=== PATIENT | male | born 1940 | race Caucasian/White ===

== ENCOUNTER → 2020-03-15 | Outpatient (CLI) | payer MEDICARE ==
[2020-03-15 12:21] LABS: Basophils # (A) 0.1 k/uL (0-0.2); Basophils % (A) 1 %; Eosinophils # (A) 0.2 k/uL (0-0.7); Eosinophils % (A) 3 %; HCT 50.3 % (39.0-53.0); HGB 16.4 gm/dL (13.0-17.5); Lymphocytes # (A) 1.5 k/uL (1.0-4.8); Lymphocytes % (A) 17 %; MCH 29.9 pg (25.0-35.0); MCHC 32.6 g/dL (31.0-37.0); MCV 91.5 fL (80.0-100.0); Mean Platelet Volume 7.1; Monocytes # (A) 0.7 k/uL (0-1.0); Monocytes % (A) 8 %; Neutrophils # (A) 6.1 k/uL (1.3-7.7); Neutrophils % (A) 69 %; Platelet Count 138 k/uL (150-450); WBC 8.8 k/uL (3.8-10.6)
[2020-03-15 18:51] LABS: African American GFR (CKD) 67.2 (60.0-200.0); Albumin 4.1 g/dL (3.80-4.90); Albumin/Globulin Ratio 1.71 (1.60-3.17); Anion Gap 7.9 mmol/L (4.00-12.00); BUN/Creat Ratio 25.83 Ratio (12.00-20.00); Calcium 9.5 mg/dL (8.7-10.3); Carbon Dioxide 27.1 mmol/L (21.6-31.8); Chol/HDL Ratio 3.89; Globulin 2.4 g/dL (1.6-3.3); LDL Cholesterol,Calculated 129.2 mg/dL (0.0-131.0); Potassium 4.5 mmol/L (3.5-5.5); Total Bilirubin 0.9 mg/dL (0.2-1.2); Total Protein 6.5 g/dL (6.2-8.2); VLDL Calculation 23.8 mg/dL (5.00-40.00)
[2020-03-15 18:58] LABS: PSA Annual Screen 1.6 ng/mL (0.0-4.0)
== END | disposition home or self-care (01) ==
LOC: LABWHC1 10:58
PROVIDERS: ATTEND Family Medicine
DX: I10 Essential (primary) hypertension (principal); I48.91 Unspecified atrial fibrillation; Z95.3 Presence of xenogenic heart valve; E78.5 Hyperlipidemia, unspecified; R35.1 Nocturia
CPT/HCPCS: 80061; 80053; 85025; 36415; G0103

== ENCOUNTER 2020-04-15 16:58 | Emergency (ER) | payer MEDICARE ==
[2020-04-15] MEDS ORDERED: ALBUTEROL HFA INHALER INHALATION STA (17:31)
[2020-04-15] MEDS ORDERED: ACETAMINOPHEN TAB 500 MG TAB PO STA (17:32)
--- NOTE | 2020-04-15 17:33 | ED ---
SOB HPI - General Chief Complaint: Shortness of Breath Stated Complaint: sob Source: patient Mode of arrival: wheelchair Limitations: no limitations - History of Present Illness Initial Comments: Patient is a 79-year-old male with past mental history of hypertension, aortic valve repair who presents emergency Department with reported cough, shortness of breath and fever. Patient states that his symptoms started today. He has been suffering from a nonproductive bronchospastic cough. He denies any chest pain. No sick contacts with similar symptoms. Denies ear pain, sore throat. No abdominal pain. Denies nausea, vomiting or diarrhea. Does admit to previous history of aortic valve replacement and mitral valve [place] [address] Castillo. He had one episode of heart failure following the replacement which required thoracentesis however since has had no issues with heart failure. He also admits to history of A. fib and sees Dr. Kelly. Reports he is supposed to be on Coumadin however stopped taking it 3 years ago. 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 - Related Data Home Medications Medication Instructions Recorded Confirmed Aspirin 325 mg PO TID 04/15/20 04/15/20 Diltiazem Cd [Cardizem Cd] 180 mg PO DAILY 04/15/20 04/15/20 Multivitamins, Thera [Multivitamin 1 tab PO DAILY 04/15/20 04/15/20 (formulary)] Sotalol [Betapace] 60 mg PO DAILY 04/15/20 04/15/20 guaiFENesin-DM 100-10MG/5ML 30 ml PO Q6H PRN 04/15/20 04/15/20 [Robitussin DM] Allergies Allergy/AdvReac Type Severity Reaction Status Date / Time No Known Allergies Allergy Verified 04/15/20 18:41 Review of Systems ROS Statement: Those systems with pertinent positive or pertinent negative responses have been documented in the HPI. ROS Other: All systems not noted in ROS Statement are negative. Past Medical History Past Medical History: Hypertension History of Any Multi-Drug Resistant Organisms: None Reported Past Surgical History: Coronary Bypass/CABG, Hernia Repair Past Psychological History: No Psychological Hx Reported Smoking Status: Never smoker Past Alcohol Use History: Occasional Past Drug Use History: None Reported General Exam Limitations: no limitations General appearance: alert, in no apparent distress Head exam: Present: atraumatic, normocephalic, normal inspection Eye exam: Present: normal appearance, PERRL, EOMI. Absent: scleral icterus, conjunctival injection, periorbital swelling ENT exam: Present: normal exam, mucous membranes moist Neck exam: Present: normal inspection. Absent: tenderness, meningismus, lymphadenopathy Respiratory exam: Present: normal lung sounds bilaterally, other (bronchospastic cough). Absent: respiratory distress, wheezes, rales, rhonchi, stridor Cardiovascular Exam: Present: bradycardia, irregular rhythm, normal heart sounds. Absent: systolic murmur, diastolic murmur, rubs, gallop, clicks GI/Abdominal exam: Present: soft, normal bowel sounds. Absent: distended, tenderness, guarding, rebound, rigid Extremities exam: Present: normal inspection, full ROM, normal capillary refill. Absent: tenderness, pedal edema, joint swelling, calf tenderness Back exam: Present: normal inspection Neurological exam: Present: alert, oriented X3, CN II-XII intact Psychiatric exam: Present: normal affect, normal mood Skin exam: Present: warm, dry, intact, normal color. 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 Currently speaking with [facility] for transfer 04/15/20 21:34 Medical Decision Making - Medical Decision Making Upon arrival the patient is placed into room 8. A thorough history and physical exam was performed. Peripheral IV is established. Laboratory studies were conducted. D-dimer is 4.75. BNP 1460. Covid is detected. Because of the patient's elevated d-dimer I did recommend CT of the patient's chest as he is preferring to go home for the remainder of his treatment. CT demonstrates no evidence of pulmonary embolism. Patchy bilateral pulmonary predominantly interstitial infiltrates. Mild atelectasis left posterior lung base. Masses in the posterior aspect of the left atrium. Possibilities of cardiac tumor or large blood clot. As the patient is in A. fib with controlled rate I did lesia mmend heparinization and hospital admission. Patient is requesting transfer to 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 I did call discuss the case with Dr. Feliz who is tower control operator instrument mechanic weapons system. I also spoke with Dr. Matthew who accepted transfer. Patient remained in A. fib with a controlled rate and was transferred in stable condition - Lab Data Result diagrams: 04/15/20 17:57 04/15/20 17:57 Lab Results 04/15/20 04/15/20 04/15/20 Range/Units 17:38 17:57 17:57 WBC 8.4 (3.8-10.6) k/uL RBC 5.17 (4.30-5.90) m/uL Hgb 14.7 (13.0-17.5) gm/dL Hct 45.4 (39.0-53.0) % MCV 87.8 (80.0-100.0) fL MCH 28.4 (25.0-35.0) pg MCHC 32.4 (31.0-37.0) g/dL RDW 13.6 (11.5-15.5) % Plt Count 149 L (150-450) k/uL MPV 7.7 Neutrophils % 80 % Lymphocytes % 9 % Monocytes % 8 % Eosinophils % 1 % Basophils % 0 % Neutrophils # 6.8 (1.3-7.7) k/uL Lymphocytes # 0.8 L (1.0-4.8) k/uL Monocytes # 0.7 (0-1.0) k/uL Eosinophils # 0.0 (0-0.7) k/uL Basophils # 0.0 (0-0.2) k/uL PT 10.8 (9.0-12.0) sec INR 1.1 (<1.2) APTT 25.3 (22.0-30.0) sec D-Dimer 4.75 H (<0.60) mg/L FEU Sodium (137-145) mmol/L Potassium (3.5-5.1) mmol/L Chloride (98-107) mmol/L Carbon Dioxide (22-30) mmol/L Anion Gap mmol/L BUN (9-20) mg/dL Creatinine (0.66-1.25) mg/dL Est GFR (CKD-EPI)AfAm (>60 ml/min/1.73 sqM) Est GFR (CKD-EPI)NonAf (>60 ml/min/1.73 sqM) Glucose (74-99) mg/dL Plasma Lactic Acid Grady (0.7-2.0) mmol/L Calcium (8.4-10.2) mg/dL Total Bilirubin (0.2-1.3) mg/dL AST (17-59) U/L ALT (4-49) U/L Alkaline Phosphatase (38-126) U/L Lactate Dehydrogenase (313-618) U/L Troponin I (0.000-0.034) ng/mL NT-Pro-B Natriuret Pep pg/mL Total Protein (6.3-8.2) g/dL Albumin (3.5-5.0) g/dL Serum Alcohol mg/dL Influenza Type A (PCR) Not Detected (Not Detectd) Influenza Type B (PCR) Not Detected (Not Detectd) RSV (PCR) Not Detected (Not Detectd) SARS-CoV-2 (PCR) Detected A (Not Detectd) 04/15/20 04/15/20 04/15/20 Range/Units 17:57 17:57 17:57 WBC (3.8-10.6) k/uL RBC (4.30-5.90) m/uL Hgb (13.0-17.5) gm/dL Hct (39.0-53.0) % MCV (80.0-100.0) fL MCH (25.0-35.0) pg MCHC (31.0-37.0) g/dL RDW (11.5-15.5) % Plt Count (150-450) k/uL MPV Neutrophils % % Lymphocytes % % Monocytes % % Eosinophils % % Basophils % % Neutrophils # (1.3-7.7) k/uL Lymphocytes # (1.0-4.8) k/uL Monocytes # (0-1.0) k/uL Eosinophils # (0-0.7) k/uL Basophils # (0-0.2) k/uL PT (9.0-12.0) sec INR (<1.2) APTT (22.0-30.0) sec D-Dimer (<0.60) mg/L FEU Sodium 134 L (137-145) mmol/L Potassium 4.5 (3.5-5.1) mmol/L Chloride 105 (98-107) mmol/L Carbon Dioxide 23 (22-30) mmol/L Anion Gap 6 mmol/L BUN 26 H (9-20) mg/dL Creatinine 1.13 (0.66-1.25) mg/dL Est GFR (CKD-EPI)AfAm 72 (>60 ml/min/1.73 sqM) Est GFR (CKD-EPI)NonAf 63 (>60 ml/min/1.73 sqM) Glucose 110 H (74-99) mg/dL Plasma Lactic Acid Grady 1.1 (0.7-2.0) mmol/L Calcium 8.6 (8.4-10.2) mg/dL Total Bilirubin 0.6 (0.2-1.3) mg/dL AST 31 (17-59) U/L ALT 18 (4-49) U/L Alkaline Phosphatase 68 (38-126) U/L Lactate Dehydrogenase 636 H (313-618) U/L Troponin I 0.032 (0.000-0.034) ng/mL NT-Pro-B Natriuret Pep pg/mL Total Protein 6.4 (6.3-8.2) g/dL Albumin 3.5 (3.5-5.0) g/dL Serum Alcohol <10 mg/dL Influenza Type A (PCR) (Not Detectd) Influenza Type B (PCR) (Not Detectd) RSV (PCR) (Not Detectd) SARS-CoV-2 (PCR) (Not Detectd) 04/15/20 Range/Units 17:57 WBC (3.8-10.6) k/uL RBC (4.30-5.90) m/uL Hgb (13.0-17.5) gm/dL Hct (39.0-53.0) % MCV (80.0-100.0) fL MCH (25.0-35.0) pg MCHC (31.0-37.0) g/dL RDW (11.5-15.5) % Plt Count (150-450) k/uL MPV Neutrophils % % Lymphocytes % % Monocytes % % Eosinophils % % Basophils % % Neutrophils # (1.3-7.7) k/uL Lymphocytes # (1.0-4.8) k/uL Monocytes # (0-1.0) k/uL Eosinophils # (0-0.7) k/uL Basophils # (0-0.2) k/uL PT (9.0-12.0) sec INR (<1.2) APTT (22.0-30.0) sec D-Dimer (<0.60) mg/L FEU Sodium (137-145) mmol/L Potassium (3.5-5.1) mmol/L Chloride (98-107) mmol/L Carbon Dioxide (22-30) mmol/L Anion Gap mmol/L BUN (9-20) mg/dL Creatinine (0.66-1.25) mg/dL Est GFR (CKD-EPI)AfAm (>60 ml/min/1.73 sqM) Est GFR (CKD-EPI)NonAf (>60 ml/min/1.73 sqM) Glucose (74-99) mg/dL Plasma Lactic Acid Grady (0.7-2.0) mmol/L Calcium (8.4-10.2) mg/dL Total Bilirubin (0.2-1.3) mg/dL AST (17-59) U/L ALT (4-49) U/L Alkaline Phosphatase (38-126) U/L Lactate Dehydrogenase (313-618) U/L Troponin I (0.000-0.034) ng/mL NT-Pro-B Natriuret Pep 1460 pg/mL Total Protein (6.3-8.2) g/dL Albumin (3.5-5.0) g/dL Serum Alcohol mg/dL Influenza Type A (PCR) (Not Detectd) Influenza Type B (PCR) (Not Detectd) RSV (PCR) (Not Detectd) SARS-CoV-2 (PCR) (Not Detectd) - EKG Data EKG Comments: EKG demonstrates A. fib with a slow ventricular rate. Rate of 59. QRS 118. QTC 397. Incomplete left bundle-branch block. Negative for sgarbossa criteria Disposition Clinical Impression: Left atrial mass, COVID-19, Elevated d-dimer Disposition: OTHER INSTITUTION NOT DEFINED Is patient prescribed a controlled substance at d/c from ED?: No Referrals: Jimenez Maher [Primary Care Provider] - 1-2 days Time of Disposition: 21:41 - Out of Hospital Transfer - Req. Specs Out of Hospital Transfer - Requested Specifics: Other Emergency Center ([facility])
[2020-04-15 18:16] LABS: Basophils % (A) 0 %; Eosinophils % (A) 1 %; HCT 45.4 % (39.0-53.0); HGB 14.7 gm/dL (13.0-17.5); Lymphocytes # (A) 0.8 k/uL (1.0-4.8); Lymphocytes % (A) 9 %; MCH 28.4 pg (25.0-35.0); MCHC 32.4 g/dL (31.0-37.0); MCV 87.8 fL (80.0-100.0); Mean Platelet Volume 7.7; Monocytes # (A) 0.7 k/uL (0-1.0); Monocytes % (A) 8 %; Neutrophils # (A) 6.8 k/uL (1.3-7.7); Neutrophils % (A) 80 %; Platelet Count 149 k/uL (150-450); RBC 5.17 m/uL (4.30-5.90); RDW 13.6 % (11.5-15.5); WBC 8.4 k/uL (3.8-10.6)
[2020-04-15 18:30] LABS: ALT 18 U/L (4-49); AST 31 U/L (17-59); African American GFR (CKD) 72 (>60 ml/min/1.73 sqM); Albumin 3.5 g/dL (3.5-5.0); Alcohol <10 mg/dL; Alkaline Phosphatase 68 U/L (38-126); Anion Gap 6 mmol/L; Blood Urea Nitrogen 26 mg/dL (9-20); Calcium 8.6 mg/dL (8.4-10.2); Carbon Dioxide 23 mmol/L (22-30); Chloride 105 mmol/L (98-107); Glucose 110 mg/dL (74-99); LDH 636 U/L (313-618); Non-African American GFR(CKD) 63 (>60 ml/min/1.73 sqM); Potassium 4.5 mmol/L (3.5-5.1); Sodium 134 mmol/L (137-145); Total Bilirubin 0.6 mg/dL (0.2-1.3); Total Protein 6.4 g/dL (6.3-8.2)
--- NOTE | 2020-04-15 18:37 | XR ---
EXAMINATION TYPE: XR chest 1V portable DATE OF EXAM: 04/15/2020 COMPARISON: NONE HISTORY: Fever TECHNIQUE: Single view FINDINGS: Heart is normal. Lungs are clear of consolidation. There are no hilar masses. There are mohini rnal wires. Costophrenic angles are clear. Bony thorax is intact. There is slight coarsening of inter stitial markings right lower lobe. IMPRESSION: Mild pulmonary fibrotic changes. No heart failure or pulmonary consolidation.
[2020-04-15 18:56] LABS: INR 1.1 (<1.2); Partial Thromboplastin Time 25.3 sec (22.0-30.0); Prothrombin Time 10.8 sec (9.0-12.0)
[2020-04-15 19:15] LABS: D-Dimer 4.75 mg/L FEU (<0.60)
[2020-04-15 19:28] VITALS: TEMP 99.8
--- NOTE | 2020-04-15 20:28 | CT ---
EXAMINATION TYPE: CT chest angio for PE DATE OF EXAM: 04/15/2020 COMPARISON: None HISTORY: Elevated d-dimer, cough and covid+. CT DLP: 572 mGycm Automated exposure control for dose reduction was used. CONTRAST: Performed with IV Contrast, patient injected with 80ml mL of Isovue 370. There are 3-D post processed images. There are a few enlarged paratracheal lymph nodes that measure up to 12 mm. Thoracic aorta is atherom atous. 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 There is normal contrast opacification of the pulmonary arteries. There are no filling defects. There are no hilar masses. Heart size is fairly normal. There is no pericardial effusion. There is patchy interstitial infiltrates in both lungs scattered in the upper and lower lobes. There is no solid pulmonary mass. There is a 4 x 2 cm mass within the left atrium on the posterior wall. Left atrium has normal size. There is degenerative spurring in the thoracic spine. There is no compression fracture. I see no bony destructive process. There are sternal wires. There is cardiac valve surgery. IMPRESSION: No evidence of pulmonary embolism. Patchy bilateral pulmonary predominantly interstitial infiltrates. Mild atelectasis left posterior josy ng base. Mass within the posterior aspect of the left atrium. I would consider possibilities of cardiac tumor or large blood clot.
[2020-04-15] MEDS ORDERED: HEPARIN SODIUM,PORCINE 5,000 UNIT/ML 1 ML VIAL IV PRN (21:11)
[2020-04-15] MEDS ORDERED: HEPARIN SODIUM,PORCINE 5,000 UNIT/ML 1 ML VIAL IV ONE (21:11)
[2020-04-15] MEDS ORDERED: SODIUM CHLORIDE 0.9% 1,000 ML IV ONE (21:12)
[2020-04-15] MEDS ORDERED: HEPARIN SOD,PORK IN 0.45% NACL 25,000 UNIT in 0.45% NACL 1 250ML.BAG IV SCH (21:15)
[2020-04-15 23:00] VITALS: BP 106/65; PULSE 65; RESP 16
== END 2020-04-15 23:05 | disposition other institution (70) ==
LOC: EC 16:58
DX: U07.1 COVID-19 (principal); R79.89 Other specified abnormal findings of blood chemistry; I31.8 Other specified diseases of pericardium; J98.11 Atelectasis; I48.91 Unspecified atrial fibrillation; I10 Essential (primary) hypertension; Z95.1 Presence of aortocoronary bypass graft; Z79.82 Long term (current) use of aspirin; Z79.899 Other long term (current) drug therapy; Z95.2 Presence of prosthetic heart valve
CPT/HCPCS: 36415; 93005; 85379; 83880; 80053; 83605; 83615; 84484; 85025; 85610; 85730; 84145; 87636; 71045; 71275; 99285; 96365; 96366; 96376; G0480; J1644 ×2; Q9967; 80320

== ENCOUNTER → 2020-05-25 | Outpatient (CLI) | payer MEDICARE ==
--- NOTE | 2020-05-25 16:31 | XR ---
EXAMINATION TYPE: XR lumbar spine 2 or 3V DATE OF EXAM: 05/25/2020 Comparison: None Clinical History: 79 year-old male M54.5 CHRONIC LOW BACK PAIN Findings: 1.8 cm calcification in the right side of the pelvis. Degenerated levoconvex rotatory curvature cente red along the upper lumbar spine. Moderate degenerative disc disease throughout, more advanced at L2/ L3 with loss of disc height and vacuum phenomenon. Endplate spondylosis throughout. Hypertrophic face t arthropathy with grade 1 anterolisthesis L4-L5. Vertebral body heights are preserved. Impression: 1. Findings suggesting 1.8 cm right renal calculus. 2. Moderate to advanced multilevel degenerative disc disease and advanced hypertrophic facet arthropa thy throughout. 3. Degenerative grade 1 anterolisthesis L4-L5 and degenerated levoconvex curvature centered along the upper lumbar spine.
== END | disposition home or self-care (01) ==
LOC: RADXRMAIN 15:22
PROVIDERS: ATTEND Family Medicine
DX: M51.36 Other intervertebral disc degeneration, lumbar region (principal); M43.16 Spondylolisthesis, lumbar region; M47.816 Spondylosis without myelopathy or radiculopathy, lumbar region; M43.8X6 Other specified deforming dorsopathies, lumbar region; G89.29 Other chronic pain
CPT/HCPCS: 72100

== ENCOUNTER → 2020-05-31 | Outpatient (CLI) | payer MEDICARE ==
--- NOTE | 2020-05-31 11:37 | CT ---
EXAMINATION TYPE: CT abdomen pelvis wo con DATE OF EXAM: 05/31/2020 COMPARISON: None HISTORY: Renal calculus CT DLP: 1002 mGycm Examination of the solid and hollow viscera is limited given the lack of contrast. FINDINGS: LUNG BASES: No evidence for nodule. No evidence for infiltrate. LIVER/GB: The gallbladder is unremarkable. No space-occupying hepatic lesion. PANCREAS: No pancreatic mass identified. No inflammatory process seen. SPLEEN: No evidence for splenomegaly. No intrasplenic lesions seen. ADRENALS: No adrenal nodules identified. No evidence for thickening. KIDNEYS: 1.7 cm calculus lower pole right kidney. No obstructing calculi are seen at this time. Large cyst right kidney. No solid mass seen. BOWEL: Appendix has a normal appearance. No evidence of bowel obstruction. No inflammatory process. Lymph nodes: No evidence for adenopathy greater than 1 cm. Abdominal aorta: Atheromatous changes seen. No evidence for aneurysm. Genital organs: Prostate calcifications identified. Other: No significant abnormality. IMPRESSION: 1. Nonobstructing nephrolithiasis right kidney.
[2020-05-31 11:42] LABS: Calcium 9.3 mg/dL (8.4-10.2)
== END | disposition home or self-care (01) ==
LOC: RADCTMAIN 10:17
PROVIDERS: ATTEND Family Medicine
DX: N20.0 Calculus of kidney (principal)
CPT/HCPCS: 36415; 74176; 80048

== ENCOUNTER → 2020-06-12 | Outpatient (CLI) | payer MEDICARE ==
--- NOTE | 2020-06-12 23:53 | MR ---
EXAMINATION TYPE: MR lumbar spine wo con DATE OF EXAM: 06/12/2020 COMPARISON: None HISTORY: LBP, RLE weakness Multiplanar multiecho imaging of the lumbar spine was performed with no contrast. Normal alignment. There is disc space narrowing throughout the lumbar spine and more severe from L2 t o L5. There is posterior disc herniation and sequestered fragment at L3-4. Fragment is along the post erior aspect of the L3 vertebral body. There is facet arthropathy. There is resultant moderate spinal stenosis. There is no compression fracture. I see no focal bone destruction. There is a lateral disc herniation on the right side at L3-4 impinging on the neural foramen. This is best seen on T1 sagittal image 13 . The left side neural foramina are fairly well-maintained. There is no paraspinal mass. The sacroili ac joints are intact. IMPRESSION: Multilevel spondylosis. Posterior central and right side and lateral L3-4 lumbar disc herniation with neural foraminal impingement. Small sequestered fragment posterior to the L3 vertebral body extendin g into the neural foramen. No fracture.
== END | disposition home or self-care (01) ==
LOC: RADMRIMAIN 09:13
PROVIDERS: ATTEND Anesthesiology
DX: M51.26 Other intervertebral disc displacement, lumbar region (principal); M47.816 Spondylosis without myelopathy or radiculopathy, lumbar region
CPT/HCPCS: 72148

== ENCOUNTER 2021-11-03 17:52 | Inpatient (IN) | payer MEDICARE ==
[~2021-11-03 17:52] MED LIST: IV FLUID CONTINUATION 900 ML IV ONE
--- NOTE | 2021-11-03 19:33 | US ---
EXAMINATION TYPE: US venous doppler duplex LE RT DATE OF EXAM: 11/03/2021 7:20 PM COMPARISON: NONE CLINICAL HISTORY: Cold ext.. Right lower leg appears cold per patient. No redness. No swelling. Hx CAD. On blood thinners per patient. SIDE PERFORMED: Right TECHNIQUE: The lower extremity deep venous system is examined utilizing real time linear array sonog lupillo with graded compression, doppler sonography and color-flow sonography. VESSELS IMAGED: Common Femoral Vein Deep Femoral Vein Greater Saphenous Vein * Femoral Vein Popliteal Vein Small Saphenous Vein * Proximal Calf Veins (* superficial vessels) Right Leg: Negative for DVT. Incidental finding: Right prox - distal popliteal artery appears enlarged with vague/no arterial flow . IMPRESSION: No deep vein thrombosis in the right leg. 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
[2021-11-03] MEDS ORDERED: SODIUM CHLORIDE 0.9% 1,000 ML IV STA (19:50)
--- NOTE | 2021-11-03 19:54 | ED ---
Lower Extremity Injury HPI - General Chief Complaint: Extremity Injury, Lower Stated Complaint: rt leg numbness/cold to touch Time Seen by Provider: 11/03/21 19:49 Source: patient, RN notes reviewed Mode of arrival: ambulatory Limitations: no limitations - History of Present Illness Initial Comments: She presents with right leg numbness and pain, cold to touch. Patient states he woke up at 2 AM and really had a hard time walking. Patient states he lost range of motion in his right ankle and foot. Patient states is actually feeling somewhat better at this time. Note that the patient takes warfarin for atrial fibrillation. States she's been taking this appropriately. No headache, no fever or chills, no changes in vision or hearing, no sore throat or difficulty with speech, no neck pain, no chest pain or shortness of breath, no abdominal pain, no nausea or vomiting, no changes in urination or bowel movements, no numbness or tingling, , no skin rashes or lesions. - Related Data Home Medications Medication Instructions Recorded Confirmed ALPRAZolam [Xanax] 0.25 mg PO HS PRN 11/03/21 11/03/21 Cholecalciferol [Vitamin D3 (25 25 mcg PO DAILY 11/03/21 11/03/21 Mcg = 1000 Iu)] Ibuprofen [Motrin] 600 mg PO Q8HR PRN 11/03/21 11/03/21 Losartan Potassium 50 mg PO DAILY 11/03/21 11/03/21 Melatonin Unknown Dose 1 tab PO HS 11/03/21 11/03/21 Metoprolol Succinate [Toprol XL] 50 mg PO DAILY 11/03/21 11/03/21 Naproxen 250 mg PO DAILY PRN 11/03/21 11/03/21 Tamsulosin [Flomax] 0.4 mg PO HS 11/03/21 11/03/21 Warfarin [Coumadin] 2.5 - 5 mg PO DAILY 11/03/21 11/03/21 Zinc 50 mg PO DAILY 11/03/21 11/03/21 Allergies Allergy/AdvReac Type Severity Reaction Status Date / Time No Known Allergies Allergy Verified 11/03/21 21:03 Review of Systems ROS Statement: Those systems with pertinent positive or pertinent negative responses have been documented in the HPI. ROS Other: All systems not noted in ROS Statement are negative. Past Medical History Past Medical History: Atrial Fibrillation, Coronary Artery Disease (CAD), Hypertension Additional Past Medical History / Comment(s): Covid History of Any Multi-Drug Resistant Organisms: None Reported Past Surgical History: Coronary Bypass/CABG, Hernia Repair Past Psychological History: No Psychological Hx Reported Smoking Status: Never smoker Past Alcohol Use History: Occasional Past Drug Use History: None Reported General Exam - General Exam Comments Initial Comments: Nontoxic appearing male in no distress. Limitations: no limitations General appearance: alert, in no apparent distress Head exam: Present: atraumatic, normocephalic, normal inspection Eye exam: Present: normal appearance, PERRL, EOMI. Absent: scleral icterus, conjunctival injection, periorbital swelling ENT exam: Present: normal exam, mucous membranes moist Neck exam: Present: normal inspection, full ROM. Absent: tenderness, meningismus, lymphadenopathy Respiratory exam: Present: normal lung sounds bilaterally. Absent: respiratory distress, wheezes, rales, rhonchi, stridor Cardiovascular Exam: Present: regular rate, normal rhythm, normal heart sounds. Absent: systolic murmur, diastolic murmur, rubs, gallop, clicks GI/Abdominal exam: Present: soft, normal bowel sounds. Absent: distended, tenderness, guarding, rebound, rigid Extremities exam: Present: full ROM, other (Pedal pulses by Doppler, patient has a good dorsalis pedis Doppler on the left foot. However no other pulses are found with regard to dorsalis pedis on the right and the bilateral posterior tibial.). Absent: normal inspection (Patient does have pallor with right lower leg and foot cold to touch when compared to the left), tenderness, normal capillary refill (Sluggish capillary refill on the right, takes several seconds.), pedal edema, joint swelling, calf tenderness Back exam: Present: normal inspection. Absent: rash noted Neurological exam: Present: alert, oriented X3, CN II-XII intact Psychiatric exam: Present: normal affect, normal mood Skin exam: Present: warm, dry, intact, normal color. Absent: rash Course Vital Signs 11/03/21 18:19 Temperature 98.3 F Pulse Rate 69 Respiratory 20 Rate Blood Pressure 123/67 O2 Sat by Pulse 97 Oximetry - Reevaluation(s) Reevaluation #1: 11/03/21 22:34 Medical record is reviewed Symptoms are improved here in the emergency department, patient has better color and still has range of motion with regards to the right foot and right lower extremity. Patient does have bradycardia which is noted on the monitor. Patient states that he normally runs bradycardic. Patient states he did get some nausea after having the computed tomography scan. We'll order an EKG and a troponin. Patient is informed of results and questions answered Patient in no distress The patient has no shortness of breath or chest pain. Reevaluation #2: 11/03/21 22:51 Note that we are still waiting for the report on the patient's CT with runoff. Patient currently medically stable. Foot is improved. - Consultations Consultation #1: Case discussed with Dr. Raines at 8:10 PM. She suggested a CTA abdominal aorta with runoff. Consultation #2: Case discussed again with Dr. Raines. INR is subtherapeutic at 1.5. High- intensity heparin protocol started after discussion. Still awaiting CT with runoff Medical Decision Making - Medical Decision Making Patient presents with sudden onset of right leg numbness and pain which occurred at 2 AM. Patient has evidence of a subtotal occlusion of the right femoral artery at the inguinal ligament. There is thrombosis of the distal right femoral and popliteal artery and no flow demonstrated below the knee and the right side. There is arterial flow into the abdominal aorta there is arterial flow into the renal, celiac, and superior mesenteric arteries. There is arterial flow into the iliac and femoral arteries. No aneurysm or dissection. There is arterial flow seen distally and the superficial femoral artery and the profunda femoris artery but the contrast density is decreased and the diameter decreased and consistent with decreased pressure and flow. Evidence of thrombus in the distal right superficial femoral artery and popliteal artery. There is a spurious finding of a 2 cm calculus in the lower right kidney and a 9 cm cortical cyst in the lateral right kidney Note that this patient did have a slightly elevated troponin at 0.046. However the patient was asymptomatic, had no chest pain. Patient did have an episode of bradycardia noted on the monitor. Patient states that he frequently will run low on his heart rate. Patient is on metoprolol. Dr. Raines here to see the patient and take the patient in the OR for arterial occlusion of the right lower extremity. Supervising physician, Dr. Silva - Lab Data Result diagrams: 11/03/21 20:29 11/03/21 20:29 Lab Results 11/03/21 11/03/21 11/03/21 Range/Units 20:29 20:29 20:29 WBC 9.0 (3.8-10.6) k/uL RBC 4.92 (4.30-5.90) m/uL Hgb 15.0 (13.0-17.5) gm/dL Hct 45.4 (39.0-53.0) % MCV 92.3 (80.0-100.0) fL MCH 30.4 (25.0-35.0) pg MCHC 33.0 (31.0-37.0) g/dL RDW 14.1 (11.5-15.5) % Plt Count 145 L (150-450) k/uL MPV 7.3 Neutrophils % 77 % Lymphocytes % 11 % Monocytes % 9 % Eosinophils % 1 % Basophils % 1 % Neutrophils # 6.9 (1.3-7.7) k/uL Lymphocytes # 1.0 (1.0-4.8) k/uL Monocytes # 0.8 (0-1.0) k/uL Eosinophils # 0.1 (0-0.7) k/uL Basophils # 0.1 (0-0.2) k/uL PT (9.0-12.0) sec INR (<1.2) APTT (22.0-30.0) sec Sodium 135 L (137-145) mmol/L Potassium 4.6 (3.5-5.1) mmol/L Chloride 100 (98-107) mmol/L Carbon Dioxide 28 (22-30) mmol/L Anion Gap 7 mmol/L BUN 27 H (9-20) mg/dL Creatinine 1.27 H (0.66-1.25) mg/dL Est GFR (CKD-EPI)AfAm 62 (>60 ml/min/1.73 sqM) Est GFR (CKD-EPI)NonAf 53 (>60 ml/min/1.73 sqM) Glucose 127 H (74-99) mg/dL Plasma Lactic Acid Grady 1.2 (0.7-2.0) mmol/L Calcium 8.8 (8.4-10.2) mg/dL Total Bilirubin 1.0 (0.2-1.3) mg/dL AST 43 (17-59) U/L ALT 24 (4-49) U/L Alkaline Phosphatase 70 (38-126) U/L Troponin I (0.000-0.034) ng/mL Total Protein 6.9 (6.3-8.2) g/dL Albumin 4.1 (3.5-5.0) g/dL 11/03/21 11/03/21 Range/Units 20:29 20:29 WBC (3.8-10.6) k/uL RBC (4.30-5.90) m/uL Hgb (13.0-17.5) gm/dL Hct (39.0-53.0) % MCV (80.0-100.0) fL MCH (25.0-35.0) pg MCHC (31.0-37.0) g/dL RDW (11.5-15.5) % Plt Count (150-450) k/uL MPV Neutrophils % % Lymphocytes % % Monocytes % % Eosinophils % % Basophils % % Neutrophils # (1.3-7.7) k/uL Lymphocytes # (1.0-4.8) k/uL Monocytes # (0-1.0) k/uL Eosinophils # (0-0.7) k/uL Basophils # (0-0.2) k/uL PT 15.4 H (9.0-12.0) sec INR 1.5 H (<1.2) APTT 26.9 (22.0-30.0) sec Sodium (137-145) mmol/L Potassium (3.5-5.1) mmol/L Chloride (98-107) mmol/L Carbon Dioxide (22-30) mmol/L Anion Gap mmol/L BUN (9-20) mg/dL Creatinine (0.66-1.25) mg/dL Est GFR (CKD-EPI)AfAm (>60 ml/min/1.73 sqM) Est GFR (CKD-EPI)NonAf (>60 ml/min/1.73 sqM) Glucose (74-99) mg/dL Plasma Lactic Acid Grady (0.7-2.0) mmol/L Calcium (8.4-10.2) mg/dL Total Bilirubin (0.2-1.3) mg/dL AST (17-59) U/L ALT (4-49) U/L Alkaline Phosphatase (38-126) U/L Troponin I 0.046 H* (0.000-0.034) ng/mL Total Protein (6.3-8.2) g/dL Albumin (3.5-5.0) g/dL - EKG Data EKG Comments: EKG done at 2248 reveals intraventricular conduction delay with a rate of 81. Finger complex are noted. No evidence of acute changes. Baseline artifact. QTC 461 ms. QRS 132, left axis deviation - Radiology Data Radiology results: report reviewed (Venous Doppler of the right lower extremit ies shows distal popliteal artery enlarged with vague/no arterial flow, there is no evidence of DVT however the popliteal artery shows aneurysmal changes with a significant thrombus within the wall.), image reviewed Disposition Clinical Impression: Arterial occlusion, Fracture of femur, Elevated troponin Narrative: Arterial occlusion, right lower extremity Disposition: ADMITTED IP TO THIS HOSP Condition: Stable Is patient prescribed a controlled substance at d/c from ED?: No Referrals: Alfred Rivers DO [Primary Care Provider] - 1-2 days Time of Disposition: 23:11 Decision to Admit Reason: Admit from EC Decision Time: 23:12
[2021-11-03 20:47] LABS: Basophils # (A) 0.1 k/uL (0-0.2); Basophils % (A) 1 %; Eosinophils # (A) 0.1 k/uL (0-0.7); Eosinophils % (A) 1 %; HCT 45.4 % (39.0-53.0); Lymphocytes % (A) 11 %; MCH 30.4 pg (25.0-35.0); MCV 92.3 fL (80.0-100.0); Mean Platelet Volume 7.3; Monocytes # (A) 0.8 k/uL (0-1.0); Monocytes % (A) 9 %; Neutrophils # (A) 6.9 k/uL (1.3-7.7); Neutrophils % (A) 77 %; Platelet Count 145 k/uL (150-450); RBC 4.92 m/uL (4.30-5.90); RDW 14.1 % (11.5-15.5)
[2021-11-03 20:57] LABS: Albumin 4.1 g/dL (3.5-5.0); Calcium 8.8 mg/dL (8.4-10.2); Potassium 4.6 mmol/L (3.5-5.1); Total Protein 6.9 g/dL (6.3-8.2)
[2021-11-03 21:05] LABS: INR 1.5 (<1.2); Partial Thromboplastin Time 26.9 sec (22.0-30.0); Prothrombin Time 15.4 sec (9.0-12.0)
[2021-11-03] MEDS ORDERED: HEPARIN SODIUM 1,000 UN/ML (10ML VL) IV ONE (21:22)
[2021-11-03] MEDS ORDERED: HEPARIN SODIUM 1,000 UN/ML (10ML VL) IV PRN (21:22)
[2021-11-03] MEDS: HEPARIN SOD,PORK IN 0.45% NACL 25,000 UNIT in 0.45% NACL 1 250ML.BAG IV SCH (21:41)
--- NOTE | 2021-11-03 22:50 | CT ---
EXAMINATION TYPE: CT angio abd aorta w/Runoff DATE OF EXAM: 11/03/2021 COMPARISON: HISTORY: RT leg pain w/diminished arterial flow. 90 sec scan unsuccessful due to scanner error CT DLP: 3177.6 mGycm Automated exposure control for dose reduction was used. CONTRAST: Performed with IV Contrast, patient injected with 100 mL of Isovue 370. Images obtained from the diaphragm to the bottom of the feet without and with the IV contrast. There are Three-D postprocessed images. There is a 2 cm calculus lower pole right kidney. There is 9 cm cortical cyst lateral right kidney. L iver spleen and stomach pancreas appear intact. The bile duct are not dilated. Gallbladder is intact. No ascites. No evidence of a pelvic mass. Bladder distends smoothly. There is prostate calcification . There is arterial flow in the abdominal aorta. There is arterial flow in the renal and celiac and sup erior mesenteric arteries. There is arterial flow in the iliac and femoral arteries. No aneurysm or d issection. There is subtotal occlusion of the proximal right femoral artery and the right inguinal re gion. There is arterial flow seen distally in the superficial femoral artery and the profunda femoris artery but the contrast density is decreased and diameter decreased and consistent with decreased pr essure and flow. There is evidence of thrombus in the distal right superficial femoral artery and the popliteal artery. No flow seen at the popliteal artery. Arterial flow not demonstrated in the right tibial artery and the branches of the tibial artery. Delayed 90sec images were not obtained due to te chnical difficulties. On the left side there is arterial flow in the femoral artery and the popliteal artery. There is comp lete occlusion of the proximal left tibial artery. No flow demonstrated to any degree in the left low er leg. IMPRESSION: There is evidence of subtotal occlusion of the right femoral artery at the inguinal ligament. There i s thrombosis of the distal right femoral and popliteal artery and no flow demonstrated below the knee on the right side. There is evidence of thrombus of the left tibial artery and no flow demonstrated below the knee in th e left lower leg. Exam limited by lack of delayed imaging.
--- NOTE | 2021-11-03 23:32 | P.GSCN ---
History of Present Illness Consult date: 11/03/21 History of present illness: Gonsalo is a 81-year-old male with a past medical history of atrial fibrillation, history of rheumatic fever as a child, coronary artery disease, hypertension who presented to the ER with coolness to his right lower extremity. He states that in the middle the night when he woke up he is a restroom he realizes leg was numb on the right. He waited to come in thinking that it was maybe a pinched nerve. He presented around dinnertime to the ER due to nonresolution. He states that overall though his foot had improved since being here. He is more able to move his foot now than he was in the morning when he awoke. He is uncomfortable in his foot but denies any overt pain. He is able to move his foot. He states he has been compliant with his Coumadin Past Medical History Past Medical History: Atrial Fibrillation, Coronary Artery Disease (CAD), Hypertension Additional Past Medical History / Comment(s): Covid History of Any Multi-Drug Resistant Organisms: None Reported Past Surgical History: Coronary Bypass/CABG, Hernia Repair Past Psychological History: No Psychological Hx Reported Smoking Status: Never smoker Past Alcohol Use History: Occasional Past Drug Use History: None Reported Medications and Allergies Home Medications Medication Instructions Recorded Confirmed Type ALPRAZolam [Xanax] 0.25 mg PO HS PRN 11/03/21 11/03/21 History Cholecalciferol [Vitamin D3 (25 25 mcg PO DAILY 11/03/21 11/03/21 History Mcg = 1000 Iu)] Ibuprofen [Motrin] 600 mg PO Q8HR PRN 11/03/21 11/03/21 History Losartan Potassium 50 mg PO DAILY 11/03/21 11/03/21 History Melatonin Unknown Dose 1 tab PO HS 11/03/21 11/03/21 History Metoprolol Succinate [Toprol XL] 50 mg PO DAILY 11/03/21 11/03/21 History Naproxen 250 mg PO DAILY PRN 11/03/21 11/03/21 History Tamsulosin [Flomax] 0.4 mg PO HS 11/03/21 11/03/21 History Warfarin [Coumadin] 2.5 - 5 mg PO DAILY 11/03/21 11/03/21 History Zinc 50 mg PO DAILY 11/03/21 11/03/21 History Allergies Allergy/AdvReac Type Severity Reaction Status Date / Time No Known Allergies Allergy Verified 11/03/21 21:03 Surgical - Exam Vital Signs Temp Pulse Resp BP Pulse Ox 98.3 F 69 20 123/67 97 11/03/21 18:19 11/03/21 18:19 11/03/21 18:19 11/03/21 18:19 11/03/21 18:19 Gen. is a pleasant and cooperative elderly male in no acute distress. HEENT is normocephalic, atraumatic, extraocular motion intact. Heart is irregularly irregular. Lungs are clear but diminished bilaterally. Abdomen soft, nontender nondistended. Extremity show no clubbing or cyanosis. The right lower extremity is cooler to touch to around the level of the mid knee. No overt calf tenderness with palpation. Motor intact bilateral lower extremities. Slightly decreased sensation at the dorsum of the foot. No pedal pulses. Easily palpable left femoral pulse. Difficult to palpate right femoral pulse. Results Computed tomography scan is reviewed. There is occlusive thrombus in the common femoral, profunda and proximal superficial femoral artery as well as through the distal superficial femoral and popliteal artery. Diminished contrast below. Although not commented upon, it appears there are likely popliteal artery aneurysms bilaterally - Labs 11/03/21 20:29 11/03/21 20:29 Abnormal Lab Results - Last 24 Hours (Table) 11/03/21 11/03/21 11/03/21 Range/Units 20:29 20:29 20:29 Plt Count 145 L (150-450) k/uL PT 15.4 H (9.0-12.0) sec INR 1.5 H (<1.2) Sodium 135 L (137-145) mmol/L BUN 27 H (9-20) mg/dL Creatinine 1.27 H (0.66-1.25) mg/dL Glucose 127 H (74-99) mg/dL Troponin I (0.000-0.034) ng/mL 11/03/21 Range/Units 20:29 Plt Count (150-450) k/uL PT (9.0-12.0) sec INR (<1.2) Sodium (137-145) mmol/L BUN (9-20) mg/dL Creatinine (0.66-1.25) mg/dL Glucose (74-99) mg/dL Troponin I 0.046 H* (0.000-0.034) ng/mL Diabetes panel 11/03/21 Range/Units 20:29 Sodium 135 L (137-145) mmol/L Potassium 4.6 (3.5-5.1) mmol/L Chloride 100 (98-107) mmol/L Carbon Dioxide 28 (22-30) mmol/L BUN 27 H (9-20) mg/dL Creatinine 1.27 H (0.66-1.25) mg/dL Glucose 127 H (74-99) mg/dL Calcium 8.8 (8.4-10.2) mg/dL AST 43 (17-59) U/L ALT 24 (4-49) U/L Alkaline Phosphatase 70 (38-126) U/L Total Protein 6.9 (6.3-8.2) g/dL Albumin 4.1 (3.5-5.0) g/dL Calcium panel 11/03/21 Range/Units 20:29 Calcium 8.8 (8.4-10.2) mg/dL Albumin 4.1 (3.5-5.0) g/dL Pituitary panel 11/03/21 Range/Units 20:29 Sodium 135 L (137-145) mmol/L Potassium 4.6 (3.5-5.1) mmol/L Chloride 100 (98-107) mmol/L Carbon Dioxide 28 (22-30) mmol/L BUN 27 H (9-20) mg/dL Creatinine 1.27 H (0.66-1.25) mg/dL Glucose 127 H (74-99) mg/dL Calcium 8.8 (8.4-10.2) mg/dL Adrenal panel 11/03/21 Range/Units 20:29 Sodium 135 L (137-145) mmol/L Potassium 4.6 (3.5-5.1) mmol/L Chloride 100 (98-107) mmol/L Carbon Dioxide 28 (22-30) mmol/L BUN 27 H (9-20) mg/dL Creatinine 1.27 H (0.66-1.25) mg/dL Glucose 127 H (74-99) mg/dL Calcium 8.8 (8.4-10.2) mg/dL Total Bilirubin 1.0 (0.2-1.3) mg/dL AST 43 (17-59) U/L ALT 24 (4-49) U/L Alkaline Phosphatase 70 (38-126) U/L Total Protein 6.9 (6.3-8.2) g/dL Albumin 4.1 (3.5-5.0) g/dL Assessment and Plan Assessment: Right lower extremity acute limb ischemia Femoral popliteal occlusion Diminished number popliteal flow bilaterally 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 He was initiated on a heparin drip at the time of the consultation being called. Discussed risks and benefits of both open surgical and endovascular revascularization options. Discussed the risks of thrombolysis including but not limited to significant and severe bleeding. The patient seemingly understands risks including loss of limb and loss of life as well as others discussed. He would like to proceed at this time.
[2021-11-03] MEDS ORDERED: SODIUM CHLORIDE 0.9% 1,000 ML IV SCH (23:45)
[2021-11-03] MEDS ORDERED: ALTEPLASE 2 MG VIAL (CATHFLO) IV ONE (23:46)
[2021-11-03] MEDS ORDERED: fentaNYL (PF) 50 MCG/ML 2 ML AMP ONE (23:51)
[2021-11-04] MEDS: MIDAZOLAM 2 MG/2 ML VIAL IV ONE ×2 (00:10→00:15)
[2021-11-04] MEDS ORDERED: fentaNYL (PF) 50 MCG/ML 2 ML AMP IV ONE ×2 (00:10→16:50)
[2021-11-04] MEDS ORDERED: LIDOCAINE 1% INJ 10MG/ML (30 ML VIAL-PF) SQ ONE ×2 (00:10→16:52)
[2021-11-04] MEDS ORDERED: IOPAMIDOL-250 100ML BTL INTRAARTER ONE ×3 (01:09→17:19)
[2021-11-04] MEDS: HEPARIN SOD,PORK IN 0.45% NACL 25,000 UNIT in 0.45% NACL 1 250ML.BAG IV SCH ×2 (01:15→01:22)
[2021-11-04] MEDS: ALTEPLASE 10 MG in SODIUM CHLORIDE 0.9% 90 ML IV ONE ×2 (01:15→01:22)
[2021-11-04 01:41] LABS: Glucose,Whole Blood 117 mg/dL (70-110)
--- NOTE | 2021-11-04 01:51 | P.OP ---
Date of Procedure: 11/04/21 Description of Procedure: Preoperative diagnosis: [Acute limb ischemia, Femoral popliteal artery occlusion, atrial fibrillation, likely popliteal artery aneurysms] Postoperative diagnosis: Same Procedure: [#1 ultrasound guided left common femoral artery access #2 selective right lower extremity angiogram, third order to below-knee popliteal artery #3 initiation of TPA thrombolysis #4 moderate conscious sedation time 60 minutes] Surgeon: Bethany Raines D.O. EBL: [10 mL] IV fluids: [See records] Urine output: [See records] Drains: [None] Complications: [None immediately apparent] Condition: [Stable to ICU] Operative indication and findings: [The patient is a 81-year-old male with right lower extremity acute limb ischemia in atrial fibrillation not fully anticoagulated. He was found to have thrombus of his common femoral, proximal and distal superficial femoral artery as well as the popliteal artery. Recommendations were for revascularization at this time he appears to maintain motor function as well as most sensory therefore endovascular approach was offered after discussion regarding all options. He seemingly understood and wished to proceed in this manner. ] Procedure in detail: [The patient was taken to the special suite and placed in supine position. Bilateral groins are prepped and draped in usual sterile fashion. A computed timeout was performed, all parties are in agreement. Using ultrasound, the left common femoral artery was identified. The skin overlying was anesthetized 1% lidocaine plain. Using a micropuncture needle, access was gained under ultrasound guidance and Seldinger technique was used to place a 6- Austrian sheath. Catheters and wires were used access the right iliac system. A right lower extremity angiogram was performed from this level. Is confirmed occlusion at the right common femoral artery. There was some degree of flow as distal portions of the profunda and mid superficial femoral artery were visualized. The catheters and wires were used access the superficial femoral artery and luminal gain was confirmed. At that point the decision was made to exchange for a 6-Austrian Hui sheath. A repeat right lower extremity angiogram was performed and the wire was then advanced to the distal superficial femoral artery along with the catheter. An image was performed showing occlusion of the popliteal artery with some collateralization. Catheters and wires were used to traverse this and the catheter was then placed in the below-knee popliteal artery. A confirmatory angiogram was performed at this level. There was evidence of minimal anterior tibial artery and one-vessel from the TP trunk, unable to discern which. Initial attempts were made to place a 50 cm egos catheter however upon multiple attempts, the ultrasonic wire would not traverse the tortuosity of the iliac vessels and therefore was unable to be fully secured in place. The decision was made to utilize a different sheath are for again the wire was placed, catheter was removed, the sheath was exchanged for a 6 destination catheter. Again attempts were made to place the goes catheter and again were unsuccessful. At that point the decision was made to use a Cragg- Markus catheter. This was placed at the level of below-knee popliteal artery up into the external iliac artery. 2 mg of TPA was instilled. The sheath was flushed. Sheath was secured in place with 2-0 silk. Dressings were placed and the patient was hooked up to the catheters infusion. Patient was sent to ICU in stable condition having heart of the procedure well The plan is for take back tomorrow evening around 4 PM
[2021-11-04] MEDS ORDERED: NALOXONE 0.4 MG/ML 1 ML VIAL IV PRN (02:39)
[2021-11-04] MEDS: SODIUM CHLORIDE 0.9% 1,000 ML IV SCH ×2 (02:51→18:27)
[2021-11-04 02:54] LABS: Basophils # (A) 0.1 k/uL (0-0.2); Basophils % (A) 1 %; Eosinophils # (A) 0.1 k/uL (0-0.7); Eosinophils % (A) 1 %; HCT 42.7 % (39.0-53.0); HGB 13.5 gm/dL (13.0-17.5); Lymphocytes # (A) 1.2 k/uL (1.0-4.8); Lymphocytes % (A) 14 %; MCH 29.3 pg (25.0-35.0); MCHC 31.7 g/dL (31.0-37.0); MCV 92.4 fL (80.0-100.0); Mean Platelet Volume 7.2; Monocytes # (A) 0.7 k/uL (0-1.0); Monocytes % (A) 9 %; Neutrophils % (A) 74 %; Platelet Count 124 k/uL (150-450); RBC 4.62 m/uL (4.30-5.90); RDW 14.1 % (11.5-15.5); WBC 8.2 k/uL (3.8-10.6)
[2021-11-04 03:05] LABS: INR 1.7 (<1.2)
[2021-11-04 03:50] LABS: Appearance,Urine Clear (Clear); Bacteria,Urine Rare /hpf; Bilirubin,Urine Negative (Negative); Blood,Urine Large (Negative); Color,Urine Light Yellow; Glucose,Urine (UA) Negative (Negative); Ketones,Urine Negative (Negative); Leukocyte Esterase,Urine Small (Negative); Nitrite,Urine Negative (Negative); PH, Urine 6.5 (5.0-8.0); Protein,Urine Negative (Negative); RBC,Urine 145 /hpf (0-5); Specific Gravity,Urine 1.014 (1.001-1.035); Urobilinogen,Urine <2.0 mg/dL (<2.0); WBC,Urine 5 /hpf (0-5)
[2021-11-04 06:49] LABS: Basophils # (A) 0.1 k/uL (0-0.2); Basophils % (A) 1 %; Eosinophils # (A) 0.2 k/uL (0-0.7); Eosinophils % (A) 2 %; HCT 41.1 % (39.0-53.0); HGB 13.3 gm/dL (13.0-17.5); Lymphocytes # (A) 1.2 k/uL (1.0-4.8); Lymphocytes % (A) 16 %; MCH 29.9 pg (25.0-35.0); MCHC 32.3 g/dL (31.0-37.0); MCV 92.6 fL (80.0-100.0); Mean Platelet Volume 7.2; Monocytes # (A) 0.7 k/uL (0-1.0); Monocytes % (A) 9 %; Neutrophils # (A) 5.3 k/uL (1.3-7.7); Neutrophils % (A) 70 %; Platelet Count 122 k/uL (150-450); RBC 4.43 m/uL (4.30-5.90); RDW 14.1 % (11.5-15.5); WBC 7.6 k/uL (3.8-10.6)
--- NOTE | 2021-11-04 06:58 | IR ---
EXAMINATION TYPE: IR transcath infusion therapy DATE OF EXAM: 11/04/2021 CLINICAL HISTORY: Peripheral vascular disease. Absent right leg arterial flow. TECHNIQUE: Fluoroscopy. COMPARISON: CTA with runoff 1 day earlier.. FINDINGS: Fluoroscopic guidance was provided during right lower extremity angiogram procedure with i ntravascular thrombolysis performed by Dr. Raines. A total of 14.4 minute of fluoroscopic time was ut ilized during the procedure and 259 spot images was acquired. Please refer to procedure note for furt her details as I was not present nor performed procedure. IMPRESSION: As Above.
[2021-11-04 07:27] LABS: Potassium 4.2 mmol/L (3.5-5.1)
--- NOTE | 2021-11-04 09:53 | P.CRDCN ---
History of Present Illness History of present illness: HISTORY OF PRESENTING ILLNESS Patient is a pleasant 81-year-old male with history of paroxysmal atrial fibrillation as well as rheumatic fever since age of 17, minimal 10% CAD, hypertension, history of bioprosthetic aortic valve replacement as well as mitral valve repair and what appears to be exclusion left atrial appendage in 2013 as well as concern of left atrial thrombus versus mass in 2019 status post transfer to [facility] for further workup during the time" of Dalia who pres ents secondary to acute limb ischemia. He states he was going about his normal routine and started noticing right lower extremity pain and numbness and pale. He thought it was a patient her however read up on it that it may lead to amputation therefore presented to emergency department. He was found to have acute limb ischemia and CTA showed right common femoral artery occlusion. He underwent angiography, left femoral approach and attempted placing an EKOS catheter however unable to place EKOS and therefore sheath was left in place infusing TPA. Currently states the numbness and weakness is somewhat improved. No DP or PT pulse by Doppler currently. Remains on heparin and TPA infusion through the catheter. EKG shows sinus rhythm, frequent PACs and PVCs, left bundle branch block. He follows with Dr. Olivares and states he has had some workup in office however does not believe he has had a MARK in the past few years. INR was noted to be subtherapeutic at 1.5. He admits he has not been able to control the INR well in the past. REVIEW OF SYSTEMS At the time of my exam: CONSTITUTIONAL: Denies fever or chills. CARDIOVASCULAR: Denies chest pain, shortness of breath, orthopnea, PND or palpitations. RESPIRATORY: Denies cough. GASTROINTESTINAL: Denies abdominal pain, diarrhea, constipation, nausea or vomiting. MUSCULOSKELETAL: Denies myalgias. NEUROLOGIC: +RLE numbness, tingling, weakness. ENDOCRINE: Denies fatigue, weight change, polydipsia or polyurina. GENITOURINARY: Denies burning, hematuria or urgency with micturation. HEMATOLOGIC: Denies history of anemia or bleeding. PHYSICAL EXAMINATION Vital signs reviewed. CONSTITUTIONAL: No apparent distress. HEENT: Head is normocephalic. Pupils are equal, round. Sclerae anicteric. Mucous membranes of the mouth are moist. No JVD. No carotid bruit. CHEST EXAMINATION: Lungs are clear to auscultation. No chest wall tenderness is noted on palpation or with deep breathing. HEART EXAMINATION: Regular rate and rhythm. S1, S2 heard. No murmurs, gallops or rub. ABDOMEN: Soft, nontender. Positive bowel sounds. EXTREMITIES: 2+ peripheral pulses LLE, none on right, no lower extremity edema and no calf tenderness. NEUROLOGIC EXAMINATION: Patient is awake, alert and oriented x3. ASSESSMENT 1. Acute limb ischemia most likely related to thromboembolism with suspicion of cardiac source 2. History of bioprosthetic aortic valve replacement as well as mitral valve repair 2012 and [facility] as well as apparent left atrial appendage occlusion 3. Concern of prior left atrial thrombus in 2019 noted on CTA and transferred to [facility]. Apparently no changes in therapy at [facility] 4. Paroxysmal atrial fibrillation 5. Mildly elevated troponins, likely type II mechanism 6. Hypertension 7. Subtherapeutic INR 8. Minimal 10% coronary arteries disease by catheterization in 2012 per patient PLAN Patient with thromboembolism with prior CTA concerning for left atrial thrombus. History of rheumatic fever and despite valve replacement would still recommend only anticoagulation. May need increased goal INR however appears mainly related to subtherapeutic INR. Continue with treatment for acute limb ischemia with heparin and TPA. Check transthoracic echo. Patient will likely need MARK to further evaluate given prior concern of left atrial thrombus/possible mass pending stabilization. Further recommendations to follow. Past Medical History Past Medical History: Atrial Fibrillation, Coronary Artery Disease (CAD), Hypertension Additional Past Medical History / Comment(s): COVID History of Any Multi-Drug Resistant Organisms: None Reported Past Surgical History: Coronary Bypass/CABG, Hernia Repair Past Anesthesia/Blood Transfusion Reactions: No Reported Reaction Past Psychological History: No Psychological Hx Reported Smoking Status: Never smoker Past Alcohol Use History: Occasional Past Drug Use History: None Reported Medications and Allergies Home Medications Medication Instructions Recorded Confirmed Type ALPRAZolam [Xanax] 0.25 mg PO HS PRN 11/03/21 11/03/21 History Cholecalciferol [Vitamin D3 (25 25 mcg PO DAILY 11/03/21 11/03/21 History Mcg = 1000 Iu)] Ibuprofen [Motrin] 600 mg PO Q8HR PRN 11/03/21 11/03/21 History Losartan Potassium 50 mg PO DAILY 11/03/21 11/03/21 History Melatonin Unknown Dose 1 tab PO HS 11/03/21 11/03/21 History Metoprolol Succinate [Toprol XL] 50 mg PO DAILY 11/03/21 11/03/21 History Naproxen 250 mg PO DAILY PRN 11/03/21 11/03/21 History Tamsulosin [Flomax] 0.4 mg PO HS 11/03/21 11/03/21 History Warfarin [Coumadin] 2.5 - 5 mg PO DAILY 11/03/21 11/03/21 History Zinc 50 mg PO DAILY 11/03/21 11/03/21 History Allergies Allergy/AdvReac Type Severity Reaction Status Date / Time No Known Allergies Allergy Verified 11/03/21 21:03 Physical Exam Vitals: Vital Signs Temp Pulse Pulse Resp BP BP Pulse Ox 11/04/21 09:00 70 18 110/74 97 11/04/21 08:30 70 10 L 118/62 96 11/04/21 08:00 978 F H 67 14 113/68 118/62 93 L 11/04/21 07:30 60 14 131/101 94 L 11/04/21 07:00 89 79 15 134/75 130/114 96 11/04/21 06:30 67 19 127/76 98 11/04/21 06:00 59 L 55 L 17 115/68 111/71 96 11/04/21 05:30 55 L 11 L 121/73 96 11/04/21 05:00 57 L 57 L 18 114/63 114/63 96 11/04/21 04:30 61 19 104/72 97 11/04/21 04:00 97.9 F 67 60 17 128/76 119/68 96 11/04/21 03:30 71 15 139/77 97 11/04/21 03:00 56 L 60 14 111/88 125/99 95 11/04/21 02:30 69 61 16 123/88 119/96 95 11/04/21 02:00 66 63 15 146/82 123/88 98 11/04/21 01:45 84 14 146/82 97 11/04/21 01:40 78 17 96 11/03/21 18:19 98.3 F 69 20 123/67 97 Intake and Output 11/03/21 11/04/21 11/04/21 22:59 06:59 14:59 Intake Total 444.0 207.6 Output Total 840 100 Balance -396.0 107.6 Intake: IV 444.0 207.6 Alteplase 10 mg In Sodium 50 20 Chloride 0.9% 90 ml @ 1 MG/HR 10 mls/hr IV .Q10H ONE Rx#:[id number] Heparin Sod,Pork in 0.45% 94.0 37.6 NaCl 25,000 unit In 0.45 % NaCl 1 250ml.bag @ 18 UNITS/KG/HR 18.779 mls/hr IV .[id number] [facility] Rx#: [id number] Sodium Chloride 0.9% 1, 300 150 000 ml @ 75 mls/hr IV . [id number] [facility] Rx#:[id number] Output: Urine 840 100 Other: Voiding Method Indwelling Catheter Indwelling Catheter Weight 104.326 kg 107.6 kg Results 11/04/21 06:36 11/04/21 06:36 Cardiac Enzymes 11/03/21 11/03/21 Range/Units 20:29 20:29 AST 43 (17-59) U/L Troponin I 0.046 H* (0.000-0.034) ng/mL Coagulation 11/03/21 11/04/21 Range/Units 20:29 02:03 PT 15.4 H 17.0 H (9.0-12.0) sec APTT 26.9 79.0 H (22.0-30.0) sec CBC 11/03/21 11/04/21 11/04/21 Range/Units 20:29 02:03 06:36 WBC 9.0 8.2 7.6 (3.8-10.6) k/uL RBC 4.92 4.62 4.43 (4.30-5.90) m/uL Hgb 15.0 13.5 13.3 (13.0-17.5) gm/dL Hct 45.4 42.7 41.1 (39.0-53.0) % Plt Count 145 L 124 L 122 L (150-450) k/uL Comprehensive Metabolic Panel 11/03/21 11/04/21 11/04/21 Range/Units 20:29 02:03 06:36 Sodium 135 L 136 L (137-145) mmol/L Potassium 4.6 4.2 (3.5-5.1) mmol/L Chloride 100 107 (98-107) mmol/L Carbon Dioxide 28 24 (22-30) mmol/L BUN 27 H 23 H 21 H (9-20) mg/dL Creatinine 1.27 H 1.06 1.01 (0.66-1.25) mg/dL Glucose 127 H 98 (74-99) mg/dL Calcium 8.8 8.0 L (8.4-10.2) mg/dL AST 43 (17-59) U/L ALT 24 (4-49) U/L Alkaline Phosphatase 70 (38-126) U/L Total Protein 6.9 (6.3-8.2) g/dL Albumin 4.1 (3.5-5.0) g/dL Current Medications Generic Name Dose Route Start Last Admin Trade Name Freq PRN Reason Stop Dose Admin Hydromorphone HCl 0.5 mg 11/04/21 02:18 Hydromorphone 0.5 Mg/0.5 Ml Syringe IVP Q2H PRN Pain Sodium Chloride 1,000 mls @ 75 mls/hr 11/04/21 02:30 11/04/21 02:51 Saline 0.9% IV 75 mls/hr .[id number] Administration Alteplase, Recombinant 10 mg/ 100 mls @ 10 mls/hr 11/04/21 11:00 11/04/21 08:13 Sodium Chloride IV 11/04/21 20:59 1 mg/hr .Q10H ONE 10 mls/hr Administration Protocol 1 MG/HR Naloxone HCl 0.2 mg 11/04/21 02:39 Naloxone 0.4 Mg/Ml 1 Ml Vial IV Q2M PRN Opioid Reversal Intake and Output 11/03/21 11/04/21 11/04/21 22:59 06:59 14:59 Intake Total 444.0 207.6 Output Total 840 100 Balance -396.0 107.6 Intake: IV 444.0 207.6 Alteplase 10 mg In Sodium 50 20 Chloride 0.9% 90 ml @ 1 MG/HR 10 mls/hr IV .Q10H [facility] Rx#:[id number] Heparin Sod,Pork in 0.45% 94.0 37.6 NaCl 25,000 unit In 0.45 % NaCl 1 250ml.bag @ 18 UNITS/KG/HR 18.779 mls/hr IV .[id number] [facility] Rx#: [id number] Sodium Chloride 0.9% 1, 300 150 000 ml @ 75 mls/hr IV . [id number] [facility] Rx#:[id number] Output: Urine 840 100 Other: Voiding Method Indwelling Catheter Indwelling Catheter Weight 104.326 kg 107.6 kg 11/04/21 06:36 11/04/21 06:36
[2021-11-04 10:06] LABS: Basophils # (A) 0.1 k/uL (0-0.2); Basophils % (A) 1 %; Eosinophils # (A) 0.2 k/uL (0-0.7); Eosinophils % (A) 2 %; HCT 41.6 % (39.0-53.0); HGB 13.5 gm/dL (13.0-17.5); Lymphocytes # (A) 0.9 k/uL (1.0-4.8); Lymphocytes % (A) 10 %; MCH 30.3 pg (25.0-35.0); MCHC 32.5 g/dL (31.0-37.0); MCV 93.3 fL (80.0-100.0); Mean Platelet Volume 7.4; Monocytes # (A) 0.8 k/uL (0-1.0); Monocytes % (A) 9 %; Neutrophils # (A) 6.7 k/uL (1.3-7.7); Neutrophils % (A) 77 %; Platelet Count 124 k/uL (150-450); RBC 4.46 m/uL (4.30-5.90); RDW 14.1 % (11.5-15.5); WBC 8.8 k/uL (3.8-10.6)
[2021-11-04] MEDS ORDERED: ALTEPLASE 10 MG in SODIUM CHLORIDE 0.9% 90 ML IV ONE (11:00)
--- NOTE | 2021-11-04 12:01 | P.CNPUL ---
History of Present Illness Consult date: 11/04/21 Requesting physician: Bethany Raines Reason for consult: other (ICU management) Chief complaint: Numb and cold right leg. History of present illness: This is a 81-year-old white male with history of hypertension, coronary artery disease, chronic atrial fibrillation, maintained on Coumadin, patient normally sees Dr. Rivers as his primary care physician. Yesterday, and in the middle of the night, patient woke up to go to the bathroom, and he realized that his right leg was numb, and cold. Patient initially thought that he may have had a patient, he presented to the ER last night with non-resolution of his symptoms. Patient was found to have ischemic right leg/right foot, and his Coumadin level was noted to be subtherapeutic. Patient was seen by vascular surgery on consultation, and he was felt to have femoral popliteal occlusion. Patient underwent selective right lower extremity angiogram and underwent initiation of TPA thrombolysis, patient underwent angiography, left femoral approach, and attempted placement an ekos catheter, however that was unsuccessful, sheath was left in place infusing TPA. patient was transferred back to the ICU and the plan is to go back and evaluate at 4 PM today. Patient is known to have history of paroxysmal atrial fibrillation, bioprosthetic aortic valve replacement as well as mitral valve repair and history of left atrial thrombus noted in 2019. Supposedly the patient is compliant with his Coumadin however his INR on this admission was only 1.5. Review of Systems CONSTITUTIONAL: Negative, no fever no chills no weight loss. No aches or pains CARDIOVASCULAR: As noted in HPI. Patient is known to have history of chronic atrial fibrillation, maintained on Coumadin RESPIRATORY: Negative GASTROINTESTINAL: Negative MUSCULOSKELETAL: Negative NEUROLOGIC: Negative except for numbness in right lower extremity ENDOCRINE: Negative GENITOURINARY: Negative HEMATOLOGIC: Negative Psychiatric: Negative Past Medical History Past Medical History: Atrial Fibrillation, Coronary Artery Disease (CAD), Hypertension Additional Past Medical History / Comment(s): COVID History of Any Multi-Drug Resistant Organisms: None Reported Past Surgical History: Coronary Bypass/CABG, Hernia Repair Past Anesthesia/Blood Transfusion Reactions: No Reported Reaction Past Psychological History: No Psychological Hx Reported Smoking Status: Never smoker Past Alcohol Use History: Occasional Past Drug Use History: None Reported Medications and Allergies Home Medications Medication Instructions Recorded Confirmed Type ALPRAZolam [Xanax] 0.25 mg PO HS PRN 11/03/21 11/03/21 History Cholecalciferol [Vitamin D3 (25 25 mcg PO DAILY 11/03/21 11/03/21 History Mcg = 1000 Iu)] Ibuprofen [Motrin] 600 mg PO Q8HR PRN 11/03/21 11/03/21 History Losartan Potassium 50 mg PO DAILY 11/03/21 11/03/21 History Melatonin Unknown Dose 1 tab PO HS 11/03/21 11/03/21 History Metoprolol Succinate [Toprol XL] 50 mg PO DAILY 11/03/21 11/03/21 History Naproxen 250 mg PO DAILY PRN 11/03/21 11/03/21 History Tamsulosin [Flomax] 0.4 mg PO HS 11/03/21 11/03/21 History Warfarin [Coumadin] 2.5 - 5 mg PO DAILY 11/03/21 11/03/21 History Zinc 50 mg PO DAILY 11/03/21 11/03/21 History Allergies Allergy/AdvReac Type Severity Reaction Status Date / Time No Known Allergies Allergy Verified 11/03/21 21:03 Physical Exam Vitals: Vital Signs Temp Pulse Pulse Resp BP BP Pulse Ox 11/04/21 11:00 87 11 L 140/111 95 11/04/21 10:30 72 19 141/84 94 L 11/04/21 10:00 69 21 132/75 96 11/04/21 09:30 70 14 122/92 96 11/04/21 09:00 70 18 110/74 97 11/04/21 08:30 70 10 L 118/62 96 11/04/21 08:00 978 F H 67 14 113/68 118/62 93 L 11/04/21 07:30 60 14 131/101 94 L 11/04/21 07:00 89 79 15 134/75 130/114 96 11/04/21 06:30 67 19 127/76 98 11/04/21 06:00 59 L 55 L 17 115/68 111/71 96 11/04/21 05:30 55 L 11 L 121/73 96 11/04/21 05:00 57 L 57 L 18 114/63 114/63 96 11/04/21 04:30 61 19 104/72 97 11/04/21 04:00 97.9 F 67 60 17 128/76 119/68 96 11/04/21 03:30 71 15 139/77 97 11/04/21 03:00 56 L 60 14 111/88 125/99 95 11/04/21 02:30 69 61 16 123/88 119/96 95 11/04/21 02:00 66 63 15 146/82 123/88 98 11/04/21 01:45 84 14 146/82 97 11/04/21 01:40 78 17 96 11/03/21 18:19 98.3 F 69 20 123/67 97 Intake and Output 11/03/21 11/04/21 11/04/21 22:59 06:59 14:59 Intake Total 444.0 415.2 Output Total 840 200 Balance -396.0 215.2 Intake: IV 444.0 415.2 Alteplase 10 mg In Sodium 50 40 Chloride 0.9% 90 ml @ 1 MG/HR 10 mls/hr IV .Q10H [facility] Rx#:[id number] Heparin Sod,Pork in 0.45% 94.0 75.2 NaCl 25,000 unit In 0.45 % NaCl 1 250ml.bag @ 18 UNITS/KG/HR 18.779 mls/hr IV .[id number] [facility] Rx#: [id number] Sodium Chloride 0.9% 1, 300 300 000 ml @ 75 mls/hr IV . [id number] [facility] Rx#:[id number] Output: Urine 840 200 Other: Voiding Method Indwelling Catheter Indwelling Catheter Weight 104.326 kg 107.6 kg Physical Exam: Revealed 81-year-old white male in no distress pleasant on room air Head: Atraumatic, normocephalic. HEENT:[Neck is supple.] [No neck masses.] [No thyromegaly.] [No JVD.] Chest: [Clear throughout, no crackles, no rhonchi, no wheezes.] Cardiac Exam: [Normal S1 and S2, no S3 gallop, 2/6 systolic murmur thought the precordium Abdomen: [Soft, nontender, no megaly, no rebound, no guarding, normal bowel sounds.] Extremities: Right foot is felt to be cold, no pulses are palpable in the right lower extremity no bluish discoloration noted, catheter noted in the left groin. Infusing TPA Neurological Exam: [No focal neurologic deficit.] Alert and oriented 3 Psychiatric: Normal mood, affect and normal mental status examination. Skin: No rashes. Results - Laboratory Findings CBC and BMP: 11/04/21 09:55 11/04/21 06:36 PT/INR, D-dimer PT 17.0 sec (9.0-12.0) H 11/04/21 02:03 INR 1.7 (<1.2) H 11/04/21 02:03 Abnormal lab findings: Abnormal Labs 11/03/21 11/03/21 11/03/21 20:29 20:29 20:29 Plt Count 145 L Lymphocytes # PT 15.4 H INR 1.5 H APTT Sodium 135 L BUN 27 H Creatinine 1.27 H Glucose 127 H POC Glucose (mg/dL) Calcium Troponin I Urine Blood Ur Leukocyte Esterase Urine RBC Urine Bacteria 11/03/21 11/04/21 11/04/21 20:29 01:40 02:03 Plt Count 124 L Lymphocytes # PT INR APTT Sodium BUN Creatinine Glucose POC Glucose (mg/dL) 117 H Calcium Troponin I 0.046 H* Urine Blood Ur Leukocyte Esterase Urine RBC Urine Bacteria 11/04/21 11/04/21 11/04/21 02:03 02:03 03:15 Plt Count Lymphocytes # PT 17.0 H INR 1.7 H APTT 79.0 H Sodium BUN 23 H Creatinine Glucose POC Glucose (mg/dL) Calcium Troponin I Urine Blood Large H Ur Leukocyte Esterase Small H Urine RBC 145 H Urine Bacteria Rare H 11/04/21 11/04/21 11/04/21 06:36 06:36 09:55 Plt Count 122 L 124 L Lymphocytes # 0.9 L PT INR APTT Sodium 136 L BUN 21 H Creatinine Glucose POC Glucose (mg/dL) Calcium 8.0 L Troponin I Urine Blood Ur Leukocyte Esterase Urine RBC Urine Bacteria - Diagnostic Findings Additional studies: CT angiogram of the abdominal aorta with runoff, as noted in HPI, mostly evidence of subtotal occlusion of the right femoral artery at the inguinal ligament thromboses of the distal right femoral and popliteal artery and no flow demonstrated below the right knee. There is evidence of thrombosis of the left tibial artery and no flow demonstrated below the knee in the left lower extremity. Assessment and Plan Assessment: Impression Acute ischemia of right lower extremity secondary to femoral/popliteal thromb osis. Paroxysmal atrial fibrillation, patient is on Coumadin however level is subtherapeutic. Benign essential hypertension History of bioprosthetic aortic valve replacement and mitral valve repair in 2013 History of left atrial thrombus Benign essential hypertension Coronary artery disease Recommendation: Continue present treatment plan as per vascular surgery on the case Continue heparin and TPA as ordered by vascular surgery Continue to monitor in the ICU Echocardiogram is pending Strongly recommend changing Coumadin to eliquis or to Xarelto, since the patient has been experiencing multiple difficulties with maintaining adequate Coumadin level and therapeutic INR in the past We will continue to follow while in the ICU. Along with cardiology and vascular surgery. Time with Patient: Greater than 30
[2021-11-04 15:30] LABS: Basophils # (A) 0.1 k/uL (0-0.2); Basophils % (A) 0 %; Eosinophils # (A) 0.2 k/uL (0-0.7); Eosinophils % (A) 2 %; HCT 42.4 % (39.0-53.0); HGB 13.9 gm/dL (13.0-17.5); Lymphocytes # (A) 1.1 k/uL (1.0-4.8); Lymphocytes % (A) 11 %; MCH 30.4 pg (25.0-35.0); MCHC 32.8 g/dL (31.0-37.0); MCV 92.8 fL (80.0-100.0); Mean Platelet Volume 7.4; Monocytes # (A) 0.6 k/uL (0-1.0); Monocytes % (A) 6 %; Neutrophils # (A) 8.1 k/uL (1.3-7.7); Neutrophils % (A) 80 %; Platelet Count 119 k/uL (150-450); RBC 4.57 m/uL (4.30-5.90); RDW 14.1 % (11.5-15.5); WBC 10.1 k/uL (3.8-10.6)
[2021-11-04] MEDS ORDERED: fentaNYL (PF) 50 MCG/ML 2 ML AMP ONE (16:47)
[2021-11-04] MEDS ORDERED: MIDAZOLAM 2 MG/2 ML VIAL IV ONE (16:50)
[2021-11-04] MEDS ORDERED: IV FLUID CONTINUATION 100 ML IV ONE (16:57)
--- NOTE | 2021-11-04 18:13 | P.OP ---
Date of Procedure: 11/04/21 Description of Procedure: Preoperative diagnosis: [Acute limb ischemia right lower extremity, previous initiation of TPA] Postoperative diagnosis: Same Procedure: [Right lower extremity angiogram via existing catheter Repositioning of TPA from lysis catheter Moderate conscious sedation 32 minutes] Surgeon: Bethany Raines D.O. EBL: [Less than 10 mL] IV fluids: [See records] Urine output: [See records] Drains: [None] Complications: [None immediately apparent] Condition: [Stable to ICU] Operative indication and findings: [Patient is a 81-year-old male with atrial fibrillation on anticoagulation although subtherapeutic. He was initiated on TPA thrombolysis. Through the evening he has been doing well and tolerating the TPA without significant issue. He states his foot feels warmer and has non pain with movement. At some point in the night he did say he had pain but that has since resolved. He is still motor intact and is able to move his foot better than previous. He says he is mostly having discomfort from lying flat. Plan today to proceed with repeat angiogram. Risks and benefits discussed. He seemingly understands and would like to proceed Procedure in detail: [Patient was taken to the special suite and placed in supine position. The previously placed catheter was prepped and draped in usual sterile fashion. A preprocedure timeout was performed, all parties are in agreement. A glide advantage wire was placed through the catheter. The catheter was removed. An image was performed via the sheath showing continued occlusion of the common femoral artery however there is improvement of the flow traversing this area into the profunda and superficial femoral artery. The length occlusion does appear slightly smaller. Flow through the superficial femoral artery is improved. The catheter was placed into the level of the superficial femoral artery. There is significant improvement of the flow through the popliteal artery. There is better visualization of the tibial vessels than previous. There is still thrombus noted in the popliteal artery. It is no longer occlusive. At this point given these findings, we'll plan to repeat TPA. We'll take him back in approximately 24 hours for repeat imaging.]
[2021-11-04] MEDS: ALTEPLASE 10 MG in SODIUM CHLORIDE 0.9% 90 ML IV SCH (18:24)
[2021-11-04 19:32] LABS: Basophils # (A) 0.1 k/uL (0-0.2); Basophils % (A) 1 %; Eosinophils # (A) 0.2 k/uL (0-0.7); Eosinophils % (A) 2 %; HCT 43.9 % (39.0-53.0); HGB 14.3 gm/dL (13.0-17.5); Lymphocytes # (A) 0.9 k/uL (1.0-4.8); Lymphocytes % (A) 10 %; MCH 30.7 pg (25.0-35.0); MCHC 32.6 g/dL (31.0-37.0); MCV 94.1 fL (80.0-100.0); Mean Platelet Volume 7.8; Monocytes # (A) 0.8 k/uL (0-1.0); Monocytes % (A) 8 %; Neutrophils # (A) 7.6 k/uL (1.3-7.7); Neutrophils % (A) 79 %; Platelet Count 118 k/uL (150-450); RBC 4.67 m/uL (4.30-5.90); RDW 14.1 % (11.5-15.5); WBC 9.7 k/uL (3.8-10.6)
[2021-11-04] MEDS: HYDROmorphone 0.5 MG/0.5 ML SYRINGE IVP PRN ×2 (19:38→23:56)
[2021-11-04 19:56] LABS: INR 1.4 (<1.2); Partial Thromboplastin Time 27.1 sec (22.0-30.0); Prothrombin Time 14.5 sec (9.0-12.0)
[2021-11-04 23:10] LABS: Basophils # (A) 0.1 k/uL (0-0.2); Basophils % (A) 1 %; Eosinophils # (A) 0.2 k/uL (0-0.7); Eosinophils % (A) 2 %; HCT 40.3 % (39.0-53.0); HGB 13.4 gm/dL (13.0-17.5); Lymphocytes % (A) 11 %; MCH 30.6 pg (25.0-35.0); MCHC 33.1 g/dL (31.0-37.0); MCV 92.4 fL (80.0-100.0); Mean Platelet Volume 7.3; Monocytes # (A) 0.9 k/uL (0-1.0); Monocytes % (A) 10 %; Neutrophils # (A) 6.9 k/uL (1.3-7.7); Neutrophils % (A) 75 %; Platelet Count 111 k/uL (150-450); RBC 4.37 m/uL (4.30-5.90); WBC 9.2 k/uL (3.8-10.6)
[2021-11-04 23:21] LABS: INR 1.4 (<1.2); Prothrombin Time 14.4 sec (9.0-12.0)
[2021-11-04 23:22] LABS: Partial Thromboplastin Time 28.6 sec (22.0-30.0)
[2021-11-05] MEDS ORDERED: HEPARIN SOD,PORK IN 0.45% NACL 25,000 UNIT in 0.45% NACL 1 250ML.BAG IV SCH ×2 (01:30→08:30)
[2021-11-05 02:37] LABS: Basophils # (A) 0.1 k/uL (0-0.2); Basophils % (A) 1 %; Eosinophils # (A) 0.2 k/uL (0-0.7); Eosinophils % (A) 2 %; HCT 40.7 % (39.0-53.0); HGB 13.3 gm/dL (13.0-17.5); Lymphocytes % (A) 10 %; MCH 30.3 pg (25.0-35.0); MCHC 32.6 g/dL (31.0-37.0); Mean Platelet Volume 7.6; Monocytes # (A) 0.9 k/uL (0-1.0); Monocytes % (A) 9 %; Neutrophils # (A) 7.2 k/uL (1.3-7.7); Neutrophils % (A) 76 %; Platelet Count 103 k/uL (150-450); RBC 4.38 m/uL (4.30-5.90); RDW 14.1 % (11.5-15.5); WBC 9.5 k/uL (3.8-10.6)
[2021-11-05 02:47] LABS: INR 1.4 (<1.2); Partial Thromboplastin Time 28.1 sec (22.0-30.0); Prothrombin Time 14.1 sec (9.0-12.0)
[2021-11-05] MEDS: ALTEPLASE 10 MG in SODIUM CHLORIDE 0.9% 90 ML IV SCH ×3 (04:09→23:51)
[2021-11-05] MEDS: SODIUM CHLORIDE 0.9% 1,000 ML IV SCH (05:14)
--- NOTE | 2021-11-05 07:13 | IR ---
EXAMINATION TYPE: IR transcath infusion therapy DATE OF EXAM: 11/04/2021 CLINICAL HISTORY: Right groin arterial thrombus TECHNIQUE: Fluoroscopy. COMPARISON: None. FINDINGS: Fluoroscopic guidance was provided during peripheral thrombus treatment procedure performe d by Dr. Raines. A total of 3.1 minute of fluoroscopic time was utilized during the procedure and 186 spot images was acquired. Please refer to procedure note for further details. IMPRESSION: As Above.
[2021-11-05 07:27] LABS: Calcium 7.9 mg/dL (8.4-10.2); Potassium 4.6 mmol/L (3.5-5.1)
[2021-11-05 07:44] LABS: Basophils % (A) 1 %; Eosinophils # (A) 0.1 k/uL (0-0.7); Eosinophils % (A) 1 %; HCT 41.2 % (39.0-53.0); HGB 13.7 gm/dL (13.0-17.5); Lymphocytes # (A) 0.7 k/uL (1.0-4.8); Lymphocytes % (A) 8 %; MCH 31.2 pg (25.0-35.0); MCHC 33.2 g/dL (31.0-37.0); MCV 94.1 fL (80.0-100.0); Mean Platelet Volume 8.1; Monocytes # (A) 0.7 k/uL (0-1.0); Monocytes % (A) 8 %; Neutrophils % (A) 82 %; Platelet Count 105 k/uL (150-450); RBC 4.38 m/uL (4.30-5.90); RDW 14.4 % (11.5-15.5); WBC 8.6 k/uL (3.8-10.6)
[2021-11-05 07:53] LABS: INR 1.3 (<1.2); Partial Thromboplastin Time 29.5 sec (22.0-30.0)
[2021-11-05] MEDS: HYDROmorphone 0.5 MG/0.5 ML SYRINGE IVP PRN ×2 (08:36→14:52)
[2021-11-05] MEDS: METOPROLOL TARTRATE 12.5 MG TAB PO SCH ×2 (09:51→20:13)
[2021-11-05] MEDS: LOSARTAN 25 MG TAB PO SCH (09:52)
--- NOTE | 2021-11-05 10:02 | P.PN ---
Progress Note - Text HPI: This gentleman has history of noncritical CAD rheumatic heart disease status post bioprosthetic aortic valve replacement and mitral valve repair in 2012. He came in with acute right lower extremity ischemia was seen by Dr. Raines has TPA infusion currently. He has "infection in January of last year. He is doing better his resting comfortably and is going for a repeat angiogram to see if there was improvement in the angiographic appearance and resolution of thrombus. No chest pain or shortness of breath at the time of my evaluation is maintaining sinus rhythm. PHYSICIAL EXAM: There is no JVD. There is ejection systolic murmur at the base lungs revealed bilateral decent air entry abdomen is soft lower extremities reveal that the right lower ex with a pulse is not palpable and left lower ex with a pulses diminished. Central nervous system grossly within normal limits. Echo revealed ejection fraction of 40-45% range. There is mild mitral stenosis but no significant regurgitation.. IMPRESSION: 1. Acute right lower extremity ischemia status post TPA infusion going for a repeat angiogram to assess patency and resolution of thrombus. 2. Status post aortic valve replacement with a bioprosthetic valve and mitral valve repair in 2012. 3. No significant obstructive CAD. 4. History of paroxysmal atrial fibrillation. 5. . RECOMMENDATIONS: Continue current efforts no new suggestions patient will need to be anticoagulated after is done with TPA and heparin infusion his oral anticoagulation should be resumed. Resume his cardiac medications.
--- NOTE | 2021-11-05 11:24 | P.PN ---
Subjective Progress Note Date: 11/05/21 Principal diagnosis: Critical right limb ischemia This is a 81-year-old white male with history of hypertension, coronary artery disease, chronic atrial fibrillation, maintained on Coumadin, patient normally sees Dr. Rivers as his primary care physician. Yesterday, and in the middle of the night, patient woke up to go to the bathroom, and he realized that his right leg was numb, and cold. Patient initially thought that he may have had a patient, he presented to the ER last night with non-resolution of his symptoms. Patient was found to have ischemic right leg/right foot, and his Coumadin level was noted to be subtherapeutic. Patient was seen by vascular surgery on consultation, and he was felt to have femoral popliteal occlusion. Patient underwent selective right lower extremity angiogram and underwent initiation of TPA thrombolysis, patient underwent angiography, left femoral approach, and attempted placement an ekos catheter, however that was unsuccessful, sheath was left in place infusing TPA. patient was transferred back to the ICU and the plan is to go back and evaluate at 4 PM today. Patient is known to have history of paroxysmal atrial fibrillation, bioprosthetic aortic valve replacement as well as mitral valve repair and history of left atrial thrombus noted in 2019. Supposedly the patient is compliant with his Coumadin however his INR on this admission was only 1.5. On 11/05/2021 patient seen in follow-up in intensive care unit, he status post second right lower extremity angiogram via existing catheter for acute limb ischemia of the right lower extremity, and patient continues on TPA infusion via right femoral catheter. Today he still only has right femoral Doppler pulse, no palpable pulse in no Doppler pulse in the right popliteal or right pedal area. Right foot is cold to touch, however not dusky. Patient is awake and alert, oriented 3, does not appear to be in any acute distress, he is currently on 2 L of oxygen with a pulse ox of 96%, vital signs are stable, patient is afebrile. Left foot is warm to touch, with palpable pulse. Patient also continues on heparin at 500 units per hour, and 0.0 cm to 75 ML per hour. Today's labs have been reviewed showing white blood cell count of 8.8, hemoglobin of 13.7, INR of 1.3, sodium is 134, potassium is 4.6, chloride is 108, BUN is 19, creatinine 0.98. Objective - Vital Signs Vital signs: Vital Signs Temp 98.2 F 11/05/21 08:30 Pulse 72 11/05/21 11:00 Resp 12 11/05/21 11:00 BP 139/90 11/05/21 11:00 Pulse Ox 96 11/05/21 11:00 FiO2 Intake & Output 11/04/21 11/05/21 11/05/21 18:59 06:59 18:59 Intake Total 1088.0 1446.9 362.689 Output Total 560 810 200 Balance 528.0 636.9 162.689 Weight 109 kg Intake: IV 1088.0 1349.4 240 Alteplase 10 mg In Sodium 100 130 Chloride 0.9% 90 ml @ 1 MG/HR 10 mls/hr IV .Q10H [facility] Rx#:[id number] Heparin Sod,Pork in 0.45% 188.0 131.6 NaCl 25,000 unit In 0.45 % NaCl 1 250ml.bag @ 18 UNITS/KG/HR 18.779 mls/hr IV .[id number] [facility] Rx#: [id number] Heparin Sod,Pork in 0.45% 112.8 15 NaCl 25,000 unit In 0.45 % NaCl 1 250ml.bag @ 18 UNITS/KG/HR 18.779 mls/hr IV .[id number] [facility] Rx#: [id number] Sodium Chloride 0.9% 1, 750 975 225 000 ml @ 75 mls/hr IV . [id number] [facility] Rx#:[id number] Intake, IV Titration 97.5 122.689 Amount Alteplase 10 mg In Sodium 97.5 Chloride 0.9% 90 ml @ 1 MG/HR 10 mls/hr IV .Q10H [facility] Rx#:[id number] Heparin Sod,Pork in 0.45% 122.689 NaCl 25,000 unit In 0.45 % NaCl 1 250ml.bag @ 18 UNITS/KG/HR 18.779 mls/hr IV .[id number] [facility] Rx#: [id number] Output: Urine 560 810 200 Other: Voiding Method Indwelling Catheter Indwelling Catheter Indwelling Catheter - Exam GENERAL EXAM: Alert, very pleasant 81-year-old male, resting in bed in the ICU, the pulse ox of 96% comfortable in no apparent distress. HEAD: Normocephalic/atraumatic. EYES: Normal reaction of pupils, equal size. Conjunctiva pink, sclera white. NOSE: Clear with pink turbinates. THROAT: No erythema or exudates. NECK: No masses, no JVD, no thyroid enlargement, no adenopathy. CHEST: No chest wall deformity. Symmetrical expansion. LUNGS: Equal air entry with no crackles, wheeze, rhonchi or dullness. CVS: Regular rate and rhythm, normal S1 and S2, no gallops, no murmurs, no rubs ABDOMEN: Soft, nontender. No hepatosplenomegaly, normal bowel sounds, no guarding or rigidity. EXTREMITIES: No clubbing, no edema, absent pulse in the right pedal, and right popliteal areas. Doppler Right femoral area pulse, and palpable 1+ pulses in the left extremity MUSCULOSKELETAL: Muscle strength and tone normal. SPINE: No scoliosis or deformity SKIN: No rashes CENTRAL NERVOUS SYSTEM: Alert and oriented -3. No focal deficits, tone is normal in all 4 extremities. PSYCHIATRIC: Alert and oriented -3. Appropriate affect. Intact judgment and insight. - Labs CBC & Chem 7: 11/05/21 06:44 11/05/21 06:44 Labs: Abnormal Lab Results - Last 24 Hours (Table) 11/04/21 11/04/21 11/04/21 Range/Units 15:01 18:42 19:05 Plt Count 119 L 118 L (150-450) k/uL Neutrophils # 8.1 H (1.3-7.7) k/uL Lymphocytes # 0.9 L (1.0-4.8) k/uL PT 14.5 H (9.0-12.0) sec INR 1.4 H (<1.2) Sodium (137-145) mmol/L Chloride (98-107) mmol/L Glucose (74-99) mg/dL Calcium (8.4-10.2) mg/dL 11/04/21 11/04/21 11/05/21 Range/Units 22:56 22:56 02:25 Plt Count 111 L 103 L (150-450) k/uL Neutrophils # (1.3-7.7) k/uL Lymphocytes # (1.0-4.8) k/uL PT 14.4 H (9.0-12.0) sec INR 1.4 H (<1.2) Sodium (137-145) mmol/L Chloride (98-107) mmol/L Glucose (74-99) mg/dL Calcium (8.4-10.2) mg/dL 11/05/21 11/05/21 11/05/21 Range/Units 02:25 06:44 06:44 Plt Count 105 L (150-450) k/uL Neutrophils # (1.3-7.7) k/uL Lymphocytes # 0.7 L (1.0-4.8) k/uL PT 14.1 H 14.0 H (9.0-12.0) sec INR 1.4 H 1.3 H (<1.2) Sodium (137-145) mmol/L Chloride (98-107) mmol/L Glucose (74-99) mg/dL Calcium (8.4-10.2) mg/dL 11/05/21 Range/Units 06:44 Plt Count (150-450) k/uL Neutrophils # (1.3-7.7) k/uL Lymphocytes # (1.0-4.8) k/uL PT (9.0-12.0) sec INR (<1.2) Sodium 134 L (137-145) mmol/L Chloride 108 H (98-107) mmol/L Glucose 110 H (74-99) mg/dL Calcium 7.9 L (8.4-10.2) mg/dL Assessment and Plan Plan: Assessment: #1. Acute ischemia right lower extremity secondary to femoral/popliteal thrombosis, status post right lower extremity angiogram and placement of a catheter for TPA for thrombolysis 2 on 11/04/2021. Patient is scheduled for another right femoral angiogram and possible arterial clot aspiration on 11/05/2021. Please refer to vascular surgery #2. Paroxysmal atrial fibrillation, patient is on Coumadin however the level was subtherapeutic, currently remains on heparin infusion at 500 units per hour #3. Benign essential hypertension #4. History of bioprosthetic aortic valve replacement and mitral valve repair in 2012 #5. History of left atrial thrombus #6. Coronary artery disease Plan: Continue heparin and TPA as ordered by vascular surgery Vital signs are stable, Patient is scheduled for a repeat right lower extremity angiogram today by vascular surgery Echocardiogram has been completed, results are pending Appreciate cardiology recommendations We'll continue to follow closely in the intensive care unit I have personally seen and examined the patient, performed the documentation and the assessment and plan as written. Number of minutes spent on the visit: [10] Time with Patient: Less than 30
--- NOTE | 2021-11-05 11:35 | P.PN ---
Subjective Progress Note Date: 11/05/21 Principal diagnosis: Acute limb ischemia She was seen and examined in the ICU. He continues with his TPA. He was scheduled to possibly undergo angiogram today with possible open thrombectomy however patient did have breakfast this morning. He states that he does have improved movement as well as sensation to the right lower extremity. No signs or symptoms of any bleeding. Objective - Vital Signs Vital signs: Vital Signs Temp 98.4 F 11/05/21 00:00 Pulse 86 11/05/21 07:00 Resp 12 11/05/21 07:00 BP 144/95 11/05/21 07:00 Pulse Ox 95 11/05/21 07:00 FiO2 Intake & Output 11/04/21 11/05/21 11/05/21 18:59 06:59 18:59 Intake Total 1088.0 1446.9 122.689 Output Total 560 810 Balance 528.0 636.9 122.689 Weight 109 kg Intake: IV 1088.0 1349.4 Alteplase 10 mg In Sodium 100 130 Chloride 0.9% 90 ml @ 1 MG/HR 10 mls/hr IV .Q10H [facility] Rx#:[id number] Heparin Sod,Pork in 0.45% 188.0 131.6 NaCl 25,000 unit In 0.45 % NaCl 1 250ml.bag @ 18 UNITS/KG/HR 18.779 mls/hr IV .[id number] [facility] Rx#: [id number] Heparin Sod,Pork in 0.45% 112.8 NaCl 25,000 unit In 0.45 % NaCl 1 250ml.bag @ 18 UNITS/KG/HR 18.779 mls/hr IV .[id number] [facility] Rx#: [id number] Sodium Chloride 0.9% 1, 750 975 000 ml @ 75 mls/hr IV . [id number] [facility] Rx#:[id number] Intake, IV Titration 97.5 122.689 Amount Alteplase 10 mg In Sodium 97.5 Chloride 0.9% 90 ml @ 1 MG/HR 10 mls/hr IV .Q10H [facility] Rx#:[id number] Heparin Sod,Pork in 0.45% 122.689 NaCl 25,000 unit In 0.45 % NaCl 1 250ml.bag @ 18 UNITS/KG/HR 18.779 mls/hr IV .[id number] [facility] Rx#: [id number] Output: Urine 560 810 Other: Voiding Method Indwelling Catheter Indwelling Catheter - Exam General appearance: The patient is alert, oriented, appears in no acute distres s. HET: Head is normocephalic and atraumatic. Neck: Supple without lymphadenopathy. Trachea midline. Heart: S1 S2. Regular rate and rhythm. Lungs: Clear to auscultation bilaterally. Abdomen: Soft, nontender, nondistended. Extremities: Right lower extremity cool to the touch. Nonpalpable DP and PT pulses. Unable to obtain Doppler signal. Left lower extremity warm to the touch with Doppler signals. Left groin with catheter intact. Neurological: No focal deficits. Sensation intact. - Labs CBC & Chem 7: 11/05/21 06:44 11/05/21 06:44 Labs: Abnormal Lab Results - Last 24 Hours (Table) 11/04/21 11/04/21 11/04/21 Range/Units 09:55 15:01 18:42 Plt Count 124 L 119 L (150-450) k/uL Neutrophils # 8.1 H (1.3-7.7) k/uL Lymphocytes # 0.9 L (1.0-4.8) k/uL PT 14.5 H (9.0-12.0) sec INR 1.4 H (<1.2) Sodium (137-145) mmol/L Chloride (98-107) mmol/L Glucose (74-99) mg/dL Calcium (8.4-10.2) mg/dL 11/04/21 11/04/21 11/04/21 Range/Units 19:05 22:56 22:56 Plt Count 118 L 111 L (150-450) k/uL Neutrophils # (1.3-7.7) k/uL Lymphocytes # 0.9 L (1.0-4.8) k/uL PT 14.4 H (9.0-12.0) sec INR 1.4 H (<1.2) Sodium (137-145) mmol/L Chloride (98-107) mmol/L Glucose (74-99) mg/dL Calcium (8.4-10.2) mg/dL 07/11/22 07/11/22 07/11/22 Range/Units 02:25 02:25 06:44 Plt Count 103 L 105 L (150-450) k/uL Neutrophils # (1.3-7.7) k/uL Lymphocytes # 0.7 L (1.0-4.8) k/uL PT 14.1 H (9.0-12.0) sec INR 1.4 H (<1.2) Sodium (137-145) mmol/L Chloride (98-107) mmol/L Glucose (74-99) mg/dL Calcium (8.4-10.2) mg/dL 11/05/21 07 Range/Units 06:44 06:44 Plt Count (150-450) k/uL Neutrophils # (1.3-7.7) k/uL Lymphocytes # (1.0-4.8) k/uL PT 14.0 H (9.0-12.0) sec INR 1.3 H (<1.2) Sodium 134 L (137-145) mmol/L Chloride 108 H (98-107) mmol/L Glucose 110 H (74-99) mg/dL Calcium 7.9 L (8.4-10.2) mg/dL Assessment and Plan Assessment: 1. Acute limb ischemia right lower extremity, initiation of TPA 2. Atrial fibrillation subtherapeutic on anticoagulation Plan: Patient to continue TPA. Will schedule patient to undergo open thrombectomy of the right lower extremity tomorrow afternoon. Please keep nothing by mouth after midnight. And discontinue TPA/heparin 2 hours prior to procedure. The impression and plan of care has been dictated as directed. I performed a history and examination of this patient, discussed the same with the dictator. I agree with the dictator's note ,documented as a scribe. Any additional findings or plans will be noted.
[2021-11-05 12:56] LABS: INR 1.3 (<1.2); Partial Thromboplastin Time 29.3 sec (22.0-30.0); Prothrombin Time 13.5 sec (9.0-12.0)
--- NOTE | 2021-11-05 13:07 | P.CONS ---
History of Present Illness - Reason for Consult Consult date: 11/05/21 medical management Requesting physician: Bethany Raines - History of Present Illness HISTORY OF PRESENT ILLNESS This is a 81-year-old male patient of Dr. Rivers with past medical history of rheumatic heart disease status post aortic valve replacement and mitral valve repair in 2012 at [facility],, noncritical CAD, history of paroxysmal atrial fibrillation, hypertension, generalized anxiety disorder, benign prostatic hypertrophy. Patient states that he had awakened at 2 AM when he had no feeling in his right lower extremity. He denies having any pain. He states it was very hard to walk and subsequently he did start to feel pain. He thought initially it was a pinched nerve in his back but then he went on the Internet and did some research and was concerned that he had a blood clot. His then brought him into [facility] in [facility] emergency center for evaluation on 11/03. CAT scan revealed occlusive thrombus in the common femoral, profunda and proximal superficial femoral artery as well as through the distal superficial femoral and popliteal arteries. Patient was taken urgently for angiogram and and TPA thrombolysis. REVIEW OF SYSTEMS Constitutional: No fever, no chills, no night sweats. No weight change. No we akness, fatigue or lethargy. No daytime sleepiness. EENT: No headache. No blurred vision or double vision, no loss of vision. No loss of Hearing, no ringing in the ears, no dizziness. No nasal drainage or congestion. No epistaxis. No sore throat. Lungs: No shortness of breath, cough, no sputum production. No wheezing. Cardiovascular: No chest pain, no lower extremity edema. No palpitations. No paroxysmal nocturnal dyspnea. No orthopnea. No lightheadedness or dizziness. No syncopal episodes. Abdominal: No abdominal pain. No nausea, vomiting. No diarrhea. No constipation. No bloody or tarry stools. No loss of appetite. Genitourinary: No dysuria, increased frequency, urgency. No urinary retention. Musculoskeletal: No myalgias. No muscle weakness, no gait dysfunction, no greta quent falls. No back pain. No neck pain. Integumentary: No wounds, no lesions. No rash or pruritus. No unusual bruising. No change in hair or nails. Neurologic: No aphasia. No facial droop. No change in mentation. No head injury. No headache. No paralysis. No paresthesia. Painful right lower extremity Psychiatric: No depression. No anxiety. No mood swings. Endocrine: No abnormal blood sugars. No weight change. No excessive sweating or thirst. No cold intolerance. SOCIAL HISTORY Patient is a lifelong nonsmoker, he drinks alcohol on almost a daily basis at night to sleep and denies any history of withdrawal symptoms. No illicit drug use. He lives at home with his . 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 FAMILY HISTORY Mother at age 89 from old age. Father at age 71 from a myocardial infarction. Patient is one sister with no major medical problems. Patient does state that there is an autoimmune history in his family.. PHYSICAL EXAMINATION Gen: This is a 81-year-old male. He is resting in the ICU bed and appears to be comfortable and in no acute distress. HEENT: Head is atraumatic, normocephalic. Pupils equal, round. Sclerae is anicteric. NECK: Supple. No JVD. No lymphadenopathy. No thyromegaly. LUNGS: Clear to auscultation. No wheezes or rhonchi. No intercostal retractio ns. HEART: Regular rate and rhythm. Systolic ejection murmur.. ABDOMEN: Soft. Bowel sounds are present. No masses. No tenderness. EXTREMITIES: No pedal edema. No calf tenderness. Pulses are palpable on the right lower extremity. Dorsalis pedis 1+ on the left, NEUROLOGICAL: Patient is awake, alert and oriented x3. Cranial nerves 2 through 12 are grossly intact. ASSESSMENT AND PLAN Acute limb ischemia, femoral popliteal artery occlusion, status post angiogram and TPA thrombolysis. Continue current management per vascular surgery, patient remains in the intensive care unit. Rheumatic heart disease status post aortic valve replacement and mitral valve repair in 2013, stable. Patient was on Coumadin at home. History of paroxysmal atrial fibrillation. Noncritical coronary artery disease. Hypertension. Continue losartan 25 mg daily, Lopressor 12.5 mg twice daily Generalized anxiety disorder. Continue Xanax 0.25 milligrams at bedtime Benign prostatic hypertrophy. Continue Flomax 0.4 milligrams daily. GI prophylaxis. ProtonixDVT prophylaxis. Heparin Patient will be admitted to the hospital for a minimum of 2 night stay. DISCHARGE PLAN Home Impression and plan of care have been directed as dictated by the signing physician. Elysia Maria nurse practitioner acting as scribe for signing physician. Past Medical History Past Medical History: Atrial Fibrillation, Coronary Artery Disease (CAD), Hypertension Additional Past Medical History / Comment(s): COVID History of Any Multi-Drug Resistant Organisms: None Reported Past Surgical History: Coronary Bypass/CABG, Hernia Repair Past Anesthesia/Blood Transfusion Reactions: No Reported Reaction Past Psychological History: No Psychological Hx Reported Smoking Status: Never smoker Past Alcohol Use History: Occasional Past Drug Use History: None Reported Medications and Allergies Home Medications Medication Instructions Recorded Confirmed Type ALPRAZolam [Xanax] 0.25 mg PO HS PRN 11/03/21 11/03/21 History Cholecalciferol [Vitamin D3 (25 25 mcg PO DAILY 11/03/21 11/03/21 History Mcg = 1000 Iu)] Ibuprofen [Motrin] 600 mg PO Q8HR PRN 11/03/21 11/03/21 History Losartan Potassium 50 mg PO DAILY 11/03/21 11/03/21 History Melatonin Unknown Dose 1 tab PO HS 11/03/21 11/03/21 History Metoprolol Succinate [Toprol XL] 50 mg PO DAILY 11/03/21 11/03/21 History Naproxen 250 mg PO DAILY PRN 11/03/21 11/03/21 History Tamsulosin [Flomax] 0.4 mg PO HS 11/03/21 11/03/21 History Warfarin [Coumadin] 2.5 - 5 mg PO DAILY 11/03/21 11/03/21 History Zinc 50 mg PO DAILY 11/03/21 11/03/21 History Allergies Allergy/AdvReac Type Severity Reaction Status Date / Time No Known Allergies Allergy Verified 11/03/21 21:03 Physical Exam Vitals: Vital Signs Temp Pulse Pulse Resp BP BP Pulse Ox 11/05/21 07:00 86 86 12 144/95 144/95 95 11/05/21 06:45 77 19 130/116 95 11/05/21 06:30 73 17 134/81 97 11/05/21 06:15 85 18 130/75 94 L 11/05/21 06:00 61 61 19 127/80 127/80 96 11/05/21 05:45 61 19 133/97 96 11/05/21 05:30 64 20 150/90 95 11/05/21 05:15 71 11 L 148/106 94 L 11/05/21 05:00 78 78 20 137/86 137/86 96 11/05/21 04:45 71 17 140/98 96 11/05/21 04:30 73 19 126/77 97 11/05/21 04:15 67 18 134/76 95 11/05/21 04:00 69 69 19 134/76 134/76 95 11/05/21 03:45 64 19 133/83 95 11/05/21 03:30 20 131/75 95 11/05/21 03:15 61 18 138/84 96 11/05/21 03:00 66 66 17 132/80 132/80 95 11/05/21 02:45 65 17 133/101 96 11/05/21 02:30 67 19 133/99 95 11/05/21 02:15 90 12 128/95 94 L 11/05/21 02:00 89 89 20 123/88 123/88 92 L 11/05/21 01:45 78 23 127/90 90 L 11/05/21 01:30 81 23 127/76 90 L 11/05/21 01:15 62 12 118/95 95 11/05/21 01:00 63 63 16 113/89 113/89 90 L 11/05/21 00:45 71 18 91 L 11/05/21 00:30 65 22 117/80 91 L 11/05/21 00:15 66 19 110/68 93 L 11/05/21 00:00 98.4 F 84 84 12 134/81 134/81 94 L 11/04/21 23:45 78 20 124/95 95 11/04/21 23:30 68 22 100/76 91 L 11/04/21 23:15 81 19 127/71 94 L 11/04/21 23:00 81 81 21 115/84 115/84 94 L 11/04/21 22:45 84 16 113/95 92 L 11/04/21 22:30 72 22 118/89 95 11/04/21 22:15 83 17 125/79 92 L 11/04/21 22:00 71 71 13 126/82 126/82 94 L 11/04/21 21:45 65 19 125/77 95 11/04/21 21:30 75 16 132/87 94 L 11/04/21 21:15 76 12 122/75 95 11/04/21 21:10 80 21 122/75 93 L 11/04/21 21:00 69 19 114/74 95 11/04/21 20:45 73 24 120/76 94 L 11/04/21 20:30 75 22 107/77 93 L 11/04/21 20:15 76 14 114/92 94 L 11/04/21 20:10 72 14 114/92 94 L 11/04/21 20:00 99.0 F 76 23 118/81 96 11/04/21 19:45 91 17 123/86 95 11/04/21 19:30 87 16 127/75 94 L 11/04/21 19:15 93 18 116/65 94 L 11/04/21 19:00 93 15 107/64 96 11/04/21 18:45 101 H 26 H 103/63 93 L 11/04/21 18:30 97 22 127/68 94 L 11/04/21 18:15 91 21 134/88 94 L 11/04/21 18:10 98.5 F 87 14 134/88 95 11/04/21 18:00 93 20 117/86 94 L 11/04/21 17:55 117/81 11/04/21 16:00 71 21 128/79 96 11/04/21 15:30 69 13 130/79 95 11/04/21 15:00 80 11 L 123/79 92 L 11/04/21 14:30 74 15 118/71 95 11/04/21 14:00 73 23 115/71 94 L 11/04/21 13:30 74 19 116/69 96 11/04/21 13:00 75 16 115/84 96 11/04/21 12:30 74 14 102/85 94 L 11/04/21 12:00 97.8 F 76 14 115/79 96 11/04/21 11:30 87 11 L 115/72 92 L 11/04/21 11:00 87 11 L 140/111 95 11/04/21 10:30 72 19 141/84 94 L 11/04/21 10:00 69 21 132/75 96 11/04/21 09:30 70 14 122/92 96 11/04/21 09:00 70 18 110/74 97 Intake and Output 11/04/21 11/05/21 11/05/21 22:59 06:59 14:59 Intake Total 672.8 1031.7 122.689 Output Total 550 460 Balance 122.8 571.7 122.689 Intake: IV 672.8 934.2 Alteplase 10 mg In Sodium 60 90 Chloride 0.9% 90 ml @ 1 MG/HR 10 mls/hr IV .Q10H [facility] Rx#:[id number] Heparin Sod,Pork in 0.45% 112.8 56.4 NaCl 25,000 unit In 0.45 % NaCl 1 250ml.bag @ 18 UNITS/KG/HR 18.779 mls/hr IV .[id number] [facility] Rx#: [id number] Heparin Sod,Pork in 0.45% 112.8 NaCl 25,000 unit In 0.45 % NaCl 1 250ml.bag @ 18 UNITS/KG/HR 18.779 mls/hr IV .[id number] [facility] Rx#: [id number] Sodium Chloride 0.9% 1, 450 675 000 ml @ 75 mls/hr IV . [id number] [facility] Rx#:[id number] Intake, IV Titration 97.5 122.689 Amount Alteplase 10 mg In Sodium 97.5 Chloride 0.9% 90 ml @ 1 MG/HR 10 mls/hr IV .Q10H [facility] Rx#:[id number] Heparin Sod,Pork in 0.45% 122.689 NaCl 25,000 unit In 0.45 % NaCl 1 250ml.bag @ 18 UNITS/KG/HR 18.779 mls/hr IV .[id number] [facility] Rx#: [id number] Output: Urine 550 460 Other: Voiding Method Indwelling Catheter Indwelling Catheter Weight 109 kg Results CBC & Chem 7: 11/05/21 06:44 11/05/21 06:44 Labs: Abnormal Lab Results - Last 24 Hours (Table) 11/04/21 11/04/21 11/04/21 Range/Units 09:55 15:01 18:42 Plt Count 124 L 119 L (150-450) k/uL Neutrophils # 8.1 H (1.3-7.7) k/uL Lymphocytes # 0.9 L (1.0-4.8) k/uL PT 14.5 H (9.0-12.0) sec INR 1.4 H (<1.2) Sodium (137-145) mmol/L Chloride (98-107) mmol/L Glucose (74-99) mg/dL Calcium (8.4-10.2) mg/dL 11/04/21 11/04/21 11/04/21 Range/Units 19:05 22:56 22:56 Plt Count 118 L 111 L (150-450) k/uL Neutrophils # (1.3-7.7) k/uL Lymphocytes # 0.9 L (1.0-4.8) k/uL PT 14.4 H (9.0-12.0) sec INR 1.4 H (<1.2) Sodium (137-145) mmol/L Chloride (98-107) mmol/L Glucose (74-99) mg/dL Calcium (8.4-10.2) mg/dL 11/05/21 11/05/21 11/05/21 Range/Units 02:25 02:25 06:44 Plt Count 103 L 105 L (150-450) k/uL Neutrophils # (1.3-7.7) k/uL Lymphocytes # 0.7 L (1.0-4.8) k/uL PT 14.1 H (9.0-12.0) sec INR 1.4 H (<1.2) Sodium (137-145) mmol/L Chloride (98-107) mmol/L Glucose (74-99) mg/dL Calcium (8.4-10.2) mg/dL 11/05/21 11/05/21 Range/Units 06:44 06:44 Plt Count (150-450) k/uL Neutrophils # (1.3-7.7) k/uL Lymphocytes # (1.0-4.8) k/uL PT 14.0 H (9.0-12.0) sec INR 1.3 H (<1.2) Sodium 134 L (137-145) mmol/L Chloride 108 H (98-107) mmol/L Glucose 110 H (74-99) mg/dL Calcium 7.9 L (8.4-10.2) mg/dL
[2021-11-05 13:09] LABS: Basophils % (A) 0 %; Eosinophils % (A) 0 %; HCT 41.1 % (39.0-53.0); HGB 13.7 gm/dL (13.0-17.5); Lymphocytes # (A) 0.6 k/uL (1.0-4.8); Lymphocytes % (A) 7 %; MCH 31.4 pg (25.0-35.0); MCHC 33.3 g/dL (31.0-37.0); MCV 94.4 fL (80.0-100.0); Mean Platelet Volume 8.5; Monocytes # (A) 0.8 k/uL (0-1.0); Monocytes % (A) 9 %; Neutrophils # (A) 7.3 k/uL (1.3-7.7); Neutrophils % (A) 82 %; RBC 4.36 m/uL (4.30-5.90); RDW 14.4 % (11.5-15.5); WBC 8.9 k/uL (3.8-10.6)
[2021-11-05 13:27] LABS: Platelet Count 93 k/uL (150-450)
[2021-11-05 13:28] LABS: RBC Morphology Normal
--- NOTE | 2021-11-05 15:53 | P.PN ---
Progress Note - Text Progress Note Date: 11/05/21 Provider notified that patient was having some discomfort in the left groin and his nurse noted a hematoma. It does not appear to have any active bleeding. Hematoma in the left groin noted approximately half-dollar size. He has warm left lower extremity, good sensation and able to move. Every 4 hours CBC, PTT, PT/INR, and fibrinogen ordered. Patient appears to have underlying thrombocytopenia, he does admit to drinking at least 1-2 glasses of whiskey a day. Dr. Levy notified of platelet count and hematoma in the left groin. We'll continue to monitor. Continue with TPA and heparin drip at this time. No new orders obtained from Dr. Levy. The impression and plan of care has been dictated as directed. I performed a history and examination of this patient, discussed the same with the dictator. I agree with the dictator's note ,documented as a scribe. Any additional findings or plans will be noted.
[2021-11-05 16:41] LABS: Basophils # (A) 0.1 k/uL (0-0.2); Basophils % (A) 1 %; Eosinophils % (A) 0 %; HCT 39.5 % (39.0-53.0); HGB 13.1 gm/dL (13.0-17.5); INR 1.3 (<1.2); Lymphocytes # (A) 0.5 k/uL (1.0-4.8); Lymphocytes % (A) 5 %; MCH 31.2 pg (25.0-35.0); MCHC 33.2 g/dL (31.0-37.0); Mean Platelet Volume 7.8; Monocytes # (A) 0.8 k/uL (0-1.0); Monocytes % (A) 8 %; Neutrophils # (A) 7.9 k/uL (1.3-7.7); Neutrophils % (A) 84 %; RDW 14.5 % (11.5-15.5); WBC 9.4 k/uL (3.8-10.6)
[2021-11-05 16:42] LABS: Partial Thromboplastin Time 29.4 sec (22.0-30.0); Prothrombin Time 13.3 sec (9.0-12.0)
[2021-11-05 16:43] LABS: Platelet Count 99 k/uL (150-450)
[2021-11-05] MEDS: TAMSULOSIN 0.4 MG CAP.ER.24H PO SCH (20:13)
[2021-11-05] MEDS: ALPRAZolam 0.25 MG TAB PO PRN (20:17)
[2021-11-05 21:08] LABS: Basophils % (A) 0 %; Eosinophils % (A) 0 %; HCT 37.1 % (39.0-53.0); HGB 12.2 gm/dL (13.0-17.5); Lymphocytes # (A) 0.7 k/uL (1.0-4.8); Lymphocytes % (A) 7 %; MCH 30.7 pg (25.0-35.0); MCHC 32.9 g/dL (31.0-37.0); MCV 93.4 fL (80.0-100.0); Mean Platelet Volume 8.1; Monocytes # (A) 0.8 k/uL (0-1.0); Monocytes % (A) 8 %; Neutrophils % (A) 83 %; RBC 3.97 m/uL (4.30-5.90); WBC 9.6 k/uL (3.8-10.6)
[2021-11-05 21:24] LABS: Platelet Count 95 k/uL (150-450)
[2021-11-05 21:47] LABS: INR 1.3 (<1.2); Partial Thromboplastin Time 27.7 sec (22.0-30.0); Prothrombin Time 13.2 sec (9.0-12.0)
[2021-11-06 01:17] LABS: HCT 34.6 % (39.0-53.0); HGB 11.8 gm/dL (13.0-17.5); MCH 31.6 pg (25.0-35.0); MCV 92.8 fL (80.0-100.0); Mean Platelet Volume 7.9; RBC 3.73 m/uL (4.30-5.90); RDW 13.9 % (11.5-15.5); WBC 9.5 k/uL (3.8-10.6)
[2021-11-06 01:19] LABS: Platelet Count 86 k/uL (150-450)
[2021-11-06 01:39] LABS: INR 1.3 (<1.2); Partial Thromboplastin Time 29.3 sec (22.0-30.0); Prothrombin Time 13.4 sec (9.0-12.0)
[2021-11-06] MEDS: HYDROmorphone 0.5 MG/0.5 ML SYRINGE IVP PRN ×3 (02:07→10:56)
[2021-11-06] MEDS: SODIUM CHLORIDE 0.9% 1,000 ML IV SCH ×3 (04:06→20:41)
[2021-11-06 05:36] LABS: HCT 32.8 % (39.0-53.0); MCH 31.2 pg (25.0-35.0); MCHC 33.5 g/dL (31.0-37.0); MCV 93.1 fL (80.0-100.0); Mean Platelet Volume 9.3; RBC 3.53 m/uL (4.30-5.90); WBC 10.8 k/uL (3.8-10.6)
[2021-11-06 05:46] LABS: INR 1.3 (<1.2); Prothrombin Time 13.6 sec (9.0-12.0)
[2021-11-06 05:51] LABS: Platelet Count 86 k/uL (150-450)
[2021-11-06 05:55] LABS: Calcium 7.4 mg/dL (8.4-10.2); Potassium 3.9 mmol/L (3.5-5.1)
[2021-11-06] MEDS ORDERED: SODIUM CHLORIDE 0.9% 500 ML 500 ML IV ONE ×2 (06:10→14:41)
[2021-11-06] MEDS: PANTOPRAZOLE 40 MG TABLET PO SCH (07:51)
[2021-11-06] MEDS ORDERED: HYDROCORTISONE 1% CREAM 30 GM TUBE TOPICAL PRN (09:13)
[2021-11-06 09:32] LABS: HCT 31.1 % (39.0-53.0); HGB 10.5 gm/dL (13.0-17.5); MCH 31.3 pg (25.0-35.0); MCHC 33.8 g/dL (31.0-37.0); MCV 92.6 fL (80.0-100.0); Mean Platelet Volume 7.9; RBC 3.36 m/uL (4.30-5.90)
[2021-11-06] MEDS: ALTEPLASE 10 MG in SODIUM CHLORIDE 0.9% 90 ML IV SCH (09:34)
[2021-11-06] MEDS: METOPROLOL TARTRATE 12.5 MG TAB PO SCH ×2 (09:35→20:41)
[2021-11-06] MEDS: HEPARIN SOD,PORK IN 0.45% NACL 25,000 UNIT in 0.45% NACL 1 250ML.BAG IV SCH ×2 (09:42→18:37)
[2021-11-06 09:43] LABS: INR 1.3 (<1.2); Partial Thromboplastin Time 28.5 sec (22.0-30.0); Prothrombin Time 13.9 sec (9.0-12.0)
[2021-11-06] MEDS: LOSARTAN 25 MG TAB PO SCH (09:45)
[2021-11-06 09:55] LABS: Platelet Count 87 k/uL (150-450)
--- NOTE | 2021-11-06 11:08 | P.PN ---
Subjective Progress Note Date: 11/06/21 Principal diagnosis: Critical right limb ischemia This is a 81-year-old white male with history of hypertension, coronary artery disease, chronic atrial fibrillation, maintained on Coumadin, patient normally sees Dr. Rivers as his primary care physician. Yesterday, and in the middle of the night, patient woke up to go to the bathroom, and he realized that his right leg was numb, and cold. Patient initially thought that he may have had a patient, he presented to the ER last night with non-resolution of his symptoms. Patient was found to have ischemic right leg/right foot, and his Coumadin level was noted to be subtherapeutic. Patient was seen by vascular surgery on consultation, and he was felt to have femoral popliteal occlusion. Patient underwent selective right lower extremity angiogram and underwent initiation of TPA thrombolysis, patient underwent angiography, left femoral approach, and attempted placement an ekos catheter, however that was unsuccessful, sheath was left in place infusing TPA. patient was transferred back to the ICU and the plan is to go back and evaluate at 4 PM today. Patient is known to have history of paroxysmal atrial fibrillation, bioprosthetic aortic valve replacement as well as mitral valve repair and history of left atrial thrombus noted in 2019. Supposedly the patient is compliant with his Coumadin however his INR on this admission was only 1.5. On 11/05/2021 patient seen in follow-up in intensive care unit, he status post second right lower extremity angiogram via existing catheter for acute limb ischemia of the right lower extremity, and patient continues on TPA infusion via right femoral catheter. Today he still only has right femoral Doppler pulse, no palpable pulse in no Doppler pulse in the right popliteal or right pedal area. Right foot is cold to touch, however not dusky. Patient is awake and alert, oriented 3, does not appear to be in any acute distress, he is currently on 2 L of oxygen with a pulse ox of 96%, vital signs are stable, patient is afebrile. Left foot is warm to touch, with palpable pulse. Patient also continues on heparin at 500 units per hour, and 0.0 cm to 75 ML per hour. Today's labs have been reviewed showing white blood cell count of 8.8, hemoglobin of 13.7, INR of 1.3, sodium is 134, potassium is 4.6, chloride is 108, BUN is 19, creatinine 0.98. On 11/06/2021 patient seen in follow-up in the intensive care unit, patient was taken back to the Resource Technician yesterday, in the left groin sheath remained in place, with TPA infusion. However through the night patient has developed a hematoma in the left groin, and TPA has been discontinued, he currently remains on heparin infusion at 500 units per hour. His 0.9 normal saline is at a rate of 35 ML per hour. The left coronary hematoma is soft, has been outlined with a marker, and has not expanded overnight. Left pedal Doppler pulse is present. Patient has only a right femoral Doppler pulse, no Doppler pulse was obtained in the right popliteal or right pedal or posttibial areas. Right foot is cool to t ouch, however not dusky. Patient is awake and alert, he does complain of some burning pain in his right foot, when necessary Dilaudid is on board with relief. Hemodynamically stable, he is in sinus mechanism with a first-degree AV block and occasional PACs. No breathing difficulty, room air pulse ox is 96%, lung sounds are clear to auscultation. No complaints of chest pain. Did have a episode of hypotension this morning, possibly related to Dilaudid administration, and received 500 mL fluid bolus with improvement of his blood pressure. Objective - Vital Signs Vital signs: Vital Signs Temp 98.5 F 11/06/21 08:00 Pulse 88 11/06/21 10:00 Resp 16 11/06/21 10:00 BP 91/69 11/06/21 10:00 Pulse Ox 93 L 11/06/21 10:00 FiO2 Intake & Output 11/05/21 11/06/21 11/06/21 18:59 06:59 18:59 Intake Total 7071.994 0665 300 Output Total 630 1145 75 Balance 582.689 195 225 Weight 111.8 kg Intake: IV 990 1340 300 Alteplase 10 mg In Sodium 110 10 Chloride 0.9% 90 ml @ 1 MG/HR 10 mls/hr IV .Q10H [facility] Rx#:[id number] Heparin Sod,Pork in 0.45% 55 5 NaCl 25,000 unit In 0.45 % NaCl 1 250ml.bag @ 18 UNITS/KG/HR 18.779 mls/hr IV .[id number] [facility] Rx#: [id number] Sodium Chloride 0.9% 1, 825 825 300 000 ml @ 75 mls/hr IV . [id number] [facility] Rx#:[id number] Sodium Chloride 0.9% 500 500 ml 500 ml @ 999 mls/hr IV .Q31M [facility] Rx#:[id number] Intake, IV Titration 222.689 Amount Alteplase 10 mg In Sodium 100 Chloride 0.9% 90 ml @ 1 MG/HR 10 mls/hr IV .Q10H [facility] Rx#:[id number] Heparin Sod,Pork in 0.45% 122.689 NaCl 25,000 unit In 0.45 % NaCl 1 250ml.bag @ 18 UNITS/KG/HR 18.779 mls/hr IV .[id number] [facility] Rx#: [id number] Output: Urine 630 1145 75 Other: Voiding Method Indwelling Catheter Indwelling Catheter Indwelling Catheter - Exam GENERAL EXAM: Alert, very pleasant 81-year-old male, resting in bed in the ICU, the pulse ox of 96% comfortable in no apparent distress. HEAD: Normocephalic/atraumatic. EYES: Normal reaction of pupils, equal size. Conjunctiva pink, sclera white. NOSE: Clear with pink turbinates. THROAT: No erythema or exudates. NECK: No masses, no JVD, no thyroid enlargement, no adenopathy. CHEST: No chest wall deformity. Symmetrical expansion. LUNGS: Equal air entry with no crackles, wheeze, rhonchi or dullness. CVS: Regular rate and rhythm, normal S1 and S2, no gallops, no murmurs, no rubs ABDOMEN: Soft, nontender. No hepatosplenomegaly, normal bowel sounds, no guarding or rigidity. EXTREMITIES: No clubbing, no edema, absent pulse in the right pedal, and right popliteal areas. Doppler Right femoral area pulse, and palpable 1+ pulses in the left extremity. Left groin hematoma in place, outlined with a marker, soft, manually reduced, left sheath is in place currently TPA infusion is off MUSCULOSKELETAL: Muscle strength and tone normal. SPINE: No scoliosis or deformity SKIN: No rashes CENTRAL NERVOUS SYSTEM: Alert and oriented -3. No focal deficits, tone is normal in all 4 extremities. PSYCHIATRIC: Alert and oriented -3. Appropriate affect. Intact judgment and insight. - Labs CBC & Chem 7: 11/06/21 09:25 11/06/21 05:27 Labs: Abnormal Lab Results - Last 24 Hours (Table) 11/05/21 11/05/21 11/05/21 Range/Units 12:18 12:18 16:14 WBC (3.8-10.6) k/uL RBC 4.20 L (4.30-5.90) m/uL Hgb (13.0-17.5) gm/dL Hct (39.0-53.0) % Plt Count 93 L 99 L (150-450) k/uL Neutrophils # 7.9 H (1.3-7.7) k/uL Lymphocytes # 0.6 L 0.5 L (1.0-4.8) k/uL PT 13.5 H (9.0-12.0) sec INR 1.3 H (<1.2) Sodium (137-145) mmol/L Glucose (74-99) mg/dL Calcium (8.4-10.2) mg/dL 11/05/21 11/05/21 11/05/21 Range/Units 16:14 20:49 20:49 WBC (3.8-10.6) k/uL RBC 3.97 L (4.30-5.90) m/uL Hgb 12.2 L (13.0-17.5) gm/dL Hct 37.1 L (39.0-53.0) % Plt Count 95 L (150-450) k/uL Neutrophils # 8.0 H (1.3-7.7) k/uL Lymphocytes # 0.7 L (1.0-4.8) k/uL PT 13.3 H 13.2 H (9.0-12.0) sec INR 1.3 H 1.3 H (<1.2) Sodium (137-145) mmol/L Glucose (74-99) mg/dL Calcium (8.4-10.2) mg/dL 11/06/21 11/06/21 11/06/21 Range/Units 00:51 00:51 05:27 WBC (3.8-10.6) k/uL RBC 3.73 L (4.30-5.90) m/uL Hgb 11.8 L (13.0-17.5) gm/dL Hct 34.6 L (39.0-53.0) % Plt Count 86 L (150-450) k/uL Neutrophils # (1.3-7.7) k/uL Lymphocytes # (1.0-4.8) k/uL PT 13.4 H (9.0-12.0) sec INR 1.3 H (<1.2) Sodium 134 L (137-145) mmol/L Glucose 131 H (74-99) mg/dL Calcium 7.4 L (8.4-10.2) mg/dL 11/06/21 11/06/21 11/06/21 Range/Units 05:27 05:27 09:25 WBC 10.8 H 11.0 H (3.8-10.6) k/uL RBC 3.53 L 3.36 L (4.30-5.90) m/uL Hgb 11.0 L 10.5 L (13.0-17.5) gm/dL Hct 32.8 L 31.1 L (39.0-53.0) % Plt Count 86 L 87 L (150-450) k/uL Neutrophils # (1.3-7.7) k/uL Lymphocytes # (1.0-4.8) k/uL PT 13.6 H (9.0-12.0) sec INR 1.3 H (<1.2) Sodium (137-145) mmol/L Glucose (74-99) mg/dL Calcium (8.4-10.2) mg/dL 11/06/21 Range/Units 09:25 WBC (3.8-10.6) k/uL RBC (4.30-5.90) m/uL Hgb (13.0-17.5) gm/dL Hct (39.0-53.0) % Plt Count (150-450) k/uL Neutrophils # (1.3-7.7) k/uL Lymphocytes # (1.0-4.8) k/uL PT 13.9 H (9.0-12.0) sec INR 1.3 H (<1.2) Sodium (137-145) mmol/L Glucose (74-99) mg/dL Calcium (8.4-10.2) mg/dL Assessment and Plan Plan: Assessment: #1. Acute ischemia right lower extremity secondary to femoral/popliteal thrombo sis, status post right lower extremity angiogram and placement of a catheter for TPA for thrombolysis 3 on 11/04/2021, and 11/05/2021. Patient is scheduled possible open thrombectomy on 11/06/2021. TPA infusion is currently off #2. Paroxysmal atrial fibrillation, patient is on Coumadin however the level was subtherapeutic, currently remains on heparin infusion at 500 units per hour, currently in sinus mechanism with a first-degree block #3. Benign essential hypertension #4. History of bioprosthetic aortic valve replacement and mitral valve repair in 2012 #5. History of left atrial thrombus #6. Coronary artery disease #7. Left groin hematoma Plan: Right foot pulses remain nonpalpable, patient continues on heparin infusion TPA is off per vascular surgery recommendations Vital signs are stable, Today's labs have been noted Patient is scheduled for open thrombectomy today We'll continue to follow his course in intensive care unit along with vascular surgery I have personally seen and examined the patient, performed the documentation and the assessment and plan as written. Number of minutes spent on the visit: [10] Time with Patient: Less than 30
--- NOTE | 2021-11-06 11:15 | CA ---
Transthoracic Echo Report Name: Gonsalo Robles Age: 81 Gender: M : 1940 Exam Date: 11/05/2021 08:59 Exam Location: [facility] Ht (in): 71 Wt (lb): 240 Ordering Physician: Ulices Jarrett DO ([email or web address]) Attending/Referring Phys: Manager Analytical Eboni Fulton RDCS Procedure CPT: Indications: re: LV function, LA mass Cardiac Hx: AV REPLACEMENT, RHEUMATIC FEVER Technical Quality: Good Contrast 1: Total Dose (mL): Contrast 2: Total Dose (mL): MEASUREMENTS (Male / Female) Normal Values 2D ECHO LV Diastolic Diameter PLAX 4.8 cm 4.2 - 5.9 / 3.9 - 5.3 cm LV Systolic Diameter PLAX 3.9 cm IVS Diastolic Thickness 1.2 cm 0.6 - 1.0 / 0.6 - 0.9 cm LVPW Diastolic Thickness 1.2 cm 0.6 - 1.0 / 0.6 - 0.9 cm LV Relative Wall Thickness 0.5 LA Volume 146.0 cm??? 18 - 58 / 22 - 52 cm??? M-MODE Aortic Root Diameter MM 5.2 cm LA Systolic Diameter MM 2.5 cm LA Ao Ratio MM 0.5 MV E Point Septal Separation 1.8 cm DOPPLER AV Peak Velocity 205.7 cm/s AV Peak Gradient 16.9 mmHg AV Mean Velocity 159.0 cm/s AV Mean Gradient 10.7 mmHg AV Velocity Time Integral 39.6 cm LVOT Peak Velocity 69.8 cm/s LVOT Peak Gradient 1.9 mmHg MV Peak Velocity 233.4 cm/s MV Peak Gradient 21.8 mmHg MV Mean Velocity 98.4 cm/s MV Mean Gradient 5.6 mmHg MV Velocity Time Integral 50.9 cm MV Area PHT 2.1 cm??? MR Peak Velocity 451.9 cm/s MR Peak Gradient 81.7 mmHg Mitral E Point Velocity 160.0 cm/s Mitral A Point Velocity 42.3 cm/s Mitral E to A Ratio 3.8 MV Deceleration Time 377.0 ms TR Peak Velocity 161.1 cm/s TR Peak Gradient 10.4 mmHg Right Ventricular Systolic Press 14.5 mmHg FINDINGS Left Ventricle Mildly increased septal wall thickness. Left ventricular cavity size normal. Left ventricular ejection fraction is estimated at 40-45_ %. Right Ventricle The right ventricle is normal in size and function. Right Atrium The right atrium is normal in size. Left Atrium Severely increased left atrial volume. Moderately increased left atrial area. Mitral Valve Mitral valve thickened. Mitral annular calcification. Mild to moderate mitral stenosis. There is mild to moderate mitral regurgitation. Aortic Valve Bioprosthetic aortic valve, thickened, not well visualized. There is no aortic regurgitation. Tricuspid Valve Structurally normal tricuspid valve without significant stenosis. Pulmonary artery systolic pressure is normal. Mild tricuspid regurgitation. Pulmonic Valve Structurally normal pulmonic valve without significant stenosis. There is no pulmonic regurgitation. Pericardium Normal pericardium without effusion. Aorta Aortic dilatation measuring 5.2 cm. CONCLUSIONS 1. Moderately impaired systolic function 2. Bioprosthetic aortic valve, not well visualized. 3. Mild to moderate mitral stenosis and regurgitation 4. Mild tricuspid regurgitation 6. Dilated ascending aorta. Previewed by: Dr. Marti Rain MD (Electronically Signed) Final Date: 06 November 2021 11:15
--- NOTE | 2021-11-06 11:53 | P.PN ---
Subjective Progress Note Date: 11/06/21 HISTORY OF PRESENT ILLNESS This is a 81-year-old male patient of Dr. Rivers with past medical history of rheumatic heart disease status post aortic valve replacement and mitral valve repair in 2012 at [facility],, noncritical CAD, history of paroxysmal atrial fibrillation, hypertension, generalized anxiety disorder, benign prostatic hypertrophy. Patient states that he had awakened at 2 AM when he had no feeling in his right lower extremity. He denies having any pain. He states it was very hard to walk and subsequently he did start to feel pain. He thought initially i t was a pinched nerve in his back but then he went on the Internet and did some research and was concerned that he had a blood clot. His then brought him into [facility] here in [facility] emergency center for evaluation on 11/03. CAT scan revealed occlusive thrombus in the common femoral, profunda and proximal superficial femoral artery as well as through the distal superficial femoral and popliteal arteries. Patient was taken urgently for angiogram and and TPA thrombolysis. 11/06: Patient remains in the intensive care unit. He has had drainage from the right groin which he states leak underneath him and he has been itchy from it all night. Hydrocortisone cream added. Patient has significant scrotal hematoma. Patient states that he was up all night due to pain. He is scheduled today to go back to or for angiogram and possible further procedures. Patient has been afebrile, heart rate 88, blood pressure 91/69, pulse ox 93% on room air. Repeat blood work reveals WBC 11, hemoglobin 10.5, platelet count 87. INR is 1.3. Sodium 134, BUN 19 and creatinine 1.02. Echocardiogram reveals EF of 40-45%, bioprosthetic aortic valve, [id number] mitral stenosis and regurgitation, mild tricuspid regurgitation, dilated ascending aorta. REVIEW OF SYSTEMS Constitutional: No fever, no chills, no night sweats. No weight change. No weakness, fatigue or lethargy. No daytime sleepiness. EENT: No headache. No blurred vision or double vision, no loss of vision. No loss of Hearing, no ringing in the ears, no dizziness. No nasal drainage or congestion. No epistaxis. No sore throat. Lungs: No shortness of breath, cough, no sputum production. No wheezing. Cardiovascular: No chest pain, no lower extremity edema. No palpitations. No paroxysmal nocturnal dyspnea. No orthopnea. No lightheadedness or dizziness. No syncopal episodes. Abdominal: No abdominal pain. No nausea, vomiting. No diarrhea. No constipation. No bloody or tarry stools. No loss of appetite. Genitourinary: No dysuria, increased frequency, urgency. No urinary retention. Musculoskeletal: No myalgias. No muscle weakness, no gait dysfunction, no frequent falls. No back pain. No neck pain. Integumentary: No wounds, no lesions. No rash or pruritus. No unusual bruising . No change in hair or nails. Neurologic: No aphasia. No facial droop. No change in mentation. No head injury. No headache. No paralysis. No paresthesia. Painful right lower extremity Psychiatric: No depression. No anxiety. No mood swings. Endocrine: No abnormal blood sugars. No weight change. No excessive sweating or thirst. No cold intolerance. PHYSICAL EXAMINATION Gen: This is a 81-year-old male. He is resting in the ICU bed and appears to be comfortable and in no acute distress. HEENT: Head is atraumatic, normocephalic. Pupils equal, round. Sclerae is anicteric. NECK: Supple. No JVD. No lymphadenopathy. No thyromegaly. LUNGS: Clear to auscultation. No wheezes or rhonchi. No intercostal retractions. HEART: Regular rate and rhythm. Systolic ejection murmur.. ABDOMEN: Soft. Bowel sounds are present. No masses. No tenderness. EXTREMITIES: No pedal edema. No calf tenderness. Pulses are palpable on the right lower extremity. Dorsalis pedis 1+ on the left, NEUROLOGICAL: Patient is awake, alert and oriented x3. Cranial nerves 2 through 12 are grossly intact. ASSESSMENT AND PLAN Acute limb ischemia, femoral popliteal artery occlusion, status post angiogram and TPA thrombolysis. Continue current management per vascular surgery, patient remains in the intensive care unit and scheduled for repeat angiogram this morning possible surgical intervention depending on results. Rheumatic heart disease status post aortic valve replacement and mitral valve repair in 2012, stable. Patient was on Coumadin at home. History of paroxysmal atrial fibrillation. Noncritical coronary artery disease. Hypertension. Continue losartan 25 mg daily, Lopressor 12.5 mg twice daily Generalized anxiety disorder. Continue Xanax 0.25 milligrams at bedtime Benign prostatic hypertrophy. Continue Flomax 0.4 milligrams daily. Thrombocytopenia. Continue to monitor. GI prophylaxis. Protonix DVT prophylaxis. Heparin DISCHARGE PLAN Home Impression and plan of care have been directed as dictated by the signing physician. Elysia Maria nurse practitioner acting as scribe for signing physician. Objective - Vital Signs Vital signs: Vital Signs Temp 98.5 F 11/06/21 08:00 Pulse 97 11/06/21 08:00 Resp 22 11/06/21 08:00 BP 89/66 11/06/21 08:00 Pulse Ox 95 11/06/21 08:00 FiO2 Intake & Output 11/05/21 11/06/21 11/06/21 18:59 06:59 18:59 Intake Total 2376.936 9780 150 Output Total 630 1145 25 Balance 582.689 195 125 Weight 111.8 kg Intake: IV 990 1340 150 Alteplase 10 mg In Sodium 110 10 Chloride 0.9% 90 ml @ 1 MG/HR 10 mls/hr IV .Q10H [facility] Rx#:[id number] Heparin Sod,Pork in 0.45% 55 5 NaCl 25,000 unit In 0.45 % NaCl 1 250ml.bag @ 18 UNITS/KG/HR 18.779 mls/hr IV .[id number] [facility] Rx#: [id number] Sodium Chloride 0.9% 1, 825 825 150 000 ml @ 75 mls/hr IV . [id number] [facility] Rx#:[id number] Sodium Chloride 0.9% 500 500 ml 500 ml @ 999 mls/hr IV .Q31M [facility] Rx#:[id number] Intake, IV Titration 222.689 Amount Alteplase 10 mg In Sodium 100 Chloride 0.9% 90 ml @ 1 MG/HR 10 mls/hr IV .Q10H [facility] Rx#:[id number] Heparin Sod,Pork in 0.45% 122.689 NaCl 25,000 unit In 0.45 % NaCl 1 250ml.bag @ 18 UNITS/KG/HR 18.779 mls/hr IV .[id number] [facility] Rx#: [id number] Output: Urine 630 1145 25 Other: Voiding Method Indwelling Catheter Indwelling Catheter - Labs CBC & Chem 7: 11/06/21 09:25 07/12/22 05:27 Labs: Abnormal Lab Results - Last 24 Hours (Table) 11/05/21 11/05/21 11/05/21 Range/Units 12:18 12:18 16:14 WBC (3.8-10.6) k/uL RBC 4.20 L (4.30-5.90) m/uL Hgb (13.0-17.5) gm/dL Hct (39.0-53.0) % Plt Count 93 L 99 L (150-450) k/uL Neutrophils # 7.9 H (1.3-7.7) k/uL Lymphocytes # 0.6 L 0.5 L (1.0-4.8) k/uL PT 13.5 H (9.0-12.0) sec INR 1.3 H (<1.2) Sodium (137-145) mmol/L Glucose (74-99) mg/dL Calcium (8.4-10.2) mg/dL 11/05/21 11/05/21 11/05/21 Range/Units 16:14 20:49 20:49 WBC (3.8-10.6) k/uL RBC 3.97 L (4.30-5.90) m/uL Hgb 12.2 L (13.0-17.5) gm/dL Hct 37.1 L (39.0-53.0) % Plt Count 95 L (150-450) k/uL Neutrophils # 8.0 H (1.3-7.7) k/uL Lymphocytes # 0.7 L (1.0-4.8) k/uL PT 13.3 H 13.2 H (9.0-12.0) sec INR 1.3 H 1.3 H (<1.2) Sodium (137-145) mmol/L Glucose (74-99) mg/dL Calcium (8.4-10.2) mg/dL 11/06/21 11/06/21 11/06/21 Range/Units 00:51 00:51 05:27 WBC (3.8-10.6) k/uL RBC 3.73 L (4.30-5.90) m/uL Hgb 11.8 L (13.0-17.5) gm/dL Hct 34.6 L (39.0-53.0) % Plt Count 86 L (150-450) k/uL Neutrophils # (1.3-7.7) k/uL Lymphocytes # (1.0-4.8) k/uL PT 13.4 H (9.0-12.0) sec INR 1.3 H (<1.2) Sodium 134 L (137-145) mmol/L Glucose 131 H (74-99) mg/dL Calcium 7.4 L (8.4-10.2) mg/dL 11/06/21 11/06/21 Range/Units 05:27 05:27 WBC 10.8 H (3.8-10.6) k/uL RBC 3.53 L (4.30-5.90) m/uL Hgb 11.0 L (13.0-17.5) gm/dL Hct 32.8 L (39.0-53.0) % Plt Count 86 L (150-450) k/uL Neutrophils # (1.3-7.7) k/uL Lymphocytes # (1.0-4.8) k/uL PT 13.6 H (9.0-12.0) sec INR 1.3 H (<1.2) Sodium (137-145) mmol/L Glucose (74-99) mg/dL Calcium (8.4-10.2) mg/dL
[2021-11-06] MEDS ORDERED: MIDAZOLAM 2 MG/2 ML VIAL IV ONE (11:57)
[2021-11-06] MEDS ORDERED: fentaNYL (PF) 50 MCG/ML 2 ML AMP IV ONE (11:57)
[2021-11-06] MEDS ORDERED: fentaNYL (PF) 50 MCG/ML 2 ML AMP ONE ×2 (11:59→12:51)
[2021-11-06] MEDS ORDERED: IV FLUID CONTINUATION 800 ML IV ONE (12:04)
[2021-11-06] MEDS ORDERED: IOPAMIDOL-250 100ML BTL IV ONE (12:24)
--- NOTE | 2021-11-06 12:46 | P.OP ---
Date of Procedure: 11/06/21 Preoperative Diagnosis: acute right lower extremity thrombosis s/p thrombolysis Postoperative Diagnosis: Acute right lower extremity ischemia/thrombosis Right femoral artery thrombosis with right popliteal artery thrombosis Procedure(s) Performed: Right lower extremity selective angiogram via existing sheath Exchange of left femoral sheath and selective left iliofemoral angiogram Conscious sedation x 27 minutes Anesthesia: local (with sedation) Surgeon: Jamal Vicente Estimated Blood Loss (ml): 5 Pathology: none sent Condition: stable Disposition: PACU Indications for Procedure: 81 year old male currently being treated with thrombolysis for acute right lower extremity thrombosis and critical limb ischemia. He has had increased warmth to the knee but worsening pain in the foot with decreased motion this morning as well as oozing around the sheath with a moderate hematoma. He presents today for angiogram to determine location of clot and possible percutaneous thrombectomy. Operative Findings: Thrombus noted in the right common femoral artery with extensive thrombus in the SFA and popliteal artery. Description of Procedure: After written and informed consent was obtained and all risks, benefits and complications were described the patient was brought to the ammunition assembly ii laborer and placed in a supine position. Angiogram was taken through the existing sheath demonstrating thrombus in the common femoral artery with some reconstitution of the SFA with minimal flow to the popliteal artery. A wire was placed into the popliteal artery and quick cross catheter was placed and distal angiogram was taken without any flow distal to the popliteal artery. Decision was then made for open thrombectomy and sheath was exchanged for a 7F sheath due to the continuous leakage around the 6F sheath. The 7F sheath was sutured in place and dressings were placed. He was then taken to the operating room for open thrombectomy.
[2021-11-06] MEDS ORDERED: ETOMIDATE 2 MG/ML 10 ML VIAL ONE (12:51)
[2021-11-06] MEDS ORDERED: PHENYLEPHRINE-0.9% NACL SYG 1,000 MCG/10 ML SYRINGE ONE (12:51)
[2021-11-06] MEDS ORDERED: HEPARIN SODIUM,PORCINE 5,000 UNIT/ML 1 ML VIAL ONE (12:51)
[2021-11-06] MEDS ORDERED: SUCCINYLCHOLINE CHLORIDE 100 MG/5 ML SYR IV ONE (12:51)
[2021-11-06] MEDS ORDERED: PROPOFOL 10 MG/ML 20 ML VIAL IV ONE (12:51)
[2021-11-06] MEDS ORDERED: LIDOCAINE 2% INJ 20 MG/ML (2 ML VIAL) ONE (12:51)
[2021-11-06] MEDS ORDERED: SODIUM CHLORIDE 0.9% 100 ML with ceFAZolin 2,000 MG IV ONE ×2 (12:56)
[2021-11-06] MEDS ORDERED: SODIUM CHLORIDE 0.9% 1,000 ML IV ONE (12:56)
[2021-11-06] MEDS ORDERED: ceFAZolin 4,000 MG in SODIUM CHLORIDE 0.9% 1,000 ML IRRIGATION ONE (13:35)
[2021-11-06] MEDS ORDERED: IOPAMIDOL-370 50ML BTL MISCELLANE ONE ×2 (13:52)
--- NOTE | 2021-11-06 14:07 | PN ---
PROGRESS NOTE This gentleman has had an angiogram yesterday and there is still not much improvement in the right lower extremity. He is going for a angiography, possible open surgery for his right lower extremity acute ischemia. He has thrombus on both sides. It is unclear if he has underlying disease or it is a purely thrombus phenomena. Cardiac- escobar he is stable. He has history of aortic valve replacement, minor mitral valve repair. S1-S2 heard normally. Short systolic murmur noted. Lungs reveal bilateral decent air entry. Abdomen is soft. Lower extremity pulses are diminished. Right side pulses not palpable. MMODL / IJN: [id number] /
[2021-11-06] MEDS ORDERED: HEPARIN SODIUM,PORCINE 10,000 UNIT in SODIUM CHLORIDE 0.9% 1,000 ML IRRIGATION ONE (14:14)
[2021-11-06 15:07] LABS: Basophils % (A) 0 %; Eosinophils % (A) 0 %; HCT 24.7 % (39.0-53.0); Lymphocytes % (A) 10 %; MCH 31.5 pg (25.0-35.0); MCHC 34.1 g/dL (31.0-37.0); MCV 92.4 fL (80.0-100.0); Mean Platelet Volume 8.3; Monocytes # (A) 0.9 k/uL (0-1.0); Monocytes % (A) 9 %; Neutrophils # (A) 8.1 k/uL (1.3-7.7); Neutrophils % (A) 79 %; RBC 2.68 m/uL (4.30-5.90); RDW 14.3 % (11.5-15.5); WBC 10.3 k/uL (3.8-10.6)
[2021-11-06 15:17] LABS: HGB 8.4 gm/dL (13.0-17.5); Platelet Count 91 k/uL (150-450)
[2021-11-06] MEDS ORDERED: GELATIN SPONGE,ABSORB (SMALL) 1 EACH SPONGE TOPICAL ONE (15:51)
[2021-11-06] MEDS ORDERED: THROMBIN (BOVINE) 5,000 UNIT VIAL TOPICAL ONE (15:53)
[2021-11-06] MEDS ORDERED: HEPARIN SODIUM 1,000 UN/ML (10ML VL) IV ONE (17:59)
[2021-11-06] MEDS ORDERED: HEPARIN SODIUM 1,000 UN/ML (10ML VL) IV PRN (17:59)
[2021-11-06] MEDS ORDERED: SODIUM CHLORIDE 0.9% 1,000 ML IV SCH (18:15)
[2021-11-06 18:37] LABS: Basophils % (A) 0 %; Eosinophils % (A) 0 %; HCT 30.5 % (39.0-53.0); HGB 10.3 gm/dL (13.0-17.5); Lymphocytes # (A) 1.5 k/uL (1.0-4.8); Lymphocytes % (A) 12 %; MCHC 33.6 g/dL (31.0-37.0); MCV 95.3 fL (80.0-100.0); Monocytes % (A) 8 %; Neutrophils % (A) 77 %; RDW 14.7 % (11.5-15.5); WBC 11.8 k/uL (3.8-10.6)
[2021-11-06 18:51] LABS: INR 1.2 (<1.2); Partial Thromboplastin Time 22.3 sec (22.0-30.0); Prothrombin Time 12.7 sec (9.0-12.0)
[2021-11-06 20:30] LABS: Anisocytosis Slight; Ovalocytes Present; Platelet Count 94 k/uL (150-450); Poikilocytosis Slight
[2021-11-06] MEDS: TAMSULOSIN 0.4 MG CAP.ER.24H PO SCH (20:41)
[2021-11-06] MEDS ORDERED: DILTIAZEM DRIP BOLUS FROM BAG 1 MG SOLN IV ONE (21:35)
[2021-11-06] MEDS: LACTATED RINGERS 500 ML IV SCH (23:45)
[2021-11-07] MEDS: LACTATED RINGERS 1,000 ML IV SCH ×4 (01:08→23:45)
[2021-11-07] MEDS: LACTATED RINGERS 500 ML IV SCH ×8 (01:09→03:22)
[2021-11-07] MEDS: DILTIAZEM 125 MG in SODIUM CHLORIDE 0.9% 100 ML IV SCH ×2 (01:48→23:40)
[2021-11-07 02:26] LABS: Basophils # (A) 0.1 k/uL (0-0.2); Basophils % (A) 1 %; Eosinophils # (A) 0.1 k/uL (0-0.7); Eosinophils % (A) 1 %; HCT 25.3 % (39.0-53.0); Lymphocytes # (A) 0.9 k/uL (1.0-4.8); Lymphocytes % (A) 10 %; MCH 30.5 pg (25.0-35.0); MCHC 33.1 g/dL (31.0-37.0); MCV 92.3 fL (80.0-100.0); Mean Platelet Volume 8.2; Monocytes # (A) 0.8 k/uL (0-1.0); Monocytes % (A) 9 %; Neutrophils # (A) 7.3 k/uL (1.3-7.7); Neutrophils % (A) 79 %; RBC 2.74 m/uL (4.30-5.90); RDW 14.7 % (11.5-15.5); WBC 9.3 k/uL (3.8-10.6)
[2021-11-07 02:38] LABS: HGB 8.4 gm/dL (13.0-17.5); Platelet Count 83 k/uL (150-450)
[2021-11-07 02:42] LABS: Calcium 6.8 mg/dL (8.4-10.2); Magnesium 1.8 mg/dL (1.6-2.3); Potassium 3.9 mmol/L (3.5-5.1)
[2021-11-07] MEDS ORDERED: MAGNESIUM SULFATE-D5W PMX 1 GM in DEXTROSE/WATER 1 100ML.BAG IVPB ONE (03:11)
--- NOTE | 2021-11-07 06:29 | IR ---
EXAMINATION TYPE: IR angio lower extremity BI DATE OF EXAM: 11/06/2021 CLINICAL HISTORY: Peripheral vascular disease. Right leg pain. Right groin clot. TECHNIQUE: Fluoroscopy. COMPARISON: None. FINDINGS: Fluoroscopic guidance was provided during bilateral lower extremity angiogram post right l ower extremity TPA procedure performed by Dr. Raines. A total of 9.1 minute of fluoroscopic time was utilized during the procedure and 259 spot images was acquired. Please refer to procedure note for fu rther details. IMPRESSION: As Above.
--- NOTE | 2021-11-07 06:31 | FL ---
EXAMINATION TYPE: FL guidance operating room DATE OF EXAM: 11/06/2021 CLINICAL HISTORY: Right leg clot. TECHNIQUE: Fluoroscopy. COMPARISON: None. FINDINGS: Fluoroscopic guidance was provided during right leg thrombectomy procedure performed by Dr Des Vicente. A total of 10 minutes 20 seconds of fluoroscopic time was utilized during the procedure a nd 6 spot images was acquired. Please refer to procedure note for further details. IMPRESSION: As Above.
[2021-11-07] MEDS: PANTOPRAZOLE 40 MG TABLET PO SCH (06:47)
[2021-11-07 06:57] LABS: Basophils # (A) 0.1 k/uL (0-0.2); Basophils % (A) 1 %; Eosinophils # (A) 0.1 k/uL (0-0.7); Eosinophils % (A) 1 %; HCT 25.9 % (39.0-53.0); HGB 8.5 gm/dL (13.0-17.5); Lymphocytes # (A) 1.2 k/uL (1.0-4.8); Lymphocytes % (A) 9 %; MCH 30.1 pg (25.0-35.0); MCHC 32.9 g/dL (31.0-37.0); MCV 91.6 fL (80.0-100.0); Mean Platelet Volume 8.2; Monocytes % (A) 8 %; Neutrophils # (A) 10.1 k/uL (1.3-7.7); Neutrophils % (A) 80 %; RBC 2.82 m/uL (4.30-5.90); RDW 14.8 % (11.5-15.5); WBC 12.6 k/uL (3.8-10.6)
[2021-11-07 07:06] LABS: INR 1.2 (<1.2); Partial Thromboplastin Time 39.2 sec (22.0-30.0); Prothrombin Time 12.6 sec (9.0-12.0)
[2021-11-07 07:11] LABS: Platelet Count 92 k/uL (150-450)
[2021-11-07] MEDS ORDERED: POTASSIUM CHLORIDE ER 20 MEQ TAB.ER PO SCH (08:00)
[2021-11-07] MEDS ORDERED: ADENOSINE 3 MG/ML 2 ML VIAL IVP STA (08:37)
[2021-11-07] MEDS: HEPARIN SOD,PORK IN 0.45% NACL 25,000 UNIT in 0.45% NACL 1 250ML.BAG IV SCH ×2 (08:38→15:53)
[2021-11-07] MEDS: LOSARTAN 25 MG TAB PO SCH (08:39)
--- NOTE | 2021-11-07 10:30 | P.PN ---
Subjective Progress Note Date: 11/07/21 Principal diagnosis: Acute limb ischemia Patient is a pleasant 81-year-old male who is being seen as a follow-up for acute limb ischemia. He remains in the ICU. Yesterday he underwent angiogram and TPA recheck then went to the operating room for a open thrombectomy of the right lower extremity. This morning he is in SVT, cardiology is following. He's been on a Cardizem drip with orders for adenosine. Patient is also hypotensive. New onset of gross hematuria. He denies any pain currently states that he did have some burning in his heels through the night. He is able to move bilateral lower extremities. Right lower extremity is warm to the touch. He continues with a heparin drip. Wound VAC is in place. Heart rate 101 respiratory rate 16 blood pressure 84/59 oxygen saturation 97% room air temperature 98.2. WBC 12.6 hemoglobin 8.5 hematocrit 25 platelet count 92,000 PT 12.6 INR 1.2 PTT 39.2 sodium 133 potassium 3.9126 creatinine 1.03 Objective - Vital Signs Vital signs: Vital Signs Temp 98.2 F 11/07/21 04:00 Pulse 101 H 11/07/21 07:00 Resp 16 11/07/21 07:00 BP 84/59 11/07/21 07:00 Pulse Ox 97 11/07/21 07:00 FiO2 Intake & Output 11/06/21 11/07/21 11/07/21 18:59 06:59 18:59 Intake Total 1862 2200 258.833 Output Total 1290 355 45 Balance 572 1845 213.833 Weight 115.8 kg Intake: IV 1552 2200 125 Lactated Ringers 1,000 ml 750 125 @ 125 mls/hr IV .Q8H ZAINA Rx#:[id number] Lactated Ringers 500 ml @ 1000 999 mls/hr IV .Q31M ZAINA Rx#:[id number] Sodium Chloride 0.9% 1, 450 450 000 ml @ 75 mls/hr IV . [id number] ZAINA Rx#:[id number] Intake, IV Titration 133.833 Amount Heparin Sod,Pork in 0.45% 133.833 NaCl 25,000 unit In 0.45 % NaCl 1 250ml.bag @ 8. 9445 UNITS/KG/HR 10 mls/ hr IV .Q24H ZAINA Rx#: [id number] Blood Product 310 Rc Irr As1 Unit 310 [id number] Output: Urine 540 355 45 Estimated Blood Loss 750 Other: Voiding Method Indwelling Catheter Indwelling Catheter - Exam General appearance: The patient is alert, oriented, appears in no acute distress. HET: Head is normocephalic and atraumatic. Neck: Supple without lymphadenopathy. Trachea midline. Heart: Irregular rate and rhythm. Lungs: Clear to auscultation bilaterally. Abdomen: Soft, nontender, nondistended. Genitourinary: Scrotum swollen, ecchymotic. Gross hematuria in Raines catheter. Extremities: Right lower extremity with Prevena wound vac in place. Right lower extremity warm to touch with good sensation and mobility. PT and DP Doppler signal obtained. Left lower extremity with significant ecchymosis to the left groin and hip, no hematoma palpated. Full range of motion of the left lower extremity. PT and DP Doppler signal present. Neurological: No focal deficits. Sensation intact. - Labs CBC & Chem 7: 11/07/21 06:21 11/07/21 02:19 Labs: Abnormal Lab Results - Last 24 Hours (Table) 11/04/21 11/06/21 11/06/21 Range/Units 02:03 09:25 09:25 WBC 11.0 H (3.8-10.6) k/uL RBC 3.36 L (4.30-5.90) m/uL Hgb 10.5 L (13.0-17.5) gm/dL Hct 31.1 L (39.0-53.0) % Plt Count 87 L (150-450) k/uL Neutrophils # (1.3-7.7) k/uL Lymphocytes # (1.0-4.8) k/uL PT 13.9 H (9.0-12.0) sec INR 1.3 H (<1.2) APTT (22.0-30.0) sec Sodium (137-145) mmol/L Chloride (98-107) mmol/L Carbon Dioxide (22-30) mmol/L BUN (9-20) mg/dL Glucose (74-99) mg/dL Calcium (8.4-10.2) mg/dL Crossmatch See Detail 11/06/21 11/06/21 11/06/21 Range/Units 14:37 18:25 18:25 WBC 11.8 H (3.8-10.6) k/uL RBC 2.68 L 3.20 L (4.30-5.90) m/uL Hgb 8.4 L D 10.3 L (13.0-17.5) gm/dL Hct 24.7 L 30.5 L (39.0-53.0) % Plt Count 91 L 94 L (150-450) k/uL Neutrophils # 8.1 H 9.0 H (1.3-7.7) k/uL Lymphocytes # (1.0-4.8) k/uL PT 12.7 H (9.0-12.0) sec INR 1.2 H (<1.2) APTT (22.0-30.0) sec Sodium (137-145) mmol/L Chloride (98-107) mmol/L Carbon Dioxide (22-30) mmol/L BUN (9-20) mg/dL Glucose (74-99) mg/dL Calcium (8.4-10.2) mg/dL Crossmatch 11/06/21 11/07/21 11/07/21 Range/Units 23:59 02:19 02:19 WBC (3.8-10.6) k/uL RBC 2.74 L (4.30-5.90) m/uL Hgb 8.4 L D (13.0-17.5) gm/dL Hct 25.3 L (39.0-53.0) % Plt Count 83 L (150-450) k/uL Neutrophils # (1.3-7.7) k/uL Lymphocytes # 0.9 L (1.0-4.8) k/uL PT (9.0-12.0) sec INR (<1.2) APTT 47.0 H (22.0-30.0) sec Sodium 133 L (137-145) mmol/L Chloride 109 H (98-107) mmol/L Carbon Dioxide 21 L (22-30) mmol/L BUN 26 H (9-20) mg/dL Glucose 144 H (74-99) mg/dL Calcium 6.8 L (8.4-10.2) mg/dL Crossmatch 07/13/22 07/13/22 Range/Units 06:21 06:21 WBC 12.6 H (3.8-10.6) k/uL RBC 2.82 L (4.30-5.90) m/uL Hgb 8.5 L (13.0-17.5) gm/dL Hct 25.9 L (39.0-53.0) % Plt Count 92 L (150-450) k/uL Neutrophils # 10.1 H (1.3-7.7) k/uL Lymphocytes # (1.0-4.8) k/uL PT 12.6 H (9.0-12.0) sec INR 1.2 H (<1.2) APTT 39.2 H (22.0-30.0) sec Sodium (137-145) mmol/L Chloride (98-107) mmol/L Carbon Dioxide (22-30) mmol/L BUN (9-20) mg/dL Glucose (74-99) mg/dL Calcium (8.4-10.2) mg/dL Crossmatch Assessment and Plan Assessment: 1. Postop day #1 for right open thrombectomy 2. Acute limb ischemia right lower extremity, initiation of TPA 3. Atrial fibrillation subtherapeutic on anticoagulation 4. Acute blood loss anemia 5. Thrombocytopenia 6. Hematuria 7. Atrial fibrillation Plan: 1. Continue with heparin protocol 2. Daily CBC CMP 3. Transfuse 1 unit PRBC 4. Consult hematology for thrombocytopenia, possible HIT, gross hematuria. Await recommendations for anticoagulation 5. Continue with recommendations from cardiology 6. Continue ICU management 7. Encourage ambulation increase activity 8. Incentive spirometer to bedside The impression and plan of care has been dictated as directed. Dr. Raines I performed a history and examination of this patient, discussed the same with the dictator. I agree with the dictator's note ,documented as a scribe. Any additional findings or plans will be noted.
[2021-11-07] MEDS: METOPROLOL TARTRATE 12.5 MG TAB PO SCH ×2 (10:50→20:34)
--- NOTE | 2021-11-07 11:03 | P.PN ---
Subjective Progress Note Date: 11/07/21 Principal diagnosis: Critical right limb ischemia This is a 81-year-old white male with history of hypertension, coronary artery disease, chronic atrial fibrillation, maintained on Coumadin, patient normally sees Dr. Rivers as his primary care physician. Yesterday, and in the middle of the night, patient woke up to go to the bathroom, and he realized that his right leg was numb, and cold. Patient initially thought that he may have had a patient, he presented to the ER last night with non-resolution of his symptoms. Patient was found to have ischemic right leg/right foot, and his Coumadin level was noted to be subtherapeutic. Patient was seen by vascular surgery on consultation, and he was felt to have femoral popliteal occlusion. Patient underwent selective right lower extremity angiogram and underwent initiation of TPA thrombolysis, patient underwent angiography, left femoral approach, and attempted placement an ekos catheter, however that was unsuccessful, sheath was left in place infusing TPA. patient was transferred back to the ICU and the plan is to go back and evaluate at 4 PM today. Patient is known to have history of paroxysmal atrial fibrillation, bioprosthetic aortic valve replacement as well as mitral valve repair and history of left atrial thrombus noted in 2019. Supposedly the patient is compliant with his Coumadin however his INR on this admission was only 1.5. On 11/05/2021 patient seen in follow-up in intensive care unit, he status post second right lower extremity angiogram via existing catheter for acute limb ischemia of the right lower extremity, and patient continues on TPA infusion via right femoral catheter. Today he still only has right femoral Doppler pulse, no palpable pulse in no Doppler pulse in the right popliteal or right pedal area. Right foot is cold to touch, however not dusky. Patient is awake and alert, oriented 3, does not appear to be in any acute distress, he is currently on 2 L of oxygen with a pulse ox of 96%, vital signs are stable, patient is afebrile. Left foot is warm to touch, with palpable pulse. Patient also continues on heparin at 500 units per hour, and 0.0 cm to 75 ML per hour. Today's labs have been reviewed showing white blood cell count of 8.8, hemoglobin of 13.7, INR of 1.3, sodium is 134, potassium is 4.6, chloride is 108, BUN is 19, creatinine 0.98. On 11/06/2021 patient seen in follow-up in the intensive care unit, patient was taken back to the [facility] yesterday, in the left groin sheath remained in place, with TPA infusion. However through the night patient has developed a hematoma in the left groin, and TPA has been discontinued, he currently remains on heparin infusion at 500 units per hour. His 0.9 normal saline is at a rate of 35 ML per hour. The left coronary hematoma is soft, has been outlined with a marker, and has not expanded overnight. Left pedal Doppler pulse is present. Patient has only a right femoral Doppler pulse, no Doppler pulse was obtained in the right popliteal or right pedal or posttibial areas. Right foot is cool to t ouch, however not dusky. Patient is awake and alert, he does complain of some burning pain in his right foot, when necessary Dilaudid is on board with relief. Hemodynamically stable, he is in sinus mechanism with a first-degree AV block and occasional PACs. No breathing difficulty, room air pulse ox is 96%, lung sounds are clear to auscultation. No complaints of chest pain. Did have a episode of hypotension this morning, possibly related to Dilaudid administration, and received 500 mL fluid bolus with improvement of his blood pressure. On 11/07/2021 patient seen in follow-up in the intensive care unit, yesterday on 11/06/2021 patient was taken back to the [facility], where he underwent right lower extremity selective angiogram, demonstrating thrombus in the common femoral artery with minimal flow to the popliteal artery, the decision was made for open thrombectomy, patient was taken to the operating room where open thrombectomy to place. This morning he is awake and alert, he is having some burning sensation he has right lower extremity, but right foot is now warm and almost hot to touch, and there are now Doppler pulses present in the right pedal, right posttibial, and right popliteal areas. Left groin hematoma is now dissipating, and it remains soft. Yesterday patient received a unit of packed red blood cells, today's hemoglobin is 8.5. White blood cell count is 12.6, INR is 1.2, sodium is 133, BUN is 26 and creatinine is 1.03. Currently patient is on room air, denies any shortness of breath, is on IVs including lactated Ringer's at 125 ML per hour, last night he went into SVT and was started on Cardizem infusion at 5 mg per hour. He also remains on heparin per weight-based protocol. Cardiology is following. This morning patient was also noted to be hypotensive, and was given 500 mL fluid bolus. Current blood pressure is 84/59. Clinically patient is awake and alert, answering questions appropriately, does not appear to be in acute distress. Remains in SVT with a better controlled rate. Objective - Vital Signs Vital signs: Vital Signs Temp 98.2 F 11/07/21 04:00 Pulse 101 H 11/07/21 07:00 Resp 16 11/07/21 07:00 BP 84/59 11/07/21 07:00 Pulse Ox 97 11/07/21 07:00 FiO2 Intake & Output 11/06/21 11/07/21 11/07/21 18:59 06:59 18:59 Intake Total 1862 2200 383.833 Output Total 1290 355 90 Balance 572 1845 293.833 Weight 115.8 kg Intake: IV 1552 2200 125 Lactated Ringers 1,000 ml 750 125 @ 125 mls/hr IV .Q8H ZAINA Rx#:[id number] Lactated Ringers 500 ml @ 1000 999 mls/hr IV .Q31M ZAINA Rx#:[id number] Sodium Chloride 0.9% 1, 450 450 000 ml @ 75 mls/hr IV . [id number] ZAINA Rx#:[id number] Intake, IV Titration 258.833 Amount Heparin Sod,Pork in 0.45% 133.833 NaCl 25,000 unit In 0.45 % NaCl 1 250ml.bag @ 8. 9445 UNITS/KG/HR 10 mls/ hr IV .Q24H ZAINA Rx#: [id number] Lactated Ringers 500 ml @ 125 999 mls/hr IV .Q31M ZAINA Rx#:[id number] Blood Product 310 Rc Irr As1 Unit 310 [id number] Output: Urine 540 355 90 Estimated Blood Loss 750 Other: Voiding Method Indwelling Catheter Indwelling Catheter - Exam GENERAL EXAM: Alert, very pleasant 81-year-old male, resting in bed in the ICU, the pulse ox of 96% comfortable in no apparent distress. HEAD: Normocephalic/atraumatic. EYES: Normal reaction of pupils, equal size. Conjunctiva pink, sclera white. NOSE: Clear with pink turbinates. THROAT: No erythema or exudates. NECK: No masses, no JVD, no thyroid enlargement, no adenopathy. CHEST: No chest wall deformity. Symmetrical expansion. LUNGS: Equal air entry with no crackles, wheeze, rhonchi or dullness. CVS: Regular rate and rhythm, normal S1 and S2, no gallops, no murmurs, no rubs ABDOMEN: Soft, nontender. No hepatosplenomegaly, normal bowel sounds, no guarding or rigidity. EXTREMITIES: No clubbing, no edema, abdominal pulses in the right pedal, right posttibial, right popliteal pulse areas are present. Right foot is warm to touch on today's exam, warmer than the left foot. Left groin hematoma is soft, has not expanded, and is starting to dissipate MUSCULOSKELETAL: Muscle strength and tone normal. SPINE: No scoliosis or deformity SKIN: No rashes CENTRAL NERVOUS SYSTEM: Alert and oriented -3. No focal deficits, tone is normal in all 4 extremities. PSYCHIATRIC: Alert and oriented -3. Appropriate affect. Intact judgment and insight. - Labs CBC & Chem 7: 11/07/21 06:21 11/07/21 02:19 Labs: Abnormal Lab Results - Last 24 Hours (Table) 11/04/21 11/06/21 11/06/21 Range/Units 02:03 14:37 18:25 WBC 11.8 H (3.8-10.6) k/uL RBC 2.68 L 3.20 L (4.30-5.90) m/uL Hgb 8.4 L D 10.3 L (13.0-17.5) gm/dL Hct 24.7 L 30.5 L (39.0-53.0) % Plt Count 91 L 94 L (150-450) k/uL Neutrophils # 8.1 H 9.0 H (1.3-7.7) k/uL Lymphocytes # (1.0-4.8) k/uL PT (9.0-12.0) sec INR (<1.2) APTT (22.0-30.0) sec Sodium (137-145) mmol/L Chloride (98-107) mmol/L Carbon Dioxide (22-30) mmol/L BUN (9-20) mg/dL Glucose (74-99) mg/dL Calcium (8.4-10.2) mg/dL Crossmatch See Detail 11/06/21 11/06/21 11/07/21 Range/Units 18:25 23:59 02:19 WBC (3.8-10.6) k/uL RBC 2.74 L (4.30-5.90) m/uL Hgb 8.4 L D (13.0-17.5) gm/dL Hct 25.3 L (39.0-53.0) % Plt Count 83 L (150-450) k/uL Neutrophils # (1.3-7.7) k/uL Lymphocytes # 0.9 L (1.0-4.8) k/uL PT 12.7 H (9.0-12.0) sec INR 1.2 H (<1.2) APTT 47.0 H (22.0-30.0) sec Sodium (137-145) mmol/L Chloride (98-107) mmol/L Carbon Dioxide (22-30) mmol/L BUN (9-20) mg/dL Glucose (74-99) mg/dL Calcium (8.4-10.2) mg/dL Crossmatch 11/07/21 11/07/21 11/07/21 Range/Units 02:19 06:21 06:21 WBC 12.6 H (3.8-10.6) k/uL RBC 2.82 L (4.30-5.90) m/uL Hgb 8.5 L (13.0-17.5) gm/dL Hct 25.9 L (39.0-53.0) % Plt Count 92 L (150-450) k/uL Neutrophils # 10.1 H (1.3-7.7) k/uL Lymphocytes # (1.0-4.8) k/uL PT 12.6 H (9.0-12.0) sec INR 1.2 H (<1.2) APTT 39.2 H (22.0-30.0) sec Sodium 133 L (137-145) mmol/L Chloride 109 H (98-107) mmol/L Carbon Dioxide 21 L (22-30) mmol/L BUN 26 H (9-20) mg/dL Glucose 144 H (74-99) mg/dL Calcium 6.8 L (8.4-10.2) mg/dL Crossmatch Assessment and Plan Plan: Assessment: #1. Acute ischemia right lower extremity secondary to femoral/popliteal thrombosis, status post right lower extremity angiogram and placement of a catheter for TPA for thrombolysis 3 on 11/04/2021, and 11/05/2021. Patient is scheduled possible open thrombectomy on 11/06/2021. TPA infusion is currently off. Patient is status post open thrombectomy on 11/06/2021 #2. SVT, currently on Cardizem infusion and heparin infusion #3. Hypotension, related to acute blood loss anemia, and SVT. Patient has received fluid boluses, and received 1 unit of packed red blood cells #4. History of paroxysmal atrial fibrillation on Coumadin which was subtherapeutic on admission #5. Benign essential hypertension #6. History of bioprosthetic aortic valve replacement and mitral valve repair in 2012 #7. History of left atrial thrombus #8. Coronary artery disease #9. Left groin hematoma #10. History of COVID-19 infection in 2020 Plan: Patient remains in SVT, see cardiology recommendations The rate is better controlled However patient has developed hypotension, has been given a fluid bolus We'll defer to vascular surgery on the decision to transfuse blood Continues on heparin infusion Doppler pulses present in the right lower extremity GI and DVT prophylaxis Close hemodynamic monitoring We'll continue to follow I have personally seen and examined the patient, performed the documentation and the assessment and plan as written. Number of minutes spent on the visit: [10] Time with Patient: Less than 30
--- NOTE | 2021-11-07 13:12 | P.PN ---
Subjective Progress Note Date: 11/07/21 HISTORY OF PRESENT ILLNESS This is a 81-year-old male patient of Dr. Rivers with past medical history of rheumatic heart disease status post aortic valve replacement and mitral valve repair in 2012 at [facility],, noncritical CAD, history of paroxysmal atrial fibrillation, hypertension, generalized anxiety disorder, benign prostatic hypertrophy. Patient states that he had awakened at 2 AM when he had no feeling in his right lower extremity. He denies having any pain. He states it was very hard to walk and subsequently he did start to feel pain. He thought initially i t was a pinched nerve in his back but then he went on the Internet and did some research and was concerned that he had a blood clot. His then brought him into [facility] here in Hospital emergency center for evaluation on 11/03. CAT scan revealed occlusive thrombus in the common femoral, profunda and proximal superficial femoral artery as well as through the distal superficial femoral and popliteal arteries. Patient was taken urgently for angiogram and and TPA thrombolysis. 11/06: Patient remains in the intensive care unit. He has had drainage from the right groin which he states leak underneath him and he has been itchy from it all night. Hydrocortisone cream added. Patient has significant scrotal hematoma. Patient states that he was up all night due to pain. He is scheduled today to go back to or for angiogram and possible further procedures. Patient has been afebrile, heart rate 88, blood pressure 91/69, pulse ox 93% on room air. Repeat blood work reveals WBC 11, hemoglobin 10.5, platelet count 87. INR is 1.3. Sodium 134, BUN 19 and creatinine 1.02. Echocardiogram reveals EF of 40-45%, bioprosthetic aortic valve, [id number] mitral stenosis and regurgitation, mild tricuspid regurgitation, dilated ascending aorta. 11/07: Yesterday, patient underwent right lower extremity angiogram and thrombectomy in the common femoral artery in the OR. Patient remains in the intensive care unit. Overnight, patient went into SVT and a Merle was ordered by cardiology the patient converted prior to this being given. He was prior to that in atrial fibrillation controlled rate currently on Cardizem and heparin drip. Patient is noted to have significant hematoma to the groin area and also now hematuria. Hemoglobin is 8.5 and vascular his ordered transfusion 2 units of packed RBCs. Patient also also hypotensive today. He has been afeb rile, heart rate in the 90s,, pulse ox 100% on room air. Other lab work this morning reveals WBC 12.6, platelet count 92, INR 1.2. Sodium 133, potassium 3.9, chloride 109, CO2 21, BUN 26 and creatinine 1.03. Magnesium 1.8. Consult has been added for oncology regarding possible HIT. Patient is awake and alert, he is voicing frustration as his situation has not progressed as he was hoping. He is also frustrated that he is unable to use his phone and call out to his . Dr. Hatfield assisted patient with phone call to his . REVIEW OF SYSTEMS Constitutional: No fever, no chills, no night sweats. No weight change. No weakness, fatigue or lethargy. No daytime sleepiness. EENT: No headache. No blurred vision or double vision, no loss of vision. No loss of Hearing, no ringing in the ears, no dizziness. No nasal drainage or congestion. No epistaxis. No sore throat. Lungs: No shortness of breath, cough, no sputum production. No wheezing. Cardiovascular: No chest pain, no lower extremity edema. No palpitations. No paroxysmal nocturnal dyspnea. No orthopnea. No lightheadedness or dizziness. No syncopal episodes. Abdominal: No abdominal pain. No nausea, vomiting. No diarrhea. No constipation. No bloody or tarry stools. No loss of appetite. Genitourinary: No dysuria, increased frequency, urgency. No urinary retention. Musculoskeletal: No myalgias. No muscle weakness, no gait dysfunction, no frequent falls. No back pain. No neck pain. Integumentary: No wounds, no lesions. No rash or pruritus. No unusual bruising. No change in hair or nails. Hematoma groin, scrotum. Neurologic: No aphasia. No facial droop. No change in mentation. No head injury. No headache. No paralysis. No paresthesia. Painful right lower extremity Psychiatric: No depression. Noted anxiety. No mood swings. Endocrine: No abnormal blood sugars. No weight change. No excessive sweating or thirst. No cold intolerance. PHYSICAL EXAMINATION Gen: This is a 81-year-old male. He is resting in the ICU bed and appears to be comfortable and in no acute distress. HEENT: Head is atraumatic, normocephalic. Pupils equal, round. Sclerae is anicteric. NECK: Supple. No JVD. No lymphadenopathy. No thyromegaly. LUNGS: Clear to auscultation. No wheezes or rhonchi. No intercostal retractions. HEART: Regular rate and rhythm. Systolic ejection murmur.. ABDOMEN: Soft. Bowel sounds are present. No masses. No tenderness. Raines catheter with brown urine/hematuria EXTREMITIES: No pedal edema. No calf tenderness. Pulses are not palpable on the right lower extremity. Dorsalis pedis 1+ on the left, NEUROLOGICAL: Patient is awake, alert and oriented x3. Cranial nerves 2 through 12 are grossly intact. ASSESSMENT AND PLAN Acute limb ischemia, femoral popliteal artery occlusion, status post angiogram and TPA thrombolysis, status post repeat angiogram and thrombectomy. Continue current management per vascular surgery, patient remains in the intensive care unit and scheduled for repeat angiogram this morning possible surgical intervention depending on results. Rheumatic heart disease status post aortic valve replacement and mitral valve repair in 2012, stable. Patient was on Coumadin at home. History of paroxysmal atrial fibrillation. Noncritical coronary artery disease. Hypertension. Continue losartan 25 mg daily, Lopressor 12.5 mg twice daily Generalized anxiety disorder. Continue Xanax 0.25 milligrams at bedtime Benign prostatic hypertrophy. Continue Flomax 0.4 milligrams daily. Thrombocytopenia. Continue to monitor. Possible HRT. Consult with oncology. Sinus tachycardia, converted. Cardiology and consult. Atrial fibrillation, currently controlled rate. Cardiology on consult. Hematuria. Patient is on heparin drip. GI prophylaxis. Protonix DVT prophylaxis. Heparin DISCHARGE PLAN Home Impression and plan of care have been directed as dictated by the signing physician. Elysia Maria nurse practitioner acting as scribe for signing physician. Objective - Vital Signs Vital signs: Vital Signs Temp 98.2 F 11/07/21 04:00 Pulse 101 H 11/07/21 07:00 Resp 16 11/07/21 07:00 BP 84/59 11/07/21 07:00 Pulse Ox 97 11/07/21 07:00 FiO2 Intake & Output 11/06/21 11/07/21 11/07/21 18:59 06:59 18:59 Intake Total 1862 2200 383.833 Output Total 1290 355 90 Balance 572 1845 293.833 Weight 115.8 kg Intake: IV 1552 2200 125 Lactated Ringers 1,000 ml 750 125 @ 125 mls/hr IV .Q8H [facility] Rx#:[id number] Lactated Ringers 500 ml @ 1000 999 mls/hr IV .Q31M [facility] Rx#:[id number] Sodium Chloride 0.9% 1, 450 450 000 ml @ 75 mls/hr IV . [id number] [facility] Rx#:[id number] Intake, IV Titration 258.833 Amount Heparin Sod,Pork in 0.45% 133.833 NaCl 25,000 unit In 0.45 % NaCl 1 250ml.bag @ 8. 9445 UNITS/KG/HR 10 mls/ hr IV .Q24H [facility] Rx#: [id number] Lactated Ringers 500 ml @ 125 999 mls/hr IV .Q31M [facility] Rx#:[id number] Blood Product 310 Rc Irr As1 Unit 310 [id number] Output: Urine 540 355 90 Estimated Blood Loss 750 Other: Voiding Method Indwelling Catheter Indwelling Catheter - Labs CBC & Chem 7: 11/07/21 06:21 11/07/21 02:19 Labs: Abnormal Lab Results - Last 24 Hours (Table) 11/04/21 11/06/21 11/06/21 Range/Units 02:03 09:25 09:25 WBC 11.0 H (3.8-10.6) k/uL RBC 3.36 L (4.30-5.90) m/uL Hgb 10.5 L (13.0-17.5) gm/dL Hct 31.1 L (39.0-53.0) % Plt Count 87 L (150-450) k/uL Neutrophils # (1.3-7.7) k/uL Lymphocytes # (1.0-4.8) k/uL PT 13.9 H (9.0-12.0) sec INR 1.3 H (<1.2) APTT (22.0-30.0) sec Sodium (137-145) mmol/L Chloride (98-107) mmol/L Carbon Dioxide (22-30) mmol/L BUN (9-20) mg/dL Glucose (74-99) mg/dL Calcium (8.4-10.2) mg/dL Crossmatch See Detail 11/06/21 11/06/21 11/06/21 Range/Units 14:37 18:25 18:25 WBC 11.8 H (3.8-10.6) k/uL RBC 2.68 L 3.20 L (4.30-5.90) m/uL Hgb 8.4 L D 10.3 L (13.0-17.5) gm/dL Hct 24.7 L 30.5 L (39.0-53.0) % Plt Count 91 L 94 L (150-450) k/uL Neutrophils # 8.1 H 9.0 H (1.3-7.7) k/uL Lymphocytes # (1.0-4.8) k/uL PT 12.7 H (9.0-12.0) sec INR 1.2 H (<1.2) APTT (22.0-30.0) sec Sodium (137-145) mmol/L Chloride (98-107) mmol/L Carbon Dioxide (22-30) mmol/L BUN (9-20) mg/dL Glucose (74-99) mg/dL Calcium (8.4-10.2) mg/dL Crossmatch 11/06/21 11/07/21 11/07/21 Range/Units 23:59 02:19 02:19 WBC (3.8-10.6) k/uL RBC 2.74 L (4.30-5.90) m/uL Hgb 8.4 L D (13.0-17.5) gm/dL Hct 25.3 L (39.0-53.0) % Plt Count 83 L (150-450) k/uL Neutrophils # (1.3-7.7) k/uL Lymphocytes # 0.9 L (1.0-4.8) k/uL PT (9.0-12.0) sec INR (<1.2) APTT 47.0 H (22.0-30.0) sec Sodium 133 L (137-145) mmol/L Chloride 109 H (98-107) mmol/L Carbon Dioxide 21 L (22-30) mmol/L BUN 26 H (9-20) mg/dL Glucose 144 H (74-99) mg/dL Calcium 6.8 L (8.4-10.2) mg/dL Crossmatch 11/07/21 11/07/21 Range/Units 06:21 06:21 WBC 12.6 H (3.8-10.6) k/uL RBC 2.82 L (4.30-5.90) m/uL Hgb 8.5 L (13.0-17.5) gm/dL Hct 25.9 L (39.0-53.0) % Plt Count 92 L (150-450) k/uL Neutrophils # 10.1 H (1.3-7.7) k/uL Lymphocytes # (1.0-4.8) k/uL PT 12.6 H (9.0-12.0) sec INR 1.2 H (<1.2) APTT 39.2 H (22.0-30.0) sec Sodium (137-145) mmol/L Chloride (98-107) mmol/L Carbon Dioxide (22-30) mmol/L BUN (9-20) mg/dL Glucose (74-99) mg/dL Calcium (8.4-10.2) mg/dL Crossmatch
[2021-11-07 18:02] LABS: HCT 25.7 % (39.0-53.0); HGB 8.5 gm/dL (13.0-17.5); MCH 31.1 pg (25.0-35.0); MCHC 33.2 g/dL (31.0-37.0); MCV 93.7 fL (80.0-100.0); Mean Platelet Volume 8.7; RBC 2.74 m/uL (4.30-5.90); RDW 15.2 % (11.5-15.5); WBC 12.8 k/uL (3.8-10.6)
--- NOTE | 2021-11-07 18:28 | P.CONS ---
History of Present Illness - Reason for Consult Consult date: 11/07/21 Thrombocytopenia Requesting physician: Love Selby - Chief Complaint BLE arterial occlusion - History of Present Illness This is a 81-year-old male patient of PCP Dr. Rivers [facility] of rheumatic heart disease, aortic valve replacement and mitral valve repair, CAD, paroxysmal atrial fibrillation on coumadin with poor control, HTN, BPH, anxiety. He reports 1-2 ETOH drinks a day. He presented with loss of sensation in the right lower extremity, difficulty walking, then he had pain with ambulation. He was brought to the hospital for evaluation. He was found to have arterial occlusion and was taken for angiogram and thrombolysis. He has been on alteplase and h eparin. Since his admission his platelets have decreased. Patient denies a history of low platelets. No recent hospitalizations or exposure to heparin. 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 He denies any history of anemia. No bleeding to report but, does have a hematoma from procedures. Review of Systems 10 point review of systems is negative except as stated in HPI Past Medical History Past Medical History: Atrial Fibrillation, Coronary Artery Disease (CAD), Hypertension Additional Past Medical History / Comment(s): COVID History of Any Multi-Drug Resistant Organisms: None Reported Past Surgical History: Coronary Bypass/CABG, Hernia Repair Past Anesthesia/Blood Transfusion Reactions: No Reported Reaction Past Psychological History: No Psychological Hx Reported Smoking Status: Never smoker Past Alcohol Use History: Occasional Past Drug Use History: None Reported Medications and Allergies Home Medications Medication Instructions Recorded Confirmed Type ALPRAZolam [Xanax] 0.25 mg PO HS PRN 11/03/21 11/03/21 History Cholecalciferol [Vitamin D3 (25 25 mcg PO DAILY 11/03/21 11/03/21 History Mcg = 1000 Iu)] Ibuprofen [Motrin] 600 mg PO Q8HR PRN 11/03/21 11/03/21 History Losartan Potassium 50 mg PO DAILY 11/03/21 11/03/21 History Melatonin Unknown Dose 1 tab PO HS 11/03/21 11/03/21 History Metoprolol Succinate [Toprol XL] 50 mg PO DAILY 11/03/21 11/03/21 History Naproxen 250 mg PO DAILY PRN 11/03/21 11/03/21 History Tamsulosin [Flomax] 0.4 mg PO HS 11/03/21 11/03/21 History Warfarin [Coumadin] 2.5 - 5 mg PO DAILY 11/03/21 11/03/21 History Zinc 50 mg PO DAILY 11/03/21 11/03/21 History Allergies Allergy/AdvReac Type Severity Reaction Status Date / Time No Known Allergies Allergy Verified 11/03/21 21:03 Physical Exam Vitals: Vital Signs Temp Pulse Pulse Resp BP BP Pulse Ox 11/07/21 12:11 98.3 F 101 H 13 89/64 99 11/07/21 12:01 98.8 F 105 H 24 96/58 99 11/07/21 07:00 101 H 16 84/59 97 11/07/21 06:00 116 H 15 97/72 94 L 11/07/21 05:00 125 H 28 H 100/66 96 11/07/21 04:00 98.2 F 120 H 12 88/64 94 L 11/07/21 03:00 126 H 12 118/103 95 11/07/21 02:00 126 H 14 112/70 94 L 11/07/21 01:00 120 H 12 92/51 90 L 11/07/21 00:00 98.1 F 128 H 16 88/62 95 11/06/21 23:00 129 H 15 78/61 11/06/21 22:00 120 H 13 107/52 95 11/06/21 21:00 115 H 10 L 102/66 96 11/06/21 20:00 98.7 F 101 H 12 107/67 94 L 11/06/21 19:00 97 12 91/74 95 11/06/21 18:00 99 14 108/69 108/69 96 11/06/21 17:15 89 16 96/52 97 11/06/21 17:00 98.6 F 93 92 18 96/59 98/53 98 11/06/21 16:45 89 16 97/56 94 L 11/06/21 16:26 97.1 F L 91 12 96/72 95 Intake and Output 11/06/21 11/07/21 11/07/21 22:59 06:59 14:59 Intake Total 885 1900 383.833 Output Total 1290 240 90 Balance -405 1660 293.833 Intake: IV 575 1900 125 Lactated Ringers 1,000 ml 750 125 @ 125 mls/hr IV .Q8H [facility] Rx#:[id number] Lactated Ringers 500 ml @ 1000 999 mls/hr IV .Q31M [facility] Rx#:[id number] Sodium Chloride 0.9% 1, 375 150 000 ml @ 75 mls/hr IV . [id number] [facility] Rx#:[id number] Intake, IV Titration 258.833 Amount Heparin Sod,Pork in 0.45% 133.833 NaCl 25,000 unit In 0.45 % NaCl 1 250ml.bag @ 8. 9445 UNITS/KG/HR 10 mls/ hr IV .Q24H [facility] Rx#: [id number] Lactated Ringers 500 ml @ 125 999 mls/hr IV .Q31M [facility] Rx#:[id number] Blood Product 310 0 Unit 0 Rc Irr As1 Unit 310 [id number] Output: Urine 540 240 90 Estimated Blood Loss 750 Other: Voiding Method Indwelling Catheter Indwelling Catheter Weight 115.8 kg - Constitutional General appearance: average body habitus, cooperative, no acute distress - EENT Eyes: anicteric sclerae, EOMI, poor dentition ENT: hearing grossly normal - Neck Neck: no lymphadenopathy - Respiratory Respiratory: bilateral: CTA, diminished - Cardiovascular pedal pulses palpable 2+ Rhythm: irregularly irregular Heart sounds: normal: S1, S2 Abnormal Heart Sounds: no systolic murmur, no diastolic murmur, no rub, no S3 Gallop, no S4 Gallop, no click, no other leg Peripheral Edema: bilateral: 2+ - Gastrointestinal General gastrointestinal: no absent bowel sounds, no decreased bowel sounds, no distended, no hepatomegaly, no hyperactive bowel sounds, normal bowel sounds, no organomegaly, no rigid, no scaphoid, soft, no splenomegaly, no tenderness, no umbilical hernia, no ventral hernia - Integumentary skin on the bilateral lower extremities is warm to touch - Neurologic Neurologic: CNII-XII intact - Musculoskeletal Musculoskeletal: strength equal bilaterally - Psychiatric Psychiatric: A&O x's 3, appropriate affect, intact judgment & insight Results CBC & Chem 7: 11/07/21 06:21 11/07/21 02:19 Labs: Abnormal Lab Results - Last 24 Hours (Table) 07/10/22 07/12/22 07/12/22 Range/Units 02:03 14:37 18:25 WBC 11.8 H (3.8-10.6) k/uL RBC 2.68 L 3.20 L (4.30-5.90) m/uL Hgb 8.4 L D 10.3 L (13.0-17.5) gm/dL Hct 24.7 L 30.5 L (39.0-53.0) % Plt Count 91 L 94 L (150-450) k/uL Neutrophils # 8.1 H 9.0 H (1.3-7.7) k/uL Lymphocytes # (1.0-4.8) k/uL PT (9.0-12.0) sec INR (<1.2) APTT (22.0-30.0) sec Sodium (137-145) mmol/L Chloride (98-107) mmol/L Carbon Dioxide (22-30) mmol/L BUN (9-20) mg/dL Glucose (74-99) mg/dL Calcium (8.4-10.2) mg/dL Crossmatch See Detail 11/06/21 11/06/21 11/07/21 Range/Units 18:25 23:59 02:19 WBC (3.8-10.6) k/uL RBC 2.74 L (4.30-5.90) m/uL Hgb 8.4 L D (13.0-17.5) gm/dL Hct 25.3 L (39.0-53.0) % Plt Count 83 L (150-450) k/uL Neutrophils # (1.3-7.7) k/uL Lymphocytes # 0.9 L (1.0-4.8) k/uL PT 12.7 H (9.0-12.0) sec INR 1.2 H (<1.2) APTT 47.0 H (22.0-30.0) sec Sodium (137-145) mmol/L Chloride (98-107) mmol/L Carbon Dioxide (22-30) mmol/L BUN (9-20) mg/dL Glucose (74-99) mg/dL Calcium (8.4-10.2) mg/dL Crossmatch 11/07/21 11/07/21 11/07/21 Range/Units 02:19 06:21 06:21 WBC 12.6 H (3.8-10.6) k/uL RBC 2.82 L (4.30-5.90) m/uL Hgb 8.5 L (13.0-17.5) gm/dL Hct 25.9 L (39.0-53.0) % Plt Count 92 L (150-450) k/uL Neutrophils # 10.1 H (1.3-7.7) k/uL Lymphocytes # (1.0-4.8) k/uL PT 12.6 H (9.0-12.0) sec INR 1.2 H (<1.2) APTT 39.2 H (22.0-30.0) sec Sodium 133 L (137-145) mmol/L Chloride 109 H (98-107) mmol/L Carbon Dioxide 21 L (22-30) mmol/L BUN 26 H (9-20) mg/dL Glucose 144 H (74-99) mg/dL Calcium 6.8 L (8.4-10.2) mg/dL Crossmatch Comments: CT angiogram report reviewed Venous US: report reviewed Assessment and Plan (1) Arterial occlusion Current Visit: Yes Status: Acute Priority: High Code(s): I70.90 - UNSPECIFIED ATHEROSCLEROSIS SNOMED Code(s): 0480209 Plan: Patient has been treated successfully for arterial occlusion. He continues on heparin at this time. His platelets are stable at 92,000. With patient's history of chronic EtOH use, chart review did show a slightly low platelet count back in 2020, no recent exposure to heparin, platelet drop has been gradual with stability-less concerning that the cause for low plt is HIT antibody. Agree with current plan of care is laid out by Vascular. Request that Nursing ask patient if he is interested in trying to obtain a Rx for DOAC for anticoagulation. It is reported that the DOAC were not previously covered by patient's insurance. If he is satisfied with coumadin he can stay on that.
[2021-11-07 18:45] LABS: Platelet Count 99 k/uL (150-450)
--- NOTE | 2021-11-07 18:45 | PN ---
PROGRESS NOTE The patient had a thrombectomy performed yesterday. He has a Doppler pulse on right lower extremity and left lower extremity. He is under the close followup by vascular surgery. This morning he went into atrial fib, rapid rate and rate is now controlled on 5 mg of Cardizem drip, hemodynamically stable. S1-S2 heard normally, irregular rhythm noted, short systolic murmur at the base noted. Lungs reveal improved air entry. Abdomen is soft. Lower extremity exam revealed Doppler pulses distally. Patient had surgery bilaterally. Prognosis remains guarded. MMODL / IJN: [id number] /
[2021-11-07] MEDS: TAMSULOSIN 0.4 MG CAP.ER.24H PO SCH (20:34)
[2021-11-07] MEDS: ALPRAZolam 0.25 MG TAB PO PRN (21:06)
[2021-11-08 00:02] LABS: HCT 23.9 % (39.0-53.0); HGB 7.8 gm/dL (13.0-17.5); MCH 30.4 pg (25.0-35.0); MCHC 32.8 g/dL (31.0-37.0); MCV 92.7 fL (80.0-100.0); Mean Platelet Volume 8.1; Platelet Count 96 k/uL (150-450); RBC 2.58 m/uL (4.30-5.90); RDW 14.9 % (11.5-15.5); WBC 10.6 k/uL (3.8-10.6)
[2021-11-08] MEDS: PANTOPRAZOLE 40 MG TABLET PO SCH (06:51)
[2021-11-08 06:55] LABS: Basophils % (A) 0 %; Eosinophils # (A) 0.3 k/uL (0-0.7); Eosinophils % (A) 3 %; HCT 22.5 % (39.0-53.0); HGB 7.5 gm/dL (13.0-17.5); Lymphocytes % (A) 11 %; MCH 30.8 pg (25.0-35.0); MCHC 33.2 g/dL (31.0-37.0); MCV 92.6 fL (80.0-100.0); Monocytes # (A) 0.8 k/uL (0-1.0); Monocytes % (A) 9 %; Neutrophils # (A) 6.7 k/uL (1.3-7.7); Neutrophils % (A) 75 %; Platelet Count 96 k/uL (150-450); RBC 2.43 m/uL (4.30-5.90); RDW 14.9 % (11.5-15.5); WBC 8.9 k/uL (3.8-10.6)
[2021-11-08 07:08] LABS: African American GFR (CKD) >90 (>60 ml/min/1.73 sqM); Anion Gap -2 mmol/L; Blood Urea Nitrogen 20 mg/dL (9-20); Carbon Dioxide 22 mmol/L (22-30); Chloride 111 mmol/L (98-107); Glucose 115 mg/dL (74-99); Non-African American GFR(CKD) 80 (>60 ml/min/1.73 sqM); Sodium 131 mmol/L (137-145)
[2021-11-08 07:55] LABS: Potassium 4.1 mmol/L (3.5-5.1)
--- NOTE | 2021-11-08 09:00 | CDI ---
Documentation Clarification Form Date: 11/07/2021 02:32:00 PM From: Joanne Verde RN, CCDS Admit Date: 11/04/2021 12:15:00 AM Patient Name: Gonsalo Robles Visit Number: [id number] Discharge Date: ATTENTION: The Clinical Documentation Specialists (CDI) and [facility] Coding Staff appreciate your assistance in clarifying documentation. Please respond to the clarification below the line at the bottom and electronically sign. The CDI & [facility] Coding staff will review the response and follow-up if needed. Please note: Queries are made part of the Legal Health Record. If you have any questions, please contact the author of this message via ITS. Dr. Bethany Raines: Acute blood loss anemia is documented 11/07, Cardiovascular surgery and patient had Initiation of TPA, 11/04. Additional clarification is requested regarding the relationship, if any, that exists between the diagnosis and the procedure. Patients Admitting Diagnosis: Acute limb ischemia right lower extremity. Right femoral artery thrombosis with right popliteal artery thrombosis. Acute right lower extremity thrombosis s/p thrombolysis. 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 Acute limb ischemia right lower extremity, previous initiation of TPA. Acute right lower extremity ischemia/thrombosis. Right femoral artery thrombosis with right popliteal artery thrombosis Procedure performed: Selective right lower extremity angiogram, third order to below knee popliteal artery. Initiation of TPA thrombolysis. Right lower extremity angiogram via existing catheter Repositioning of TPA from lysis catheter. Right lower extremity selective angiogram via existing sheath exchange of left femoral sheath and selective left iliofemoral angiogram History/Risk Factors: 81-year-old male presents to the [facility] with Right lower extremity acute limb ischemia. The patient underwent Initiation of TPA thrombolysis ; Repositioning of TPA from lysis catheter; Exchange of left femoral sheath and selective left iliofemoral angiogram. Clinical Indicators: 11/04 Hgb 13.5; 11/05 Hgb 12.2; 11/06 Hgb 8.4; 11/06 Hgb 10.3; 11/07 8.4 11/04 PTT 79; 11/05 29.4; 11/06 47; 11/07 46.1 11/07, Cardiovascular Sx: Estimated blood loss 750 Treatment: 11/07 Daily CBC; 11/07 Transfusion of 1 Unit PRBC; 11/07 Hematology Oncology. What relationship, if any, exists between the diagnosis of acute blood loss anemia and the procedure: [ ] Acute blood loss anemia is a complication of surgical procedure [ x ] Acute blood loss anemia is an expected outcome of the surgical procedure [ ] Acute blood loss anemia is related to patients co-morbid condition(s) of [insert co-morbid dxs] & not a complication of the procedure [ ] Other please specify ____ [ ] Unable to determine (Template Last Revised: June 2020) MTDD
--- NOTE | 2021-11-08 09:45 | CDI ---
Documentation Clarification Form Date: 11/08/2021 09:24:45 AM From: Cathy Cristina CCS, CCDS Admit Date: 11/04/2021 12:15:00 AM Patient Name: Gonsalo Robles Visit Number: [id number] Discharge Date: ATTENTION: The Clinical Documentation Specialists (CDI) and [facility] Coding Staff appreciate your assistance in clarifying documentation. Please respond to the clarification below the line at the bottom and electronically sign. The CDI & [facility] Coding staff will review the response and follow-up if needed. Please note: Queries are made part of the Legal Health Record. If you have any questions, please contact the author of this message via ITS. Dr. Bethany Raines: The patient has a documented Scrotal Hematoma per the 11/05 Vascular Progress Note and Hematuria in his Raines Catheter per the 11/07 Vascular Progress Note. Additional clarification is requested regarding the relationship, if any, that exists between the diagnosis and the procedure. 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 Post-Operative Diagnosis: Same. Procedure performed 11/04: US guided left common femoral artery access. Selective right lower extremity angiogram, third order to below knee popliteal artery, Initiation of TPA thrombolysis. Procedure performed 11/04: Right lower extremity angiogram via existing catheter, Reposition TPA from lysis catheter. Procedure performed 11/06: Right lower extremity selective angiogram via existing sheath. Exchange of left formal sheath and selective left iliofemoral angiogram. Open thrombectomy. History/Risk Factors per the 11/05 Medical Management Consult: Rheumatic Heart Disease status post AVR & MVR 2012, Noncritical CAD, Paroxysmal Atrial Fibrillation, Hypertension, Generalized Anxiety Disorder, BPH, Daily Alcohol use. Clinical Indicators: Presented 11/04 for EMERGENT Thrombolysis for critical limb ischemia right lower leg. Treatment: Procedures as above. 11/03: IV Na Chl 1,000 mls @ 75 mls/hr q13H, IV Heparin drip, IV Alteplase 11/04: Telemetry, Neurovascular monitoring, IV Dilaudid 0.5 mg q2H, IV Na Chl 1,000 mls @ 75 mls/hr q13H, IV Alteplase 100 mls @ 10 mls/hr q10H, IV Heparin. 11/05: IV Na Chl 500 mls @ 999 mls/hr q31M, IV Heparin 11/06: Heparin Drip, IV Na Chl 500 mls @ 999 mls/hr q31M, IV Cefazolin, IV Cardizem What relationship, if any, exists between the diagnosis of Left Groin Hematoma and the procedure: [ ] Left Groin (Scrotal) Hematoma and Hematuria is a complication of surgical procedure [ ] Left Groin (Scrotal) Hematoma and Hematuria is an expected outcome of the surgical procedure [ ] Left Groin (Scrotal) Hematoma and Hematuria is related to patients co- morbid condition(s), please specify: and is not a complication of the procedure [ x ] Other please specify: more appropriate to call it scrotal ecchymosis, it is related to the procedure and access site/groin hematoma. unable to determine if hematuria is, can be seen in patients undergoing thrombolysis however not related to the groin hematoma [ ] Unable to determine (Template Last Revised: June 2020) MTDD
--- NOTE | 2021-11-08 09:58 | P.PN ---
Subjective Progress Note Date: 11/08/21 Principal diagnosis: Acute limb ischemia Patient is a pleasant 81-year-old male who is being seen as a follow-up for acute limb ischemia. He remains in the ICU. He is postop day #24 of right lower extremity open thrombectomy. Overall he is doing well. Plan is to discontinue IV fluids and transitioned to oral Cardizem. He still has gross hematuria with Raines catheter in place. Good output. He is afebrile. WBC 8.9 hemoglobin 7.5 platelet count stable at 96,000 patient remains on heparin drip at this time. Awaiting to see if Eliquis would be covered by patient's insu felipa otherwise hematology said to resume Coumadin. He again he states that his right lower extremity pain has improved it is warm he has full movement. He denies any shortness of breath, chest pain, abdominal pain, nausea or vomiting. Objective - Vital Signs Vital signs: Vital Signs Temp 98.8 F 11/08/21 04:00 Pulse 98 11/08/21 07:00 Resp 21 11/08/21 07:00 BP 83/69 11/08/21 07:00 Pulse Ox 99 11/08/21 07:00 FiO2 Intake & Output 11/07/21 11/08/21 11/08/21 18:59 06:59 18:59 Intake Total 2358.433 2300.133 125 Output Total 540 590 85 Balance 6002.625 0352.133 40 Weight 122.7 kg Intake: IV 750 1500 125 Lactated Ringers 1,000 ml 750 1500 125 @ 125 mls/hr IV .Q8H [facility] Rx#:[id number] Intake, IV Titration 388.433 260.133 Amount Diltiazem 125 mg In 35 129.333 Sodium Chloride 0.9% 100 ml @ 5 MG/HR 5 mls/hr IV .Q24H [facility] Rx#:[id number] Heparin Sod,Pork in 0.45% 228.433 130.8 NaCl 25,000 unit In 0.45 % NaCl 1 250ml.bag @ 8. 9445 UNITS/KG/HR 10 mls/ hr IV .Q24H [facility] Rx#: [id number] Lactated Ringers 500 ml @ 125 999 mls/hr IV .Q31M [facility] Rx#:[id number] Oral 910 540 Blood Product 310 Rc Irr As1 Unit 310 [id number] Output: Urine 540 590 85 Other: Voiding Method Indwelling Catheter Indwelling Catheter - Exam General appearance: The patient is alert, oriented, appears in no acute distress. HET: Head is normocephalic and atraumatic. Neck: Supple without lymphadenopathy. Trachea midline. Heart: Irregular rate and rhythm. Lungs: Clear to auscultation bilaterally. Abdomen: Soft, nontender, nondistended. Genitourinary: Scrotum swollen, ecchymotic. Gross hematuria in Raines catheter. Extremities: Right lower extremity with Prevena wound vac in place. Right lower extremity warm to touch with good sensation and mobility. PT and DP Doppler signal obtained. Left lower extremity with significant ecchymosis to the left groin and hip, no hematoma palpated. Full range of motion of the left lower extremity. PT and DP Doppler signal present. Neurological: No focal deficits. Sensation intact. - Labs CBC & Chem 7: 11/08/21 06:37 11/08/21 06:37 Labs: Abnormal Lab Results - Last 24 Hours (Table) 11/04/21 11/07/21 11/07/21 Range/Units 02:03 12:36 17:41 WBC 12.8 H (3.8-10.6) k/uL RBC 2.74 L (4.30-5.90) m/uL Hgb 8.5 L (13.0-17.5) gm/dL Hct 25.7 L (39.0-53.0) % Plt Count 99 L (150-450) k/uL APTT 46.1 H (22.0-30.0) sec Sodium (137-145) mmol/L Chloride (98-107) mmol/L Glucose (74-99) mg/dL Calcium (8.4-10.2) mg/dL Crossmatch See Detail 11/07/21 11/07/21 11/08/21 Range/Units 23:33 23:33 06:37 WBC (3.8-10.6) k/uL RBC 2.58 L 2.43 L (4.30-5.90) m/uL Hgb 7.8 L 7.5 L (13.0-17.5) gm/dL Hct 23.9 L 22.5 L (39.0-53.0) % Plt Count 96 L 96 L (150-450) k/uL APTT 39.7 H (22.0-30.0) sec Sodium (137-145) mmol/L Chloride (98-107) mmol/L Glucose (74-99) mg/dL Calcium (8.4-10.2) mg/dL Crossmatch 11/08/21 11/08/21 Range/Units 06:37 06:41 WBC (3.8-10.6) k/uL RBC (4.30-5.90) m/uL Hgb (13.0-17.5) gm/dL Hct (39.0-53.0) % Plt Count (150-450) k/uL APTT 49.6 H (22.0-30.0) sec Sodium 131 L (137-145) mmol/L Chloride 111 H (98-107) mmol/L Glucose 115 H (74-99) mg/dL Calcium 7.0 L (8.4-10.2) mg/dL Crossmatch Assessment and Plan Assessment: 1. Postop day #2 for right open thrombectomy 2. Acute limb ischemia right lower extremity, initiation of TPA 3. Atrial fibrillation subtherapeutic on anticoagulation 4. Acute blood loss anemia 5. Thrombocytopenia 6. Hematuria 7. Atrial fibrillation Plan: 1. May discontinue heparin and transition to oral anticoagulation per recommendation from hematology 2. Daily CBC CMP 3. Transfuse 1 unit PRBC 4. Consult hematology for thrombocytopenia, possible HIT, gross hematuria. Await recommendations for anticoagulation 5. Continue with recommendations from cardiology 6. Continue ICU management 7. Encourage ambulation 8. Incentive spirometer to bedside 9. Admission will be transferred to primary medicine team Dr. Hatfield The impression and plan of care has been dictated as directed. Dr. Ybarra I performed a history and examination of this patient, discussed the same with the dictator. I agree with the dictator's note ,documented as a scribe. Any additional findings or plans will be noted.
--- NOTE | 2021-11-08 10:52 | P.PN ---
Subjective Progress Note Date: 11/08/21 Principal diagnosis: Critical right limb ischemia This is a 81-year-old white male with history of hypertension, coronary artery disease, chronic atrial fibrillation, maintained on Coumadin, patient normally sees Dr. Rivers as his primary care physician. Yesterday, and in the middle of the night, patient woke up to go to the bathroom, and he realized that his right leg was numb, and cold. Patient initially thought that he may have had a patient, he presented to the ER last night with non-resolution of his symptoms. Patient was found to have ischemic right leg/right foot, and his Coumadin level was noted to be subtherapeutic. Patient was seen by vascular surgery on consultation, and he was felt to have femoral popliteal occlusion. Patient underwent selective right lower extremity angiogram and underwent initiation of TPA thrombolysis, patient underwent angiography, left femoral approach, and attempted placement an ekos catheter, however that was unsuccessful, sheath was left in place infusing TPA. patient was transferred back to the ICU and the plan is to go back and evaluate at 4 PM today. Patient is known to have history of paroxysmal atrial fibrillation, bioprosthetic aortic valve replacement as well as mitral valve repair and history of left atrial thrombus noted in 2019. Supposedly the patient is compliant with his Coumadin however his INR on this admission was only 1.5. On 11/05/2021 patient seen in follow-up in intensive care unit, he status post second right lower extremity angiogram via existing catheter for acute limb ischemia of the right lower extremity, and patient continues on TPA infusion via right femoral catheter. Today he still only has right femoral Doppler pulse, no palpable pulse in no Doppler pulse in the right popliteal or right pedal area. Right foot is cold to touch, however not dusky. Patient is awake and alert, oriented 3, does not appear to be in any acute distress, he is currently on 2 L of oxygen with a pulse ox of 96%, vital signs are stable, patient is afebrile. Left foot is warm to touch, with palpable pulse. Patient also continues on heparin at 500 units per hour, and 0.0 cm to 75 ML per hour. Today's labs have been reviewed showing white blood cell count of 8.8, hemoglobin of 13.7, INR of 1.3, sodium is 134, potassium is 4.6, chloride is 108, BUN is 19, creatinine 0.98. On 11/06/2021 patient seen in follow-up in the intensive care unit, patient was taken back to the [facility] yesterday, in the left groin sheath remained in place, with TPA infusion. However through the night patient has developed a hematoma in the left groin, and TPA has been discontinued, he currently remains on heparin infusion at 500 units per hour. His 0.9 normal saline is at a rate of 35 ML per hour. The left coronary hematoma is soft, has been outlined with a marker, and has not expanded overnight. Left pedal Doppler pulse is present. Patient has only a right femoral Doppler pulse, no Doppler pulse was obtained in the right popliteal or right pedal or posttibial areas. Right foot is cool to t ouch, however not dusky. Patient is awake and alert, he does complain of some burning pain in his right foot, when necessary Dilaudid is on board with relief. Hemodynamically stable, he is in sinus mechanism with a first-degree AV block and occasional PACs. No breathing difficulty, room air pulse ox is 96%, lung sounds are clear to auscultation. No complaints of chest pain. Did have a episode of hypotension this morning, possibly related to Dilaudid administration, and received 500 mL fluid bolus with improvement of his blood pressure. On 11/07/2021 patient seen in follow-up in the intensive care unit, yesterday on 11/06/2021 patient was taken back to the [facility], where he underwent right lower extremity selective angiogram, demonstrating thrombus in the common femoral artery with minimal flow to the popliteal artery, the decision was made for open thrombectomy, patient was taken to the operating room where open thrombectomy to place. This morning he is awake and alert, he is having some burning sensation he has right lower extremity, but right foot is now warm and almost hot to touch, and there are now Doppler pulses present in the right pedal, right posttibial, and right popliteal areas. Left groin hematoma is now dissipating, and it remains soft. Yesterday patient received a unit of packed red blood cells, today's hemoglobin is 8.5. White blood cell count is 12.6, INR is 1.2, sodium is 133, BUN is 26 and creatinine is 1.03. Currently patient is on room air, denies any shortness of breath, is on IVs including lactated Ringer's at 125 ML per hour, last night he went into SVT and was started on Cardizem infusion at 5 mg per hour. He also remains on heparin per weight-based protocol. Cardiology is following. This morning patient was also noted to be hypotensive, and was given 500 mL fluid bolus. Current blood pressure is 84/59. Clinically patient is awake and alert, answering questions appropriately, does not appear to be in acute distress. Remains in SVT with a better controlled rate. The patient is seen today 11/08/2021 in follow-up in the intensive care unit. Postoperative day #2 for right open thrombectomy of the right lower extremity. Status post TPA infusion. He is currently sitting up in bed. Awake and alert in no acute distress. He is maintaining good O2 saturations in the 90s on room air. He has lactated Ringer's running at 125 ML's per hour. Cardizem drip at 5 mg per hour. Heparin drip per weight base protocol. He did receive 1 unit of packed red blood cells yesterday. The plan is for another 1-2 units today. Current hemoglobin 7.5. Platelets 96,000. White count 8.9. Sodium 131. Potassium 4.1. BUN 20. Creatinine 0.91. Current mean arterial blood pressure 77. He is afebrile. Currently in atrial fibrillation with a controlled ventricular rate. There is a right lower extremity with Prevena wound VAC in place. Right lower extremity is warm to touch with good sensation and mobility. Doppler pulses are present. Objective - Vital Signs Vital signs: Vital Signs Temp 98.4 F 11/08/21 10:37 Pulse 99 11/08/21 10:37 Resp 9 L 11/08/21 10:37 BP 103/64 11/08/21 10:37 Pulse Ox 100 11/08/21 10:37 FiO2 Intake & Output 11/07/21 11/08/21 11/08/21 18:59 06:59 18:59 Intake Total 2358.433 2300.133 125 Output Total 540 590 85 Balance 7089.866 3921.133 40 Weight 122.7 kg Intake: IV 750 1500 125 Lactated Ringers 1,000 ml 750 1500 125 @ 125 mls/hr IV .Q8H [facility] Rx#:[id number] Intake, IV Titration 388.433 260.133 Amount Diltiazem 125 mg In 35 129.333 Sodium Chloride 0.9% 100 ml @ 5 MG/HR 5 mls/hr IV .Q24H [facility] Rx#:[id number] Heparin Sod,Pork in 0.45% 228.433 130.8 NaCl 25,000 unit In 0.45 % NaCl 1 250ml.bag @ 8. 9445 UNITS/KG/HR 10 mls/ hr IV .Q24H [facility] Rx#: [id number] Lactated Ringers 500 ml @ 125 999 mls/hr IV .Q31M [facility] Rx#:[id number] Oral 910 540 Blood Product 310 0 Rc As-1 Unit 0 [id number] Rc Irr As1 Unit 310 [id number] Output: Urine 540 590 85 Other: Voiding Method Indwelling Catheter Indwelling Catheter - Exam GENERAL EXAM: Alert, very pleasant 81-year-old male patient, on room air, comfortable in no apparent distress. HEAD: Normocephalic. EYES: Normal reaction of pupils, equal size. NOSE: Clear with pink turbinates. THROAT: No erythema or exudates. NECK: No masses, no JVD. CHEST: No chest wall deformity. LUNGS: Equal air entry with no crackles, wheeze, rhonchi or dullness. CVS: S1 and S2 normal with no audible murmur, irregular rhythm. ABDOMEN: No hepatosplenomegaly, normal bowel sounds, no guarding or rigidity. SPINE: No scoliosis or deformity SKIN: No rashes CENTRAL NERVOUS SYSTEM: No focal deficits, tone is normal in all 4 extremities. EXTREMITIES: Right lower extremity with Prevena wound VAC in place. Good sensation and mobility. Doppler pulses present. Left lower extremity with ecchymosis to left groin and hip. No hematoma. Doppler pulses present. - Labs CBC & Chem 7: 11/08/21 06:37 11/08/21 06:37 Labs: Abnormal Lab Results - Last 24 Hours (Table) 11/04/21 11/07/21 11/07/21 Range/Units 02:03 12:36 17:41 WBC 12.8 H (3.8-10.6) k/uL RBC 2.74 L (4.30-5.90) m/uL Hgb 8.5 L (13.0-17.5) gm/dL Hct 25.7 L (39.0-53.0) % Plt Count 99 L (150-450) k/uL APTT 46.1 H (22.0-30.0) sec Sodium (137-145) mmol/L Chloride (98-107) mmol/L Glucose (74-99) mg/dL Calcium (8.4-10.2) mg/dL Crossmatch See Detail 11/07/21 11/07/21 11/08/21 Range/Units 23:33 23:33 06:37 WBC (3.8-10.6) k/uL RBC 2.58 L 2.43 L (4.30-5.90) m/uL Hgb 7.8 L 7.5 L (13.0-17.5) gm/dL Hct 23.9 L 22.5 L (39.0-53.0) % Plt Count 96 L 96 L (150-450) k/uL APTT 39.7 H (22.0-30.0) sec Sodium (137-145) mmol/L Chloride (98-107) mmol/L Glucose (74-99) mg/dL Calcium (8.4-10.2) mg/dL Crossmatch 11/08/21 11/08/21 11/08/21 Range/Units 06:37 06:41 08:23 WBC (3.8-10.6) k/uL RBC (4.30-5.90) m/uL Hgb (13.0-17.5) gm/dL Hct (39.0-53.0) % Plt Count (150-450) k/uL APTT 49.6 H (22.0-30.0) sec Sodium 131 L (137-145) mmol/L Chloride 111 H (98-107) mmol/L Glucose 115 H (74-99) mg/dL Calcium 7.0 L (8.4-10.2) mg/dL Crossmatch See Detail Assessment and Plan Assessment: 1 Acute ischemia right lower extremity secondary to femoral/popliteal thrombosis, status post right lower extremity angiogram and placement of a catheter for TPA for thrombolysis 3 on 11/04/2021, and 11/05/2021. Patient had undergone an open thrombectomy on 11/06/2021. Post operative day #2. 2 SVT, currently on Cardizem infusion and heparin infusion, currently in atrial fibrillation with controlled ventricular rate 3 Hypotension, related to acute blood loss anemia, and SVT. Patient has received fluid boluses, and received 2 unit of packed red blood cells 4 History of paroxysmal atrial fibrillation on Coumadin which was subtherapeutic on admission 5 Benign essential hypertension 6 History of bioprosthetic aortic valve replacement and mitral valve repair in 2012 7 History of left atrial thrombus 8 Coronary artery disease 9 Left groin ecchymosis 10 History of COVID-19 infection in 2020 Plan: The patient was seen and evaluated Labs and medications reviewed Stable and on room air Receiving a second and possible third unit of packed blood cells today Being followed closely by vascular surgery We will continue to follow and make further recommendations based on his clinical status I have personally seen and examined the patient, performed the documentation and the assessment and plan as written. Number of minutes spent on the visit: 10.
--- NOTE | 2021-11-08 12:32 | P.PN ---
Subjective Progress Note Date: 11/08/21 HISTORY OF PRESENT ILLNESS This is a 81-year-old male patient of Dr. Rivers with past medical history of rheumatic heart disease status post aortic valve replacement and mitral valve repair in 2012 at [facility],, noncritical CAD, history of paroxysmal atrial fibrillation, hypertension, generalized anxiety disorder, benign prostatic hypertrophy. Patient states that he had awakened at 2 AM when he had no feeling in his right lower extremity. He denies having any pain. He states it was very hard to walk and subsequently he did start to feel pain. He thought initially i t was a pinched nerve in his back but then he went on the Internet and did some research and was concerned that he had a blood clot. His then brought him into [facility] here in [facility] emergency center for evaluation on 11/03. CAT scan revealed occlusive thrombus in the common femoral, profunda and proximal superficial femoral artery as well as through the distal superficial femoral and popliteal arteries. Patient was taken urgently for angiogram and and TPA thrombolysis. 11/06: Patient remains in the intensive care unit. He has had drainage from the right groin which he states leak underneath him and he has been itchy from it all night. Hydrocortisone cream added. Patient has significant scrotal hematoma. Patient states that he was up all night due to pain. He is scheduled today to go back to or for angiogram and possible further procedures. Patient has been afebrile, heart rate 88, blood pressure 91/69, pulse ox 93% on room air. Repeat blood work reveals WBC 11, hemoglobin 10.5, platelet count 87. INR is 1.3. Sodium 134, BUN 19 and creatinine 1.02. Echocardiogram reveals EF of 40-45%, bioprosthetic aortic valve, [id number] mitral stenosis and regurgitation, mild tricuspid regurgitation, dilated ascending aorta. 11/07: Yesterday, patient underwent right lower extremity angiogram and thrombectomy in the common femoral artery in the OR. Patient remains in the intensive care unit. Overnight, patient went into SVT and a Merle was ordered by cardiology the patient converted prior to this being given. He was prior to that in atrial fibrillation controlled rate currently on Cardizem and heparin drip. Patient is noted to have significant hematoma to the groin area and also now hematuria. Hemoglobin is 8.5 and vascular his ordered transfusion 2 units of packed RBCs. Patient also also hypotensive today. He has been afeb rile, heart rate in the 90s,, pulse ox 100% on room air. Other lab work this morning reveals WBC 12.6, platelet count 92, INR 1.2. Sodium 133, potassium 3.9, chloride 109, CO2 21, BUN 26 and creatinine 1.03. Magnesium 1.8. Consult has been added for oncology regarding possible HIT. Patient is awake and alert, he is voicing frustration as his situation has not progressed as he was hoping. He is also frustrated that he is unable to use his phone and call out to his . Dr. Hatfield assisted patient with phone call to his . 11/08:patient remains in the intensive care unit in atrial fibrillation. He is still on a heparin drip with hematuria as well. Urology consult has been added. His hemoglobin today is7.5 status post 2 units of packed RBCs yesterday and he has ordered for 1 more unit of packed RBCs today. Patient states that he is feeling: Better today and seems more calm today.patient has a wound VAC in place.right lower extremity is warm to touch with Doppler pulse. REVIEW OF SYSTEMS Constitutional: No fever, no chills, no night sweats. No weight change. No weakness, fatigue or lethargy. No daytime sleepiness. EENT: No headache. No blurred vision or double vision, no loss of vision. No loss of Hearing, no ringing in the ears, no dizziness. No nasal drainage or congestion. No epistaxis. No sore throat. Lungs: No shortness of breath, cough, no sputum production. No wheezing. Cardiovascular: No chest pain, no lower extremity edema. No palpitations. No paroxysmal nocturnal dyspnea. No orthopnea. No lightheadedness or dizziness. No syncopal episodes. Abdominal: No abdominal pain. No nausea, vomiting. No diarrhea. No consti pation. No bloody or tarry stools. No loss of appetite. Genitourinary: No dysuria, increased frequency, urgency. No urinary retention. Musculoskeletal: No myalgias. No muscle weakness, no gait dysfunction, no frequent falls. No back pain. No neck pain. Integumentary: No wounds, no lesions. No rash or pruritus. No unusual bruising. No change in hair or nails. Hematoma groin, scrotum. Neurologic: No aphasia. No facial droop. No change in mentation. No head injury. No headache. No paralysis. No paresthesia. Painful right lower extremity Psychiatric: No depression. Noted anxiety-improved. No mood swings. Endocrine: No abnormal blood sugars. No weight change. No excessive sweating or thirst. No cold intolerance. PHYSICAL EXAMINATION Gen: This is a 81-year-old male. He is resting in the ICU bed and appears to be comfortable and in no acute distress. HEENT: Head is atraumatic, normocephalic. Pupils equal, round. Sclerae is anicteric. NECK: Supple. No JVD. No lymphadenopathy. No thyromegaly. LUNGS: Clear to auscultation. No wheezes or rhonchi. No intercostal retractions. HEART: Regular rate and rhythm. Systolic ejection murmur.. ABDOMEN: Soft. Bowel sounds are present. No masses. No tenderness. Raines catheter with brown urine/hematuria EXTREMITIES: No pedal edema. No calf tenderness. Pulses obtained by Doppler on thee right lower extremity. Dorsalis pedis 1+ on the left, NEUROLOGICAL: Patient is awake, alert and oriented x3. Cranial nerves 2 through 12 are grossly intact. ASSESSMENT AND PLAN Acute limb ischemia, femoral popliteal artery occlusion, status post angiogram and TPA thrombolysis, status post repeat angiogram and thrombectomy. Continue current management per vascular surgery, Rheumatic heart disease status post aortic valve replacement and mitral valve repair in 2012, stable. Patient was on Coumadin at home.eliquis is being checked. History of paroxysmal atrial fibrillation. cardiology has started Rythmol. Noncritical coronary artery disease. Hypertension. Continue losartan 25 mg daily, Lopressor 12.5 mg twice daily Generalized anxiety disorder. Continue Xanax 0.25 milligrams at bedtime Benign prostatic hypertrophy. Continue Flomax 0.4 milligrams daily. Thrombocytopenia. Continue to monitor. Possible HRT. Consult with oncology. Sinus tachycardia, converted. Cardiology and consult. Atrial fibrillation, currently controlled rate. Cardiology on consult. Hematuria. Patient is on heparin drip. GI prophylaxis. Protonix DVT prophylaxis. Heparin DISCHARGE PLAN Home Impression and plan of care have been directed as dictated by the signing physician. Elysia Maria nurse practitioner acting as scribe for signing physician. Objective - Vital Signs Vital signs: Vital Signs Temp 98.8 F 07/14/22 04:00 Pulse 98 11/08/21 07:00 Resp 21 11/08/21 07:00 BP 83/69 11/08/21 07:00 Pulse Ox 99 11/08/21 07:00 FiO2 Intake & Output 11/07/21 11/08/21 11/08/21 18:59 06:59 18:59 Intake Total 2358.433 2300.133 125 Output Total 540 590 85 Balance 9437.780 9943.133 40 Weight 122.7 kg Intake: IV 750 1500 125 Lactated Ringers 1,000 ml 750 1500 125 @ 125 mls/hr IV .Q8H ZAINA Rx#:[id number] Intake, IV Titration 388.433 260.133 Amount Diltiazem 125 mg In 35 129.333 Sodium Chloride 0.9% 100 ml @ 5 MG/HR 5 mls/hr IV .Q24H ZAINA Rx#:[id number] Heparin Sod,Pork in 0.45% 228.433 130.8 NaCl 25,000 unit In 0.45 % NaCl 1 250ml.bag @ 8. 9445 UNITS/KG/HR 10 mls/ hr IV .Q24H ZAINA Rx#: [id number] Lactated Ringers 500 ml @ 125 999 mls/hr IV .Q31M ZAINA Rx#:[id number] Oral 910 540 Blood Product 310 Rc Irr As1 Unit 310 [id number] Output: Urine 540 590 85 Other: Voiding Method Indwelling Catheter Indwelling Catheter - Labs CBC & Chem 7: 11/08/21 06:37 11/08/21 06:37 Labs: Abnormal Lab Results - Last 24 Hours (Table) 11/04/21 11/07/21 11/07/21 Range/Units 02:03 12:36 17:41 WBC 12.8 H (3.8-10.6) k/uL RBC 2.74 L (4.30-5.90) m/uL Hgb 8.5 L (13.0-17.5) gm/dL Hct 25.7 L (39.0-53.0) % Plt Count 99 L (150-450) k/uL APTT 46.1 H (22.0-30.0) sec Sodium (137-145) mmol/L Chloride (98-107) mmol/L Glucose (74-99) mg/dL Calcium (8.4-10.2) mg/dL Crossmatch See Detail 11/07/21 11/07/21 11/08/21 Range/Units 23:33 23:33 06:37 WBC (3.8-10.6) k/uL RBC 2.58 L 2.43 L (4.30-5.90) m/uL Hgb 7.8 L 7.5 L (13.0-17.5) gm/dL Hct 23.9 L 22.5 L (39.0-53.0) % Plt Count 96 L 96 L (150-450) k/uL APTT 39.7 H (22.0-30.0) sec Sodium (137-145) mmol/L Chloride (98-107) mmol/L Glucose (74-99) mg/dL Calcium (8.4-10.2) mg/dL Crossmatch 11/08/21 11/08/21 Range/Units 06:37 06:41 WBC (3.8-10.6) k/uL RBC (4.30-5.90) m/uL Hgb (13.0-17.5) gm/dL Hct (39.0-53.0) % Plt Count (150-450) k/uL APTT 49.6 H (22.0-30.0) sec Sodium 131 L (137-145) mmol/L Chloride 111 H (98-107) mmol/L Glucose 115 H (74-99) mg/dL Calcium 7.0 L (8.4-10.2) mg/dL Crossmatch
[2021-11-08] MEDS: LOSARTAN 25 MG TAB PO SCH (14:05)
[2021-11-08] MEDS: METOPROLOL TARTRATE 12.5 MG TAB PO SCH ×2 (14:05→21:00)
--- NOTE | 2021-11-08 14:19 | PN ---
PROGRESS NOTE The patient is in atrial fib, rate is controlled. Hemoglobin is down to 7.5. He received one unit of packed RBCs yesterday. I am asking that we switch him from IV to oral Cardizem 60 mg t.i.d., hemodynamically stable. He has Doppler pulses in lower extremities. He is holding his own. Prognosis remains guarded. S1-S2 heard normally, irregular rhythm noted. Short systolic murmur at the base noted. Patient had a previous aortic valve replacement and mitral valve repair. Lungs reveal bilateral decent air entry. Abdomen is soft. Lower extremity pulses are palpable by Doppler grossly. Plan is to switch him from IV to oral Cardizem, continue his other management per vascular surgery. MMODL / IJN: [id number] /
--- NOTE | 2021-11-08 14:20 | P.PN ---
Subjective Progress Note Date: 11/08/21 Patient seen and examined in ICU this am, stable, day 2 thrombectomy, Receive PRBC transfusion yesterday and today Objective - Vital Signs Vital signs: Vital Signs Temp 98.8 F 11/08/21 04:00 Pulse 98 11/08/21 07:00 Resp 21 11/08/21 07:00 BP 83/69 11/08/21 07:00 Pulse Ox 99 11/08/21 07:00 FiO2 Intake & Output 11/07/21 11/08/21 11/08/21 18:59 06:59 18:59 Intake Total 2358.433 2300.133 125 Output Total 540 590 85 Balance 1602.310 2802.133 40 Weight 122.7 kg Intake: IV 750 1500 125 Lactated Ringers 1,000 ml 750 1500 125 @ 125 mls/hr IV .Q8H ZAINA Rx#:[id number] Intake, IV Titration 388.433 260.133 Amount Diltiazem 125 mg In 35 129.333 Sodium Chloride 0.9% 100 ml @ 5 MG/HR 5 mls/hr IV .Q24H ZAINA Rx#:[id number] Heparin Sod,Pork in 0.45% 228.433 130.8 NaCl 25,000 unit In 0.45 % NaCl 1 250ml.bag @ 8. 9445 UNITS/KG/HR 10 mls/ hr IV .Q24H ZAINA Rx#: [id number] Lactated Ringers 500 ml @ 125 999 mls/hr IV .Q31M ZAINA Rx#:[id number] Oral 910 540 Blood Product 310 Rc Irr As1 Unit 310 [id number] Output: Urine 540 590 85 Other: Voiding Method Indwelling Catheter Indwelling Catheter - Exam - Constitutional General appearance: average body habitus, cooperative, no acute distress - EENT Eyes: anicteric sclerae, EOMI, poor dentition ENT: hearing grossly normal - Neck Neck: no lymphadenopathy - Respiratory Respiratory: bilateral: CTA, diminished - Cardiovascular pedal pulses palpable 2+ Rhythm: irregularly irregular Heart sounds: normal: S1, S2 Abnormal Heart Sounds: no systolic murmur, no diastolic murmur, no rub, no S3 Gallop, no S4 Gallop, no click, no other leg Peripheral Edema: bilateral: 2+ - Gastrointestinal General gastrointestinal: no absent bowel sounds, no decreased bowel sounds, no distended, no hepatomegaly, no hyperactive bowel sounds, normal bowel sounds, no organomegaly, no rigid, no scaphoid, soft, no splenomegaly, no tenderness, no umbilical hernia, no ventral hernia - Integumentary skin on the bilateral lower extremities is warm to touch - Neurologic Neurologic: CNII-XII intact - Musculoskeletal Musculoskeletal: strength equal bilaterally - Psychiatric Psychiatric: A&O x's 3, appropriate affect, intact judgment & insight - Labs CBC & Chem 7: 11/08/21 06:37 11/08/21 06:37 Labs: Abnormal Lab Results - Last 24 Hours (Table) 11/04/21 11/07/21 11/07/21 Range/Units 02:03 12:36 17:41 WBC 12.8 H (3.8-10.6) k/uL RBC 2.74 L (4.30-5.90) m/uL Hgb 8.5 L (13.0-17.5) gm/dL Hct 25.7 L (39.0-53.0) % Plt Count 99 L (150-450) k/uL APTT 46.1 H (22.0-30.0) sec Sodium (137-145) mmol/L Chloride (98-107) mmol/L Glucose (74-99) mg/dL Calcium (8.4-10.2) mg/dL Crossmatch See Detail 11/07/21 11/07/21 11/08/21 Range/Units 23:33 23:33 06:37 WBC (3.8-10.6) k/uL RBC 2.58 L 2.43 L (4.30-5.90) m/uL Hgb 7.8 L 7.5 L (13.0-17.5) gm/dL Hct 23.9 L 22.5 L (39.0-53.0) % Plt Count 96 L 96 L (150-450) k/uL APTT 39.7 H (22.0-30.0) sec Sodium (137-145) mmol/L Chloride (98-107) mmol/L Glucose (74-99) mg/dL Calcium (8.4-10.2) mg/dL Crossmatch 11/08/21 11/08/21 Range/Units 06:37 06:41 WBC (3.8-10.6) k/uL RBC (4.30-5.90) m/uL Hgb (13.0-17.5) gm/dL Hct (39.0-53.0) % Plt Count (150-450) k/uL APTT 49.6 H (22.0-30.0) sec Sodium 131 L (137-145) mmol/L Chloride 111 H (98-107) mmol/L Glucose 115 H (74-99) mg/dL Calcium 7.0 L (8.4-10.2) mg/dL Crossmatch Assessment and Plan Plan: Comments: CT angiogram report reviewed Venous US: report reviewed Assessment and Plan (1) Arterial occlusion Current Visit: Yes Status: Acute Priority: High Code(s): I70.90 - UNSPECIFIED ATHEROSCLEROSIS SNOMED Code(s): 8935627 Plan: Platelets remain stable, Status post PRBC Discussed with Nursing Thrombocytopenia likely chronically low due to ETOH use and suppression on bone marrow, no intervention needed CBC, CMP in am Patient has been treated successfully with thrombolectomy 2 days ago for arterial occlusion. He continues on heparin at this time. His platelets are stable at 92,000.
[2021-11-08 14:57] LABS: HCT 26.9 % (39.0-53.0); MCH 31.5 pg (25.0-35.0); MCHC 33.5 g/dL (31.0-37.0); MCV 93.8 fL (80.0-100.0); Mean Platelet Volume 8.1; Platelet Count 113 k/uL (150-450); Poikilocytosis Slight; RBC 2.86 m/uL (4.30-5.90); RDW 15.5 % (11.5-15.5); WBC 10.1 k/uL (3.8-10.6)
[2021-11-08] MEDS: HEPARIN SOD,PORK IN 0.45% NACL 25,000 UNIT in 0.45% NACL 1 250ML.BAG IV SCH (15:16)
[2021-11-08] MEDS: DILTIAZEM ORAL 60 MG TAB PO SCH ×4 (15:17→21:00)
[2021-11-08] MEDS: LACTATED RINGERS 1,000 ML IV SCH (15:21)
[2021-11-08] MEDS ORDERED: WARFARIN 3 MG TAB PO SCH (18:00)
[2021-11-08] MEDS: TAMSULOSIN 0.4 MG CAP.ER.24H PO SCH (21:00)
[2021-11-08] MEDS: ALPRAZolam 0.25 MG TAB PO PRN (21:00)
[2021-11-09] MEDS: HEPARIN SOD,PORK IN 0.45% NACL 25,000 UNIT in 0.45% NACL 1 250ML.BAG IV SCH ×3 (05:29→20:02)
[2021-11-09 05:51] LABS: % Iron Saturation 9.28 (15.00-50.00)
[2021-11-09] MEDS: PANTOPRAZOLE 40 MG TABLET PO SCH (06:34)
--- NOTE | 2021-11-09 06:48 | P.GSCN ---
History of Present Illness Consult date: 11/08/21 Reason for Consult: Gross hematuria Requesting physician: Love Selby History of present illness: The patient is a 81-year-old white male well known to Dr. Clifton. He is followed for BPH, for which he takes tamsulosin. A CT scan in May 2020 showed a 17 mm right lower pole renal calculus, as well as a large right renal cyst. He is asymptomatic so no treatment was recommended. He is now receiving TPA for th rombosis of the right common femoral artery with extensive thrombus in the SFA and popliteal artery. He has an indwelling Raines catheter and has been noted to have hematuria. I am consulted for this reason. He denies having experienced hematuria prior to this event. Review of Systems - Genitourinary Reports as per HPI Past Medical History Past Medical History: Atrial Fibrillation, Coronary Artery Disease (CAD), Hypertension Additional Past Medical History / Comment(s): COVID History of Any Multi-Drug Resistant Organisms: None Reported Past Surgical History: Coronary Bypass/CABG, Hernia Repair Past Anesthesia/Blood Transfusion Reactions: No Reported Reaction Past Psychological History: No Psychological Hx Reported Smoking Status: Never smoker Past Alcohol Use History: Occasional Past Drug Use History: None Reported Medications and Allergies Home Medications Medication Instructions Recorded Confirmed Type ALPRAZolam [Xanax] 0.25 mg PO HS PRN 11/03/21 11/03/21 History Cholecalciferol [Vitamin D3 (25 25 mcg PO DAILY 11/03/21 11/03/21 History Mcg = 1000 Iu)] Ibuprofen [Motrin] 600 mg PO Q8HR PRN 11/03/21 11/03/21 History Losartan Potassium 50 mg PO DAILY 11/03/21 11/03/21 History Melatonin Unknown Dose 1 tab PO HS 11/03/21 11/03/21 History Metoprolol Succinate [Toprol XL] 50 mg PO DAILY 11/03/21 11/03/21 History Naproxen 250 mg PO DAILY PRN 11/03/21 11/03/21 History Tamsulosin [Flomax] 0.4 mg PO HS 11/03/21 11/03/21 History Warfarin [Coumadin] 2.5 - 5 mg PO DAILY 11/03/21 11/03/21 History Zinc 50 mg PO DAILY 11/03/21 11/03/21 History Apixaban [Eliquis] 5 mg PO BID #30 tab 11/08/21 Rx Allergies Allergy/AdvReac Type Severity Reaction Status Date / Time No Known Allergies Allergy Verified 11/03/21 21:03 Surgical - Exam Vital Signs Temp Pulse Resp BP Pulse Ox 98.3 F 69 20 123/67 97 11/03/21 18:19 11/03/21 18:19 11/03/21 18:19 11/03/21 18:19 11/03/21 18:19 - General well developed, well nourished, no distress - Respiratory normal respiratory effort - Abdomen Abdomen: soft, non tender, no guarding, no rigid, no rebound - Genitourinary normal penis with no external lesions, testicles non-tender - Psychiatric oriented to time, oriented to person, oriented to place, speech is normal, memory intact Results - Labs 11/08/21 14:42 11/08/21 06:37 Abnormal Lab Results - Last 24 Hours (Table) 11/07/21 11/07/21 11/07/21 Range/Units 17:41 23:33 23:33 WBC 12.8 H (3.8-10.6) k/uL RBC 2.74 L 2.58 L (4.30-5.90) m/uL Hgb 8.5 L 7.8 L (13.0-17.5) gm/dL Hct 25.7 L 23.9 L (39.0-53.0) % Plt Count 99 L 96 L (150-450) k/uL APTT 39.7 H (22.0-30.0) sec Sodium (137-145) mmol/L Chloride (98-107) mmol/L Glucose (74-99) mg/dL Calcium (8.4-10.2) mg/dL Crossmatch 11/08/21 11/08/21 11/08/21 Range/Units 06:37 06:37 06:41 WBC (3.8-10.6) k/uL RBC 2.43 L (4.30-5.90) m/uL Hgb 7.5 L (13.0-17.5) gm/dL Hct 22.5 L (39.0-53.0) % Plt Count 96 L (150-450) k/uL APTT 49.6 H (22.0-30.0) sec Sodium 131 L (137-145) mmol/L Chloride 111 H (98-107) mmol/L Glucose 115 H (74-99) mg/dL Calcium 7.0 L (8.4-10.2) mg/dL Crossmatch 11/08/21 11/08/21 Range/Units 08:23 14:42 WBC (3.8-10.6) k/uL RBC 2.86 L (4.30-5.90) m/uL Hgb 9.0 L D (13.0-17.5) gm/dL Hct 26.9 L (39.0-53.0) % Plt Count 113 L (150-450) k/uL APTT (22.0-30.0) sec Sodium (137-145) mmol/L Chloride (98-107) mmol/L Glucose (74-99) mg/dL Calcium (8.4-10.2) mg/dL Crossmatch See Detail Diabetes panel 11/08/21 Range/Units 06:37 Sodium 131 L (137-145) mmol/L Potassium 4.1 (3.5-5.1) mmol/L Chloride 111 H (98-107) mmol/L Carbon Dioxide 22 (22-30) mmol/L BUN 20 (9-20) mg/dL Creatinine 0.91 (0.66-1.25) mg/dL Glucose 115 H (74-99) mg/dL Calcium 7.0 L (8.4-10.2) mg/dL Calcium panel 11/08/21 Range/Units 06:37 Calcium 7.0 L (8.4-10.2) mg/dL Pituitary panel 11/08/21 Range/Units 06:37 Sodium 131 L (137-145) mmol/L Potassium 4.1 (3.5-5.1) mmol/L Chloride 111 H (98-107) mmol/L Carbon Dioxide 22 (22-30) mmol/L BUN 20 (9-20) mg/dL Creatinine 0.91 (0.66-1.25) mg/dL Glucose 115 H (74-99) mg/dL Calcium 7.0 L (8.4-10.2) mg/dL Adrenal panel 11/08/21 Range/Units 06:37 Sodium 131 L (137-145) mmol/L Potassium 4.1 (3.5-5.1) mmol/L Chloride 111 H (98-107) mmol/L Carbon Dioxide 22 (22-30) mmol/L BUN 20 (9-20) mg/dL Creatinine 0.91 (0.66-1.25) mg/dL Glucose 115 H (74-99) mg/dL Calcium 7.0 L (8.4-10.2) mg/dL Assessment and Plan (1) Gross hematuria Current Visit: Yes Status: Acute Code(s): R31.0 - GROSS HEMATURIA SNOMED Code(s): 867478743 Plan: The cause of the hematuria is unclear at this time. It is most likely of lower urinary tract source with causative factors being the Arines catheter and anticoagulation. I irrigated the catheter to confirm that it is properly positioned and patent. The catheter may be removed when no longer medically needed. If he develops clots, the catheter should be irrigated. If this becomes, and, he will require a three-way Raines catheter with continuous bladder irrigation. He may benefit from an outpatient hematuria evaluation to rule out occult pathology.
[2021-11-09 06:56] LABS: Basophils % (A) 0 %; Eosinophils # (A) 0.3 k/uL (0-0.7); Eosinophils % (A) 4 %; HCT 24.2 % (39.0-53.0); HGB 7.9 gm/dL (13.0-17.5); Lymphocytes % (A) 12 %; MCHC 32.6 g/dL (31.0-37.0); MCV 91.8 fL (80.0-100.0); Mean Platelet Volume 8.5; Monocytes # (A) 0.6 k/uL (0-1.0); Monocytes % (A) 7 %; Neutrophils # (A) 6.2 k/uL (1.3-7.7); Neutrophils % (A) 76 %; Platelet Count 128 k/uL (150-450); Poikilocytosis Slight; RBC 2.63 m/uL (4.30-5.90); RDW 14.9 % (11.5-15.5); WBC 8.2 k/uL (3.8-10.6)
[2021-11-09 07:12] LABS: Partial Thromboplastin Time 45.4 sec (22.0-30.0); Prothrombin Time 11.1 sec (9.0-12.0)
[2021-11-09 07:51] LABS: Albumin 2.2 g/dL (3.5-5.0); Potassium 4.1 mmol/L (3.5-5.1); Total Protein 4.3 g/dL (6.3-8.2)
[2021-11-09] MEDS: DILTIAZEM ORAL 60 MG TAB PO SCH ×3 (07:59→23:35)
[2021-11-09] MEDS: METOPROLOL TARTRATE 12.5 MG TAB PO SCH ×2 (07:59→20:02)
[2021-11-09] MEDS: LOSARTAN 25 MG TAB PO SCH ×2 (07:59→08:02)
[2021-11-09 09:23] VITALS: BMI 38.5
--- NOTE | 2021-11-09 10:10 | P.PN ---
Subjective Progress Note Date: 11/09/21 Principal diagnosis: Critical right limb ischemia This is a 81-year-old white male with history of hypertension, coronary artery disease, chronic atrial fibrillation, maintained on Coumadin, patient normally sees Dr. Rivers as his primary care physician. Yesterday, and in the middle of the night, patient woke up to go to the bathroom, and he realized that his right leg was numb, and cold. Patient initially thought that he may have had a patient, he presented to the ER last night with non-resolution of his symptoms. Patient was found to have ischemic right leg/right foot, and his Coumadin level was noted to be subtherapeutic. Patient was seen by vascular surgery on consultation, and he was felt to have femoral popliteal occlusion. Patient underwent selective right lower extremity angiogram and underwent initiation of TPA thrombolysis, patient underwent angiography, left femoral approach, and attempted placement an ekos catheter, however that was unsuccessful, sheath was left in place infusing TPA. patient was transferred back to the ICU and the plan is to go back and evaluate at 4 PM today. Patient is known to have history of paroxysmal atrial fibrillation, bioprosthetic aortic valve replacement as well as mitral valve repair and history of left atrial thrombus noted in 2019. Supposedly the patient is compliant with his Coumadin however his INR on this admission was only 1.5. On 11/05/2021 patient seen in follow-up in intensive care unit, he status post second right lower extremity angiogram via existing catheter for acute limb ischemia of the right lower extremity, and patient continues on TPA infusion via right femoral catheter. Today he still only has right femoral Doppler pulse, no palpable pulse in no Doppler pulse in the right popliteal or right pedal area. Right foot is cold to touch, however not dusky. Patient is awake and alert, oriented 3, does not appear to be in any acute distress, he is currently on 2 L of oxygen with a pulse ox of 96%, vital signs are stable, patient is afebrile. Left foot is warm to touch, with palpable pulse. Patient also continues on heparin at 500 units per hour, and 0.0 cm to 75 ML per hour. Today's labs have been reviewed showing white blood cell count of 8.8, hemoglobin of 13.7, INR of 1.3, sodium is 134, potassium is 4.6, chloride is 108, BUN is 19, creatinine 0.98. On 11/06/2021 patient seen in follow-up in the intensive care unit, patient was taken back to the [facility] yesterday, in the left groin sheath remained in place, with TPA infusion. However through the night patient has developed a hematoma in the left groin, and TPA has been discontinued, he currently remains on heparin infusion at 500 units per hour. His 0.9 normal saline is at a rate of 35 ML per hour. The left coronary hematoma is soft, has been outlined with a marker, and has not expanded overnight. Left pedal Doppler pulse is present. Patient has only a right femoral Doppler pulse, no Doppler pulse was obtained in the right popliteal or right pedal or posttibial areas. Right foot is cool to t ouch, however not dusky. Patient is awake and alert, he does complain of some burning pain in his right foot, when necessary Dilaudid is on board with relief. Hemodynamically stable, he is in sinus mechanism with a first-degree AV block and occasional PACs. No breathing difficulty, room air pulse ox is 96%, lung sounds are clear to auscultation. No complaints of chest pain. Did have a episode of hypotension this morning, possibly related to Dilaudid administration, and received 500 mL fluid bolus with improvement of his blood pressure. On 11/07/2021 patient seen in follow-up in the intensive care unit, yesterday on 11/06/2021 patient was taken back to the [facility], where he underwent right lower extremity selective angiogram, demonstrating thrombus in the common femoral artery with minimal flow to the popliteal artery, the decision was made for open thrombectomy, patient was taken to the operating room where open thrombectomy to place. This morning he is awake and alert, he is having some burning sensation he has right lower extremity, but right foot is now warm and almost hot to touch, and there are now Doppler pulses present in the right pedal, right posttibial, and right popliteal areas. Left groin hematoma is now dissipating, and it remains soft. Yesterday patient received a unit of packed red blood cells, today's hemoglobin is 8.5. White blood cell count is 12.6, INR is 1.2, sodium is 133, BUN is 26 and creatinine is 1.03. Currently patient is on room air, denies any shortness of breath, is on IVs including lactated Ringer's at 125 ML per hour, last night he went into SVT and was started on Cardizem infusion at 5 mg per hour. He also remains on heparin per weight-based protocol. Cardiology is following. This morning patient was also noted to be hypotensive, and was given 500 mL fluid bolus. Current blood pressure is 84/59. Clinically patient is awake and alert, answering questions appropriately, does not appear to be in acute distress. Remains in SVT with a better controlled rate. The patient is seen today 11/08/2021 in follow-up in the intensive care unit. Postoperative day #2 for right open thrombectomy of the right lower extremity. Status post TPA infusion. He is currently sitting up in bed. Awake and alert in no acute distress. He is maintaining good O2 saturations in the 90s on room air. He has lactated Ringer's running at 125 ML's per hour. Cardizem drip at 5 mg per hour. Heparin drip per weight base protocol. He did receive 1 unit of packed red blood cells yesterday. The plan is for another 1-2 units today. Current hemoglobin 7.5. Platelets 96,000. White count 8.9. Sodium 131. Potassium 4.1. BUN 20. Creatinine 0.91. Current mean arterial blood pressure 77. He is afebrile. Currently in atrial fibrillation with a controlled ventricular rate. There is a right lower extremity with Prevena wound VAC in place. Right lower extremity is warm to touch with good sensation and mobility. Doppler pulses are present. She is seen today in 05/12/2021 in follow-up in intensive care unit. Postoperative day #3. He is currently resting quite comfortably in bed. Awake and alert in no acute distress. Maintaining O2 saturations in the 90s on room air. He remains on a heparin drip. Plan is to transition him to warfarin. He denies any worsening lower extremity discomfort. He is status post 3 units of p acked red blood cells this admission. Current hemoglobin 7.9. Platelets 128. White count 8.2. INR 1.0. Sodium 133. Potassium 4.1. BUN 20. Creatinine 0.99. He is currently on oral Cardizem and Lopressor. Remains with a controlled ventricular response in atrial fibrillation. He continues with bilateral pedal Doppler pulses. Objective - Vital Signs Vital signs: Vital Signs Temp 98.1 F 11/09/21 08:00 Pulse 91 11/09/21 09:00 Resp 10 L 11/09/21 09:00 BP 120/71 11/09/21 09:00 Pulse Ox 99 11/09/21 09:00 FiO2 Intake & Output 11/08/21 11/09/21 11/09/21 18:59 06:59 18:59 Intake Total 1834.2 452.332 Output Total 770 775 120 Balance 1064.2 -322.668 -120 Weight 122 kg 122 kg Intake: IV 265 Lactated Ringers 1,000 ml 265 @ 20 mls/hr IV .Q24H ZAINA Rx#:[id number] Intake, IV Titration 119.2 202.332 Amount Heparin Sod,Pork in 0.45% 119.2 202.332 NaCl 25,000 unit In 0.45 % NaCl 1 250ml.bag @ 8. 9445 UNITS/KG/HR 10 mls/ hr IV .Q24H ZAINA Rx#: [id number] Oral 1450 250 Blood Product 0 Rc As-1 Unit 0 [id number] Output: Urine 770 775 120 Other: Voiding Method Indwelling Catheter Indwelling Catheter Indwelling Catheter - Exam GENERAL EXAM: Alert, 81-year-old male patient, on room air, comfortable in no apparent distress. HEAD: Normocephalic. EYES: Normal reaction of pupils, equal size. NOSE: Clear with pink turbinates. THROAT: No erythema or exudates. NECK: No masses, no JVD. CHEST: No chest wall deformity. LUNGS: Equal air entry with no crackles, wheeze, rhonchi or dullness. CVS: S1 and S2 normal with no audible murmur, irregular rhythm. ABDOMEN: No hepatosplenomegaly, normal bowel sounds, no guarding or rigidity. SPINE: No scoliosis or deformity SKIN: No rashes CENTRAL NERVOUS SYSTEM: No focal deficits, tone is normal in all 4 extremities. EXTREMITIES: Right lower extremity with Prevena wound VAC in place. Good sensation and mobility. Doppler pulses present. Left lower extremity with ecchymosis to left groin and hip. No hematoma. Doppler pulses present. - Labs CBC & Chem 7: 11/09/21 06:39 11/09/21 06:39 Labs: Abnormal Lab Results - Last 24 Hours (Table) 11/08/21 11/08/21 11/08/21 Range/Units 08:23 14:42 14:42 RBC 2.86 L (4.30-5.90) m/uL Hgb 9.0 L D (13.0-17.5) gm/dL Hct 26.9 L (39.0-53.0) % Plt Count 113 L (150-450) k/uL APTT (22.0-30.0) sec Sodium (137-145) mmol/L Chloride (98-107) mmol/L Calcium (8.4-10.2) mg/dL Iron 19 L (65-175) ug/dL TIBC 206 L (228-460) ug/dL % Saturation 9.28 L (15.00-50.00) Transferrin 147.0 L (204.0-354.0) mg/dL Total Protein (6.3-8.2) g/dL Albumin (3.5-5.0) g/dL Crossmatch See Detail 11/09/21 11/09/21 11/09/21 Range/Units 06:39 06:39 06:39 RBC 2.63 L (4.30-5.90) m/uL Hgb 7.9 L (13.0-17.5) gm/dL Hct 24.2 L (39.0-53.0) % Plt Count 128 L (150-450) k/uL APTT 45.4 H (22.0-30.0) sec Sodium 133 L (137-145) mmol/L Chloride 108 H (98-107) mmol/L Calcium 7.0 L (8.4-10.2) mg/dL Iron (65-175) ug/dL TIBC (228-460) ug/dL % Saturation (15.00-50.00) Transferrin (204.0-354.0) mg/dL Total Protein 4.3 L (6.3-8.2) g/dL Albumin 2.2 L (3.5-5.0) g/dL Crossmatch Assessment and Plan Assessment: 1 Acute ischemia right lower extremity secondary to femoral/popliteal thrombosis, status post right lower extremity angiogram and placement of a catheter for TPA for thrombolysis 3 on 11/04/2021, and 11/05/2021. Patient had undergone an open thrombectomy on 11/06/2021. Post operative day #3. 2 SVT, currently on Cardizem infusion and heparin infusion, currently in atrial fibrillation with controlled ventricular rate 3 Hypotension, related to acute blood loss anemia, and SVT. Patient has received fluid boluses, and received 3 unit of packed red blood cells 4 History of paroxysmal atrial fibrillation on Coumadin which was subtherapeutic on admission 5 Benign essential hypertension 6 History of bioprosthetic aortic valve replacement and mitral valve repair in 2012 7 History of left atrial thrombus 8 Coronary artery disease 9 Left groin ecchymosis 10 History of COVID-19 infection in 2020 Plan: The patient was seen and evaluated Labs and medications reviewed Stable and on room air Cleared for transfer out of the ICU to stepdown unit today We will continue to follow I have personally seen and examined the patient, performed the documentation and the assessment and plan as written. Number of minutes spent on the visit: 10.
[2021-11-09] MEDS: LACTATED RINGERS 1,000 ML IV SCH (11:26)
--- NOTE | 2021-11-09 12:26 | P.PN ---
Subjective Progress Note Date: 11/09/21 HISTORY OF PRESENT ILLNESS This is a 81-year-old male patient of Dr. Rivers with past medical history of rheumatic heart disease status post aortic valve replacement and mitral valve repair in 2012 at [facility],, noncritical CAD, history of paroxysmal atrial fibrillation, hypertension, generalized anxiety disorder, benign prostatic hypertrophy. Patient states that he had awakened at 2 AM when he had no feeling in his right lower extremity. He denies having any pain. He states it was very hard to walk and subsequently he did start to feel pain. He thought initially i t was a pinched nerve in his back but then he went on the Internet and did some research and was concerned that he had a blood clot. His then brought him into [facility] here in [facility] emergency center for evaluation on 11/03. CAT scan revealed occlusive thrombus in the common femoral, profunda and proximal superficial femoral artery as well as through the distal superficial femoral and popliteal arteries. Patient was taken urgently for angiogram and and TPA thrombolysis. 11/06: Patient remains in the intensive care unit. He has had drainage from the right groin which he states leak underneath him and he has been itchy from it all night. Hydrocortisone cream added. Patient has significant scrotal hematoma. Patient states that he was up all night due to pain. He is scheduled today to go back to or for angiogram and possible further procedures. Patient has been afebrile, heart rate 88, blood pressure 91/69, pulse ox 93% on room air. Repeat blood work reveals WBC 11, hemoglobin 10.5, platelet count 87. INR is 1.3. Sodium 134, BUN 19 and creatinine 1.02. Echocardiogram reveals EF of 40-45%, bioprosthetic aortic valve, [id number] mitral stenosis and regurgitation, mild tricuspid regurgitation, dilated ascending aorta. 11/07: Yesterday, patient underwent right lower extremity angiogram and thrombectomy in the common femoral artery in the OR. Patient remains in the intensive care unit. Overnight, patient went into SVT and a Merle was ordered by cardiology the patient converted prior to this being given. He was prior to that in atrial fibrillation controlled rate currently on Cardizem and heparin drip. Patient is noted to have significant hematoma to the groin area and also now hematuria. Hemoglobin is 8.5 and vascular his ordered transfusion 2 units of packed RBCs. Patient also also hypotensive today. He has been afeb rile, heart rate in the 90s,, pulse ox 100% on room air. Other lab work this morning reveals WBC 12.6, platelet count 92, INR 1.2. Sodium 133, potassium 3.9, chloride 109, CO2 21, BUN 26 and creatinine 1.03. Magnesium 1.8. Consult has been added for oncology regarding possible HIT. Patient is awake and alert, he is voicing frustration as his situation has not progressed as he was hoping. He is also frustrated that he is unable to use his phone and call out to his . Dr. Hatfield assisted patient with phone call to his . 11/08:patient remains in the intensive care unit in atrial fibrillation. He is still on a heparin drip with hematuria as well. Urology consult has been added. His hemoglobin today is7.5 status post 2 units of packed RBCs yesterday and he has ordered for 1 more unit of packed RBCs today. Patient states that he is feeling: Better today and seems more calm today.patient has a wound VAC in place.right lower extremity is warm to touch with Doppler pulse. 11/09: Patient remains in intensive care unit. Vascular surgery has ordered another unit of packed RBCs, hemoglobin this morning is 7.9. Patient has been seen by urology and recommended discontinuing Raines which will be done today. Patient is seen sitting up in a chair today and looks well in general. He is continued on a heparin drip. Patient has no insurance coverage for eliquis and plan is to resume Coumadin which was started last night. INR is 1. Discharge plan is home with homecare. REVIEW OF SYSTEMS Constitutional: No fever, no chills, no night sweats. No weight change. No weakness, fatigue or lethargy. No daytime sleepiness. EENT: No headache. No blurred vision or double vision, no loss of vision. No loss of Hearing, no ringing in the ears, no dizziness. No nasal drainage or congestion. No epistaxis. No sore throat. Lungs: No shortness of breath, cough, no sputum production. No wheezing. Cardiovascular: No chest pain, no lower extremity edema. No palpitations. No paroxysmal nocturnal dyspnea. No orthopnea. No lightheadedness or dizziness. No syncopal episodes. Abdominal: No abdominal pain. No nausea, vomiting. No diarrhea. No constip ation. No bloody or tarry stools. No loss of appetite. Genitourinary: No dysuria, increased frequency, urgency. No urinary retention. Musculoskeletal: No myalgias. No muscle weakness, no gait dysfunction, no frequent falls. No back pain. No neck pain. Integumentary: No wounds, no lesions. No rash or pruritus. No unusual bruising. No change in hair or nails. Hematoma groin, scrotum. Neurologic: No aphasia. No facial droop. No change in mentation. No head injury. No headache. No paralysis. No paresthesia. Painful right lower extremity Psychiatric: No depression. Noted anxiety-improved. No mood swings. Endocrine: No abnormal blood sugars. No weight change. No excessive sweating o r thirst. No cold intolerance. PHYSICAL EXAMINATION Gen: This is a 81-year-old male. He is resting in the ICU recliner and appears to be comfortable and in no acute distress. HEENT: Head is atraumatic, normocephalic. Pupils equal, round. Sclerae is anicteric. NECK: Supple. No JVD. No lymphadenopathy. No thyromegaly. LUNGS: Clear to auscultation. No wheezes or rhonchi. No intercostal retractions. HEART: Regular rate and rhythm. Systolic ejection murmur.. ABDOMEN: Soft. Bowel sounds are present. No masses. No tenderness. Raines catheter with hematuria EXTREMITIES: No pedal edema. No calf tenderness. Pulses obtained by Doppler on the right lower extremity. Dorsalis pedis 1+ on the left, NEUROLOGICAL: Patient is awake, alert and oriented x3. Cranial nerves 2 through 12 are grossly intact. ASSESSMENT AND PLAN Acute limb ischemia, femoral popliteal artery occlusion, status post angiogram and TPA thrombolysis, status post repeat angiogram and thrombectomy. Continue current management per vascular surgery, Rheumatic heart disease status post aortic valve replacement and mitral valve repair in 2012, stable. Patient is currently on heparin drip and resumed on Coumadin last night. Continue to monitor INR, pharmacy is dosing Coumadin. History of paroxysmal atrial fibrillation. Continue patient on Cardizem 60 mg 3 times daily, Lopressor 12.5 mg twice daily. Noncritical coronary artery disease. Hypertension. Continue losartan 25 mg daily, Lopressor 12.5 mg twice daily, Cardizem. Generalized anxiety disorder. Continue Xanax 0.25 milligrams at bedtime Benign prostatic hypertrophy. Continue Flomax 0.4 milligrams daily. Thrombocytopenia. Continue to monitor. Possible HRT. Consult with oncology. Sinus tachycardia, converted. Cardiology and consult. Atrial fibrillation, currently controlled rate. Cardiology on consult. Hematuria. Urology consult appreciated. Raines to be discontinued today GI prophylaxis. Protonix DVT prophylaxis. Heparin DISCHARGE PLAN Home with homecare Impression and plan of care have been directed as dictated by the signing yazan souza. Elysia Maria nurse practitioner acting as scribe for signing physician. Objective - Vital Signs Vital signs: Vital Signs Temp 98.1 F 11/09/21 08:00 Pulse 92 11/09/21 08:00 Resp 23 11/09/21 08:00 BP 97/61 11/09/21 08:00 Pulse Ox 100 11/09/21 08:00 FiO2 Intake & Output 11/08/21 11/09/21 11/09/21 18:59 06:59 18:59 Intake Total 1834.2 452.332 Output Total 770 775 120 Balance 1064.2 -322.668 -120 Weight 122 kg Intake: IV 265 Lactated Ringers 1,000 ml 265 @ 20 mls/hr IV .Q24H ZAINA Rx#:[id number] Intake, IV Titration 119.2 202.332 Amount Heparin Sod,Pork in 0.45% 119.2 202.332 NaCl 25,000 unit In 0.45 % NaCl 1 250ml.bag @ 8. 9445 UNITS/KG/HR 10 mls/ hr IV .Q24H ZAINA Rx#: [id number] Oral 1450 250 Blood Product 0 Rc As-1 Unit 0 [id number] Output: Urine 770 775 120 Other: Voiding Method Indwelling Catheter Indwelling Catheter Indwelling Catheter - Labs CBC & Chem 7: 11/09/21 06:39 11/09/21 06:39 Labs: Abnormal Lab Results - Last 24 Hours (Table) 11/08/21 11/08/21 11/08/21 Range/Units 08:23 14:42 14:42 RBC 2.86 L (4.30-5.90) m/uL Hgb 9.0 L D (13.0-17.5) gm/dL Hct 26.9 L (39.0-53.0) % Plt Count 113 L (150-450) k/uL APTT (22.0-30.0) sec Sodium (137-145) mmol/L Chloride (98-107) mmol/L Calcium (8.4-10.2) mg/dL Iron 19 L (65-175) ug/dL TIBC 206 L (228-460) ug/dL % Saturation 9.28 L (15.00-50.00) Transferrin 147.0 L (204.0-354.0) mg/dL Total Protein (6.3-8.2) g/dL Albumin (3.5-5.0) g/dL Crossmatch See Detail 11/09/21 11/09/21 11/09/21 Range/Units 06:39 06:39 06:39 RBC 2.63 L (4.30-5.90) m/uL Hgb 7.9 L (13.0-17.5) gm/dL Hct 24.2 L (39.0-53.0) % Plt Count 128 L (150-450) k/uL APTT 45.4 H (22.0-30.0) sec Sodium 133 L (137-145) mmol/L Chloride 108 H (98-107) mmol/L Calcium 7.0 L (8.4-10.2) mg/dL Iron (65-175) ug/dL TIBC (228-460) ug/dL % Saturation (15.00-50.00) Transferrin (204.0-354.0) mg/dL Total Protein 4.3 L (6.3-8.2) g/dL Albumin 2.2 L (3.5-5.0) g/dL Crossmatch
--- NOTE | 2021-11-09 12:47 | P.PN ---
Subjective Progress Note Date: 11/09/21 Principal diagnosis: Acute limb ischemia Patient is a pleasant 81-year-old male who is being seen as a follow-up for acute limb ischemia. He remains in the ICU. He is postop day # 3 of right lower extremity open thrombectomy. He still has gross hematuria with Raines catheter in place. Urology has seen patient, patient does follow with Dr. Lopes outpatient for BPH. They state Raines catheter can be removed from their standpoint.he continues to have Good output. He is afebrile. WBC 8.9 hemoglobin 7.5 platelet count stable at 96,000 patient remains on heparin drip at this time, and cardiology has resumed his Coumadin and waiting for INR to become therapeutic. Repeat hemoglobin 7.9. He again he states that his right lower extremity pain has improved it is warm he has full movement. He has been up and ambulating within his room and working with physical therapy. He denies any shortness of breath, chest pain, abdominal pain, nausea or vomiting. Objective - Vital Signs Vital signs: Vital Signs Temp 98.1 F 11/09/21 08:00 Pulse 92 11/09/21 08:00 Resp 23 11/09/21 08:00 BP 97/61 11/09/21 08:00 Pulse Ox 100 11/09/21 08:00 FiO2 Intake & Output 11/08/21 11/09/21 11/09/21 18:59 06:59 18:59 Intake Total 1834.2 452.332 Output Total 770 775 120 Balance 1064.2 -322.668 -120 Weight 122 kg 122 kg Intake: IV 265 Lactated Ringers 1,000 ml 265 @ 20 mls/hr IV .Q24H [facility] Rx#:[id number] Intake, IV Titration 119.2 202.332 Amount Heparin Sod,Pork in 0.45% 119.2 202.332 NaCl 25,000 unit In 0.45 % NaCl 1 250ml.bag @ 8. 9445 UNITS/KG/HR 10 mls/ hr IV .Q24H [facility] Rx#: [id number] Oral 1450 250 Blood Product 0 Rc As-1 Unit 0 [id number] Output: Urine 770 775 120 Other: Voiding Method Indwelling Catheter Indwelling Catheter Indwelling Catheter - Exam General appearance: The patient is alert, oriented, appears in no acute distress. HET: Head is normocephalic and atraumatic. Neck: Supple without lymphadenopathy. Trachea midline. Heart: Irregular rate and rhythm. Lungs: Clear to auscultation bilaterally. Abdomen: Soft, nontender, nondistended. Genitourinary: Scrotum swollen, ecchymotic. Gross hematuria in Raines catheter. Extremities: Right lower extremity with Prevena wound vac in place. Right lower extremity warm to touch with good sensation and mobility. Left lower extremity with significant ecchymosis to the left groin and hip, no hematoma palpated. Full range of motion of the left lower extremity. PT and DP Doppler signal present. Neurological: No focal deficits. Sensation intact. - Labs CBC & Chem 7: 11/09/21 06:39 11/09/21 06:39 Labs: Abnormal Lab Results - Last 24 Hours (Table) 11/08/21 11/08/21 11/08/21 Range/Units 08:23 14:42 14:42 RBC 2.86 L (4.30-5.90) m/uL Hgb 9.0 L D (13.0-17.5) gm/dL Hct 26.9 L (39.0-53.0) % Plt Count 113 L (150-450) k/uL APTT (22.0-30.0) sec Sodium (137-145) mmol/L Chloride (98-107) mmol/L Calcium (8.4-10.2) mg/dL Iron 19 L (65-175) ug/dL TIBC 206 L (228-460) ug/dL % Saturation 9.28 L (15.00-50.00) Transferrin 147.0 L (204.0-354.0) mg/dL Total Protein (6.3-8.2) g/dL Albumin (3.5-5.0) g/dL Crossmatch See Detail 11/09/21 11/09/21 11/09/21 Range/Units 06:39 06:39 06:39 RBC 2.63 L (4.30-5.90) m/uL Hgb 7.9 L (13.0-17.5) gm/dL Hct 24.2 L (39.0-53.0) % Plt Count 128 L (150-450) k/uL APTT 45.4 H (22.0-30.0) sec Sodium 133 L (137-145) mmol/L Chloride 108 H (98-107) mmol/L Calcium 7.0 L (8.4-10.2) mg/dL Iron (65-175) ug/dL TIBC (228-460) ug/dL % Saturation (15.00-50.00) Transferrin (204.0-354.0) mg/dL Total Protein 4.3 L (6.3-8.2) g/dL Albumin 2.2 L (3.5-5.0) g/dL Crossmatch Assessment and Plan Assessment: 1. Postop day #2 for right open thrombectomy 2. Acute limb ischemia right lower extremity, initiation of TPA 3. Atrial fibrillation subtherapeutic on anticoagulation 4. Acute blood loss anemia 5. Thrombocytopenia 6. Hematuria 7. Atrial fibrillation Plan: 1. Anticoagulation per recommendation from cardiology 2. Daily CBC CMP 3. Transfuse 1 unit PRBC 4. Continue medical management 5. Urology consulted 6. Encourage ambulation 7. Incentive spirometer to bedside 8. Discontinue Raines catheter 9. Keep Prevena dressing in place until Friday The impression and plan of care has been dictated as directed. Dr. Vicente I performed a history and examination of this patient, discussed the same with the dictator. I agree with the dictator's note ,documented as a scribe. Any additional findings or plans will be noted.
--- NOTE | 2021-11-09 15:38 | P.PN ---
Progress Note - Text Progress Note Date: 11/09/21 The Raines catheter continues to drain bloody urine without clots. He has not required catheter irrigation. The Raines catheter will remain in place at this time, and will be irrigated as needed.
[2021-11-09] MEDS ORDERED: WARFARIN 2 MG TAB PO ONE (18:00)
--- NOTE | 2021-11-09 19:20 | PN ---
PROGRESS NOTE Mr. Robles is in atrial fibrillation. Rate is controlled. He had vascular surgery on both his legs. He is recovering slowly. Coumadin has been initiated, 3 mg daily. Plan is to continue Coumadin and once therapeutic heparin can be discontinued. Vascular Surgery is following him closely. He has history of aortic valve replacement with a tissue valve and mitral valve repair, but no significant obstructive CAD. Vitals are stable. S1, S2 with irregular rhythm. Short systolic murmur at the base. Preserved second heart sound. Lungs reveal decent air entry. Abdomen is soft. Lower extremities reveal Doppler pulses. MMODL / IJN: [id number] /
[2021-11-09] MEDS: TAMSULOSIN 0.4 MG CAP.ER.24H PO SCH (20:02)
[2021-11-09] MEDS: ALPRAZolam 0.25 MG TAB PO PRN (20:02)
[2021-11-10] MEDS: PANTOPRAZOLE 40 MG TABLET PO SCH (06:13)
--- NOTE | 2021-11-10 08:09 | P.OP ---
Date of Procedure: 11/06/21 Preoperative Diagnosis: Acute right lower extremity critical limb ischemia Right femoral, popliteal thrombus S/P thrombolysis of the right lower extremity Postoperative Diagnosis: Same Right popliteal artery aneurysm Procedure(s) Performed: 1. Open thrombectomy of the right external iliac, femoral, popliteal and tibial arteries 2. Selective right lower extremity femoral-popliteal, tibial angiogram 3. Percutaneous closure of the left femoral artery Anesthesia: GETA Surgeon: Jamal Vicente Estimated Blood Loss (ml): 700 Pathology: other (femoral, popliteal thrombus) Condition: stable Disposition: PACU Indications for Procedure: 81 year old gentleman with right lower extremity acute limb ischemia with previous failed thrombolysis presents to the operating room for open thrombectomy. Operative Findings: Chronic appearing, well formed embolus within the femoral artery with large amount of thrombus from the distal femoral and popliteal arteries. Large ekwok vessels with moderate sized popliteal artery aneurysm Description of Procedure: After written and informed consent was obtained from the patient and all risks, benefits and complications were described the patient was taken to the operative suite and laid in a supine position. The area of the abdomen, right groin and lower extremity was prepped and draped in the usual fashion after appropriate anesthesia. A timeout was performed in usual fashion and antibiotics were administered prior to incision. A vertical incision was then created with a 10 blade scalpel at the right groin overlying the femoral artery. Dissection was carried down through the subcutaneous tissues with electrocautery to the femoral sheath. The sheath was entered and meticulous dissection was carried around the common femoral, profunda and superficial femoral arteries. Vessel loops were placed around each vessel for control. Heparin was then given and ACTs were followed and redosed as needed to maintain above 200's. Arteriotomy was created at the common femoral artery in a transverse fashion and large amount of thrombus was encountered. Utilizing a 3 and 4 michael multiple passes were performed under fluoroscopic guidance both proximally and distally with large amount of thrombus removed. Pulsatile bleeding was obtained from the external iliac to the femoral artery as well as brisk backbleeding from the profunda and superficial femoral arteries. Selective angiogram was then obtained of the right lower extremity which demonstrated patency of the superficial femoral artery with moderate sized popliteal artery aneurysm noted extending just behind the proximal aspect of the knee. There was flow distally with 2 vessel takeoff and occlusion to the anterior tibial artery. There was some residual thrombus and therefore multiple passes were performed again to remove thrombus extending into the posterior tibial artery. Due to the popliteal artery aneurysm an 8F sheath was placed through the arteriotomy and a guidewire was placed down the SFA followed by an angled glide catheter in order to obtain better images of the popliteal artery aneurysm. Measurements were obtained with the plan to place a covered stent but his ekwok vessels measured close to 9mm and the hospital did not have any covered stents large enough for the repair. Due to his large ekwok vessels it was determined not to be ideal to perform a bypass due to the large mismatch and therefore the procedure was concluded. The wires, catheters and sheath was removed and arteriotomy was closed with good pulsatile flow noted distal into the SFA and profunda. He had a palpable popliteal pulse and improved capillary refill to the foot with good multi-phasic signal at the posterior tibial artery. The incision was copiously irrigated and hemostasis was ensured with gelfoam and thrombin. The incision was then closed in a multilayer fashion and skin was dressed with a Prevena incisional vac. Attention was then placed to the existing left femoral sheath. The sheath was p repped and draped in usual sterile fashion. Utillizing a Vascade closure device the sheath was removed and pressure was held for hemostasis. The area was then cleansed and dressings placed. The patient tolerated the procedure well and was sent to PACU for recovery. Patient will need further intervention for the popliteal artery aneurysm and stents will have to be ordered due to the size of his ekwok vessels. If he requires open repair he will likely require a Cryo Vessel to match the size of his ekwok vessel.
[2021-11-10 08:10] LABS: Basophils % (A) 0 %; Eosinophils # (A) 0.3 k/uL (0-0.7); Eosinophils % (A) 3 %; HCT 25.2 % (39.0-53.0); HGB 8.4 gm/dL (13.0-17.5); Lymphocytes # (A) 1.1 k/uL (1.0-4.8); Lymphocytes % (A) 14 %; MCH 30.8 pg (25.0-35.0); MCHC 33.2 g/dL (31.0-37.0); MCV 92.8 fL (80.0-100.0); Monocytes # (A) 0.5 k/uL (0-1.0); Monocytes % (A) 6 %; Neutrophils # (A) 6.1 k/uL (1.3-7.7); Neutrophils % (A) 75 %; Platelet Count 158 k/uL (150-450); Poikilocytosis Slight; RBC 2.72 m/uL (4.30-5.90); RDW 14.7 % (11.5-15.5); WBC 8.2 k/uL (3.8-10.6)
[2021-11-10 08:18] LABS: Partial Thromboplastin Time 41.3 sec (22.0-30.0); Prothrombin Time 10.8 sec (9.0-12.0)
[2021-11-10 08:24] LABS: ALT 37 U/L (4-49); AST 56 U/L (17-59); African American GFR (CKD) >90 (>60 ml/min/1.73 sqM); Albumin 2.2 g/dL (3.5-5.0); Alkaline Phosphatase 86 U/L (38-126); Anion Gap 2 mmol/L; Blood Urea Nitrogen 21 mg/dL (9-20); Calcium 7.5 mg/dL (8.4-10.2); Carbon Dioxide 26 mmol/L (22-30); Chloride 105 mmol/L (98-107); Glucose 92 mg/dL (74-99); Non-African American GFR(CKD) 80 (>60 ml/min/1.73 sqM); Potassium 4.1 mmol/L (3.5-5.1); Sodium 133 mmol/L (137-145); Total Bilirubin 1.3 mg/dL (0.2-1.3); Total Protein 4.4 g/dL (6.3-8.2)
--- NOTE | 2021-11-10 08:40 | P.PN ---
Progress Note - Text Progress Note Date: 11/10/21 The Raines catheter has been removed. The patient states that he is voiding without difficulty. He describes the appearance of the urine as resembling port wine, and states that he is not passing any clots. I am hopeful that removal of the Raines catheter will help the bleeding to resolve, but he is aware of the fact that the hematuria will likely not resolve quickly given the need for anticoagulation.
[2021-11-10] MEDS ORDERED: DEXTROSE 5% IN WATER 100 ML with AMIODARONE 300 MG IV ONE (09:00)
[2021-11-10 09:07] LABS: Glucose,Whole Blood 180 mg/dL (70-110)
[2021-11-10 09:23] LABS: Glucose,Whole Blood 209 mg/dL (70-110)
[2021-11-10] MEDS: AMIODARONE 360 MG in DEXTROSE 5% IN WATER 200 ML IV SCH ×6 (10:14→23:35)
[2021-11-10] MEDS: METOPROLOL TARTRATE 12.5 MG TAB PO SCH ×2 (11:11→20:02)
--- NOTE | 2021-11-10 11:36 | P.PN ---
Subjective Progress Note Date: 11/10/21 Principal diagnosis: Peripheral arterial disease Patient went into ventricular tachycardia for 15 minutes was started on amiodarone drip with immediate evaluation by cardiology currently seems to be back at his baseline denying any chest pain shortness breath nausea vomiting abd ominal pain or dizziness. Patient reported bilateral lower jaw pain when he was having that that the patient that resolved completely at this point Objective - Vital Signs Vital signs: Vital Signs Temp 98.3 F 11/10/21 03:24 Pulse 80 11/10/21 10:00 Resp 19 11/10/21 10:00 BP 101/71 11/10/21 10:00 Pulse Ox 100 11/10/21 10:00 FiO2 Intake & Output 11/09/21 11/10/21 11/10/21 18:59 06:59 18:59 Intake Total 118 207.076 236.402 Output Total 540 1200 750 Balance -422 -992.924 -513.598 Weight 122 kg Intake: Intake, IV Titration 207.076 236.402 Amount Heparin Sod,Pork in 0.45% 207.076 196.402 NaCl 25,000 unit In 0.45 % NaCl 1 250ml.bag @ 8. 9445 UNITS/KG/HR 10 mls/ hr IV .[facility] Rx#: [id number] Sodium Chloride 0.9% 1, 40 000 ml @ 0 mls/hr IV .STK -[facility] Rx#:[id number] Oral 118 Output: Urine 540 1200 750 Other: Voiding Method Urinal Urinal # Voids 1 - Exam Gen.: in stated age, no acute distress Heart: Normal S1-S2 Lungs: Clear to auscultation bilaterally Abdomen: Soft, no tenderness, positive bowel sounds in all 4 quadrant no guarding or rebound Skin: No new rash Psych: Alert and oriented 3 Neuro: No focal deficit Bilateral lower extremity 2+ edema. Pulses obtained by Doppler and positive. Drain in place with small amount of blood - Labs CBC & Chem 7: 11/10/21 07:32 11/10/21 07:32 Labs: Abnormal Lab Results - Last 24 Hours (Table) 11/08/21 11/10/21 11/10/21 Range/Units 08:23 07:32 07:32 RBC 2.72 L (4.30-5.90) m/uL Hgb 8.4 L (13.0-17.5) gm/dL Hct 25.2 L (39.0-53.0) % APTT 41.3 H (22.0-30.0) sec Sodium (137-145) mmol/L BUN (9-20) mg/dL POC Glucose (mg/dL) (70-110) mg/dL Calcium (8.4-10.2) mg/dL Total Protein (6.3-8.2) g/dL Albumin (3.5-5.0) g/dL Crossmatch See Detail 11/10/21 11/10/21 11/10/21 Range/Units 07:32 08:56 09:21 RBC (4.30-5.90) m/uL Hgb (13.0-17.5) gm/dL Hct (39.0-53.0) % APTT (22.0-30.0) sec Sodium 133 L (137-145) mmol/L BUN 21 H (9-20) mg/dL POC Glucose (mg/dL) 180 H 209 H (70-110) mg/dL Calcium 7.5 L (8.4-10.2) mg/dL Total Protein 4.4 L (6.3-8.2) g/dL Albumin 2.2 L (3.5-5.0) g/dL Crossmatch Assessment and Plan Assessment: 1. New onset ventricular tachycardia. Patient was started on amiodarone drip by cardiology currently seems to be back to his regular baseline rhythm as patient is well known to have atrial fibrillation. 2. Status post angiogram and TPA thrombolysis with repeated angiogram and thrombectomy of the femoral popliteal artery occlusion. 3. Atrial fibrillation. 4. Hypertension. 5. Benign prostatic hypertrophy. 6. Recent hematuria. Patient currently is stable and we will continue cardioprotective medication per cardiology recommendation and follow-up with the recommendation regarding anticoagulation at this point. ADDRESSED AT THE BEDSIDE IN THE PRESENCE OF NURSING STAFF
--- NOTE | 2021-11-10 11:54 | P.PN ---
Subjective Progress Note Date: 11/10/21 Principal diagnosis: Critical right limb ischemia This is a 81-year-old white male with history of hypertension, coronary artery disease, chronic atrial fibrillation, maintained on Coumadin, patient normally sees Dr. Rivers as his primary care physician. Yesterday, and in the middle of the night, patient woke up to go to the bathroom, and he realized that his right leg was numb, and cold. Patient initially thought that he may have had a patient, he presented to the ER last night with non-resolution of his symptoms. Patient was found to have ischemic right leg/right foot, and his Coumadin level was noted to be subtherapeutic. Patient was seen by vascular surgery on consultation, and he was felt to have femoral popliteal occlusion. Patient underwent selective right lower extremity angiogram and underwent initiation of TPA thrombolysis, patient underwent angiography, left femoral approach, and attempted placement an ekos catheter, however that was unsuccessful, sheath was left in place infusing TPA. patient was transferred back to the ICU and the plan is to go back and evaluate at 4 PM today. Patient is known to have history of paroxysmal atrial fibrillation, bioprosthetic aortic valve replacement as well as mitral valve repair and history of left atrial thrombus noted in 2019. Supposedly the patient is compliant with his Coumadin however his INR on this admission was only 1.5. On 11/05/2021 patient seen in follow-up in intensive care unit, he status post second right lower extremity angiogram via existing catheter for acute limb ischemia of the right lower extremity, and patient continues on TPA infusion via right femoral catheter. Today he still only has right femoral Doppler pulse, no palpable pulse in no Doppler pulse in the right popliteal or right pedal area. Right foot is cold to touch, however not dusky. Patient is awake and alert, oriented 3, does not appear to be in any acute distress, he is currently on 2 L of oxygen with a pulse ox of 96%, vital signs are stable, patient is afebrile. Left foot is warm to touch, with palpable pulse. Patient also continues on heparin at 500 units per hour, and 0.0 cm to 75 ML per hour. Today's labs have been reviewed showing white blood cell count of 8.8, hemoglobin of 13.7, INR of 1.3, sodium is 134, potassium is 4.6, chloride is 108, BUN is 19, creatinine 0.98. On 11/06/2021 patient seen in follow-up in the intensive care unit, patient was taken back to the [facility] yesterday, in the left groin sheath remained in place, with TPA infusion. However through the night patient has developed a hematoma in the left groin, and TPA has been discontinued, he currently remains on heparin infusion at 500 units per hour. His 0.9 normal saline is at a rate of 35 ML per hour. The left coronary hematoma is soft, has been outlined with a marker, and has not expanded overnight. Left pedal Doppler pulse is present. Patient has only a right femoral Doppler pulse, no Doppler pulse was obtained in the right popliteal or right pedal or posttibial areas. Right foot is cool to t ouch, however not dusky. Patient is awake and alert, he does complain of some burning pain in his right foot, when necessary Dilaudid is on board with relief. Hemodynamically stable, he is in sinus mechanism with a first-degree AV block and occasional PACs. No breathing difficulty, room air pulse ox is 96%, lung sounds are clear to auscultation. No complaints of chest pain. Did have a episode of hypotension this morning, possibly related to Dilaudid administration, and received 500 mL fluid bolus with improvement of his blood pressure. On 11/07/2021 patient seen in follow-up in the intensive care unit, yesterday on 11/06/2021 patient was taken back to the [facility], where he underwent right lower extremity selective angiogram, demonstrating thrombus in the common femoral artery with minimal flow to the popliteal artery, the decision was made for open thrombectomy, patient was taken to the operating room where open thrombectomy to place. This morning he is awake and alert, he is having some burning sensation he has right lower extremity, but right foot is now warm and almost hot to touch, and there are now Doppler pulses present in the right pedal, right posttibial, and right popliteal areas. Left groin hematoma is now dissipating, and it remains soft. Yesterday patient received a unit of packed red blood cells, today's hemoglobin is 8.5. White blood cell count is 12.6, INR is 1.2, sodium is 133, BUN is 26 and creatinine is 1.03. Currently patient is on room air, denies any shortness of breath, is on IVs including lactated Ringer's at 125 ML per hour, last night he went into SVT and was started on Cardizem infusion at 5 mg per hour. He also remains on heparin per weight-based protocol. Cardiology is following. This morning patient was also noted to be hypotensive, and was given 500 mL fluid bolus. Current blood pressure is 84/59. Clinically patient is awake and alert, answering questions appropriately, does not appear to be in acute distress. Remains in SVT with a better controlled rate. The patient is seen today 11/08/2021 in follow-up in the intensive care unit. Postoperative day #2 for right open thrombectomy of the right lower extremity. Status post TPA infusion. He is currently sitting up in bed. Awake and alert in no acute distress. He is maintaining good O2 saturations in the 90s on room air. He has lactated Ringer's running at 125 ML's per hour. Cardizem drip at 5 mg per hour. Heparin drip per weight base protocol. He did receive 1 unit of packed red blood cells yesterday. The plan is for another 1-2 units today. Current hemoglobin 7.5. Platelets 96,000. White count 8.9. Sodium 131. Potassium 4.1. BUN 20. Creatinine 0.91. Current mean arterial blood pressure 77. He is afebrile. Currently in atrial fibrillation with a controlled ventricular rate. There is a right lower extremity with Prevena wound VAC in place. Right lower extremity is warm to touch with good sensation and mobility. Doppler pulses are present. She is seen today in 05/12/2021 in follow-up in intensive care unit. Postoperative day #3. He is currently resting quite comfortably in bed. Awake and alert in no acute distress. Maintaining O2 saturations in the 90s on room air. He remains on a heparin drip. Plan is to transition him to warfarin. He denies any worsening lower extremity discomfort. He is status post 3 units of p acked red blood cells this admission. Current hemoglobin 7.9. Platelets 128. White count 8.2. INR 1.0. Sodium 133. Potassium 4.1. BUN 20. Creatinine 0.99. He is currently on oral Cardizem and Lopressor. Remains with a controlled ventricular response in atrial fibrillation. He continues with bilateral pedal Doppler pulses. The patient is seen today 11/10/2021 in follow-up in the intensive care unit. Postoperative day #4. He had previously been transferred out of the ICU however this morning and 18 was called on him for episode of ventricular tachycardia. He was symptomatic. Remained with a pulse. Transferred back to the ICU. He is initiated on amiodarone currently at 1 mg/m. Heparin drip per weight base protocol. 0.9 normal saline at 40 mL per hour. White count 8.2. Hemoglobin 8.4. Platelet count 158. INR 1.0. Sodium 133. Potassium 4.1. BUN 21. Creatinine 0.91. Glucose 92. He is status post remains so since admission. Left groin hematoma enlarging compared to yesterday. If he is maintaining good O2 saturations on 4 L nasal cannula. He's been afebrile. Remains in atrial fibrillation. Objective - Vital Signs Vital signs: Vital Signs Temp 98.3 F 11/10/21 03:24 Pulse 80 11/10/21 10:00 Resp 19 11/10/21 10:00 BP 101/71 11/10/21 10:00 Pulse Ox 100 11/10/21 10:00 FiO2 Intake & Output 11/09/21 11/10/21 11/10/21 18:59 06:59 18:59 Intake Total 118 207.076 236.402 Output Total 540 1200 750 Balance -422 -992.924 -513.598 Weight 122 kg Intake: Intake, IV Titration 207.076 236.402 Amount Heparin Sod,Pork in 0.45% 207.076 196.402 NaCl 25,000 unit In 0.45 % NaCl 1 250ml.bag @ 8. 9445 UNITS/KG/HR 10 mls/ hr IV .Q24H [facility] Rx#: [id number] Sodium Chloride 0.9% 1, 40 000 ml @ 0 mls/hr IV .STK -MED ONE Rx#:[id number] Oral 118 Output: Urine 540 1200 750 Other: Voiding Method Urinal Urinal # Voids 1 - Exam GENERAL EXAM: Alert, 81-year-old male patient, on 4 L/m per nasal, comfortable in no apparent distress. HEAD: Normocephalic. EYES: Normal reaction of pupils, equal size. NOSE: Clear with pink turbinates. THROAT: No erythema or exudates. NECK: No masses, no JVD. CHEST: No chest wall deformity. LUNGS: Equal air entry with no crackles, wheeze, rhonchi or dullness. CVS: S1 and S2 normal with no audible murmur, irregular rhythm. ABDOMEN: No hepatosplenomegaly, normal bowel sounds, no guarding or rigidity. SPINE: No scoliosis or deformity SKIN: No rashes CENTRAL NERVOUS SYSTEM: No focal deficits, tone is normal in all 4 extremities. EXTREMITIES: Right lower extremity with Prevena wound VAC in place. Good sensation and mobility. Doppler pulses present. Left lower extremity with e cchymosis to left groin and hip. Doppler pulses present. - Labs CBC & Chem 7: 11/10/21 07:32 11/10/21 07:32 Labs: Abnormal Lab Results - Last 24 Hours (Table) 11/10/21 11/10/21 11/10/21 Range/Units 07:32 07:32 07:32 RBC 2.72 L (4.30-5.90) m/uL Hgb 8.4 L (13.0-17.5) gm/dL Hct 25.2 L (39.0-53.0) % APTT 41.3 H (22.0-30.0) sec Sodium 133 L (137-145) mmol/L BUN 21 H (9-20) mg/dL POC Glucose (mg/dL) (70-110) mg/dL Calcium 7.5 L (8.4-10.2) mg/dL Total Protein 4.4 L (6.3-8.2) g/dL Albumin 2.2 L (3.5-5.0) g/dL 11/10/21 11/10/21 Range/Units 08:56 09:21 RBC (4.30-5.90) m/uL Hgb (13.0-17.5) gm/dL Hct (39.0-53.0) % APTT (22.0-30.0) sec Sodium (137-145) mmol/L BUN (9-20) mg/dL POC Glucose (mg/dL) 180 H 209 H (70-110) mg/dL Calcium (8.4-10.2) mg/dL Total Protein (6.3-8.2) g/dL Albumin (3.5-5.0) g/dL Assessment and Plan Assessment: Acute ischemia right lower extremity secondary to femoral/popliteal thrombosis, status post right lower extremity angiogram and placement of a catheter for TPA for thrombolysis 3 on 11/04/2021, and 11/05/2021. Patient had undergone an open thrombectomy on 11/06/2021. Post operative day #4. Episode of ventricular tachycardia 11/10/2021 the patient was resumed on a heparin drip and initiated on amiodarone drip. Returned to the ICU Left groin ecchymosis Gross hematuria being followed by urology Previous SVT, initially on Cardizem infusion Currently in atrial fibrillation with controlled ventricular rate Hypotension, related to acute blood loss anemia, and SVT. Patient has received fluid boluses, and received 3 unit of packed red blood cells. Recovered History of paroxysmal atrial fibrillation on Coumadin which was subtherapeutic on admission Benign essential hypertension History of bioprosthetic aortic valve replacement and mitral valve repair in 2012 History of left atrial thrombus Coronary artery disease History of COVID-19 infection in 2020 Plan: Episode of ventricular tachycardia this a.m., return to the ICU The patient was seen and evaluated Labs and medications reviewed Titrate the FiO2 as tolerated We will continue to follow I have personally seen and examined the patient, performed the documentation and the assessment and plan as written. Number of minutes spent on the visit: 10.
[2021-11-10] MEDS: LOSARTAN 25 MG TAB PO SCH (12:25)
--- NOTE | 2021-11-10 13:09 | P.PN ---
Subjective Progress Note Date: 11/10/21 This is Constantino Rodriguez NP, I'm dictating on behalf of Dr. Faye's H&P and A&P. Patient was interviewed and examined. The patient is a pleasant 81-year-old male who initially presented to the hospital with right lower limb ischemia. Patient has been going in and out of ventricular tachycardia, and this morning was found to be in sustained ventricular tachycardia rhythm, with symptoms of near syncope and pounding heart. Patient was given IV amiodarone, with the resolution of the ventricular tachycardia. He was then started on a drip and transferred to the ICU for closer monitoring. GENERAL: Well-appearing, well-nourished and in no acute distress. NECK: Supple without JVD or thyromegaly. LUNGS: Breath sounds clear to auscultation bilaterally. Respiration equal and unlabored. No wheezes, rales or rhonchi. HEART: Regular rate and rhythm without murmurs, rubs or gallops. S1 and S2 heard. EXTREMITIES: Normal range of motion, no edema. No clubbing or cyanosis. Peripheral pulses intact and strong. VITALS: Temp 98.3, pulse 80, respirations 19, blood pressure 101/71, O2 saturation 100% on 4 L via nasal cannula TELEMETRY: Atrial fibrillation with rate control LABS: White count 8.2, hemoglobin 8.4, platelet was 158, sodium 133, potassium 4.1, BUN 21, creatinine 0.91 IMPRESSION: 1. Wide-complex tachycardia/ventricular tachycardia 2. Status post vascular intervention 3. Atrial fibrillation PLAN: Bolus of amiodarone was given, recommend keeping patient on 1 mg/hr until tomorrow If V. tach remains suppressed, will switch patient over to oral amiodarone Continue to follow with vascular surgery Further recommendations based on patient's clinical course Objective - Vital Signs Vital signs: Vital Signs Temp 98.3 F 11/10/21 03:24 Pulse 80 11/10/21 10:00 Resp 19 11/10/21 10:00 BP 101/71 11/10/21 10:00 Pulse Ox 100 11/10/21 10:00 FiO2 Intake & Output 11/09/21 11/10/21 11/10/21 18:59 06:59 18:59 Intake Total 118 207.076 236.402 Output Total 540 1200 750 Balance -422 -992.924 -513.598 Weight 122 kg Intake: Intake, IV Titration 207.076 236.402 Amount Heparin Sod,Pork in 0.45% 207.076 196.402 NaCl 25,000 unit In 0.45 % NaCl 1 250ml.bag @ 8. 9445 UNITS/KG/HR 10 mls/ hr IV .Q24H [facility] Rx#: [id number] Sodium Chloride 0.9% 1, 40 000 ml @ 0 mls/hr IV .STK -[facility] ONE Rx#:[id number] Oral 118 Output: Urine 540 1200 750 Other: Voiding Method Urinal Urinal # Voids 1 - Labs CBC & Chem 7: 11/10/21 07:32 11/10/21 07:32 Labs: Abnormal Lab Results - Last 24 Hours (Table) 11/10/21 11/10/21 11/10/21 Range/Units 07:32 07:32 07:32 RBC 2.72 L (4.30-5.90) m/uL Hgb 8.4 L (13.0-17.5) gm/dL Hct 25.2 L (39.0-53.0) % APTT 41.3 H (22.0-30.0) sec Sodium 133 L (137-145) mmol/L BUN 21 H (9-20) mg/dL POC Glucose (mg/dL) (70-110) mg/dL Calcium 7.5 L (8.4-10.2) mg/dL Total Protein 4.4 L (6.3-8.2) g/dL Albumin 2.2 L (3.5-5.0) g/dL 11/10/21 11/10/21 Range/Units 08:56 09:21 RBC (4.30-5.90) m/uL Hgb (13.0-17.5) gm/dL Hct (39.0-53.0) % APTT (22.0-30.0) sec Sodium (137-145) mmol/L BUN (9-20) mg/dL POC Glucose (mg/dL) 180 H 209 H (70-110) mg/dL Calcium (8.4-10.2) mg/dL Total Protein (6.3-8.2) g/dL Albumin (3.5-5.0) g/dL
[2021-11-10] MEDS: HEPARIN SOD,PORK IN 0.45% NACL 25,000 UNIT in 0.45% NACL 1 250ML.BAG IV SCH (14:52)
[2021-11-10] MEDS ORDERED: WARFARIN 2 MG TAB PO ONE (18:00)
--- NOTE | 2021-11-10 19:03 | P.PN ---
Subjective Progress Note Date: 11/10/21 Patient seen and examined. Overnight events noted. No complaints at this time. Back in sinus tachycardia at this point. Denies any pain. States he does have some leg swelling little worse on his right. Urinating without significant issues. Objective - Vital Signs Vital signs: Vital Signs Temp 98 F 11/10/21 16:00 Pulse 77 11/10/21 16:00 Resp 14 11/10/21 16:00 BP 116/71 11/10/21 16:00 Pulse Ox 98 11/10/21 16:00 FiO2 Intake & Output 11/09/21 11/10/21 11/10/21 18:59 06:59 18:59 Intake Total 118 207.076 930.000 Output Total 540 1200 1280 Balance -422 -992.924 -350.000 Weight 122 kg Intake: Intake, IV Titration 207.076 730.000 Amount Amiodarone 360 mg In 200 Dextrose 5% in Water 200 ml @ 1 MG/MIN 33.333 mls/ hr IV .Q6H [facility] Rx#: [id number] Heparin Sod,Pork in 0.45% 207.076 250.000 NaCl 25,000 unit In 0.45 % NaCl 1 250ml.bag @ 8. 9445 UNITS/KG/HR 10 mls/ hr IV .Q24H [facility] Rx#: [id number] Sodium Chloride 0.9% 1, 40 000 ml @ 0 mls/hr IV .STK -[facility] ONE Rx#:[id number] Sodium Chloride 0.9% 100 240 ml @ 0 mls/hr IV .STK-MED ONE with ceFAZolin 2,000 mg Rx#:[id number] Oral 118 200 Output: Urine 540 1200 1280 Other: Voiding Method Urinal Urinal Urinal # Voids 1 - Exam Gen. a pleasant cooperative male in no acute distress. Heart is tachycardic. Lungs are clear. Abdomen is soft. Right groin incision site with Provine a wound VAC. Mild bullae at the edge of the dressing. Right lower extremity swollen, warm. 2+ edema. Adequate capillary refill. Motor sensory intact. Left groin hematoma resolved. Extensive ecchymosis through the left groin and around the hip and back and lateral thigh. No tenderness to palpation throughout any of this area. - Labs CBC & Chem 7: 11/10/21 07:32 11/10/21 07:32 Labs: Abnormal Lab Results - Last 24 Hours (Table) 11/10/21 11/10/21 11/10/21 Range/Units 07:32 07:32 07:32 RBC 2.72 L (4.30-5.90) m/uL Hgb 8.4 L (13.0-17.5) gm/dL Hct 25.2 L (39.0-53.0) % APTT 41.3 H (22.0-30.0) sec Sodium 133 L (137-145) mmol/L BUN 21 H (9-20) mg/dL POC Glucose (mg/dL) (70-110) mg/dL Calcium 7.5 L (8.4-10.2) mg/dL Total Protein 4.4 L (6.3-8.2) g/dL Albumin 2.2 L (3.5-5.0) g/dL 11/10/21 11/10/21 11/10/21 Range/Units 08:56 09:21 16:07 RBC (4.30-5.90) m/uL Hgb (13.0-17.5) gm/dL Hct (39.0-53.0) % APTT 46.3 H (22.0-30.0) sec Sodium (137-145) mmol/L BUN (9-20) mg/dL POC Glucose (mg/dL) 180 H 209 H (70-110) mg/dL Calcium (8.4-10.2) mg/dL Total Protein (6.3-8.2) g/dL Albumin (3.5-5.0) g/dL Assessment and Plan Assessment: Ventricular tachycardia Significant left groin and flank ecchymosis, no evidence of hematoma at this time Right lower extremity acute limb ischemia status post thrombectomy Femoral popliteal occlusion 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 Continue recommendations per cardiology and critical care. No changes from a vascular surgical standpoint, monitor labs. No evidence of active bleeding, likely the significant ecchymosis is dispersion from the previous hematoma. No hematoma noted currently.
[2021-11-10] MEDS: LACTATED RINGERS 1,000 ML IV SCH (19:56)
[2021-11-10] MEDS: TAMSULOSIN 0.4 MG CAP.ER.24H PO SCH (20:03)
[2021-11-10] MEDS: ALPRAZolam 0.25 MG TAB PO PRN (22:01)
[2021-11-11] MEDS: HYDROmorphone 0.5 MG/0.5 ML SYRINGE IVP PRN ×2 (01:25→22:58)
[2021-11-11] MEDS: AMIODARONE 360 MG in DEXTROSE 5% IN WATER 200 ML IV SCH ×4 (06:31→16:08)
[2021-11-11] MEDS: HEPARIN SOD,PORK IN 0.45% NACL 25,000 UNIT in 0.45% NACL 1 250ML.BAG IV SCH ×2 (06:31→21:39)
[2021-11-11] MEDS: PANTOPRAZOLE 40 MG TABLET PO SCH (06:31)
[2021-11-11 06:32] LABS: Partial Thromboplastin Time 49.5 sec (22.0-30.0); Prothrombin Time 11.3 sec (9.0-12.0)
[2021-11-11 07:34] LABS: HCT 25.5 % (39.0-53.0); HGB 8.1 gm/dL (13.0-17.5); Hypochromasia Slight; MCH 30.1 pg (25.0-35.0); MCHC 31.8 g/dL (31.0-37.0); MCV 94.4 fL (80.0-100.0); Mean Platelet Volume 8.8; Platelet Count 160 k/uL (150-450); RDW 14.7 % (11.5-15.5); WBC 7.9 k/uL (3.8-10.6)
[2021-11-11 07:45] LABS: African American GFR (CKD) >90 (>60 ml/min/1.73 sqM); Anion Gap 2 mmol/L; Blood Urea Nitrogen 20 mg/dL (9-20); Calcium 7.5 mg/dL (8.4-10.2); Carbon Dioxide 23 mmol/L (22-30); Chloride 109 mmol/L (98-107); Glucose 99 mg/dL (74-99); Non-African American GFR(CKD) 82 (>60 ml/min/1.73 sqM); Potassium 4.2 mmol/L (3.5-5.1); Sodium 134 mmol/L (137-145)
[2021-11-11] MEDS: METOPROLOL TARTRATE 12.5 MG TAB PO SCH ×2 (09:38→20:42)
--- NOTE | 2021-11-11 09:41 | P.PN ---
Subjective Progress Note Date: 11/11/21 Principal diagnosis: Peripheral arterial disease Hemodynamic a stable normocytic events reported by nursing staff patient currently is alert and oriented 4. Patient still on amiodarone drip, heparin drip and gentle hydration. Objective - Vital Signs Vital signs: Vital Signs Temp 98.0 F 11/11/21 09:37 Pulse 77 11/11/21 09:00 Resp 13 11/11/21 09:00 BP 91/54 11/11/21 09:00 Pulse Ox 100 11/11/21 09:00 FiO2 Intake & Output 11/10/21 11/11/21 11/11/21 18:59 06:59 18:59 Intake Total 1210.000 910 20 Output Total 1805 710 Balance -595.000 200 20 Weight 119 kg Intake: IV 220 20 Lactated Ringers 1,000 ml 220 20 @ 20 mls/hr IV .Q24H [facility] Rx#:[id number] Intake, IV Titration 810.000 690 Amount Amiodarone 360 mg In 200 400 Dextrose 5% in Water 200 ml @ 1 MG/MIN 33.333 mls/ hr IV .Q6H [facility] Rx#: [id number] Heparin Sod,Pork in 0.45% 250.000 250 NaCl 25,000 unit In 0.45 % NaCl 1 250ml.bag @ 8. 9445 UNITS/KG/HR 10 mls/ hr IV .Q24H [facility] Rx#: [id number] Sodium Chloride 0.9% 1, 40 000 ml @ 0 mls/hr IV .STK -[facility] ONE Rx#:[id number] Sodium Chloride 0.9% 100 320 40 ml @ 0 mls/hr IV .STK-MED ONE with ceFAZolin 2,000 mg Rx#:[id number] Oral 400 Output: Urine 1805 710 Other: Voiding Method Urinal Urinal # Voids 0 0 - Exam Gen.: in stated age, no acute distress Heart: Normal S1-S2 Lungs: Clear to auscultation bilaterally Abdomen: Soft, no tenderness, positive bowel sounds in all 4 quadrant no guarding or rebound Skin: No new rash Psych: Alert and oriented 3 Neuro: No focal deficit Bilateral lower extremity 2+ edema. Pulses obtained by Doppler and positive. Drain in place with small amount of blood - Labs CBC & Chem 7: 11/11/21 06:05 11/11/21 06:05 Labs: Abnormal Lab Results - Last 24 Hours (Table) 11/10/21 11/11/21 11/11/21 Range/Units 16:07 06:05 06:05 RBC 2.70 L (4.30-5.90) m/uL Hgb 8.1 L (13.0-17.5) gm/dL Hct 25.5 L (39.0-53.0) % APTT 46.3 H 49.5 H (22.0-30.0) sec Sodium (137-145) mmol/L Chloride (98-107) mmol/L Calcium (8.4-10.2) mg/dL 11/11/21 Range/Units 06:05 RBC (4.30-5.90) m/uL Hgb (13.0-17.5) gm/dL Hct (39.0-53.0) % APTT (22.0-30.0) sec Sodium 134 L (137-145) mmol/L Chloride 109 H (98-107) mmol/L Calcium 7.5 L (8.4-10.2) mg/dL Assessment and Plan Assessment: 1. New onset ventricular tachycardia. Patient was started on amiodarone drip by cardiology which has been continued over the last 24 hours. Will follow-up with cardiology recommendation. Patient seems to be stable since yesterday. 2. Status post angiogram and TPA thrombolysis with repeated angiogram and thrombectomy of the femoral popliteal artery occlusion. 3. Atrial fibrillation. 4. Hypertension. 5. Benign prostatic hypertrophy. 6. Recent hematuria. Patient currently is stable and we will continue cardioprotective medication per cardiology recommendation and follow-up with the recommendation regarding anticoagulation at this point. Plan discussed with critical care at the bedside. ADDRESSED AT THE BEDSIDE IN THE PRESENCE OF NURSING STAFF
--- NOTE | 2021-11-11 10:55 | P.PN ---
Subjective Progress Note Date: 11/11/21 Principal diagnosis: Critical right limb ischemia This is a 81-year-old white male with history of hypertension, coronary artery disease, chronic atrial fibrillation, maintained on Coumadin, patient normally sees Dr. Rivers as his primary care physician. Yesterday, and in the middle of the night, patient woke up to go to the bathroom, and he realized that his right leg was numb, and cold. Patient initially thought that he may have had a patient, he presented to the ER last night with non-resolution of his symptoms. Patient was found to have ischemic right leg/right foot, and his Coumadin level was noted to be subtherapeutic. Patient was seen by vascular surgery on consultation, and he was felt to have femoral popliteal occlusion. Patient underwent selective right lower extremity angiogram and underwent initiation of TPA thrombolysis, patient underwent angiography, left femoral approach, and attempted placement an ekos catheter, however that was unsuccessful, sheath was left in place infusing TPA. patient was transferred back to the ICU and the plan is to go back and evaluate at 4 PM today. Patient is known to have history of paroxysmal atrial fibrillation, bioprosthetic aortic valve replacement as well as mitral valve repair and history of left atrial thrombus noted in 2019. Supposedly the patient is compliant with his Coumadin however his INR on this admission was only 1.5. On 11/05/2021 patient seen in follow-up in intensive care unit, he status post second right lower extremity angiogram via existing catheter for acute limb ischemia of the right lower extremity, and patient continues on TPA infusion via right femoral catheter. Today he still only has right femoral Doppler pulse, no palpable pulse in no Doppler pulse in the right popliteal or right pedal area. Right foot is cold to touch, however not dusky. Patient is awake and alert, oriented 3, does not appear to be in any acute distress, he is currently on 2 L of oxygen with a pulse ox of 96%, vital signs are stable, patient is afebrile. Left foot is warm to touch, with palpable pulse. Patient also continues on heparin at 500 units per hour, and 0.0 cm to 75 ML per hour. Today's labs have been reviewed showing white blood cell count of 8.8, hemoglobin of 13.7, INR of 1.3, sodium is 134, potassium is 4.6, chloride is 108, BUN is 19, creatinine 0.98. On 11/06/2021 patient seen in follow-up in the intensive care unit, patient was taken back to the [facility] yesterday, in the left groin sheath remained in place, with TPA infusion. However through the night patient has developed a hematoma in the left groin, and TPA has been discontinued, he currently remains on heparin infusion at 500 units per hour. His 0.9 normal saline is at a rate of 35 ML per hour. The left coronary hematoma is soft, has been outlined with a marker, and has not expanded overnight. Left pedal Doppler pulse is present. Patient has only a right femoral Doppler pulse, no Doppler pulse was obtained in the right popliteal or right pedal or posttibial areas. Right foot is cool to t ouch, however not dusky. Patient is awake and alert, he does complain of some burning pain in his right foot, when necessary Dilaudid is on board with relief. Hemodynamically stable, he is in sinus mechanism with a first-degree AV block and occasional PACs. No breathing difficulty, room air pulse ox is 96%, lung sounds are clear to auscultation. No complaints of chest pain. Did have a episode of hypotension this morning, possibly related to Dilaudid administration, and received 500 mL fluid bolus with improvement of his blood pressure. On 11/07/2021 patient seen in follow-up in the intensive care unit, yesterday on 11/06/2021 patient was taken back to the [facility], where he underwent right lower extremity selective angiogram, demonstrating thrombus in the common femoral artery with minimal flow to the popliteal artery, the decision was made for open thrombectomy, patient was taken to the operating room where open thrombectomy to place. This morning he is awake and alert, he is having some burning sensation he has right lower extremity, but right foot is now warm and almost hot to touch, and there are now Doppler pulses present in the right pedal, right posttibial, and right popliteal areas. Left groin hematoma is now dissipating, and it remains soft. Yesterday patient received a unit of packed red blood cells, today's hemoglobin is 8.5. White blood cell count is 12.6, INR is 1.2, sodium is 133, BUN is 26 and creatinine is 1.03. Currently patient is on room air, denies any shortness of breath, is on IVs including lactated Ringer's at 125 ML per hour, last night he went into SVT and was started on Cardizem infusion at 5 mg per hour. He also remains on heparin per weight-based protocol. Cardiology is following. This morning patient was also noted to be hypotensive, and was given 500 mL fluid bolus. Current blood pressure is 84/59. Clinically patient is awake and alert, answering questions appropriately, does not appear to be in acute distress. Remains in SVT with a better controlled rate. The patient is seen today 11/08/2021 in follow-up in the intensive care unit. Postoperative day #2 for right open thrombectomy of the right lower extremity. Status post TPA infusion. He is currently sitting up in bed. Awake and alert in no acute distress. He is maintaining good O2 saturations in the 90s on room air. He has lactated Ringer's running at 125 ML's per hour. Cardizem drip at 5 mg per hour. Heparin drip per weight base protocol. He did receive 1 unit of packed red blood cells yesterday. The plan is for another 1-2 units today. Current hemoglobin 7.5. Platelets 96,000. White count 8.9. Sodium 131. Potassium 4.1. BUN 20. Creatinine 0.91. Current mean arterial blood pressure 77. He is afebrile. Currently in atrial fibrillation with a controlled ventricular rate. There is a right lower extremity with Prevena wound VAC in place. Right lower extremity is warm to touch with good sensation and mobility. Doppler pulses are present. She is seen today in 05/12/2021 in follow-up in intensive care unit. Postoperative day #3. He is currently resting quite comfortably in bed. Awake and alert in no acute distress. Maintaining O2 saturations in the 90s on room air. He remains on a heparin drip. Plan is to transition him to warfarin. He denies any worsening lower extremity discomfort. He is status post 3 units of p acked red blood cells this admission. Current hemoglobin 7.9. Platelets 128. White count 8.2. INR 1.0. Sodium 133. Potassium 4.1. BUN 20. Creatinine 0.99. He is currently on oral Cardizem and Lopressor. Remains with a controlled ventricular response in atrial fibrillation. He continues with bilateral pedal Doppler pulses. The patient is seen today 11/10/2021 in follow-up in the intensive care unit. Postoperative day #4. He had previously been transferred out of the ICU however this morning and 18 was called on him for episode of ventricular tachycardia. He was symptomatic. Remained with a pulse. Transferred back to the ICU. He is initiated on amiodarone currently at 1 mg/m. Heparin drip per weight base protocol. 0.9 normal saline at 40 mL per hour. White count 8.2. Hemoglobin 8.4. Platelet count 158. INR 1.0. Sodium 133. Potassium 4.1. BUN 21. Creatinine 0.91. Glucose 92. He is status post remains so since admission. Left groin hematoma enlarging compared to yesterday. If he is maintaining good O2 saturations on 4 L nasal cannula. He's been afebrile. Remains in atrial fibrillation. The patient is seen today 11/11/2021 in follow-up in the intensive care unit. He is currently resting fairly comfortably in bed. Awake and alert in no acute distress. No further runs of ventricular tachycardia. He remains on amiodarone drip at 1 mg/m. Remains on a heparin drip per weight base protocol. He remains in atrial fibrillation, better controlled. 0.9 normal saline at 40 miles per hour. He is maintaining O2 saturations in the high 90s on 2 L/m per nasal cannula. White count 10.9. Hemoglobin 8.1. Platelets 160. INR 1.0. Sodium 134. Potassium 4.2. Bicarb 23. BUN 20. Creatinine 0.89. Right lower extremity Prevena remains in place. Hemostasis of the left groin stable. He is continued on Dilaudid for pain control. Objective - Vital Signs Vital signs: Vital Signs Temp 98.0 F 11/11/21 09:37 Pulse 89 11/11/21 10:00 Resp 7 L 11/11/21 10:00 BP 97/69 11/11/21 10:00 Pulse Ox 97 11/11/21 10:00 FiO2 Intake & Output 11/10/21 11/11/21 11/11/21 18:59 06:59 18:59 Intake Total 1210.000 910 20 Output Total 1805 710 Balance -595.000 200 20 Weight 119 kg Intake: IV 220 20 Lactated Ringers 1,000 ml 220 20 @ 20 mls/hr IV .Q24H [facility] Rx#:[id number] Intake, IV Titration 810.000 690 Amount Amiodarone 360 mg In 200 400 Dextrose 5% in Water 200 ml @ 1 MG/MIN 33.333 mls/ hr IV .Q6H [facility] Rx#: [id number] Heparin Sod,Pork in 0.45% 250.000 250 NaCl 25,000 unit In 0.45 % NaCl 1 250ml.bag @ 8. 9445 UNITS/KG/HR 10 mls/ hr IV .Q24H [facility] Rx#: [id number] Sodium Chloride 0.9% 1, 40 000 ml @ 0 mls/hr IV .STK -MED ONE Rx#:[id number] Sodium Chloride 0.9% 100 320 40 ml @ 0 mls/hr IV .STK-MED ONE with ceFAZolin 2,000 mg Rx#:[id number] Oral 400 Output: Urine 1805 710 Other: Voiding Method Urinal Urinal # Voids 0 0 - Exam GENERAL EXAM: Alert, 81-year-old male patient, on 2 L/m per nasal, comfortable in no apparent distress. HEAD: Normocephalic. EYES: Normal reaction of pupils, equal size. NOSE: Clear with pink turbinates. THROAT: No erythema or exudates. NECK: No masses, no JVD. CHEST: No chest wall deformity. LUNGS: Equal air entry with no crackles, wheeze, rhonchi or dullness. CVS: S1 and S2 normal with no audible murmur, irregular rhythm. ABDOMEN: No hepatosplenomegaly, normal bowel sounds, no guarding or rigidity. SPINE: No scoliosis or deformity SKIN: No rashes CENTRAL NERVOUS SYSTEM: No focal deficits, tone is normal in all 4 extremities. EXTREMITIES: Right lower extremity with Prevena wound VAC in place. Good sensation and mobility. Doppler pulses present. Left lower extremity with ecchymosis to left groin and hip. Doppler pulses present. - Labs CBC & Chem 7: 11/11/21 06:05 11/11/21 06:05 Labs: Abnormal Lab Results - Last 24 Hours (Table) 11/10/21 11/11/21 11/11/21 Range/Units 16:07 06:05 06:05 RBC 2.70 L (4.30-5.90) m/uL Hgb 8.1 L (13.0-17.5) gm/dL Hct 25.5 L (39.0-53.0) % APTT 46.3 H 49.5 H (22.0-30.0) sec Sodium (137-145) mmol/L Chloride (98-107) mmol/L Calcium (8.4-10.2) mg/dL 11/11/21 Range/Units 06:05 RBC (4.30-5.90) m/uL Hgb (13.0-17.5) gm/dL Hct (39.0-53.0) % APTT (22.0-30.0) sec Sodium 134 L (137-145) mmol/L Chloride 109 H (98-107) mmol/L Calcium 7.5 L (8.4-10.2) mg/dL Assessment and Plan Assessment: Acute ischemia right lower extremity secondary to femoral/popliteal thrombosis, status post right lower extremity angiogram and placement of a catheter for TPA for thrombolysis 3 on 11/04/2021, and 11/05/2021. Patient had undergone an open thrombectomy on 11/06/2021. Post operative day #5. Episode of ventricular tachycardia 11/10/2021 the patient was resumed on a heparin drip and initiated on amiodarone drip. Returned to the ICU Left groin ecchymosis Gross hematuria being followed by urology Previous SVT, initially on Cardizem infusion Currently in atrial fibrillation with controlled ventricular rate Hypotension, related to acute blood loss anemia, and SVT. Patient has received fluid boluses, and received 3 unit of packed red blood cells. Recovered History of paroxysmal atrial fibrillation on Coumadin which was subtherapeutic on admission Benign essential hypertension History of bioprosthetic aortic valve replacement and mitral valve repair in 2012 History of left atrial thrombus Coronary artery disease History of COVID-19 infection in 2020 Plan: The patient was seen and evaluated Labs and medications reviewed Remains in A. fib, better controlled No further episodes of ventricular tachycardia Continued on amiodarone drip Continued on heparin drip Wean off the FiO2 We will continue to follow I have personally seen and examined the patient, performed the documentation and the assessment and plan as written. Number of minutes spent on the visit: 10.
--- NOTE | 2021-11-11 11:10 | P.PN ---
Subjective Progress Note Date: 11/11/21 This is Constantino Rodriguez NP, I'm dictating on behalf of Dr. Faye's H&P and A&P. Patient was interviewed and examined. Patient is a pleasant 81-year-old male who initially presented to the hospital with right lower leg arterial occlusion, who subsequently went into ventricular tachycardia yesterday. Patient was experiencing paroxysmal ventricular tachycardia, and was converting back and forth from sinus rhythm into V. tach. Patient was given an initial bolus of amiodarone, which stabilized the ventr icular tachycardia, and maintained sinus rhythm. He was transferred down to the ICU for further monitoring and management. Today the patient reports that he is doing well. He reports no episodes of V. tach overnight. He does have a normal underlying sinus arrhythmia, that he states he has been in since admission to the ICU. He reports no chest pain, shortness of breath, or palpitations. He h as not been up ambulating around the room, he is encouraged to get up and move around at this time. GENERAL: Well-appearing, well-nourished and in no acute distress. NECK: Supple without JVD or thyromegaly. LUNGS: Breath sounds clear to auscultation bilaterally. Respiration equal and unlabored. No wheezes, rales or rhonchi. HEART: Regular rate and rhythm without murmurs, rubs or gallops. S1 and S2 heard. EXTREMITIES: Normal range of motion, no edema. No clubbing or cyanosis. Peripheral pulses intact and strong. VITALS: Temp 98.0, pulse 89, respirations 13, blood pressure 91/54, O2 saturation 100% on room air TELEMETRY: Normal sinus rhythm with PVCs LABS: White count 7.9, hemoglobin 8.1, sodium 134, potassium 4.2, BUN 20, creatinine 0.89, calcium 7.5 IMPRESSION: 1. Wide complex tachycardia/ventricular tachycardia 2. Status post vascular intervention 3. Atrial fibrillation PLAN: Continue amiodarone drip until completed, then change to 400 mg amiodarone by mouth twice a day Hold losartan for decreased blood pressures Increase metoprolol to 25 mg twice a day starting tomorrow Further recommendations based on the patient's clinical course Objective - Vital Signs Vital signs: Vital Signs Temp 98.0 F 11/11/21 09:37 Pulse 89 11/11/21 10:00 Resp 7 L 11/11/21 10:00 BP 97/69 11/11/21 10:00 Pulse Ox 97 11/11/21 10:00 FiO2 Intake & Output 11/10/21 11/11/21 11/11/21 18:59 06:59 18:59 Intake Total 1210.000 910 140 Output Total 1805 710 Balance -595.000 200 140 Weight 119 kg Intake: IV 220 20 Lactated Ringers 1,000 ml 220 20 @ 20 mls/hr IV .Q24H [facility] Rx#:[id number] Intake, IV Titration 810.000 690 120 Amount Amiodarone 360 mg In 200 400 Dextrose 5% in Water 200 ml @ 1 MG/MIN 33.333 mls/ hr IV .Q6H [facility] Rx#: [id number] Heparin Sod,Pork in 0.45% 250.000 250 NaCl 25,000 unit In 0.45 % NaCl 1 250ml.bag @ 8. 9445 UNITS/KG/HR 10 mls/ hr IV .Q24H [facility] Rx#: [id number] Sodium Chloride 0.9% 1, 40 000 ml @ 0 mls/hr IV .[facility]K -[facility] ONE Rx#:[id number] Sodium Chloride 0.9% 100 320 40 ml @ 0 mls/hr IV .STK-[facility] ONE with ceFAZolin 2,000 mg Rx#:[id number] Sodium Chloride 0.9% 500 120 ml 500 ml @ 0 mls/hr IV . [facility] Rx#: [id number] Oral 400 Output: Urine 1805 710 Other: Voiding Method Urinal Urinal # Voids 0 0 - Labs CBC & Chem 7: 11/11/21 06:05 11/11/21 06:05 Labs: Abnormal Lab Results - Last 24 Hours (Table) 11/10/21 11/11/21 11/11/21 Range/Units 16:07 06:05 06:05 RBC 2.70 L (4.30-5.90) m/uL Hgb 8.1 L (13.0-17.5) gm/dL Hct 25.5 L (39.0-53.0) % APTT 46.3 H 49.5 H (22.0-30.0) sec Sodium (137-145) mmol/L Chloride (98-107) mmol/L Calcium (8.4-10.2) mg/dL 11/11/21 Range/Units 06:05 RBC (4.30-5.90) m/uL Hgb (13.0-17.5) gm/dL Hct (39.0-53.0) % APTT (22.0-30.0) sec Sodium 134 L (137-145) mmol/L Chloride 109 H (98-107) mmol/L Calcium 7.5 L (8.4-10.2) mg/dL
[2021-11-11 12:43] LABS: Glucose,Whole Blood 154 mg/dL (70-110)
[2021-11-11] MEDS ORDERED: LACTATED RINGERS 1,000 ML IV ONE (13:00)
[2021-11-11 16:49] LABS: Basophils % (A) 0 %; Eosinophils # (A) 0.3 k/uL (0-0.7); Eosinophils % (A) 3 %; HCT 26.2 % (39.0-53.0); HGB 8.3 gm/dL (13.0-17.5); Hypochromasia Slight; Lymphocytes % (A) 11 %; MCH 29.9 pg (25.0-35.0); MCHC 31.6 g/dL (31.0-37.0); MCV 94.5 fL (80.0-100.0); Mean Platelet Volume 9.2; Monocytes # (A) 0.6 k/uL (0-1.0); Monocytes % (A) 7 %; Neutrophils # (A) 7.4 k/uL (1.3-7.7); Neutrophils % (A) 78 %; Platelet Count 180 k/uL (150-450); Poikilocytosis Slight; RBC 2.77 m/uL (4.30-5.90); RDW 14.7 % (11.5-15.5); WBC 9.5 k/uL (3.8-10.6)
[2021-11-11] MEDS ORDERED: WARFARIN 5 MG TAB PO ONE (18:00)
[2021-11-11] MEDS: AMIODARONE 200 MG TAB PO SCH (20:42)
[2021-11-11] MEDS: LACTATED RINGERS 1,000 ML IV SCH (20:42)
[2021-11-11] MEDS: TAMSULOSIN 0.4 MG CAP.ER.24H PO SCH (20:42)
[2021-11-11] MEDS: ALPRAZolam 0.25 MG TAB PO PRN (20:42)
[2021-11-12 06:41] LABS: Basophils % (A) 0 %; Eosinophils # (A) 0.2 k/uL (0-0.7); Eosinophils % (A) 3 %; HGB 8.4 gm/dL (13.0-17.5); Hypochromasia Slight; Lymphocytes # (A) 0.9 k/uL (1.0-4.8); Lymphocytes % (A) 11 %; MCH 30.8 pg (25.0-35.0); MCHC 32.3 g/dL (31.0-37.0); MCV 95.2 fL (80.0-100.0); Mean Platelet Volume 7.6; Monocytes # (A) 0.4 k/uL (0-1.0); Monocytes % (A) 5 %; Neutrophils # (A) 6.4 k/uL (1.3-7.7); Neutrophils % (A) 79 %; Platelet Count 179 k/uL (150-450); Poikilocytosis Slight; RBC 2.73 m/uL (4.30-5.90); RDW 15.1 % (11.5-15.5); WBC 8.1 k/uL (3.8-10.6)
[2021-11-12 06:44] LABS: INR 1.1 (<1.2); Partial Thromboplastin Time 71.4 sec (22.0-30.0); Prothrombin Time 11.3 sec (9.0-12.0)
[2021-11-12] MEDS: PANTOPRAZOLE 40 MG TABLET PO SCH (06:54)
[2021-11-12 07:00] LABS: Albumin 2.3 g/dL (3.5-5.0); Calcium 7.8 mg/dL (8.4-10.2); Potassium 4.3 mmol/L (3.5-5.1); Total Bilirubin 1.9 mg/dL (0.2-1.3); Total Protein 4.6 g/dL (6.3-8.2)
--- NOTE | 2021-11-12 08:32 | P.PN ---
Progress Note - Text Progress Note Date: 11/12/21 The patient states that he is voiding without difficulty, though he does report pain with micturition. The urine remains blood-tinged. His hemoglobin level is stable at 8.4. No intervention is planned at this time. If his pain persists, it would be reasonable to obtain a urine culture.
--- NOTE | 2021-11-12 09:38 | P.PN ---
Subjective Progress Note Date: 11/12/21 The patient is a 81-year-old male with past medical history of severe peripheral vascular disease who is currently admitted after undergoing open thrombectomy for a right SFA occlusion. Cardiology was consulted after the patient developed wide-complex tachycardia 1 stepdown unit. Patient was bolused with IV amiodarone with resolution of ventricular tachycardia. The patient was interviewed and examined this morning lying comfortably in bed. He states he did well overnight without any difficulty breathing, chest pains, or palpitations. GENERAL: Well-appearing, well-nourished and in no acute distress. NECK: Supple without JVD or thyromegaly. LUNGS: Breath sounds clear to auscultation bilaterally. Respiration equal and unlabored. No wheezes, rales or rhonchi. HEART: Regular rate and rhythm without murmurs, rubs or gallops. S1 and S2 heard. EXTREMITIES: Normal range of motion, moderate edema on the right. Bruising noted in right thigh. VITALS: Blood pressure 111/98, SpO2 92% on room air, respiratory rate 16, pulse 86 TELEMETRY: Sinus rhythm overnight. Occasional PVCs. No ventricular tachycardia. LABS: WBC 8.1, hemoglobin 8.4, hematocrit 26.0, platelet 179, INR 1.1, sodium 135, potassium 4.3, BUN 18, creatinine 0.94, AST 54, ALT 42 IMPRESSION: White complex tachycardia, ventricular tachycardia Severe peripheral vascular disease, status post vascular intervention Paroxysmal atrial fibrillation, on warfarin outpatient PLAN: Transition off IV anticoagulation per vascular's recommendation. Continue oral amiodarone and beta blockers May be transferred to stepdown unit Further recommendations to be based upon clinical course I am dictating on behalf of Dr Larry Faye's history/physical and assessment/plan. Objective - Vital Signs Vital signs: Vital Signs Temp 97.8 F 11/12/21 03:00 Pulse 86 11/12/21 07:00 Resp 16 11/12/21 07:00 BP 111/98 11/12/21 07:00 Pulse Ox 92 L 11/12/21 07:00 FiO2 Intake & Output 11/11/21 11/12/21 11/12/21 18:59 06:59 18:59 Intake Total 1700 1340.722 20 Output Total 800 1650 Balance 900 -309.278 20 Weight 117.2 kg Intake: IV 180 220 20 Lactated Ringers 1,000 ml 180 220 20 @ 20 mls/hr IV .Q24H [facility] Rx#:[id number] Intake, IV Titration 1120 400.722 Amount Heparin Sod,Pork in 0.45% 400.722 NaCl 25,000 unit In 0.45 % NaCl 1 250ml.bag @ 8. 9445 UNITS/KG/HR 10 mls/ hr IV .Q24H [facility] Rx#: [id number] Lactated Ringers 1,000 ml 1000 @ 999 mls/hr IV .Q1H1M ONE Rx#:[id number] Sodium Chloride 0.9% 500 120 ml 500 ml @ 0 mls/hr IV . [facility] Rx#: [id number] Oral 400 720 Output: Urine 800 1650 Other: Voiding Method Urinal Urinal # Voids 0 1 - Labs CBC & Chem 7: 11/12/21 06:11 11/12/21 06:11 Labs: Abnormal Lab Results - Last 24 Hours (Table) 11/11/21 11/11/21 11/12/21 Range/Units 12:41 16:39 06:11 RBC 2.77 L (4.30-5.90) m/uL Hgb 8.3 L (13.0-17.5) gm/dL Hct 26.2 L (39.0-53.0) % Lymphocytes # (1.0-4.8) k/uL APTT 71.4 H (22.0-30.0) sec Sodium (137-145) mmol/L POC Glucose (mg/dL) 154 H (70-110) mg/dL Calcium (8.4-10.2) mg/dL Total Bilirubin (0.2-1.3) mg/dL Total Protein (6.3-8.2) g/dL Albumin (3.5-5.0) g/dL 11/12/21 11/12/21 Range/Units 06:11 06:11 RBC 2.73 L (4.30-5.90) m/uL Hgb 8.4 L (13.0-17.5) gm/dL Hct 26.0 L (39.0-53.0) % Lymphocytes # 0.9 L (1.0-4.8) k/uL APTT (22.0-30.0) sec Sodium 135 L (137-145) mmol/L POC Glucose (mg/dL) (70-110) mg/dL Calcium 7.8 L (8.4-10.2) mg/dL Total Bilirubin 1.9 H (0.2-1.3) mg/dL Total Protein 4.6 L (6.3-8.2) g/dL Albumin 2.3 L (3.5-5.0) g/dL
[2021-11-12] MEDS: METOPROLOL TARTRATE 25 MG TAB PO SCH ×2 (09:48→20:27)
[2021-11-12] MEDS: AMIODARONE 200 MG TAB PO SCH ×2 (09:48→20:27)
--- NOTE | 2021-11-12 10:46 | P.PN ---
Subjective Progress Note Date: 11/12/21 Principal diagnosis: Acute limb ischemia Patient is a pleasant 81-year-old male who is being seen as a follow-up for acute limb ischemia. He remains in the ICU. He is postop day #6 of right lower extremity open thrombectomy. The patient had developed wide-complex tachycardia, cardiology is on board. He also has a history atrial fibrillation and the are transitioning him to his oral Coumadin, however INR still is not therapeutic. He remains on IV heparin. No acute changes through the night. He states that his right leg feels heavy however pain has improved. Prevena a dressing is still in place. Hemoglobin stable at 8.4. Objective - Vital Signs Vital signs: Vital Signs Temp 97.8 F 11/12/21 03:00 Pulse 86 11/12/21 07:00 Resp 16 11/12/21 07:00 BP 111/98 11/12/21 07:00 Pulse Ox 92 L 11/12/21 07:00 FiO2 Intake & Output 11/11/21 11/12/21 11/12/21 18:59 06:59 18:59 Intake Total 1700 1340.722 20 Output Total 800 1650 Balance 900 -309.278 20 Weight 117.2 kg Intake: IV 180 220 20 Lactated Ringers 1,000 ml 180 220 20 @ 20 mls/hr IV .Q24H [facility] Rx#:[id number] Intake, IV Titration 1120 400.722 Amount Heparin Sod,Pork in 0.45% 400.722 NaCl 25,000 unit In 0.45 % NaCl 1 250ml.bag @ 8. 9445 UNITS/KG/HR 10 mls/ hr IV .Q24H [facility] Rx#: [id number] Lactated Ringers 1,000 ml 1000 @ 999 mls/hr IV .Q1H1M ONE Rx#:[id number] Sodium Chloride 0.9% 500 120 ml 500 ml @ 0 mls/hr IV . STK-MED ONE Rx#: [id number] Oral 400 720 Output: Urine 800 1650 Other: Voiding Method Urinal Urinal # Voids 0 1 - Exam General appearance: The patient is alert, oriented, appears in no acute distress. HET: Head is normocephalic and atraumatic. Neck: Supple without lymphadenopathy. Trachea midline. Heart: Irregular rate and rhythm. Lungs: Clear to auscultation bilaterally. Abdomen: Soft, nontender, nondistended. Genitourinary: Scrotum swollen, ecchymotic. Gross hematuria in Raines catheter. Skin: Ecchymosis along the left groin thigh and surrounding to the left flank. Extremities: Right lower extremity with Prevena wound vac in place with a noted blister underneath the Tegaderm. Provine a dressing removed, incision well approximated with saul. Skin tear noted where blister was.Right lower extremity warm to touch with good sensation and mobility. Palpable PT pulse. Left lower extremity with significant ecchymosis to the left groin and hip, no hematoma palpated. Full range of motion of the left lower extremity. PT and DP Doppler signal present. Neurological: No focal deficits. Sensation intact. - Labs CBC & Chem 7: 11/12/21 06:11 11/12/21 06:11 Labs: Abnormal Lab Results - Last 24 Hours (Table) 11/11/21 11/11/21 11/12/21 Range/Units 12:41 16:39 06:11 RBC 2.77 L (4.30-5.90) m/uL Hgb 8.3 L (13.0-17.5) gm/dL Hct 26.2 L (39.0-53.0) % Lymphocytes # (1.0-4.8) k/uL APTT 71.4 H (22.0-30.0) sec Sodium (137-145) mmol/L POC Glucose (mg/dL) 154 H (70-110) mg/dL Calcium (8.4-10.2) mg/dL Total Bilirubin (0.2-1.3) mg/dL Total Protein (6.3-8.2) g/dL Albumin (3.5-5.0) g/dL 11/12/21 11/12/21 Range/Units 06:11 06:11 RBC 2.73 L (4.30-5.90) m/uL Hgb 8.4 L (13.0-17.5) gm/dL Hct 26.0 L (39.0-53.0) % Lymphocytes # 0.9 L (1.0-4.8) k/uL APTT (22.0-30.0) sec Sodium 135 L (137-145) mmol/L POC Glucose (mg/dL) (70-110) mg/dL Calcium 7.8 L (8.4-10.2) mg/dL Total Bilirubin 1.9 H (0.2-1.3) mg/dL Total Protein 4.6 L (6.3-8.2) g/dL Albumin 2.3 L (3.5-5.0) g/dL Assessment and Plan Assessment: 1. Postop day #6 for right open thrombectomy 2. Acute limb ischemia right lower extremity, initiation of TPA 3. Atrial fibrillation subtherapeutic on anticoagulation 4. Acute blood loss anemia 5. Thrombocytopenia 6. Hematuria 7. Atrial fibrillation Plan: 1. Anticoagulation per recommendation from cardiology 2. Daily CBC CMP 3. Prevena wound vac removed 4. Continue medical management 5. Urology consulted 6. Encourage ambulation 7. Incentive spirometer to bedside 8. The patient is cleared for discharge from vascular surgery once otherwise deemed medically stable. The impression and plan of care has been dictated as directed. Dr. Vicente I performed a history and examination of this patient, discussed the same with the dictator. I agree with the dictator's note ,documented as a scribe. Any a dditional findings or plans will be noted.
[2021-11-12] MEDS: HEPARIN SOD,PORK IN 0.45% NACL 25,000 UNIT in 0.45% NACL 1 250ML.BAG IV SCH (12:45)
--- NOTE | 2021-11-12 13:00 | P.PN ---
Subjective Progress Note Date: 11/12/21 On today's evaluation of 11/12/2021, the patient is doing well. The patient will specific complaints. The patient is postop day #6. He is having Doppler significant and lower extremity is bilaterally. Extremities are quite warm for now. No leg pain. No numbness or tingling. No chest pain. No shortness of breath. He remains on IV heparin. He has history of atrial fibrillation and the patient needs to be transitioned gradually to long-term anticoagulant in the form of warfarin. On his blood work today, the patient has a white cell count of 8.0 with a hemoglobin A1c 0.4 with a platelet count of 179. Sodium is at 135 with a potassium level of 4.3 and the BUN is at 18 with a creatinine of 0.9. He has no other complaints otherwise for now. He is utilizing mini Dilaudid for pain control. Note that cardiology is also on the case. The patient developed a wide complex tachycardia and for that reason he got transferred back to the intensive care unit. The patient is currently on amiodarone. Rhythm is sinus. No angina. No palpitations. Objective - Vital Signs Vital signs: Vital Signs Temp 97.8 F 11/12/21 03:00 Pulse 86 11/12/21 07:00 Resp 16 11/12/21 07:00 BP 111/98 11/12/21 07:00 Pulse Ox 92 L 11/12/21 07:00 FiO2 Intake & Output 11/11/21 11/12/21 11/12/21 18:59 06:59 18:59 Intake Total 1700 1340.722 20 Output Total 800 1650 Balance 900 -309.278 20 Weight 117.2 kg Intake: IV 180 220 20 Lactated Ringers 1,000 ml 180 220 20 @ 20 mls/hr IV .Q24H [facility] Rx#:[id number] Intake, IV Titration 1120 400.722 Amount Heparin Sod,Pork in 0.45% 400.722 NaCl 25,000 unit In 0.45 % NaCl 1 250ml.bag @ 8. 9445 UNITS/KG/HR 10 mls/ hr IV .Q24H [facility] Rx#: [id number] Lactated Ringers 1,000 ml 1000 @ 999 mls/hr IV .Q1H1M ONE Rx#:[id number] Sodium Chloride 0.9% 500 120 ml 500 ml @ 0 mls/hr IV . Stretch ONE Rx#: [id number] Oral 400 720 Output: Urine 800 1650 Other: Voiding Method Urinal Urinal # Voids 0 1 - Exam GENERAL EXAM: Alert, 81-year-old male patient, on RA, comfortable in no apparent distress. HEAD: Normocephalic. EYES: Normal reaction of pupils, equal size. NOSE: Clear with pink turbinates. THROAT: No erythema or exudates. NECK: No masses, no JVD. CHEST: No chest wall deformity. LUNGS: Equal air entry with no crackles, wheeze, rhonchi or dullness. CVS: S1 and S2 normal with no audible murmur, irregular rhythm. ABDOMEN: No hepatosplenomegaly, normal bowel sounds, no guarding or rigidity. SPINE: No scoliosis or deformity SKIN: No rashes, the patient is a wound VAC over the right groin area and there are some areas of skin blisters on the right groin which is intact. Patient also has a ecchymotic area in the left groin and hip area which remains stable. CENTRAL NERVOUS SYSTEM: No focal deficits, tone is normal in all 4 extremities. EXTREMITIES: Right lower extremity with Prevena wound VAC in place. Good sensation and mobility. Doppler pulses present. Left lower extremity with ecchymosis to left groin and hip. Doppler pulses present. - Labs CBC & Chem 7: 11/12/21 06:11 11/12/21 06:11 Labs: Abnormal Lab Results - Last 24 Hours (Table) 11/11/21 11/11/21 11/12/21 Range/Units 12:41 16:39 06:11 RBC 2.77 L (4.30-5.90) m/uL Hgb 8.3 L (13.0-17.5) gm/dL Hct 26.2 L (39.0-53.0) % Lymphocytes # (1.0-4.8) k/uL APTT 71.4 H (22.0-30.0) sec Sodium (137-145) mmol/L POC Glucose (mg/dL) 154 H (70-110) mg/dL Calcium (8.4-10.2) mg/dL Total Bilirubin (0.2-1.3) mg/dL Total Protein (6.3-8.2) g/dL Albumin (3.5-5.0) g/dL 11/12/21 11/12/21 Range/Units 06:11 06:11 RBC 2.73 L (4.30-5.90) m/uL Hgb 8.4 L (13.0-17.5) gm/dL Hct 26.0 L (39.0-53.0) % Lymphocytes # 0.9 L (1.0-4.8) k/uL APTT (22.0-30.0) sec Sodium 135 L (137-145) mmol/L POC Glucose (mg/dL) (70-110) mg/dL Calcium 7.8 L (8.4-10.2) mg/dL Total Bilirubin 1.9 H (0.2-1.3) mg/dL Total Protein 4.6 L (6.3-8.2) g/dL Albumin 2.3 L (3.5-5.0) g/dL Assessment and Plan Plan: Acute ischemia right lower extremity secondary to femoral/popliteal thrombosis, status post right lower extremity angiogram and placement of a catheter for TPA for thrombolysis 3 on 11/04/2021, and 11/05/2021. Patient had undergone an open thrombectomy on 11/06/2021. Post operative day #6. He has a wound vac on the surgical site. Patient is doing well. Surgical wound site is dry clean and intact. The patient has Doppler significant and lower extremity bilaterally. Hemodynamically stable on IV heparin. Episode of ventricular tachycardia 11/10/2021 the patient was resumed on a heparin drip and initiated on amiodarone po, 200 mg BID. 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
--- NOTE | 2021-11-12 14:44 | P.PN ---
Subjective Progress Note Date: 11/12/21 HISTORY OF PRESENT ILLNESS This is a 81-year-old male patient of Dr. Rivers with past medical history of rheumatic heart disease status post aortic valve replacement and mitral valve repair in 2012 at [facility],, noncritical CAD, history of paroxysmal atrial fibrillation, hypertension, generalized anxiety disorder, benign prostatic hypertrophy. Patient states that he had awakened at 2 AM when he had no feeling in his right lower extremity. He denies having any pain. He states it was very hard to walk and subsequently he did start to feel pain. He thought initially i t was a pinched nerve in his back but then he went on the Internet and did some research and was concerned that he had a blood clot. His then brought him into [facility] here in Hospital emergency center for evaluation on 11/03. CAT scan revealed occlusive thrombus in the common femoral, profunda and proximal superficial femoral artery as well as through the distal superficial femoral and popliteal arteries. Patient was taken urgently for angiogram and and TPA thrombolysis. 11/06: Patient remains in the intensive care unit. He has had drainage from the right groin which he states leak underneath him and he has been itchy from it all night. Hydrocortisone cream added. Patient has significant scrotal hematoma. Patient states that he was up all night due to pain. He is scheduled today to go back to or for angiogram and possible further procedures. Patient has been afebrile, heart rate 88, blood pressure 91/69, pulse ox 93% on room air. Repeat blood work reveals WBC 11, hemoglobin 10.5, platelet count 87. INR is 1.3. Sodium 134, BUN 19 and creatinine 1.02. Echocardiogram reveals EF of 40-45%, bioprosthetic aortic valve, [id number] mitral stenosis and regurgitation, mild tricuspid regurgitation, dilated ascending aorta. 11/07: Yesterday, patient underwent right lower extremity angiogram and thrombectomy in the common femoral artery in the OR. Patient remains in the intensive care unit. Overnight, patient went into SVT and a Merle was ordered by cardiology the patient converted prior to this being given. He was prior to that in atrial fibrillation controlled rate currently on Cardizem and heparin drip. Patient is noted to have significant hematoma to the groin area and also now hematuria. Hemoglobin is 8.5 and vascular his ordered transfusion 2 units of packed RBCs. Patient also also hypotensive today. He has been afeb rile, heart rate in the 90s,, pulse ox 100% on room air. Other lab work this morning reveals WBC 12.6, platelet count 92, INR 1.2. Sodium 133, potassium 3.9, chloride 109, CO2 21, BUN 26 and creatinine 1.03. Magnesium 1.8. Consult has been added for oncology regarding possible HIT. Patient is awake and alert, he is voicing frustration as his situation has not progressed as he was hoping. He is also frustrated that he is unable to use his phone and call out to his . Dr. Hatfield assisted patient with phone call to his . 11/08:patient remains in the intensive care unit in atrial fibrillation. He is still on a heparin drip with hematuria as well. Urology consult has been added. His hemoglobin today is7.5 status post 2 units of packed RBCs yesterday and he has ordered for 1 more unit of packed RBCs today. Patient states that he is feeling: Better today and seems more calm today.patient has a wound VAC in place.right lower extremity is warm to touch with Doppler pulse. 11/09: Patient remains in intensive care unit. Vascular surgery has ordered another unit of packed RBCs, hemoglobin this morning is 7.9. Patient has been seen by urology and recommended discontinuing Raines which will be done today. Patient is seen sitting up in a chair today and looks well in general. He is continued on a heparin drip. Patient has no insurance coverage for eliquis and plan is to resume Coumadin which was started last night. INR is 1. Discharge plan is home with homecare. 11/12: Patient is seen today in the intensive care unit and he remains on heparin drip, he is on Coumadin and INR is 1. He has been seen by urology and Raines catheters been removed. He has been able to void on his own but still having hematuria. Cardiology is transitioned him to oral amiodarone. Pulmonary medicine is planning to keep the patient in ICU for another 24 hours. Patient is afebrile, heart rate in the 70s and 80s, blood pressure 108/71, pulse ox 97% on room air. Repeat blood work reveals WBC 8.1, hemoglobin 8.4, platelet count 179. INR is 1.1. Sodium 135, electrolytes otherwise normal as well as any function. Total bilirubin 1.9. Liver function tests are normal. REVIEW OF SYSTEMS Constitutional: No fever, no chills, no night sweats. No weight change. No weakness, fatigue or lethargy. No daytime sleepiness. EENT: No headache. No blurred vision or double vision, no loss of vision. No loss of Hearing, no ringing in the ears, no dizziness. No nasal drainage or congestion. No epistaxis. No sore throat. Lungs: No shortness of breath, cough, no sputum production. No wheezing. Cardiovascular: No chest pain, no lower extremity edema. No palpitations. No paroxysmal nocturnal dyspnea. No orthopnea. No lightheadedness or dizziness. No syncopal episodes. Abdominal: No abdominal pain. No nausea, vomiting. No diarrhea. No constipation. No bloody or tarry stools. No loss of appetite. Genitourinary: No dysuria, increased frequency, urgency. No urinary retention. Musculoskeletal: No myalgias. No muscle weakness, no gait dysfunction, no frequent falls. No back pain. No neck pain. Integumentary: No wounds, no lesions. No rash or pruritus. No unusual bruising. No change in hair or nails. Hematoma groin, scrotum. Neurologic: No aphasia. No facial droop. No change in mentation. No head injury. No headache. No paralysis. No paresthesia. Painful right lower extremity Psychiatric: No depression. Noted anxiety-improved. No mood swings. Endocrine: No abnormal blood sugars. No weight change. No excessive sweating or thirst. No cold intolerance. PHYSICAL EXAMINATION Gen: This is a 81-year-old male. He is resting in the ICU recliner and appears to be comfortable and in no acute distress. HEENT: Head is atraumatic, normocephalic. Pupils equal, round. Sclerae is anicteric. NECK: Supple. No JVD. No lymphadenopathy. No thyromegaly. LUNGS: Clear to auscultation. No wheezes or rhonchi. No intercostal retractions. HEART: Regular rate and rhythm. Systolic ejection murmur.. ABDOMEN: Soft. Bowel sounds are present. No masses. No tenderness. EXTREMITIES: No pedal edema. No calf tenderness. DP Pulses obtained by Doppler. NEUROLOGICAL: Patient is awake, alert and oriented x3. Cranial nerves 2 through 12 are grossly intact. ASSESSMENT AND PLAN Acute limb ischemia, femoral popliteal artery occlusion, status post angiogram and TPA thrombolysis, status post repeat angiogram and thrombectomy. Continue current management per vascular surgery, Rheumatic heart disease status post aortic valve replacement and mitral valve repair in 2012, stable. Patient is currently on heparin drip and resumed on Coumadin. Continue to monitor INR, pharmacy is dosing Coumadin. History of paroxysmal atrial fibrillation. Continue patient on amiodarone 200 mg twice daily, Lopressor 12.5 mg twice daily, heparin drip, oral Coumadin pharmacy dosing. Noncritical coronary artery disease. Hypertension. Continue l Lopressor 25 mg twice daily, Cardizem. Generalized anxiety disorder. Continue Xanax 0.25 milligrams at bedtime Benign prostatic hypertrophy. Continue Flomax 0.4 milligrams daily. Thrombocytopenia. Continue to monitor. Possible HIT. Consult with oncology appreciated, ruled out. Sinus tachycardia, converted. Cardiology and consult. Ventricular tachycardia status post IV amiodarone. Cardiology consult appreciated. Patient is currently on oral amiodarone and beta alanis. Hematuria. Urology consult appreciated. Raines discontinued and patient voiding on her own GI prophylaxis. Protonix DVT prophylaxis. Heparin DISCHARGE PLAN Home with homecare Impression and plan of care have been directed as dictated by the signing physician. Elysia Maria nurse practitioner acting as scribe for signing physician. Objective - Vital Signs Vital signs: Vital Signs Temp 97.8 F 11/12/21 03:00 Pulse 86 11/12/21 07:00 Resp 16 11/12/21 07:00 BP 111/98 11/12/21 07:00 Pulse Ox 92 L 11/12/21 07:00 FiO2 Intake & Output 11/11/21 11/12/21 11/12/21 18:59 06:59 18:59 Intake Total 1700 1340.722 20 Output Total 800 1650 Balance 900 -309.278 20 Weight 117.2 kg Intake: IV 180 220 20 Lactated Ringers 1,000 ml 180 220 20 @ 20 mls/hr IV .Q24H [facility] Rx#:[id number] Intake, IV Titration 1120 400.722 Amount Heparin Sod,Pork in 0.45% 400.722 NaCl 25,000 unit In 0.45 % NaCl 1 250ml.bag @ 8. 9445 UNITS/KG/HR 10 mls/ hr IV .Q24H [facility] Rx#: [id number] Lactated Ringers 1,000 ml 1000 @ 999 mls/hr IV .Q1H1M ONE Rx#:[id number] Sodium Chloride 0.9% 500 120 ml 500 ml @ 0 mls/hr IV . STK-MED ONE Rx#: [id number] Oral 400 720 Output: Urine 800 1650 Other: Voiding Method Urinal Urinal # Voids 0 1 - Labs CBC & Chem 7: 11/12/21 06:11 11/12/21 06:11 Labs: Abnormal Lab Results - Last 24 Hours (Table) 11/11/21 11/11/21 11/12/21 Range/Units 12:41 16:39 06:11 RBC 2.77 L (4.30-5.90) m/uL Hgb 8.3 L (13.0-17.5) gm/dL Hct 26.2 L (39.0-53.0) % Lymphocytes # (1.0-4.8) k/uL APTT 71.4 H (22.0-30.0) sec Sodium (137-145) mmol/L POC Glucose (mg/dL) 154 H (70-110) mg/dL Calcium (8.4-10.2) mg/dL Total Bilirubin (0.2-1.3) mg/dL Total Protein (6.3-8.2) g/dL Albumin (3.5-5.0) g/dL 11/12/21 11/12/21 Range/Units 06:11 06:11 RBC 2.73 L (4.30-5.90) m/uL Hgb 8.4 L (13.0-17.5) gm/dL Hct 26.0 L (39.0-53.0) % Lymphocytes # 0.9 L (1.0-4.8) k/uL APTT (22.0-30.0) sec Sodium 135 L (137-145) mmol/L POC Glucose (mg/dL) (70-110) mg/dL Calcium 7.8 L (8.4-10.2) mg/dL Total Bilirubin 1.9 H (0.2-1.3) mg/dL Total Protein 4.6 L (6.3-8.2) g/dL Albumin 2.3 L (3.5-5.0) g/dL
[2021-11-12] MEDS ORDERED: WARFARIN 3 MG TAB PO ONE (18:00)
[2021-11-12] MEDS: TAMSULOSIN 0.4 MG CAP.ER.24H PO SCH (20:27)
[2021-11-12] MEDS: LACTATED RINGERS 1,000 ML IV SCH (20:28)
[2021-11-12] MEDS: HYDROmorphone 0.5 MG/0.5 ML SYRINGE IVP PRN (21:53)
[2021-11-12] MEDS: ALPRAZolam 0.25 MG TAB PO PRN (21:54)
[2021-11-13] MEDS: HYDROmorphone 0.5 MG/0.5 ML SYRINGE IVP PRN ×2 (02:07→20:34)
[2021-11-13 06:17] LABS: HCT 25.9 % (39.0-53.0); HGB 8.2 gm/dL (13.0-17.5); Hypochromasia Slight; MCH 30.1 pg (25.0-35.0); MCHC 31.6 g/dL (31.0-37.0); Mean Platelet Volume 8.4; Platelet Count 167 k/uL (150-450); Poikilocytosis Slight; RBC 2.73 m/uL (4.30-5.90)
[2021-11-13 06:28] LABS: INR 1.1 (<1.2); Partial Thromboplastin Time 49.5 sec (22.0-30.0)
[2021-11-13 06:34] LABS: Calcium 7.6 mg/dL (8.4-10.2); Potassium 4.4 mmol/L (3.5-5.1)
[2021-11-13] MEDS: HEPARIN SOD,PORK IN 0.45% NACL 25,000 UNIT in 0.45% NACL 1 250ML.BAG IV SCH (06:55)
[2021-11-13] MEDS: PANTOPRAZOLE 40 MG TABLET PO SCH (06:55)
--- NOTE | 2021-11-13 09:23 | P.PN ---
Subjective Progress Note Date: 11/13/21 The patient is a 81-year-old male with past medical history of severe peripheral vascular disease who is currently admitted after undergoing open thrombectomy for a right SFA occlusion. Cardiology was consulted after the patient developed wide-complex tachycardia 1 stepdown unit. Patient was bolused with IV amiodarone with resolution of ventricular tachycardia. The patient was interviewed and examined this morning lying comfortably in bed. He states he did well overnight without any difficulty breathing, chest pains, or palpitations. GENERAL: Well-appearing, well-nourished and in no acute distress. NECK: Supple without JVD or thyromegaly. LUNGS: Breath sounds clear to auscultation bilaterally. Respiration equal and unlabored. No wheezes, rales or rhonchi. HEART: Regular rate and rhythm without murmurs, rubs or gallops. S1 and S2 heard. EXTREMITIES: Normal range of motion, moderate edema on the right. Bruising noted in right thigh. VITALS: Blood pressure 118/79, respiratory rate 14, SpO2 95% on room air, pulse 87 TELEMETRY: Sinus rhythm overnight. Occasional PVCs. No ventricular tachycardia. LABS: WBC 8.0, hemoglobin 8.2, hematocrit 25.9, platelet 167, INR 1.1, sodium 135, potassium 4.4, BUN 18, creatinine 0.96 IMPRESSION: White complex tachycardia, ventricular tachycardia Severe peripheral vascular disease, status post vascular intervention Paroxysmal atrial fibrillation, on warfarin outpatient PLAN: Transition off IV anticoagulation per vascular's recommendations Consideration for novel anticoagulation as patient continues to have subtherapeutic INR Continue oral amiodarone and beta blockers May be transferred to stepdown unit Patient will be discharged with LifeVest Further recommendations to be based upon clinical course I am dictating on behalf of Dr Larry Faye's history/physical and assessment/plan. Objective - Vital Signs Vital signs: Vital Signs Temp 98.4 F 11/13/21 04:00 Pulse 87 11/13/21 07:00 Resp 14 11/13/21 07:00 BP 118/79 11/13/21 07:00 Pulse Ox 95 11/13/21 07:00 FiO2 Intake & Output 11/12/21 11/13/21 11/13/21 18:59 06:59 18:59 Intake Total 4403.196 8197 20 Output Total 1125 1125 0 Balance 280.969 -115 20 Weight 116.8 kg Intake: IV 240 220 20 Lactated Ringers 1,000 ml 240 220 20 @ 20 mls/hr IV .Q24H [facility] Rx#:[id number] Intake, IV Titration 83.969 250 Amount Heparin Sod,Pork in 0.45% 83.969 250 NaCl 25,000 unit In 0.45 % NaCl 1 250ml.bag @ 8. 9445 UNITS/KG/HR 10 mls/ hr IV .Q24H [facility] Rx#: [id number] Oral 1082 540 Output: Urine 1125 1125 0 Other: Voiding Method Urinal Urinal # Voids 0 - Labs CBC & Chem 7: 11/13/21 05:56 11/13/21 05:56 Labs: Abnormal Lab Results - Last 24 Hours (Table) 11/12/21 11/13/21 11/13/21 Range/Units 12:44 05:56 05:56 RBC 2.73 L (4.30-5.90) m/uL Hgb 8.2 L (13.0-17.5) gm/dL Hct 25.9 L (39.0-53.0) % APTT 46.7 H 49.5 H (22.0-30.0) sec Sodium (137-145) mmol/L Calcium (8.4-10.2) mg/dL 11/13/21 Range/Units 05:56 RBC (4.30-5.90) m/uL Hgb (13.0-17.5) gm/dL Hct (39.0-53.0) % APTT (22.0-30.0) sec Sodium 135 L (137-145) mmol/L Calcium 7.6 L (8.4-10.2) mg/dL
[2021-11-13] MEDS: METOPROLOL TARTRATE 25 MG TAB PO SCH ×2 (09:46→20:29)
[2021-11-13] MEDS: AMIODARONE 200 MG TAB PO SCH ×2 (09:46→20:29)
--- NOTE | 2021-11-13 10:06 | P.PN ---
Subjective Progress Note Date: 11/13/21 HISTORY OF PRESENT ILLNESS This is a 81-year-old male patient of Dr. Rivers with past medical history of rheumatic heart disease status post aortic valve replacement and mitral valve repair in 2012 at [facility],, noncritical CAD, history of paroxysmal atrial fibrillation, hypertension, generalized anxiety disorder, benign prostatic hypertrophy. Patient states that he had awakened at 2 AM when he had no feeling in his right lower extremity. He denies having any pain. He states it was very hard to walk and subsequently he did start to feel pain. He thought initially i t was a pinched nerve in his back but then he went on the Internet and did some research and was concerned that he had a blood clot. His then brought him into [facility] here in Hospital emergency center for evaluation on 11/03. CAT scan revealed occlusive thrombus in the common femoral, profunda and proximal superficial femoral artery as well as through the distal superficial femoral and popliteal arteries. Patient was taken urgently for angiogram and and TPA thrombolysis. 11/06: Patient remains in the intensive care unit. He has had drainage from the right groin which he states leak underneath him and he has been itchy from it all night. Hydrocortisone cream added. Patient has significant scrotal hematoma. Patient states that he was up all night due to pain. He is scheduled today to go back to or for angiogram and possible further procedures. Patient has been afebrile, heart rate 88, blood pressure 91/69, pulse ox 93% on room air. Repeat blood work reveals WBC 11, hemoglobin 10.5, platelet count 87. INR is 1.3. Sodium 134, BUN 19 and creatinine 1.02. Echocardiogram reveals EF of 40-45%, bioprosthetic aortic valve, [id number] mitral stenosis and regurgitation, mild tricuspid regurgitation, dilated ascending aorta. 11/07: Yesterday, patient underwent right lower extremity angiogram and thrombectomy in the common femoral artery in the OR. Patient remains in the intensive care unit. Overnight, patient went into SVT and a Merle was ordered by cardiology the patient converted prior to this being given. He was prior to that in atrial fibrillation controlled rate currently on Cardizem and heparin drip. Patient is noted to have significant hematoma to the groin area and also now hematuria. Hemoglobin is 8.5 and vascular his ordered transfusion 2 units of packed RBCs. Patient also also hypotensive today. He has been afeb rile, heart rate in the 90s,, pulse ox 100% on room air. Other lab work this morning reveals WBC 12.6, platelet count 92, INR 1.2. Sodium 133, potassium 3.9, chloride 109, CO2 21, BUN 26 and creatinine 1.03. Magnesium 1.8. Consult has been added for oncology regarding possible HIT. Patient is awake and alert, he is voicing frustration as his situation has not progressed as he was hoping. He is also frustrated that he is unable to use his phone and call out to his . Dr. Hatfield assisted patient with phone call to his . 11/08:patient remains in the intensive care unit in atrial fibrillation. He is still on a heparin drip with hematuria as well. Urology consult has been added. His hemoglobin today is7.5 status post 2 units of packed RBCs yesterday and he has ordered for 1 more unit of packed RBCs today. Patient states that he is feeling: Better today and seems more calm today.patient has a wound VAC in place.right lower extremity is warm to touch with Doppler pulse. 11/09: Patient remains in intensive care unit. Vascular surgery has ordered another unit of packed RBCs, hemoglobin this morning is 7.9. Patient has been seen by urology and recommended discontinuing Raines which will be done today. Patient is seen sitting up in a chair today and looks well in general. He is continued on a heparin drip. Patient has no insurance coverage for eliquis and plan is to resume Coumadin which was started last night. INR is 1. Discharge plan is home with homecare. 11/12: Patient is seen today in the intensive care unit and he remains on heparin drip, he is on Coumadin and INR is 1. He has been seen by urology and Raines catheters been removed. He has been able to void on his own but still having hematuria. Cardiology is transitioned him to oral amiodarone. Pulmonary medicine is planning to keep the patient in ICU for another 24 hours. Patient is afebrile, heart rate in the 70s and 80s, blood pressure 108/71, pulse ox 97% on room air. Repeat blood work reveals WBC 8.1, hemoglobin 8.4, platelet count 179. INR is 1.1. Sodium 135, electrolytes otherwise normal as well as any function. Total bilirubin 1.9. Liver function tests are normal. 11/13: Patient is doing much better today, still in the ICU, his pulse rate has been better controlled compared to yesterday, his INR still subtherapeutic. Patient remain on heparin drip but is off amiodarone drip and started on amiodarone 200 mg orally twice a day. Anticoagulation escobar patient will remain on heparin until his INR is above 2.0. Patient will be able to leave the ICU to go on step down unit for at least 48 more hours hopefully will be able to go home sometime this week. REVIEW OF SYSTEMS Constitutional: No fever, no chills, no night sweats. No weight change. No w eakness, fatigue or lethargy. No daytime sleepiness. EENT: No headache. No blurred vision or double vision, no loss of vision. No loss of Hearing, no ringing in the ears, no dizziness. No nasal drainage or congestion. No epistaxis. No sore throat. Lungs: No shortness of breath, cough, no sputum production. No wheezing. Cardiovascular: No chest pain, no lower extremity edema. No palpitations. No paroxysmal nocturnal dyspnea. No orthopnea. No lightheadedness or dizziness. No syncopal episodes. Abdominal: No abdominal pain. No nausea, vomiting. No diarrhea. No constipation. No bloody or tarry stools. No loss of appetite. Genitourinary: No dysuria, increased frequency, urgency. No urinary retention. Musculoskeletal: No myalgias. No muscle weakness, no gait dysfunction, no fr equent falls. No back pain. No neck pain. Integumentary: No wounds, no lesions. No rash or pruritus. No unusual bruising. No change in hair or nails. Hematoma groin, scrotum. Neurologic: No aphasia. No facial droop. No change in mentation. No head injury. No headache. No paralysis. No paresthesia. Painful right lower extremity Psychiatric: No depression. Noted anxiety-improved. No mood swings. Endocrine: No abnormal blood sugars. No weight change. No excessive sweating or thirst. No cold intolerance. PHYSICAL EXAMINATION Gen: This is a 81-year-old male. He is resting in the ICU recliner and appears to be comfortable and in no acute distress. HEENT: Head is atraumatic, normocephalic. Pupils equal, round. Sclerae is anicteric. NECK: Supple. No JVD. No lymphadenopathy. No thyromegaly. LUNGS: Clear to auscultation. No wheezes or rhonchi. No intercostal retractions. HEART: Regular rate and rhythm. Systolic ejection murmur.. ABDOMEN: Soft. Bowel sounds are present. No masses. No tenderness. EXTREMITIES: No pedal edema. No calf tenderness. DP Pulses obtained by Doppler. NEUROLOGICAL: Patient is awake, alert and oriented x3. Cranial nerves 2 through 12 are grossly intact. ASSESSMENT AND PLAN Acute limb ischemia, femoral popliteal artery occlusion, status post angiogram and TPA thrombolysis, status post repeat angiogram and thrombectomy. Continue current management per vascular surgery, Rheumatic heart disease status post aortic valve replacement and mitral valve repair in 2012, stable. Patient is currently on heparin drip and resumed on Coumadin. Continue to monitor INR, pharmacy is dosing Coumadin. History of paroxysmal atrial fibrillation. Continue patient on amiodarone 200 mg twice daily, Lopressor 12.5 mg twice daily, heparin drip, and on warfarin adjusted dose ~INR is above 2.5. Noncritical coronary artery disease. Still on medical management. Hypertension. Continue Lopressor 25 mg twice daily, Cardizem. Blood pressure is well-controlled is not low at this point. Generalized anxiety disorder. Continue Xanax 0.25 milligrams at bedtime Benign prostatic hypertrophy. Continue Flomax 0.4 milligrams daily. Thrombocytopenia. Continue to monitor. Possible HIT. Consult with oncology appreciated, ruled out. Sinus tachycardia, converted. Cardiology and consult. Ventricular tachycardia status post IV amiodarone. Cardiology consult appreciated. Patient is currently on oral amiodarone and beta alanis. Pulse rate is better so far. Hematuria. As been a clear compared to early this week, Raines catheter is out. GI prophylaxis. Protonix DVT prophylaxis. Heparin and warfarin With status: Full code DISCHARGE PLAN Home with homecare sometime this week. Objective - Vital Signs Vital signs: Vital Signs Temp 98.4 F 11/13/21 04:00 Pulse 87 11/13/21 07:00 Resp 14 11/13/21 07:00 BP 118/79 11/13/21 07:00 Pulse Ox 95 11/13/21 07:00 FiO2 Intake & Output 11/12/21 11/13/21 11/13/21 18:59 06:59 18:59 Intake Total 9840.869 3263 20 Output Total 1125 1125 0 Balance 280.969 -115 20 Weight 116.8 kg Intake: IV 240 220 20 Lactated Ringers 1,000 ml 240 220 20 @ 20 mls/hr IV .Q24H ZAINA Rx#:[id number] Intake, IV Titration 83.969 250 Amount Heparin Sod,Pork in 0.45% 83.969 250 NaCl 25,000 unit In 0.45 % NaCl 1 250ml.bag @ 8. 9445 UNITS/KG/HR 10 mls/ hr IV .Q24H ZAINA Rx#: [id number] Oral [id number] Output: Urine 1125 1125 0 Other: Voiding Method Urinal Urinal # Voids 0 - Labs CBC & Chem 7: 11/13/21 05:56 11/13/21 05:56 Labs: Abnormal Lab Results - Last 24 Hours (Table) 11/12/21 11/13/21 11/13/21 Range/Units 12:44 05:56 05:56 RBC 2.73 L (4.30-5.90) m/uL Hgb 8.2 L (13.0-17.5) gm/dL Hct 25.9 L (39.0-53.0) % APTT 46.7 H 49.5 H (22.0-30.0) sec Sodium (137-145) mmol/L Calcium (8.4-10.2) mg/dL 11/13/21 Range/Units 05:56 RBC (4.30-5.90) m/uL Hgb (13.0-17.5) gm/dL Hct (39.0-53.0) % APTT (22.0-30.0) sec Sodium 135 L (137-145) mmol/L Calcium 7.6 L (8.4-10.2) mg/dL
--- NOTE | 2021-11-13 10:23 | P.PN ---
Subjective Progress Note Date: 11/13/21 Principal diagnosis: Acute limb ischemia Patient is a pleasant 81-year-old male who is being seen as a follow-up for acute limb ischemia. He remains in the ICU. He is postop day #6 of right lower extremity open thrombectomy. The patient had developed wide-complex tachycardia, cardiology is on board. He also has a history atrial fibrillation and the are transitioning him to his oral Coumadin, however INR still is not therapeutic. He remains on IV heparin. No acute changes through the night. He denies any bleeding from his surgical site. He has good bilateral lower e xtremity range of motion. Denies any pain to the right lower extremity. Objective - Vital Signs Vital signs: Vital Signs Temp 98.4 F 11/13/21 04:00 Pulse 87 11/13/21 07:00 Resp 14 11/13/21 07:00 BP 118/79 11/13/21 07:00 Pulse Ox 95 11/13/21 07:00 FiO2 Intake & Output 11/12/21 11/13/21 11/13/21 18:59 06:59 18:59 Intake Total 9698.201 4573 20 Output Total 1125 1125 0 Balance 280.969 -115 20 Weight 116.8 kg Intake: IV 240 220 20 Lactated Ringers 1,000 ml 240 220 20 @ 20 mls/hr IV .Q24H ZAINA Rx#:[id number] Intake, IV Titration 83.969 250 Amount Heparin Sod,Pork in 0.45% 83.969 250 NaCl 25,000 unit In 0.45 % NaCl 1 250ml.bag @ 8. 9445 UNITS/KG/HR 10 mls/ hr IV .Q24H ZAINA Rx#: [id number] Oral [id number] Output: Urine 1125 1125 0 Other: Voiding Method Urinal Urinal # Voids 0 - Exam General appearance: The patient is alert, oriented, appears in no acute distress. HET: Head is normocephalic and atraumatic. Neck: Supple without lymphadenopathy. Trachea midline. Heart: Irregular rate and rhythm. Lungs: Clear to auscultation bilaterally. Abdomen: Soft, nontender, nondistended. Genitourinary: Scrotum swollen, ecchymotic. Gross hematuria in Raines catheter. Skin: Ecchymosis along the left groin thigh and surrounding to the left flank. Extremities: Right lower extremity with Prevena wound vac in place with a noted blister underneath the Tegaderm. Provine a dressing removed, incision well approximated with saul. Skin tear noted where blister was.Right lower extremity warm to touch with good sensation and mobility. Palpable PT pulse. Left lower extremity with significant ecchymosis to the left groin and hip, no hematoma palpated. Full range of motion of the left lower extremity. PT and DP Doppler signal present. Neurological: No focal deficits. Sensation intact. - Labs CBC & Chem 7: 11/13/21 05:56 11/13/21 05:56 Labs: Abnormal Lab Results - Last 24 Hours (Table) 11/12/21 11/13/21 11/13/21 Range/Units 12:44 05:56 05:56 RBC 2.73 L (4.30-5.90) m/uL Hgb 8.2 L (13.0-17.5) gm/dL Hct 25.9 L (39.0-53.0) % APTT 46.7 H 49.5 H (22.0-30.0) sec Sodium (137-145) mmol/L Calcium (8.4-10.2) mg/dL 11/13/21 Range/Units 05:56 RBC (4.30-5.90) m/uL Hgb (13.0-17.5) gm/dL Hct (39.0-53.0) % APTT (22.0-30.0) sec Sodium 135 L (137-145) mmol/L Calcium 7.6 L (8.4-10.2) mg/dL Assessment and Plan Assessment: 1. Post right lower extremity open thrombectomy 2. Acute limb ischemia right lower extremity, initiation of TPA 3. Atrial fibrillation subtherapeutic on anticoagulation 4. Acute blood loss anemia 5. Thrombocytopenia 6. Hematuria 7. Atrial fibrillation Plan: 1. Anticoagulation per recommendation from cardiology 2. Daily CBC CMP 3. Continue medical management 4. Encourage ambulation 5. Incentive spirometer to bedside 6. The patient is cleared for discharge from vascular surgery once otherwise deemed medically stable. The impression and plan of care has been dictated as directed. Dr. Vicente I performed a history and examination of this patient, discussed the same with the dictator. I agree with the dictator's note ,documented as a scribe. Any additional findings or plans will be noted.
--- NOTE | 2021-11-13 12:10 | P.PN ---
Subjective Progress Note Date: 11/13/21 On today's evaluation of 11/12/2021, the patient is doing well. The patient will specific complaints. The patient is postop day #6. He is having Doppler significant and lower extremity is bilaterally. Extremities are quite warm for now. No leg pain. No numbness or tingling. No chest pain. No shortness of breath. He remains on IV heparin. He has history of atrial fibrillation and the patient needs to be transitioned gradually to long-term anticoagulant in the form of warfarin. On his blood work today, the patient has a white cell count of 8.0 with a hemoglobin A1c 0.4 with a platelet count of 179. Sodium is at 135 with a potassium level of 4.3 and the BUN is at 18 with a creatinine of 0.9. He has no other complaints otherwise for now. He is utilizing mini Dilaudid for pain control. Note that cardiology is also on the case. The patient developed a wide complex tachycardia and for that reason he got transferred back to the intensive care unit. The patient is currently on amiodarone. Rhythm is sinus. No angina. No palpitations. On today's evaluation of 11/13/2021, the patient is postop day #7. The patient is doing well. Extremities are warm. He remains on IV heparin and started on warfarin yesterday. The patient was given a dose of 5 mg of Coumadin yesterday and the PT/INR still subtherapeutic at 1.1. Otherwise, the patient will specific complaints. No chest pain. No shortness of breath. No cardiac arrhythmias. Doppler significant obtained and the foot bilaterally. The patient remains on oral amiodarone. Cardiac rhythm is still sinus. On today's evaluation, the patient has a white cell count of 8 with a hemoglobin 8.2, BUN is at 80 with a creatinine of 0.9 and sodium level of 135. Vascular surgery and cardiology are both on the case. No interval worsening of the hematoma is noted in the left thigh/groin area. Objective - Vital Signs Vital signs: Vital Signs Temp 98.4 F 11/13/21 04:00 Pulse 87 11/13/21 07:00 Resp 14 11/13/21 07:00 BP 118/79 11/13/21 07:00 Pulse Ox 95 11/13/21 07:00 FiO2 Intake & Output 11/12/21 11/13/21 11/13/21 18:59 06:59 18:59 Intake Total 7576.421 7516 20 Output Total 1125 1125 0 Balance 280.969 -115 20 Weight 116.8 kg Intake: IV 240 220 20 Lactated Ringers 1,000 ml 240 220 20 @ 20 mls/hr IV .Q24H ZAINA Rx#:[id number] Intake, IV Titration 83.969 250 Amount Heparin Sod,Pork in 0.45% 83.969 250 NaCl 25,000 unit In 0.45 % NaCl 1 250ml.bag @ 8. 9445 UNITS/KG/HR 10 mls/ hr IV .Q24H ZAINA Rx#: [id number] Oral [id number] Output: Urine 1125 1125 0 Other: Voiding Method Urinal Urinal # Voids 0 - Exam GENERAL EXAM: Alert, 81-year-old male patient, on RA, comfortable in no apparent distress. HEAD: Normocephalic. EYES: Normal reaction of pupils, equal size. NOSE: Clear with pink turbinates. THROAT: No erythema or exudates. NECK: No masses, no JVD. CHEST: No chest wall deformity. LUNGS: Equal air entry with no crackles, wheeze, rhonchi or dullness. CVS: S1 and S2 normal with no audible murmur, irregular rhythm. ABDOMEN: No hepatosplenomegaly, normal bowel sounds, no guarding or rigidity. SPINE: No scoliosis or deformity SKIN: No rashes, the patient is a wound VAC over the right groin area and there are some areas of skin blisters on the right groin which is intact. Patient also has a ecchymotic area in the left groin and hip area which remains stable. CENTRAL NERVOUS SYSTEM: No focal deficits, tone is normal in all 4 extremities. EXTREMITIES: Right lower extremity with Prevena wound VAC in place. Good sensation and mobility. Doppler pulses present. Left lower extremity with ecchymosis to left groin and hip. Doppler pulses present. - Labs CBC & Chem 7: 11/13/21 05:56 11/13/21 05:56 Labs: Abnormal Lab Results - Last 24 Hours (Table) 11/12/21 11/13/21 11/13/21 Range/Units 12:44 05:56 05:56 RBC 2.73 L (4.30-5.90) m/uL Hgb 8.2 L (13.0-17.5) gm/dL Hct 25.9 L (39.0-53.0) % APTT 46.7 H 49.5 H (22.0-30.0) sec Sodium (137-145) mmol/L Calcium (8.4-10.2) mg/dL 11/13/21 Range/Units 05:56 RBC (4.30-5.90) m/uL Hgb (13.0-17.5) gm/dL Hct (39.0-53.0) % APTT (22.0-30.0) sec Sodium 135 L (137-145) mmol/L Calcium 7.6 L (8.4-10.2) mg/dL Assessment and Plan Plan: Acute ischemia right lower extremity secondary to femoral/popliteal thrombosis, status post right lower extremity angiogram and placement of a catheter for TPA for thrombolysis 3 on 11/04/2021, and 11/05/2021. Patient had undergone an open thrombectomy on 11/06/2021. Post operative day #7. He has a wound vac on the surgical site. Patient is doing well. Surgical wound site is dry clean and intact. The patient has Doppler significant and lower extremity bilaterally. Hemodynamically stable on IV heparin. started on warfarin and he received 5 mg yesterday, INR is 1.1 Episode of ventricular tachycardia 11/10/2021 the patient was resumed on a heparin drip and initiated on amiodarone po, 200 mg BID. and metoprolol 25 mg BID CAD/ CABG PAD, RLE fem-pop and left tibial Left groin ecchymosis Gross hematuria being followed by urology, active and zhang is removed Previous SVT chronic atrial fibrillation with controlled ventricular rate, in IV herapin (outpatient coumadin) Hypotension, related to acute blood loss anemia, received 3 unit of packed red blood cells during the hospital History of paroxysmal atrial fibrillation on Coumadin which was subtherapeutic on admission Benign essential hypertension History of bioprosthetic aortic valve replacement and mitral valve repair in 2012 History of left atrial thrombus Coronary artery disease History of COVID-19 infection in 2020 Plan: Continue IV heparin Continue on warfarin, monitor PT/INR and keep the IV heparin until the INR is therapeutic Continue Lopressor Continue amiodarone Patient is currently on room air oxygen Monitor pulse lower extremities Vascular surgeries on the case Bioinformatics Programmer on the case May transfer out of the intensive care unit and all parties involved in the patient's care agree.
[2021-11-13] MEDS: LACTATED RINGERS 1,000 ML IV SCH (17:38)
[2021-11-13] MEDS ORDERED: WARFARIN 7.5 MG TAB PO ONE (18:00)
[2021-11-13] MEDS: TAMSULOSIN 0.4 MG CAP.ER.24H PO SCH (20:29)
[2021-11-14] MEDS: ALPRAZolam 0.25 MG TAB PO PRN (02:33)
[2021-11-14] MEDS: PANTOPRAZOLE 40 MG TABLET PO SCH (06:29)
[2021-11-14] MEDS: METOPROLOL TARTRATE 25 MG TAB PO SCH ×2 (08:17→20:15)
[2021-11-14] MEDS: AMIODARONE 200 MG TAB PO SCH ×2 (08:17→20:15)
[2021-11-14 08:52] LABS: INR 1.3 (<1.2); Prothrombin Time 13.1 sec (9.0-12.0)
--- NOTE | 2021-11-14 09:36 | P.PN ---
Subjective Progress Note Date: 11/14/21 HISTORY OF PRESENT ILLNESS This is a 81-year-old male patient of Dr. Rivers with past medical history of rheumatic heart disease status post aortic valve replacement and mitral valve repair in 2012 at [facility],, noncritical CAD, history of paroxysmal atrial fibrillation, hypertension, generalized anxiety disorder, benign prostatic hypertrophy. Patient states that he had awakened at 2 AM when he had no feeling in his right lower extremity. He denies having any pain. He states it was very hard to walk and subsequently he did start to feel pain. He thought initially i t was a pinched nerve in his back but then he went on the Internet and did some research and was concerned that he had a blood clot. His then brought him into [facility] here in [facility] emergency center for evaluation on 11/03. CAT scan revealed occlusive thrombus in the common femoral, profunda and proximal superficial femoral artery as well as through the distal superficial femoral and popliteal arteries. Patient was taken urgently for angiogram and and TPA thrombolysis. 11/06: Patient remains in the intensive care unit. He has had drainage from the right groin which he states leak underneath him and he has been itchy from it all night. Hydrocortisone cream added. Patient has significant scrotal hematoma. Patient states that he was up all night due to pain. He is scheduled today to go back to or for angiogram and possible further procedures. Patient has been afebrile, heart rate 88, blood pressure 91/69, pulse ox 93% on room air. Repeat blood work reveals WBC 11, hemoglobin 10.5, platelet count 87. INR is 1.3. Sodium 134, BUN 19 and creatinine 1.02. Echocardiogram reveals EF of 40-45%, bioprosthetic aortic valve, [id number] mitral stenosis and regurgitation, mild tricuspid regurgitation, dilated ascending aorta. 11/07: Yesterday, patient underwent right lower extremity angiogram and thrombectomy in the common femoral artery in the OR. Patient remains in the intensive care unit. Overnight, patient went into SVT and a Merle was ordered by cardiology the patient converted prior to this being given. He was prior to that in atrial fibrillation controlled rate currently on Cardizem and heparin drip. Patient is noted to have significant hematoma to the groin area and also now hematuria. Hemoglobin is 8.5 and vascular his ordered transfusion 2 units of packed RBCs. Patient also also hypotensive today. He has been afeb rile, heart rate in the 90s,, pulse ox 100% on room air. Other lab work this morning reveals WBC 12.6, platelet count 92, INR 1.2. Sodium 133, potassium 3.9, chloride 109, CO2 21, BUN 26 and creatinine 1.03. Magnesium 1.8. Consult has been added for oncology regarding possible HIT. Patient is awake and alert, he is voicing frustration as his situation has not progressed as he was hoping. He is also frustrated that he is unable to use his phone and call out to his . Dr. Hatfield assisted patient with phone call to his . 11/08:patient remains in the intensive care unit in atrial fibrillation. He is still on a heparin drip with hematuria as well. Urology consult has been added. His hemoglobin today is7.5 status post 2 units of packed RBCs yesterday and he has ordered for 1 more unit of packed RBCs today. Patient states that he is feeling: Better today and seems more calm today.patient has a wound VAC in place.right lower extremity is warm to touch with Doppler pulse. 11/09: Patient remains in intensive care unit. Vascular surgery has ordered another unit of packed RBCs, hemoglobin this morning is 7.9. Patient has been seen by urology and recommended discontinuing Raines which will be done today. Patient is seen sitting up in a chair today and looks well in general. He is continued on a heparin drip. Patient has no insurance coverage for eliquis and plan is to resume Coumadin which was started last night. INR is 1. Discharge plan is home with homecare. 11/12: Patient is seen today in the intensive care unit and he remains on heparin drip, he is on Coumadin and INR is 1. He has been seen by urology and Raines catheters been removed. He has been able to void on his own but still having hematuria. Cardiology is transitioned him to oral amiodarone. Pulmonary medicine is planning to keep the patient in ICU for another 24 hours. Patient is afebrile, heart rate in the 70s and 80s, blood pressure 108/71, pulse ox 97% on room air. Repeat blood work reveals WBC 8.1, hemoglobin 8.4, platelet count 179. INR is 1.1. Sodium 135, electrolytes otherwise normal as well as any function. Total bilirubin 1.9. Liver function tests are normal. 11/13: Patient is doing much better today, still in the ICU, his pulse rate has been better controlled compared to yesterday, his INR still subtherapeutic. Patient remain on heparin drip but is off amiodarone drip and started on amiodarone 200 mg orally twice a day. Anticoagulation escobar patient will remain on heparin until his INR is above 2.0. Patient will be able to leave the ICU to go on step down unit for at least 48 more hours hopefully will be able to go home sometime this week. 11/14: Patient is seen today on the cardiac stepdown unit. Cardiology has mentioned need for LifeVest and also look at nominal anticoagulation. [employer] worker contacted to obtain order from cardiology regarding LifeVest. We will wait for further recommendations regarding anticoagulation from cardiology. INR today is at 1.3 and he is on a heparin drip. child monitor is atrial fibrillation with controlled rate. Patient is reaching 2500 on incentive spirometry. He denies any new concerns, no chest pain, no shortness of breath, no lightheadedness or dizziness. Patient remains afebrile, heart rate 68, blood pressure 94/62 and pulse ox 90% on room air. Patient is voiding on his own without any difficulty. Vascular surgery has cleared the patient for discharge. Patient's discharge plan is to return home with home care which is been arranged. REVIEW OF SYSTEMS Constitutional: No fever, no chills, no night sweats. No weight change. No weakness, fatigue or lethargy. No daytime sleepiness. EENT: No headache. No blurred vision or double vision, no loss of vision. No loss of Hearing, no ringing in the ears, no dizziness. No nasal drainage or congestion. No epistaxis. No sore throat. Lungs: No shortness of breath, cough, no sputum production. No wheezing. Cardiovascular: No chest pain, no lower extremity edema. No palpitations. No paroxysmal nocturnal dyspnea. No orthopnea. No lightheadedness or dizziness. No syncopal episodes. Abdominal: No abdominal pain. No nausea, vomiting. No diarrhea. No constipation. No bloody or tarry stools. No loss of appetite. Genitourinary: No dysuria, increased frequency, urgency. No urinary retention. Musculoskeletal: No myalgias. No muscle weakness, no gait dysfunction, no frequent falls. No back pain. No neck pain. Integumentary: No wounds, no lesions. No rash or pruritus. No unusual bruising. No change in hair or nails. Hematoma groin, scrotum. Neurologic: No aphasia. No facial droop. No change in mentation. No head injury. No headache. No paralysis. No paresthesia. Painful right lower extremity Psychiatric: No depression. Noted anxiety-improved. No mood swings. Endocrine: No abnormal blood sugars. No weight change. No excessive sweating or thirst. PHYSICAL EXAMINATION Gen: This is a 81-year-old male. He is resting in bed and appears to be comfortable and in no acute distress. HEENT: Head is atraumatic, normocephalic. Pupils equal, round. Sclerae is anic teric. NECK: Supple. No JVD. No lymphadenopathy. No thyromegaly. LUNGS: Clear to auscultation. No wheezes or rhonchi. No intercostal retractions. HEART: Regular rate and rhythm. Systolic ejection murmur.. ABDOMEN: Soft. Bowel sounds are present. No masses. No tenderness. EXTREMITIES: No pedal edema. No calf tenderness. NEUROLOGICAL: Patient is awake, alert and oriented x3. Cranial nerves 2 through 12 are grossly intact. ASSESSMENT AND PLAN Acute limb ischemia, femoral popliteal artery occlusion, status post angiogram and TPA thrombolysis, status post repeat angiogram and thrombectomy. Continue current management per vascular surgery, Rheumatic heart disease status post aortic valve replacement and mitral valve repair in 2012, stable. Patient is currently on heparin drip and resumed on Coumadin. Continue to monitor INR, pharmacy is dosing Coumadin. History of paroxysmal atrial fibrillation. Continue patient on amiodarone 200 mg twice daily, Lopressor 25 mg twice daily, heparin drip, and on warfarin adjusted dose ~INR is above 2.5. Noncritical coronary artery disease. Still on medical management. Hypertension. Continue Lopressor 25 mg twice daily, Cardizem. Blood pressure is well-controlled is not low at this point. Generalized anxiety disorder. Continue Xanax 0.25 milligrams at bedtime Benign prostatic hypertrophy. Continue Flomax 0.4 milligrams daily. Thrombocytopenia. Continue to monitor. Possible HIT. Consult with oncology appreciated, ruled out. Sinus tachycardia, converted. Cardiology and consult. Ventricular tachycardia status post IV amiodarone. Cardiology consult appreciated. Patient is currently on oral amiodarone and beta alanis. Pulse rate is better so far. Hematuria. As been a clear compared to early this week, Raines catheter is out. GI prophylaxis. Protonix DVT prophylaxis. Heparin and warfarin With status: Full code DISCHARGE PLAN Home with [facility]. Impression and plan of care have been directed as dictated by the signing physician. Elysia Maria nurse practitioner acting as scribe for signing physician. Objective - Vital Signs Vital signs: Vital Signs Temp 98.0 F 11/14/21 07:55 Pulse 73 11/14/21 07:55 Resp 17 11/14/21 07:55 BP 94/62 11/14/21 07:55 Pulse Ox 98 11/14/21 07:55 FiO2 Intake & Output 11/13/21 11/14/21 11/14/21 18:59 06:59 18:59 Intake Total 1220 520 Output Total 375 1250 Balance 845 -730 Intake: IV 60 40 Lactated Ringers 1,000 ml 60 40 @ 20 mls/hr IV .Q24H [facility] Rx#:[id number] Oral 1160 480 Output: Urine 375 1250 Other: Voiding Method Urinal Urinal # Voids 1 - Labs CBC & Chem 7: 11/13/21 05:56 11/13/21 05:56 Labs: Abnormal Lab Results - Last 24 Hours (Table) 11/14/21 Range/Units 07:25 PT 13.1 H (9.0-12.0) sec INR 1.3 H (<1.2) APTT 48.0 H (22.0-30.0) sec
--- NOTE | 2021-11-14 10:02 | P.PN ---
Subjective Progress Note Date: 11/14/21 Principal diagnosis: Acute limb ischemia Patient is a pleasant 81-year-old male who is being seen as a follow-up for acute limb ischemia. He was transferred out of the ICU to [facility] care. States he did not sleep well otherwise no complaints. He is post right lower extremity open thrombectomy. He also has a history atrial fibrillation and the are transitioning him to his oral Coumadin, however INR still is not therapeutic. He remains on IV heparin. No acute changes through the night. He denies any bleeding from his surgical site. He has good bilateral lower extremity range of motion. Denies any pain to the right lower extremity. Objective - Vital Signs Vital signs: Vital Signs Temp 98.0 F 11/14/21 07:55 Pulse 73 11/14/21 07:55 Resp 17 11/14/21 07:55 BP 94/62 11/14/21 07:55 Pulse Ox 98 11/14/21 07:55 FiO2 Intake & Output 11/13/21 11/14/21 11/14/21 18:59 06:59 18:59 Intake Total 1220 520 Output Total 375 1250 Balance 845 -730 Intake: IV 60 40 Lactated Ringers 1,000 ml 60 40 @ 20 mls/hr IV .Q24H [facility] Rx#:[id number] Oral 1160 480 Output: Urine 375 1250 Other: Voiding Method Urinal Urinal # Voids 1 - Exam General appearance: The patient is alert, oriented, appears in no acute distress. HET: Head is normocephalic and atraumatic. Neck: Supple without lymphadenopathy. Trachea midline. Heart: Irregular rate and rhythm. Lungs: Clear to auscultation bilaterally. Abdomen: Soft, nontender, nondistended. Genitourinary: Scrotum swollen, ecchymotic. Gross hematuria in Raines catheter. Skin: Ecchymosis along the left groin thigh and surrounding to the left flank. Extremities: Right lower extremity with Prevena wound vac in place with a noted blister underneath the Tegaderm. Provine a dressing removed, incision well approximated with saul. Skin tear noted where blister was.Right lower extremity warm to touch with good sensation and mobility. Palpable PT pulse. Left lower extremity with significant ecchymosis to the left groin and hip, no hematoma palpated. Full range of motion of the left lower extremity. PT and DP Doppler signal present. Neurological: No focal deficits. Sensation intact. - Labs CBC & Chem 7: 11/13/21 05:56 11/13/21 05:56 Assessment and Plan Assessment: 1. Post right lower extremity open thrombectomy 2. Acute limb ischemia right lower extremity, initiation of TPA 3. Atrial fibrillation subtherapeutic on anticoagulation 4. Acute blood loss anemia 5. Thrombocytopenia 6. Hematuria 7. Atrial fibrillation Plan: 1. Anticoagulation per recommendation from cardiology 2. Continue medical management 3. Encourage ambulation 4. Incentive spirometer to bedside 5. The patient is cleared for discharge from vascular surgery once otherwise deemed medically stable. The impression and plan of care has been dictated as directed. Dr. Raines I performed a history and examination of this patient, discussed the same with the dictator. I agree with the dictator's note ,documented as a scribe. Any additional findings or plans will be noted.
--- NOTE | 2021-11-14 12:42 | P.PN ---
Subjective Progress Note Date: 11/14/21 HISTORY OF PRESENT ILLNESS: The patient is a 81-year-old male with past medical history of severe peripheral vascular disease who is currently admitted after undergoing open thrombectomy for a right SFA occlusion. Cardiology was consulted after the patient developed wide-complex tachycardia 1 stepdown unit. Patient was bolused with IV amiodarone with resolution of ventricular tachycardia. 11/13/2021 The patient was interviewed and examined this morning lying comfortably in bed. He states he did well overnight without any difficulty breathing, chest pains, or palpitations. 11/14/2021 Patient examined this morning at the bedside. Patient denies chest pain or pr essure. He denies shortness of breath. No further episodes of ventricular tachycardia noted. Patient remains on IV heparin. INR is 1.3 today. Echocardiogram completed revealing ejection fraction 40-45%. PHYSICAL EXAM: VITAL SIGNS: Reviewed. GENERAL: Well-developed in no acute distress. NECK: Supple. No JVD or thyromegaly LUNGS: Respirations even and unlabored. Lungs essentially clear to auscultation bilaterally. HEART: Regular rate and rhythm. S1 and S2 heard. EXTREMITIES: Normal range of motion. No clubbing or cyanosis. Peripheral pulses intact. No lower extremity edema ASSESSMENT: Ventricular tachycardia Peripheral vascular disease, status post open thrombectomy for right SFA occlusion Paroxysmal atrial fibrillation Subtherapeutic INR History of aortic valve replacement and mitral valve repair, 2012 PLAN: Continue current cardiac medications Continue current dose of amiodarone 200 mg twice a day for [address] Faye Patient will require Lifevest at the time of discharge secondary to cardiomyopathy with ventricular tachycardia Continue IV heparin. Continue Coumadin. Monitor INR Continue telemetry monitoring Further recommendations pending patient's course Nurse practitioner note has been reviewed by physician. Signing provider agrees with the documented findings, assessment, and plan of care. Objective - Vital Signs Vital signs: Vital Signs Temp 97.7 F 11/14/21 11:32 Pulse 86 11/14/21 12:05 Resp 17 11/14/21 11:32 BP 113/72 11/14/21 11:32 Pulse Ox 98 11/14/21 11:32 FiO2 Intake & Output 11/13/21 11/14/21 11/14/21 18:59 06:59 18:59 Intake Total 1220 520 Output Total 375 1250 300 Balance 845 -730 -300 Intake: IV 60 40 Lactated Ringers 1,000 ml 60 40 @ 20 mls/hr IV .Q24H [facility] Rx#:[id number] Oral 1160 480 Output: Urine 375 1250 300 Other: Voiding Method Urinal Urinal Urinal # Voids 1 - Labs CBC & Chem 7: 11/13/21 05:56 11/13/21 05:56 Labs: Abnormal Lab Results - Last 24 Hours (Table) 11/14/21 Range/Units 07:25 PT 13.1 H (9.0-12.0) sec INR 1.3 H (<1.2) APTT 48.0 H (22.0-30.0) sec
--- NOTE | 2021-11-14 14:26 | P.PN ---
Subjective Progress Note Date: 11/14/21 On today's evaluation of 11/12/2021, the patient is doing well. The patient will specific complaints. The patient is postop day #6. He is having Doppler significant and lower extremity is bilaterally. Extremities are quite warm for now. No leg pain. No numbness or tingling. No chest pain. No shortness of breath. He remains on IV heparin. He has history of atrial fibrillation and the patient needs to be transitioned gradually to long-term anticoagulant in the form of warfarin. On his blood work today, the patient has a white cell count of 8.0 with a hemoglobin A1c 0.4 with a platelet count of 179. Sodium is at 135 with a potassium level of 4.3 and the BUN is at 18 with a creatinine of 0.9. He has no other complaints otherwise for now. He is utilizing mini Dilaudid for pain control. Note that cardiology is also on the case. The patient developed a wide complex tachycardia and for that reason he got transferred back to the intensive care unit. The patient is currently on amiodarone. Rhythm is sinus. No angina. No palpitations. On today's evaluation of 11/13/2021, the patient is postop day #7. The patient is doing well. Extremities are warm. He remains on IV heparin and started on warfarin yesterday. The patient was given a dose of 5 mg of Coumadin yesterday and the PT/INR still subtherapeutic at 1.1. Otherwise, the patient will specific complaints. No chest pain. No shortness of breath. No cardiac arrhythmias. Doppler significant obtained and the foot bilaterally. The patient remains on oral amiodarone. Cardiac rhythm is still sinus. On today's evaluation, the patient has a white cell count of 8 with a hemoglobin 8.2, BUN is at 80 with a creatinine of 0.9 and sodium level of 135. Vascular surgery and cardiology are both on the case. No interval worsening of the hematoma is noted in the left thigh/groin area. 11/14/2021, the patient is postop day #8. Transfer this patient out of the intensive care unit yesterday. The patient is currently on telemetry unit. The patient is calm and comfortable and he has no specific complaints. He is postop day #8. He is started on anticoagulation with warfarin and he'll be receiving 6 mg of Coumadin today. His INR from today is at 1.3. 7, the patient remains on IV heparin. No chest pain. No angina. Overnight, the patient had another nonsustained V. tach and cardiology was made aware. He is on amiodarone 200 mg by mouth twice a day and is also on metoprolol 25 mg twice a day. Note that his echocardiogram showed an ejection fraction of 40-45%. The patient will require LifeVest at a time of discharge secondary to his underlying cardiomyopathy. Cardiology remains on the case. From the vascular standpoint, the patient has improved and his extremities are warm. He is using incentive spirometer. No altered mentation. Pulse ox was around 90%. INR is at 1.3. Rest of the blood work from today are still pending. Hemoglobin from yesterday was 8.2. Objective - Vital Signs Vital signs: Vital Signs Temp 97.7 F 11/14/21 11:32 Pulse 86 11/14/21 12:05 Resp 17 11/14/21 11:32 BP 113/72 11/14/21 11:32 Pulse Ox 98 11/14/21 11:32 FiO2 Intake & Output 11/13/21 11/14/21 11/14/21 18:59 06:59 18:59 Intake Total 1220 520 Output Total 375 1250 300 Balance 845 -730 -300 Intake: IV 60 40 Lactated Ringers 1,000 ml 60 40 @ 20 mls/hr IV .Q24H [facility] Rx#:[id number] Oral 1160 480 Output: Urine 375 1250 300 Other: Voiding Method Urinal Urinal Urinal # Voids 1 - Exam GENERAL EXAM: Alert, 81-year-old male patient, on RA, comfortable in no apparent distress. HEAD: Normocephalic. EYES: Normal reaction of pupils, equal size. NOSE: Clear with pink turbinates. THROAT: No erythema or exudates. NECK: No masses, no JVD. CHEST: No chest wall deformity. LUNGS: Equal air entry with no crackles, wheeze, rhonchi or dullness. CVS: S1 and S2 normal with no audible murmur, irregular rhythm. ABDOMEN: No hepatosplenomegaly, normal bowel sounds, no guarding or rigidity. SPINE: No scoliosis or deformity SKIN: No rashes, the patient is a wound VAC over the right groin area and there are some areas of skin blisters on the right groin which is intact. Patient also has a ecchymotic area in the left groin and hip area which remains stable. CENTRAL NERVOUS SYSTEM: No focal deficits, tone is normal in all 4 extremities. EXTREMITIES: Right lower extremity with Prevena wound VAC in place. Good sens ation and mobility. Doppler pulses present. Left lower extremity with ecchymosis to left groin and hip. Doppler pulses present. - Labs CBC & Chem 7: 11/13/21 05:56 11/13/21 05:56 Labs: Abnormal Lab Results - Last 24 Hours (Table) 11/14/21 Range/Units 07:25 PT 13.1 H (9.0-12.0) sec INR 1.3 H (<1.2) APTT 48.0 H (22.0-30.0) sec Assessment and Plan Plan: Acute ischemia right lower extremity secondary to femoral/popliteal thrombosis, status post right lower extremity angiogram and placement of a catheter for TPA for thrombolysis 3 on 11/04/2021, and 11/05/2021. Patient had undergone an open thrombectomy on 11/06/2021. Post operative day #7. He has a wound vac on the surgical site. Patient is doing well. Surgical wound site is dry clean and intact. The patient has Doppler significant and lower extremity bilaterally. Hemodynamically stable on IV heparin. started on warfarin and he received 5 mg yesterday, INR is 1.1 Episode of ventricular tachycardia 11/10/2021 the patient was resumed on a heparin drip and initiated on amiodarone po, 200 mg BID. and metoprolol 25 mg BID. The patient had another run of V. tach, nonsustained, yesterday. Cardiology is unaware CAD/ CABG PAD, RLE fem-pop and left tibial Left groin ecchymosis Gross hematuria being followed by urology, active and zhang is removed Previous SVT chronic atrial fibrillation with controlled ventricular rate, in IV herapin (outpatient coumadin) Hypotension, related to acute blood loss anemia, received 3 unit of packed red blood cells during the hospital History of paroxysmal atrial fibrillation on Coumadin which was subtherapeutic on admission Benign essential hypertension History of bioprosthetic aortic valve replacement and mitral valve repair in 2012 History of left atrial thrombus Coronary artery disease History of COVID-19 infection in 2020 Plan: Continue IV heparin Continue on warfarin, monitor PT/INR and keep the IV heparin until the INR is therapeutic and INR is at 1.3 Continue Lopressor Continue amiodarone Patient is currently on room air oxygen Monitor pulse lower extremities Vascular surgeries on the case Assistant Secretary on the case The patient will need a LifeVest at time of discharge No active pulmonary or critical care issues Critical care services we'll sign off the case for now.
[2021-11-14] MEDS: HEPARIN SOD,PORK IN 0.45% NACL 25,000 UNIT in 0.45% NACL 1 250ML.BAG IV SCH (16:30)
[2021-11-14] MEDS ORDERED: WARFARIN 3 MG TAB PO ONE (18:00)
[2021-11-14] MEDS: HYDROmorphone 0.5 MG/0.5 ML SYRINGE IVP PRN (20:15)
[2021-11-14] MEDS: TAMSULOSIN 0.4 MG CAP.ER.24H PO SCH (20:15)
[2021-11-15] MEDS: HYDROmorphone 0.5 MG/0.5 ML SYRINGE IVP PRN ×2 (03:26→09:18)
[2021-11-15] MEDS: LACTATED RINGERS 1,000 ML IV SCH ×2 (06:22→14:10)
[2021-11-15] MEDS: PANTOPRAZOLE 40 MG TABLET PO SCH (06:23)
[2021-11-15 08:42] LABS: INR 1.5 (<1.2); Partial Thromboplastin Time 58.7 sec (22.0-30.0); Prothrombin Time 15.3 sec (9.0-12.0)
--- NOTE | 2021-11-15 08:47 | P.DS ---
Providers Date of admission: 11/04/21 00:15 Expected date of discharge: 11/15/21 Attending physician: Richie Hatfield Consults: 11/04/21 01:19 Consult Physician Urgent Consulting Provider: Sarah López Consult Reason/Comments: icu mgmnt, ischemic limb on TPA Do you want consulting provider notified?: Yes 11/04/21 02:18 Consult Physician Routine Consulting Provider: Ulices Jarrett Consult Reason/Comments: Afib Do you want consulting provider notified?: Yes 11/05/21 07:55 Consult Physician Routine Consulting Provider: Richie Hatfield Consult Reason/Comments: medical management Do you want consulting provider notified?: Yes 11/07/21 08:18 Consult Physician Routine Consulting Provider: Ponce Woods Consult Reason/Comments: thrombocytopenia, possible HIT Do you want consulting provider notified?: Yes 11/08/21 08:20 Consult Physician Urgent Consulting Provider: Ho Clifton Consult Reason/Comments: gross hematuria Do you want consulting provider notified?: Yes 11/08/21 09:49 Consult Physician Routine Consulting Provider: Bethany Raines Consult Reason/Comments: acute limb ishcemia Do you want consulting provider notified?: Already Contacted Primary care physician: Alfred Rivers [facility] Course: HISTORY OF PRESENT ILLNESS This is a 81-year-old male patient of Dr. Rivers with past medical history of rheumatic heart disease status post aortic valve replacement and mitral valve repair in [address] [facility],, noncritical CAD, history of paroxysmal atrial fibrillation, hypertension, generalized anxiety disorder, benign prostatic hypertrophy. Patient states that he had awakened at 2 AM when he had no feeling in his right lower extremity. He denies having any pain. He states it was very hard to walk and subsequently he did start to feel pain. He thought initially it was a pinched nerve in his back but then he went on the Internet and did some research and was concerned that he had a blood clot. His then brought him into [facility] here in [facility] emergency center for evaluation on 11/03. CAT scan revealed occlusive thrombus in the common femoral, profunda and proximal superficial femoral artery as well as through the distal superficial femoral and popliteal arteries. Patient was taken urgently for angiogram and and TPA thrombolysis. 11/06: Patient remains in the intensive care unit. He has had drainage from the right groin which he states leak underneath him and he has been itchy from it all night. Hydrocortisone cream added. Patient has significant scrotal hematoma. Patient states that he was up all night due to pain. He is scheduled today to go back to or for angiogram and possible further procedures. Patient has been afebrile, heart rate 88, blood pressure 91/69, pulse ox 93% on room air. Repeat blood work reveals WBC 11, hemoglobin 10.5, platelet count 87. INR is 1.3. Sodium 134, BUN 19 and creatinine 1.02. Echocardiogram reveals EF of 40-45%, bioprosthetic aortic valve, [id number] mitral stenosis and regurgitation, mild tricuspid regurgitation, dilated ascending aorta. 11/07: Yesterday, patient underwent right lower extremity angiogram and thrombectomy in the common femoral artery in the OR. Patient remains in the intensive care unit. Overnight, patient went into SVT and a Merle was ordered by cardiology the patient converted prior to this being given. He was prior to that in atrial fibrillation controlled rate currently on Cardizem and heparin drip. Patient is noted to have significant hematoma to the groin area and also now hematuria. Hemoglobin is 8.5 and vascular his ordered transfusion 2 units of packed RBCs. Patient also also hypotensive today. He has been afebrile, heart rate in the 90s,, pulse ox 100% on room air. Other lab work this morning reveals WBC 12.6, platelet count 92, INR 1.2. Sodium 133, potassium 3.9, chloride 109, CO2 21, BUN 26 and creatinine 1.03. Magnesium 1.8. Consult has been added for oncology regarding possible HIT. Patient is awake and alert, he is voicing frustration as his situation has not progressed as he was hoping. He is also frustrated that he is unable to use his phone and call out to his . Dr. Hatfield assisted patient with phone call to his . 11/08:patient remains in the intensive care unit in atrial fibrillation. He is still on a heparin drip with hematuria as well. Urology consult has been added. His hemoglobin today is7.5 status post 2 units of packed RBCs yesterday and he has ordered for 1 more unit of packed RBCs today. Patient states that he is feeling: Better today and seems more calm today.patient has a wound VAC in place.right lower extremity is warm to touch with Doppler pulse. 11/09: Patient remains in intensive care unit. Vascular surgery has ordered another unit of packed RBCs, hemoglobin this morning is 7.9. Patient has been seen by urology and recommended discontinuing Raines which will be done today. Patient is seen sitting up in a chair today and looks well in general. He is continued on a heparin drip. Patient has no insurance coverage for eliquis and plan is to resume Coumadin which was started last night. INR is 1. Discharge plan is home with homecare. 11/12: Patient is seen today in the intensive care unit and he remains on heparin drip, he is on Coumadin and INR is 1. He has been seen by urology and Raines catheters been removed. He has been able to void on his own but still having hematuria. Cardiology is transitioned him to oral amiodarone. Pulmonary medicine is planning to keep the patient in ICU for another 24 hours. Patient is afebrile, heart rate in the 70s and 80s, blood pressure 108/71, pulse ox 97% on room air. Repeat blood work reveals WBC 8.1, hemoglobin 8.4, platelet count 179. INR is 1.1. Sodium 135, electrolytes otherwise normal as well as any function. Total bilirubin 1.9. Liver function tests are normal. 11/13: Patient is doing much better today, still in the ICU, his pulse rate has been better controlled compared to yesterday, his INR still subtherapeutic. Patient remain on heparin drip but is off amiodarone drip and started on amiodarone 200 mg orally twice a day. Anticoagulation escobar patient will remain on heparin until his INR is above 2.0. Patient will be able to leave the ICU to go on step down unit for at least 48 more hours hopefully will be able to go home sometime this week. 11/14: Patient is seen today on the cardiac stepdown unit. Cardiology has mentioned need for LifeVest and also look at nominal anticoagulation. child abuse worker contacted to obtain order from cardiology regarding LifeVest. We will wait for further recommendations regarding anticoagulation from cardiology. INR today is at 1.3 and he is on a heparin drip. residential monitor is atrial fibrillation with controlled rate. Patient is reaching 2500 on incentive spirometry. He denies any new concerns, no chest pain, no shortness of breath, no lightheadedness or dizziness. Patient remains afebrile, heart rate 68, blood pressure 94/62 and pulse ox 90% on room air. Patient is voiding on his own without any difficulty. Vascular surgery has cleared the patient for discharge. Patient's discharge plan is to return home with home care which is been arranged. 11/15: Patient denies any new concerns today. He states he did not sleep well last night. Patient has been cleared by cardiology for discharge home. Patient monitors his own INR at home and advised to do daily for a couple days and then as distracted. Patient will be given 1 dose of Coumadin 6 mg prior to discharge. Patient is waiting for LifeVest which will need to be provided prior to discharge. Patient has been afebrile, heart rate 96, blood pressure 116/64, pulse ox 96% on room air. INR is 1.5. Patient will be discharged once all arrangements are completed with LifeVest. DISCHARGE DIAGNOSES Acute limb ischemia, femoral popliteal artery occlusion, status post angiogram and TPA thrombolysis, status post repeat angiogram and thrombectomy. Rheumatic heart disease status post aortic valve replacement and mitral valve repair in 2012. History of paroxysmal atrial fibrillation. Noncritical coronary artery disease. Hypertension. Generalized anxiety disorder. Benign prostatic hypertrophy. Thrombocytopenia. Possible HIT ruled out. Sinus tachycardia, converted. Ventricular tachycardia status post IV amiodarone. Hematuria. DISCHARGE PLAN Home with [facility]. Greater than 35 minutes was utilized and coordinating patient's discharge. Impression and plan of care have been directed as dictated by the signing physician. Elysia Maria nurse practitioner acting as scribe for signing physician. Patient Condition at Discharge: Stable Plan - Discharge Summary Discharge Rx Participant: No New Discharge Prescriptions: New Amiodarone [Cordarone] 200 mg PO BID #60 tab Metoprolol Tartrate [Lopressor] 25 mg PO BID #60 tab Continue ALPRAZolam [Xanax] 0.25 mg PO HS PRN PRN Reason: Insomnia Cholecalciferol [Vitamin D3 (25 Mcg = 1000 Iu)] 25 mcg PO DAILY Melatonin Unknown Dose 1 tab PO HS Warfarin [Coumadin] 2.5 - 5 mg PO DAILY #0 Tamsulosin [Flomax] 0.4 mg PO HS Discontinued Ibuprofen [Motrin] 600 mg PO Q8HR PRN PRN Reason: Pain Losartan Potassium 50 mg PO DAILY Metoprolol Succinate [Toprol XL] 50 mg PO DAILY Naproxen 250 mg PO DAILY PRN PRN Reason: Pain Zinc 50 mg PO DAILY Discharge Medication List ALPRAZolam [Xanax] 0.25 mg PO HS PRN 11/03/21 [History] Cholecalciferol [Vitamin D3 (25 Mcg = 1000 Iu)] 25 mcg PO DAILY 11/03/21 [History] Melatonin Unknown Dose 1 tab PO HS 11/03/21 [History] Tamsulosin [Flomax] 0.4 mg PO HS 11/03/21 [History] Amiodarone [Cordarone] 200 mg PO BID #60 tab 11/15/21 [Rx] Metoprolol Tartrate [Lopressor] 25 mg PO BID #60 tab 11/15/21 [Rx] Warfarin [Coumadin] 2.5 - 5 mg PO DAILY #0 11/15/21 [Rx] Follow up Appointment(s)/Referral(s): Jamal Vicente DO [STAFF PHYSICIAN] - 1 Week [facility], [NON-STAFF] - ([facility] will call you to arrange a visit) Alfred Rivers DO [Primary Care Provider] - 1 Week [facility] [Provider Group] - 1 Week Discharge Disposition: HOME WITH HOME HEALTH SERVICES
[2021-11-15] MEDS ORDERED: WARFARIN 3 MG TAB PO SCH (09:00)
[2021-11-15] MEDS: METOPROLOL TARTRATE 25 MG TAB PO SCH (09:17)
[2021-11-15] MEDS: AMIODARONE 200 MG TAB PO SCH (09:17)
[2021-11-15] MEDS: HEPARIN SOD,PORK IN 0.45% NACL 25,000 UNIT in 0.45% NACL 1 250ML.BAG IV SCH (11:04)
--- NOTE | 2021-11-15 12:30 | P.PN ---
Subjective Progress Note Date: 11/15/21 HISTORY OF PRESENT ILLNESS: The patient is a 81-year-old male with past medical history of severe peripheral vascular disease who is currently admitted after undergoing open thrombectomy for a right SFA occlusion. Cardiology was consulted after the patient developed wide-complex tachycardia 1 stepdown unit. Patient was bolused with IV amiodarone with resolution of ventricular tachycardia. 11/13/2021 The patient was interviewed and examined this morning lying comfortably in bed. He states he did well overnight without any difficulty breathing, chest pains, or palpitations. 11/14/2021 Patient examined this morning at the bedside. Patient denies chest pain or pr essure. He denies shortness of breath. No further episodes of ventricular tachycardia noted. Patient remains on IV heparin. INR is 1.3 today. Echocardiogram completed revealing ejection fraction 40-45%. 11/15/2021 Patient examined this morning at the bedside. Patient denies chest pain or pressure. He denies shortness of breath. Patient's vital signs are stable. He is awaiting a life vest. PHYSICAL EXAM: VITAL SIGNS: Reviewed. GENERAL: Well-developed in no acute distress. NECK: Supple. No JVD or thyromegaly LUNGS: Respirations even and unlabored. Lungs essentially clear to auscultation bilaterally. HEART: Regular rate and rhythm. S1 and S2 heard. EXTREMITIES: Normal range of motion. No clubbing or cyanosis. Peripheral pulses intact. No lower extremity edema ASSESSMENT: Sustained ventricular tachycardia requiring chemical cardioversion with IV amiodarone Peripheral vascular disease, status post open thrombectomy for right SFA oc clusion Paroxysmal atrial fibrillation Subtherapeutic INR History of aortic valve replacement and mitral valve repair, 2012 PLAN: Continue current cardiac medications Continue current dose of amiodarone 200 mg twice a day for [address] Faye Patient will require Lifevest at the time of discharge secondary to cardiomyopathy with ventricular tachycardia Patient is stable for discharge home this afternoon after he receives a life vest from a cardiology standpoint Nurse practitioner note has been reviewed by physician. Signing provider agrees with the documented findings, assessment, and plan of care. Objective - Vital Signs Vital signs: Vital Signs Temp 97.7 F 11/15/21 11:24 Pulse 96 11/15/21 11:24 Resp 22 11/15/21 11:24 BP 105/67 11/15/21 11:24 Pulse Ox 96 11/15/21 07:24 FiO2 Intake & Output 11/14/21 11/15/21 11/15/21 18:59 06:59 18:59 Intake Total 490 Output Total 625 970 Balance -625 -970 490 Intake: Intake, IV Titration 250 Amount Heparin Sod,Pork in 0.45% 250 NaCl 25,000 unit In 0.45 % NaCl 1 250ml.bag @ 8. 9445 UNITS/KG/HR 10 mls/ hr IV .Q24H [facility] Rx#: [id number] Oral 240 Output: Urine 625 970 Other: Voiding Method Urinal Urinal Urinal # Voids 1 # Bowel Movements 2 - Labs CBC & Chem 7: 11/13/21 05:56 11/13/21 05:56 Labs: Abnormal Lab Results - Last 24 Hours (Table) 11/15/21 Range/Units 08:01 PT 15.3 H (9.0-12.0) sec INR 1.5 H (<1.2) APTT 58.7 H (22.0-30.0) sec
[2021-11-15 12:39] VITALS: RESP 20
[2021-11-15 18:19] VITALS: BP 123/79; PULSE 58; TEMP 98.2
--- NOTE | 2021-11-16 08:36 | CDI ---
Documentation Clarification Form Date: 11/15/21 From: Kriss Dacosta Admit Date: 11/04/2021 12:15:00 AM Patient Name: Gonsalo Robles Visit Number: [id number] Discharge Date: 11/15/2021 07:38:00 PM ATTENTION: The Clinical Documentation Specialists (CDI) and [facility] Coding Staff appreciate your assistance in clarifying documentation. Please respond to the clarification below the line at the bottom and electronically sign. The CDI & [facility] Coding staff will review the response and follow-up if needed. Please note: Queries are made part of the Legal Health Record. If you have any questions, please contact the author of this message via ITS. Dr. Larry Faye, Your patient has the documented diagnosis of unspecified CHF per your 11/14 PN. Additional information regarding the [type, acuity] of CHF is requested. History/Risk Factors: HTN, Rheumatic Heart Disease status post AVR MVR 2012, Noncritical CAD, Paroxysmal Atrial Fibrillation, Hypertension, Generalized Anxiety Disorder, BPH, Daily Alcohol use Clinical Indicators: Per addendum of 11/14 PN - cardiomyopathy with congestive heart failure, recurrent sustained symptomatic VT with hypotension, chemically suppressed with IV Amiodarone 11/14 VS/Pulse OX: T 98.1, P 86, R 18, BP 103/65, O2 98 BNP: none available 11/05 Echocardiogram Results: Left ventricular ejection fraction is estimated at 40-45 %. Chest X Ray: none available Treatment: Amiodarone 200 mg twice a day for 1 month, Life vest In your professional opinion, can you please clarify the [acuity and type] of CHF if known? [ ] Acute Systolic Heart Failure (reduced EF) [ ] Chronic Systolic Heart Failure (reduced EF) [ ] Acute on Chronic Systolic Heart Failure (reduced EF) [ ] Acute Diastolic Heart Failure (preserved EF) [ ] Chronic Diastolic Heart Failure (preserved EF) [ ] Acute on Chronic Diastolic Heart Failure (preserved EF) [ ] Acute Systolic & Diastolic Heart Failure [ ] Chronic Systolic & Diastolic Heart Failure [ ] Acute on Chronic Heart Failure Systolic & Diastolic Heart Failure [ ] Other, please specify [ ] Unable to determine Unable to determine MTDD
--- NOTE | 2021-11-20 06:30 | CDI ---
Documentation Clarification Form Date: 11/16/2021 08:35:00 AM From: Kriss Dacosta Admit Date: 11/04/2021 12:15:00 AM Patient Name: Gonsalo Robles Visit Number: [id number] Discharge Date: 11/15/2021 07:38:00 PM ATTENTION: The Clinical Documentation Specialists (CDI) and [facility] Coding Staff appreciate your assistance in clarifying documentation. Please respond to the clarification below the line at the bottom and electronically sign. The CDI & [facility] Coding staff will review the response and follow-up if needed. Please note: Queries are made part of the Legal Health Record. If you have any questions, please contact the author of this message via ITS. Dr. Larry Faye, Your patient has the documented diagnosis of unspecified CHF per your 11/14 PN addendum. Additional information regarding the [type, acuity] of CHF is requested. History/Risk Factors: HTN, Rheumatic Heart Disease status post AVR MVR 2012, Noncritical CAD, Paroxysmal Atrial Fibrillation, Hypertension, Generalized Anxiety Disorder, BPH, Daily Alcohol use Clinical Indicators: Per addendum of 11/14 PN - cardiomyopathy with congestive heart failure, recurrent sustained symptomatic VT with hypotension, chemically suppressed with IV Amiodarone 11/14 VS/Pulse OX: T 98.1, P 86, R 18, BP 103/65, O2 98 BNP: none available 11/05 Echocardiogram Results: Left ventricular ejection fraction is estimated at 40-45 %. Chest X Ray: none available Treatment: Amiodarone 200 mg twice a day for 1 month, Life Vest In your professional opinion, can you please clarify the [acuity and type] of CHF if known? [ ] Acute Systolic Heart Failure (reduced EF) [ ] Chronic Systolic Heart Failure (reduced EF) [ ] Acute on Chronic Systolic Heart Failure (reduced EF) [ ] Acute Diastolic Heart Failure (preserved EF) [ ] Chronic Diastolic Heart Failure (preserved EF) [ ] Acute on Chronic Diastolic Heart Failure (preserved EF) [ ] Acute Systolic & Diastolic Heart Failure [ ] Chronic Systolic & Diastolic Heart Failure [ ] Acute on Chronic Heart Failure Systolic & Diastolic Heart Failure [ ] Other, please specify [ ] Unable to determine Unable to determine MTDD
== END 2021-11-15 19:38 | disposition home health service (06) | DRG 271 ==
LOC: EC 17:52 → 2SICU 11-04 00:15 → 3SCARD 11-09 16:26 → 2SICU 11-10 09:24 → 3SCARD 11-13 15:15
PROVIDERS: ADMIT Internal Medicine Geriatric Medicine; ATTEND Internal Medicine Geriatric Medicine
PROC: B41F1ZZ Fluoroscopy of Right Lower Extremity Arteries using Low Osmolar Contrast (ICD-10-PCS; 2021-11-04 16:00)
PROC: 3E05317 Introduction of Other Thrombolytic into Peripheral Artery, Percutaneous Approach (ICD-10-PCS; 2021-11-04 16:00)
PROC: B41F1ZZ Fluoroscopy of Right Lower Extremity Arteries using Low Osmolar Contrast (ICD-10-PCS; 2021-11-04 16:00)
PROC: 3E05317 Introduction of Other Thrombolytic into Peripheral Artery, Percutaneous Approach (ICD-10-PCS; 2021-11-04 16:00)
PROC: B41G1ZZ Fluoroscopy of Left Lower Extremity Arteries using Low Osmolar Contrast (ICD-10-PCS; 2021-11-06)
PROC: 30233N1 Transfusion of Nonautologous Red Blood Cells into Peripheral Vein, Percutaneous Approach (ICD-10-PCS; 2021-11-06)
PROC: 04CM0ZZ Extirpation of Matter from Right Popliteal Artery, Open Approach (ICD-10-PCS; principal; 2021-11-06 12:30)
PROC: 04CH0ZZ Extirpation of Matter from Right External Iliac Artery, Open Approach (ICD-10-PCS; principal; 2021-11-06 12:30)
PROC: 04CK0ZZ Extirpation of Matter from Right Femoral Artery, Open Approach (ICD-10-PCS; principal; 2021-11-06 12:30)
PROC: B41F1ZZ Fluoroscopy of Right Lower Extremity Arteries using Low Osmolar Contrast (ICD-10-PCS; principal; 2021-11-06 12:30)
PROC: 04CP0ZZ Extirpation of Matter from Right Anterior Tibial Artery, Open Approach (ICD-10-PCS; principal; 2021-11-06 12:30)
PROC: 04CR0ZZ Extirpation of Matter from Right Posterior Tibial Artery, Open Approach (ICD-10-PCS; principal; 2021-11-06 12:30)
DX: I74.3 Embolism and thrombosis of arteries of the lower extremities (principal); D62 Acute posthemorrhagic anemia; I47.2 Ventricular tachycardia; I42.9 Cardiomyopathy, unspecified; I47.1 Supraventricular tachycardia; I97.89 Other postprocedural complications and disorders of the circulatory system, not elsewhere classified; D69.6 Thrombocytopenia, unspecified; I95.9 Hypotension, unspecified; I70.221 Atherosclerosis of native arteries of extremities with rest pain, right leg; I11.0 Hypertensive heart disease with heart failure; I50.9 Heart failure, unspecified; I48.0 Paroxysmal atrial fibrillation; I72.4 Aneurysm of artery of lower extremity; I77.810 Thoracic aortic ectasia; Z28.310 Unvaccinated for COVID-19; I44.0 Atrioventricular block, first degree; R58 Hemorrhage, not elsewhere classified; I44.7 Left bundle-branch block, unspecified; I08.3 Combined rheumatic disorders of mitral, aortic and tricuspid valves; N40.0 Benign prostatic hyperplasia without lower urinary tract symptoms; N20.0 Calculus of kidney; N28.1 Cyst of kidney, acquired; I25.10 Atherosclerotic heart disease of native coronary artery without angina pectoris; F41.1 Generalized anxiety disorder; R31.0 Gross hematuria; R79.1 Abnormal coagulation profile; Z79.01 Long term (current) use of anticoagulants; Z79.899 Other long term (current) drug therapy; Z95.3 Presence of xenogenic heart valve; Z86.718 Personal history of other venous thrombosis and embolism; Z86.16 Personal history of COVID-19; Z95.1 Presence of aortocoronary bypass graft; Z82.49 Family history of ischemic heart disease and other diseases of the circulatory system; Y92.230 Patient room in hospital as the place of occurrence of the external cause; Y83.8 Other surgical procedures as the cause of abnormal reaction of the patient, or of later complication, without mention of misadventure at the time of the procedure
CPT/HCPCS: 36015; 36200; 36247; 36415; 75630; 75635; 75710; 76937; 80048; 80053; 81001; 82565; 82607; 82728; 82746; 83540; 83550; 83605; 83615; 83735; 84484; 84520; 85025; 85027; 85384; 85610; 85730; 86850; 86900; 86901; 86920; 88304; 93005; 93306; 96361; 96365; 96366; 99285

== ENCOUNTER 2021-11-20 11:47 | Emergency (ER) | payer MEDICARE ==
[2021-11-20 11:52] VITALS: RESP 18
[2021-11-20] MEDS ORDERED: ACETAMINOPHEN TAB 500 MG TAB PO STA (12:09)
--- NOTE | 2021-11-20 13:09 | US ---
EXAMINATION TYPE: US venous doppler duplex LE LT DATE OF EXAM: 11/20/2021 12:59 PM COMPARISON: NONE CLINICAL HISTORY: knee pain, hx of arterial occlusion. Knee pain x 3 weeks. Hx of arterial occlusion SIDE PERFORMED: Left TECHNIQUE: The lower extremity deep venous system is examined utilizing real time linear array sonog lupillo with graded compression, doppler sonography and color-flow sonography. VESSELS IMAGED: Common Femoral Vein Deep Femoral Vein Greater Saphenous Vein * Femoral Vein Popliteal Vein Small Saphenous Vein * Proximal Calf Veins (* superficial vessels) Left Leg: Negative for DVT. The popliteal artery is enlarged, but still has flow. IMPRESSION: 1. No diagnostic evidence of DVT. 2. 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 Correlat e clinically. Consider vascular surgery consultation.
--- NOTE | 2021-11-20 14:03 | XR ---
EXAMINATION TYPE: XR knee complete LT DATE OF EXAM: 11/20/2021 COMPARISON: NONE HISTORY: Pain TECHNIQUE: Three views are submitted. FINDINGS: Severe hypertrophic arthropathy patellofemoral joint with moderate to severe changes involving the me dial lateral compartments of the knee joint.. Osseous structures are intact. No acute fracture seen . Vascular calcifications. IMPRESSION: 1. No acute fracture or dislocation. 2. Moderate to severe osteoarthritis.
[2021-11-20 14:11] LABS: Anisocytosis Slight; Basophils % (A) 0 %; Eosinophils # (A) 0.2 k/uL (0-0.7); Eosinophils % (A) 2 %; HGB 10.8 gm/dL (13.0-17.5); Hypochromasia Moderate; Lymphocytes # (A) 0.8 k/uL (1.0-4.8); Lymphocytes % (A) 9 %; MCH 31.1 pg (25.0-35.0); MCHC 31.7 g/dL (31.0-37.0); MCV 98.1 fL (80.0-100.0); Macrocytosis Slight; Mean Platelet Volume 7.6; Monocytes # (A) 0.8 k/uL (0-1.0); Monocytes % (A) 9 %; Neutrophils # (A) 6.9 k/uL (1.3-7.7); Neutrophils % (A) 78 %; Platelet Count 268 k/uL (150-450); RBC 3.47 m/uL (4.30-5.90); WBC 8.9 k/uL (3.8-10.6)
[2021-11-20 14:23] LABS: Albumin 3.3 g/dL (3.5-5.0); Calcium 8.4 mg/dL (8.4-10.2); Potassium 4.9 mmol/L (3.5-5.1); Total Bilirubin 2.7 mg/dL (0.2-1.3); Total Protein 6.2 g/dL (6.3-8.2)
--- NOTE | 2021-11-20 14:35 | ED ---
Extremity Problem HPI - General Chief complaint: Extremity Problem,Nontraumatic Stated complaint: knee pain Time Seen by Provider: 11/20/21 11:53 Source: patient Mode of arrival: EMS Limitations: no limitations - History of Present Illness Initial comments: Patient is 81-year-old male with a past medical history of hypertension, coronary artery disease, atrial fibrillation on Coumadin who presents to the emergency department with a chief complaint of left knee pain. Patient states the pain started yesterday on the outside of his knee and below his knee. He denies injury however states several years ago he had a bad left heal injury which causes him to twist the knee while walking. Patient feels that his pain may be related to this. States there is minimal pain at rest however patient is significantly increased with walking. Reports knee swelling. Denies pain and swelling of the left thigh, leg, and foot. Patient was discharged 2 days ago for arterial occlusion of the right popliteal and femoral artery. At this time he had no sensation in his right lower extremity. Thrombolysis with TPA was performed. Reports no loss of sensation of the left lower extremity today. He denies numbness and tingling. Denies coldness of the extremity. - Related Data Home Medications Medication Instructions Recorded Confirmed ALPRAZolam [Xanax] 0.25 mg PO HS PRN 11/03/21 11/03/21 Cholecalciferol [Vitamin D3 (25 25 mcg PO DAILY 11/03/21 11/03/21 Mcg = 1000 Iu)] Melatonin Unknown Dose 1 tab PO HS 11/03/21 11/03/21 Tamsulosin [Flomax] 0.4 mg PO HS 11/03/21 11/03/21 Previous Rx's Medication Instructions Recorded Amiodarone [Cordarone] 200 mg PO BID #60 tab 11/15/21 Metoprolol Tartrate [Lopressor] 25 mg PO BID #60 tab 11/15/21 Warfarin [Coumadin] 2.5 - 5 mg PO DAILY #0 11/15/21 Acetaminophen Tab [Tylenol] 650 mg PO Q4H PRN #42 tab 11/20/21 Allergies Allergy/AdvReac Type Severity Reaction Status Date / Time No Known Allergies Allergy Verified 11/20/21 11:52 Review of Systems ROS Statement: Those systems with pertinent positive or pertinent negative responses have been documented in the HPI. ROS Other: All systems not noted in ROS Statement are negative. Past Medical History Past Medical History: Atrial Fibrillation, Coronary Artery Disease (CAD), Hypertension Additional Past Medical History / Comment(s): COVID History of Any Multi-Drug Resistant Organisms: None Reported Past Surgical History: Coronary Bypass/CABG, Hernia Repair Past Anesthesia/Blood Transfusion Reactions: No Reported Reaction Past Psychological History: No Psychological Hx Reported Smoking Status: Never smoker Past Alcohol Use History: Occasional Past Drug Use History: None Reported General Exam Limitations: no limitations General appearance: alert, in no apparent distress Head exam: Present: atraumatic, normocephalic, normal inspection Eye exam: Present: normal appearance, PERRL, EOMI. Absent: scleral icterus, conjunctival injection, periorbital swelling Respiratory exam: Present: normal lung sounds bilaterally. Absent: respiratory distress, wheezes, rales, rhonchi, stridor Cardiovascular Exam: Present: regular rate, normal rhythm, normal heart sounds. Absent: systolic murmur, diastolic murmur, rubs, gallop, clicks Extremities exam: Present: other (2+ dorsalis pedis pulses ) Left Knee exam: Present: normal inspection, full ROM, tenderness (lateral to knee cap ), swelling (mild superior to knee cap ), ecchymosis (healing bruises medially, patient had recent cath). Absent: deformity Lower Leg exam: Present: normal inspection, full ROM. Absent: tenderness, swe lling, Homans' sign Ankle exam: Present: normal inspection, full ROM. Absent: tenderness, swelling Foot/Toe exam: Present: normal inspection, full ROM. Absent: tenderness, swelling Neurovascular tendon exam: Present: no vascular compromise. Absent: abnormal cap refill, motor deficit, sensory deficit, extremity cold to touch, pallor, foot drop Course Vital Signs 11/20/21 11/20/21 11:47 16:00 Temperature 97 F L 97.2 F L Pulse Rate 74 73 Respiratory 18 18 Rate Blood Pressure 112/62 106/72 O2 Sat by Pulse 98 99 Oximetry Medical Decision Making - Medical Decision Making This is a 81-year-old male presenting with left knee pain. Thorough history and examination were performed. There is mild tenderness to palpation of the lateral left knee with mild swelling superior to the knee cap. No effusion. Increased pain with varus stress. The left lower extremity is warm. It is normal in skin color. Dorsalis pedis pulses 2+ bilaterally. Given patient's history of vascular issues I did obtain ultrasound with Doppler of the left lower extremity. This was negative for DVT however showed an enla rged popliteal artery with blood flow. At this time CT angiogram was performed which showes continued complete occlusion of the proximal left tibial artery with distal reconstitution distally and a partially thrombosed popliteal artery aneurysm. Results discussed with patient. There is no evidence of limb ischemia. He will need to follow-up with client renewal specialist as well as vascular surgery. Patient placed in knee immobilizer for comfort. He uses a walker at home. He can bear weight as tolerated. I did speak with Dr. Raines personally over the phone regarding patient's left popliteal artery aneurysm. She is comfortable with patient following up tomorrow. Patient made aware and will follow-up with her for his knee pain as well as staple removal. Dr. Marx is my attending. - Lab Data Result diagrams: 11/20/21 13:43 11/20/21 13:43 Lab Results 11/20/21 11/20/21 11/20/21 Range/Units 13:43 13:43 13:43 WBC 8.9 (3.8-10.6) k/uL RBC 3.47 L (4.30-5.90) m/uL Hgb 10.8 L (13.0-17.5) gm/dL Hct 34.0 L (39.0-53.0) % MCV 98.1 (80.0-100.0) fL MCH 31.1 (25.0-35.0) pg MCHC 31.7 (31.0-37.0) g/dL RDW 17.0 H (11.5-15.5) % Plt Count 268 (150-450) k/uL MPV 7.6 Neutrophils % 78 % Lymphocytes % 9 % Monocytes % 9 % Eosinophils % 2 % Basophils % 0 % Neutrophils # 6.9 (1.3-7.7) k/uL Lymphocytes # 0.8 L (1.0-4.8) k/uL Monocytes # 0.8 (0-1.0) k/uL Eosinophils # 0.2 (0-0.7) k/uL Basophils # 0.0 (0-0.2) k/uL Hypochromasia Moderate Anisocytosis Slight Macrocytosis Slight PT 22.0 H (9.0-12.0) sec INR 2.2 H (<1.2) APTT 33.2 H (22.0-30.0) sec Sodium 135 L (137-145) mmol/L Potassium 4.9 (3.5-5.1) mmol/L Chloride 106 (98-107) mmol/L Carbon Dioxide 23 (22-30) mmol/L Anion Gap 6 mmol/L BUN 27 H (9-20) mg/dL Creatinine 1.17 (0.66-1.25) mg/dL Est GFR (CKD-EPI)AfAm 68 (>60 ml/min/1.73 sqM) Est GFR (CKD-EPI)NonAf 59 (>60 ml/min/1.73 sqM) Glucose 97 (74-99) mg/dL Calcium 8.4 (8.4-10.2) mg/dL Total Bilirubin 2.7 H (0.2-1.3) mg/dL AST 71 H (17-59) U/L ALT 156 H (4-49) U/L Alkaline Phosphatase 205 H (38-126) U/L Total Protein 6.2 L (6.3-8.2) g/dL Albumin 3.3 L (3.5-5.0) g/dL Disposition Clinical Impression: Left lateral knee pain Disposition: HOME SELF-CARE Condition: Good Instructions (If sedation given, give patient instructions): Knee Pain (ED) Additional Instructions: Follow-up with client renewal specialist in 1-2 days. You may wear knee immobilizer for comfort. Take Tylenol for pain. You may also apply warm compress which may help symptoms. Follow-up with vascular surgeon for staple removal. Call first thing in the morning tomorrow for an appointment. Return to the emergency department if you experience new, concerning, or worsening symptoms. Prescriptions: Acetaminophen Tab [Tylenol] 650 mg PO Q4H PRN #42 tab PRN Reason: Pain Is patient prescribed a controlled substance at d/c from ED?: No Referrals: Alfred Rivers DO [Primary Care Provider] - 1-2 days Hector Loza MD [STAFF PHYSICIAN] - 1-2 days Time of Disposition: 16:23
[2021-11-20 14:38] LABS: INR 2.2 (<1.2); Partial Thromboplastin Time 33.2 sec (22.0-30.0)
--- NOTE | 2021-11-20 15:45 | CT ---
EXAMINATION TYPE: CT angio abd aorta w/Runoff CT DLP: 3516 mGycm, Automated exposure control for dose reduction was used. DATE OF EXAM: 11/20/2021 3:10 PM COMPARISON: CTA abdomen pelvis with runoff 11/03/2021. CLINICAL INDICATION:Male, 81 years old with history of left knee pain, enlarged pop artery on US; TECHNIQUE: Multiple axial CT images of the abdomen, and pelvis with runoff were obtained prior and to the administration of IV contrast. 3-D reformats and maximum intensity projection format were perfor med on a separate workstation. Then the abdomen was scanned after administration of 100 cc of Isovue 370 IV contrast. FINDINGS: ARTERIAL VASCULATURE: The abdominal aorta is normal in course and caliber without evidence of dissection or aneurysm. Ather osclerotic calcification of the aorta and its branches. The celiac axis and SMA are widely patent. Th e BAM is widely patent. Single right and 2 left renal arteries are patent. Atherosclerotic calcificat ion of the bilateral patent common iliac arteries. There is arterial flow within the bilateral femora l arteries. There is now flow demonstrated within the proximal right femoral artery. There is arteria l flow seen distally in the superficial femoral artery and the profunda femoris artery bilaterally. T here is no arterial flow demonstrated within the right popliteal artery. Bilateral popliteal artery p artially thrombosed aneurysms identified. The right measures 2.4 cm with the remaining patent lumen m easuring 1.4 cm. The left measures 2.8 cm with a patent remaining lumen measuring 1.1 cm. The right a nterior tibial artery is patent. There is continued complete occlusion of the proximal left tibia art ned. There is reconstitution distally with 2 vessels crossing the ankle joint. The right tibia artery is patent and crosses the ankle joint. Lungs/pleura: Trace bilateral pleural effusions with right greater than left. Associated subsegmental atelectasis. Heart: Mildly enlarged. No pericardial effusion. Mitral valve prosthesis. Epicardial leads. Abdomen: Liver: Unremarkable. Gallbladder and Bile ducts: Unremarkable. Pancreas: Unremarkable. Spleen: Unremarkable. Adrenal glands: Unremarkable. Kidneys and Ureters: No hydronephrosis. Nonobstructive right renal calculi with largest measuring up to 2 cm. Stable right superior pole cyst measuring up to 9.8 cm. Nonspecific bilateral perinephric fa t stranding. Stomach and Bowel: Small hiatal hernia. No evidence of bowel obstruction. Peritoneum: No evidence of pneumoperitoneum, free fluid, or adenopathy. Bladder: Unremarkable. Reproductive: Not enlarged prostate gland. Prostate calculi identified. Abdominal wall/soft tissues: Right inguinal 3.7 cm hyperdensity region most consistent with a hematom a. No evidence for contrast extravasation. Post surgical changes in the right inguinal region with sk in saul identified. Stranding demonstrated within the left inguinal region possibly related to abilio or vasculature access. Patulous right inguinal ring. Musculoskeletal: The osseous structures appear intact. Median sternotomy wires. Degenerative changes of the visualized spine. Small left popliteal fossa cyst. IMPRESSION: * Interval posttreatment changes with jewish of arterial flow in the right femoral artery and r ight popliteal artery. * Continued complete occlusion of the proximal left tibial artery with distal reconstitution distall y. * Bilateral partially thrombosed popliteal artery aneurysms as described above. * Small right inguinal hematoma without evidence for active extravasation.
[2021-11-20 16:03] VITALS: BP 106/72; PULSE 73; TEMP 97.2
== END 2021-11-20 16:45 | disposition home or self-care (01) ==
LOC: EC 11:47
DX: M25.562 Pain in left knee (principal); I10 Essential (primary) hypertension; I48.91 Unspecified atrial fibrillation; I25.10 Atherosclerotic heart disease of native coronary artery without angina pectoris; Z72.89 Other problems related to lifestyle; Z79.01 Long term (current) use of anticoagulants; Z79.899 Other long term (current) drug therapy
CPT/HCPCS: 36415; 93005; 80053; 85025; 85610; 85730; 73562; 93971; 75635; 99284; Q9967

== ENCOUNTER 2022-04-11 05:55 | Day surgery (SDC) | payer MEDICARE ==
[2022-04-11] MEDS ORDERED: LACTATED RINGERS 1,000 ML IV SCH (06:16)
[2022-04-11] MEDS ORDERED: SODIUM CHLORIDE 0.9% 1,000 ML IV SCH (06:16)
[2022-04-11 06:30] VITALS: RESP 18; TEMP 98
[2022-04-11] MEDS ORDERED: PROPOFOL 10 MG/ML 20 ML VIAL IV ONE (07:18)
[2022-04-11] MEDS ORDERED: HEPARIN SODIUM,PORCINE 5,000 UNIT/ML 1 ML VIAL ONE (07:18)
[2022-04-11 07:21] LABS: INR 1.9 (<1.2); Prothrombin Time 18.6 sec (9.0-12.0)
[2022-04-11] MEDS ORDERED: ENOXAPARIN 100 MG/ML SYRINGE SQ STA (07:40)
--- NOTE | 2022-04-11 08:01 | P.EPPROC ---
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 medical Procedure Defibrillation level testing on oral amiodarone ICD interrogation with reprogramming Details 5000 units of IV heparin given prior to the start, INR 1.9 RV lead pacing threshold 0.5 V at 0.5 ms, R waves greater than 12 mV and pacing impedance 460 ohms HV impedance 64 ohms VF was induced And successfully Detection at least sensitivity without any dropouts 10 J shock was unsuccessful in defibrillated the patient A 20 J shock in cathodal vector was successful in defibrillating the patient sinus rhythm No dropouts No post shock noise A total charge time 2.3 seconds High-voltage impedance 70 ohms The device was then reprogrammed to nominal sensitivity 3 zones for tachycardia therapies with appropriate antitachycardia pacing cardioversion and defibrillation and with appropriate detection intervals The patient was in atrial fibrillation with RVR, symptomatic, the start of the study DFT testing resulted in conversion to sinus rhythm Plan Lovenox 100 mg subcutaneous Increase dose of Coumadin Recheck Coumadin level tomorrow, home monitoring Reduce amiodarone to 100 mg by mouth daily Resume beta blockers, carvedilol 3.125 mg twice daily
[2022-04-11 08:41] VITALS: PULSE 60
[2022-04-11 08:58] VITALS: BP 144/94
== END 2022-04-11 09:13 | disposition home or self-care (01) ==
LOC: CATHEP 05:55
PROVIDERS: ATTEND Internal Medicine Clinical Cardiac Electrophysiology
DX: I42.9 Cardiomyopathy, unspecified (principal); I47.1 Supraventricular tachycardia; I48.19 Other persistent atrial fibrillation; I25.10 Atherosclerotic heart disease of native coronary artery without angina pectoris; I10 Essential (primary) hypertension; Z95.810 Presence of automatic (implantable) cardiac defibrillator; M19.90 Unspecified osteoarthritis, unspecified site; Z79.810 Long term (current) use of selective estrogen receptor modulators (SERMs); Z79.01 Long term (current) use of anticoagulants; Z79.818 Long term (current) use of other agents affecting estrogen receptors and estrogen levels; Z79.52 Long term (current) use of systemic steroids; Z79.82 Long term (current) use of aspirin; Z79.83 Long term (current) use of bisphosphonates; Z79.899 Other long term (current) drug therapy
CPT/HCPCS: 93642; 85610; J1644; J1650; J2704

== ENCOUNTER → 2022-07-10 | Outpatient (CLI) | payer MEDICARE ==
--- NOTE | 2022-07-10 16:17 | CT ---
EXAMINATION TYPE: CT urogram wo/w con DATE OF EXAM: 07/10/2022 COMPARISON: Prior CT November 20, 2021 and May 31, 2020 HISTORY: Gross hematuria CT DLP: 3907 mGycm, Automated Exposure Control for Dose Reduction was Utilized. CONTRAST: CT scan of the abdomen and pelvis is performed without oral and without and with IV Contrast, patient injected with 100 mL of Isovue 300. Urogram protocol with 3-D reconstructed images created on an [employer] workstation and reviewed FINDINGS: KUB: No left-sided nephrolithiasis on noncontrast images. Redemonstration of large 2.0 cm calculus lo wer pole right kidney axial image 69 that appears stable from last 2 CTs. No new renal calculi seen b ilaterally. Postcontrast images show symmetric cortical medullary uptake and excretion without hydron ephrosis seen bilaterally. There is persistent large exophytic thin-walled cyst laterally from the up per to mid pole level right kidney measuring approximately 10.8 x 10.1 cm axial image 35 series 6 x 1 0.1 cm craniocaudal dimension coronal image 57 series 4. Occasional punctate subcentimeter low dense lesion lower pole right kidney favors benign thin-walled cyst. No concerning solid mass seen bilatera lly. Incomplete opacification of bilateral ureters without calculus or mass. No intraluminal calculus or mass in the bladder. LUNG BASES: Partial visualization of post-CABG changes and right-sided pacemaker wires. Anterior epic ardial pacer wires are redemonstrated. Mild cardiomegaly is again seen. Calcification at level of the mitral and aortic valves is partially imaged. Suspected left atrial dilatation is partially imaged. LIVER/GB: Tiny dependent gallstones redemonstrated. PANCREAS: No significant abnormality is seen. SPLEEN: No significant abnormality is seen. ADRENALS: No significant abnormality is seen. BOWEL: Some sigmoid colonic diverticula. No CT evidence for acute diverticulitis. Incidental roughly 3.7 cm third portion duodenal diverticulum coronal image 44 series 4 redemonstrated. No suspicious sm all or large bowel dilatation. PROSTATE/SEMINAL VESICLES: No prostate gland measures upper limits of normal with central calcificat ion. LYMPH NODES: No greater than 1cm abdominal or pelvic lymph nodes are appreciated. OSSEOUS STRUCTURES: Slight scoliosis with multilevel spurring in the thoracolumbar spine redemonstrat ed. Multilevel vacuum disc phenomenon and disc space narrowing is again seen. OTHER: Residual scarring right groin region anteriorly redemonstrated axial image 136 series 3. IMPRESSION: Stable 2.0 cm lower pole right renal calculus. No new renal calculi bilaterally. Stable B osniak 2F large exophytic 10.8 cm thin-walled cyst from the right kidney. No new concerning solid or cystic masses.
== END | disposition home or self-care (01) ==
LOC: RADCTMAIN 13:23
PROVIDERS: ATTEND Urology
DX: N20.0 Calculus of kidney (principal); N28.1 Cyst of kidney, acquired; R31.0 Gross hematuria
CPT/HCPCS: 82565; 84520; 74178; 36415; 74400; Q9967

== ENCOUNTER → 2023-06-05 | Outpatient (CLI) | payer MEDICARE ==
--- NOTE | 2023-06-05 10:46 | CT ---
EXAMINATION TYPE: CT abdomen pelvis wo con CT DLP: 1188 mGycm, Automated exposure control for dose reduction was used. DATE OF EXAM: 06/05/2023 10:22 AM COMPARISON: 07/10/2022 CLINICAL INDICATION:Male, 82 years old with history of R10.9 UNSPECIFIED ABDOMINAL PAIN; abdominal pa in TECHNIQUE: Axial CT abdomen pelvis wo con;Sagittal and coronal reformats were created on a separate workstation. Contrast used: mL of , (none if empty) Oral contrast used: with Oral Contrast (none if empty) FINDINGS: LOWER CHEST: Left lower lobe calcified granuloma. Cardiac conduction device leads terminating in the right ventricle and atrium. Atherosclerosis of the arterial vasculature lateral annular and aortic va lve repair changes. ABDOMEN LIVER: Diffusely hypoattenuating parenchyma. GALLBLADDER AND BILE DUCTS: Layering increased densities within the lumen consistent with gallstones are present. PANCREAS: Unremarkable. SPLEEN: Unremarkable. ADRENAL GLANDS: Unremarkable. KIDNEYS AND URETERS: Interval decrease in right r cyst measuring 6.8 by today's exam previously measu ring up to 10.4 cm. Nonobstructing right calculus measuring up to 20 x 14 mm. No left renal calculus. No hydronephrosis. No evidence of hydronephrosis or renal calculus. The ureters are unremarkable. PELVIS BLADDER: Unremarkable REPRODUCTIVE: Coarse calcifications of the prostate gland are identified. ABDOMEN & PELVIS STOMACH AND BOWEL: No evidence of bowel obstruction. The appendix is normal. Third portion duodenal d iverticulum. PERITONEUM/RETROPERITONEUM: No evidence of pneumoperitoneum or free fluid. VASCULATURE: Mild atherosclerotic calcifications are present throughout the abdominal aorta and its b ranches. No evidence of aortic aneurysm. MUSCULOSKELETAL: No acute osseous abnormalities. Mild disc degeneration changes are present throughou t the thoracolumbar spine. LYMPH NODES: No gross evidence for lymphadenopathy. SOFT TISSUE/ABDOMINAL WALL: Right fat containing inguinal hernia. IMPRESSION: 1. No evidence for acute abdominal process. Nonobstructing right renal calculus. 2. Interval decrease in size of right large renal simple cyst. 3. Cholelithiasis. 4. Hepatic steatosis.
== END | disposition home or self-care (01) ==
LOC: RADCTMAIN 08:19
PROVIDERS: ATTEND Family Medicine
DX: N20.0 Calculus of kidney (principal); N28.1 Cyst of kidney, acquired; K80.20 Calculus of gallbladder without cholecystitis without obstruction; K76.0 Fatty (change of) liver, not elsewhere classified
CPT/HCPCS: 74176

== ENCOUNTER → 2023-08-25 | Outpatient (CLI) | payer MEDICARE ==
--- NOTE | 2023-08-25 17:35 | XR ---
EXAMINATION TYPE: XR wrist complete RT DATE OF EXAM: 08/25/2023 3:02 PM CLINICAL INDICATION:Male, 82 years old with history of SWOLLEN WRIST, M25. 431; [facility] COMPARISON: None TECHNIQUE: XR wrist complete RT; examined in the Frontal, navicular, lateral, and oblique. FINDINGS: No acute osseous pathology, joint dislocation, or joint effusion. No evidence of any soft tissue swelling is seen. There is severe degeneration with osteophyte formation joint space narrowing most pronounced at the wrists and first digit carpometacarpal joint. IMPRESSION: 1. No acute osseous pathology. 2. 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
== END | disposition home or self-care (01) ==
LOC: RADXRMAIN 14:37
PROVIDERS: ATTEND Family Medicine
DX: M19.031 Primary osteoarthritis, right wrist (principal); M25.431 Effusion, right wrist